=== PATIENT | female | born 1975 | race Caucasian/White ===

== ENCOUNTER → 2016-03-12 | Outpatient (REF) | payer MEDICARE, OTHER ==
[~2016-03-12] MED LIST: BACL10TA2 PO; GABA-279 PO; GABA300C3 PO; LEVOTAB10 PO; LISI-538 PO; META800T82 PO; OXYC5CAP28 PO; SIMV20TA2 PO; STOO100C PO; SYNT50TA PO; VITA-171 PO; YASM3TAB2 PO; [UNRECOGNIZED DRUG - CODE] PO
== END ==
LOC: M LAB REF 12:41
PROVIDERS: ATTEND Nurse Practitioner Women's Health
DX: Z12.4 Encounter for screening for malignant neoplasm of cervix (principal)

== ENCOUNTER → 2016-03-25 | Outpatient (CLI) | payer MEDICARE, OTHER ==
--- NOTE | 2016-03-27 00:11 | ECWPNPC ---
PATIENT NAME: ILAN PAGE : 1975 GENDER: FEMALE VISIT DATE: 03/25/2016 DISCHARGE DATE: 03/25/16 1635 VISIT LOCKED DATE TIME: PHYSICIAN: NATALIA AGGARWAL RESOURCE: NATALIA AGGARWAL REASON FOR APPOINTMENT 1. BACK PAIN HISTORY OF PRESENT ILLNESS HISTORY OF PRESENT ILLNESS: PAIN THE PATIENT DESCRIBES THE PAIN... 40 YEAR OLD FEMALE PATIENT WITH HISTORY OF CHRONIC BACK AND RIB PAIN. PATIENT DESCRIBES THE PAIN ACHING, BURNING, SHARP, STABBING, TENDER, THROBBING, SORE, SHOOTING AND HAVING IT ALL THE TIME WITH A PAIN SCORE OF 6/10. PATIENT IS CURRENTLY USING OXYCODONE TO AID IN PAIN RELIEF. PATIENT RECEIVED AN INJECTION A FEW MONTHS AGO AND STATES THAT SHE IS WILLING TO TRY THE INJECTION ANOTHER TIME. PATIENT STATES THAT ANY TYPE OF ACTIVITY INCREASES THE PAIN AND AT THIS TIME THE ONLY THING THAT HAS GIVEN HER PAIN RELIEF IN THE MEDICATION. PATIENT DENIES UNEXPLAINABLE WEIGHT LOSS, FEVER, CHILLS, NEW CHANGES ON HER URINARY OR BOWEL CONTROL. FALL RISK SCREENING: SCREENING :NO FALLS IN THE PAST YEAR CURRENT MEDICATIONS TAKING VITAMIN D 1000 UNIT TABLET 1 TABLET ORALLY ONCE A DAY TAKING ANUPAM 28 3-0.03 MG TABLET 1 TABLET ORALLY ONCE A DAY TAKING SYNTHROID 50 50MCG TABLET DIRECTED ORAL ONCE DAILY TAKING SIMVASTATIN 20 20MG TABLET 1 TABLET ORALLY ONCE A DAY TAKING LISINOPRIL 20 MG TABLET 1 TABLET ORALLY ONCE A DAY TAKING OXYCODONE HCL 7.5 MG TABLET ABUSE-DETERRENT 1 TABLET NEEDED ORALLY FOUR TIMES DAILY NEEDED TAKING OMEPRAZOLE 40 MG PACKET 1 CAP(S) ORALLY ONCE DAILY TAKING STOOL SOFTENER 100 MG CAPSULE 1 CAPSULE NEEDED ORALLY BID TAKING LEVOCETIRIZINE DIHYDROCHLORIDE 5 MG TABLET 1 TABLET IN THE EVENING ORALLY ONCE A DAY TAKING ATIVAN 2 MG TABLET 1 TABLET AT BEDTIME NEEDED ORALLY ONCE A DAY NOT-TAKING FLECTOR 1.3 % PATCH 1 PATCH TO SKIN TRANSDERMAL TWICE A DAY FOR PAIN NOT-TAKING ASTELIN 137 MCG/SPRAY SOLUTION 1 PUFF NASALLY NEEDED NOT-TAKING TESSALON PERLES 100 MG CAPSULE 1 CAPSULE NEEDED ORALLY THREE TIMES A DAY NOT-TAKING PENNSAID 1.5% 1.5% DROPS 40 AT RIGHT RIB AREA THREE TIMES DAILY NOT-TAKING GABAPENTIN 300 MG CAPSULE 1 CAPSULE ORALLY FOUR TIMES A DAY 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 FAMILY HISTORY NO FAMILY HISTORY DOCUMENTED. SOCIAL HISTORY GENERAL: TOBACCO USE ARE YOU A:NONSMOKER LEARNING BARRIERS / SPECIAL NEEDS ORIENTED TO PLAN OF CARE: PATIENT, PAIN MANAGEMENT PATIENT, ORIENTED TO PLAN OF CARE: PATIENT, PAIN MANAGEMENT PATIENT. NEW PATIENT PAIN DIARY TODAY'S VISITNOTES FROM 0-10, WHAT LEVEL IS YOUR PAIN TODAY?0 PAIN CLINIC PFS, CLERGY, PUBLIC HEALTH REFERRALS PFS REFERRAL NEEDED?NO CLERGY REFERRAL NEEDED?NO PUBLIC HEALTH REFERRAL NEEDED?NO WAS THE PROVIDER NOTIFIED OF ANY PERTINENT INFO?NO PFS REFERRAL NEEDED?NO CLERGY REFERRAL NEEDED?NO PUBLIC HEALTH REFERRAL NEEDED?NO WAS THE PROVIDER NOTIFIED OF ANY PERTINENT INFO?NO HOSPITALIZATION/MAJOR DIAGNOSTIC PROCEDURE NO HOSPITALIZATION HISTORY. REVIEW OF SYSTEMS CONSTITUTIONAL: ANY CHANGE IN YOUR MEDICAL CONDITION? NO . CHILLS NO . FEVER NO . INFECTION: DO YOU HAVE NEW INFECTIONS? NO . DO YOU HAVE HISTORY OF MRSA? NO . MUSCULOSKELETAL: ANY NEW PATTERNS OF PAIN OR NUMBNESS? NO . GASTROENTEROLOGY: ANY NEW CHANGE IN BOWEL CONTROL? NO . GENITOURINARY: ANY NEW CHANGE IN BLADDER CONTROL? NO . IS THERE A CHANCE YOU COULD BE ? NO . HEMATOLOGY/LYMPH: DO YOU TAKE ANY BLOOD THINNERS? (FOR EXAMPLE- COUMADIN, PLAVIX, AGGRENOX, PLATEL, PRADAXA, OR XARELTO) NO . WHEN WAS YOUR LAST DOSE? DATE: TIME: . NEUROLOGY: HAVE YOU FALLEN IN THE PAST 6 MONTHS? NO . ANY NEW EXTREMITY NUMBNESS OR WEAKNESS? NO . CARDIOLOGY: DO YOU HAVE A PACEMAKER OR DEFIBRILLATOR? NO . RESPIRATORY: HAVE YOU BEEN SICK IN THE PAST WEEK? NO . FEVER NO . FLU LIKE SYMPTOMS? NO . COUGH NO . INTEGUMENTARY: DO YOU HAVE ANY RASHES OR OPEN SORES? NO . ALLERGIC/IMMUNO: ARE YOU ALLERGIC TO SHELLFISH OR IV DYE? NO . ANY NEW ALLERGIES? NO . PSYCHIATRIC: DO YOU HAVE THOUGHTS OF HURTING YOURSELF OR SOMEONE ELSE? NO . ARE YOU ABUSED, NEGLECTED, OR IN AN UNSAFE ENVIRONMENT? NO . ENDOCRINOLOGY: ARE YOU DIABETIC? NO . OTHER: DO YOU NEED ANY PRESCRIPTIONS? NO . IF YES, PLEASE LIST: ____ . ANY NEW PROBLEMS WITH YOUR MEDICATIONS? NO . WHEN DID YOU LAST EAT? ____ . WHEN DID YOU LAST DRINK? ____ . WHAT DID YOU LAST DRINK? ____ . NAME OF PERSON DRIVING YOU HOME? ____ . DO YOU HAVE ANY OTHER QUESTIONS OR CONCERNS NO . REVIEWED BY: PROVIDER: NATALIA AGGARWAL MD . VITAL SIGNS WT 299 LBS, HT 67 IN, BMI 46.82 INDEX, BP 134/65 MM HG, HR 95 /MIN, RR 18 /MIN, TEMP 98.8 F, OXYGEN SAT % 90%, NA INITIALS SC 14:42, REVIEWED BY: AD. EXAMINATION : PATIENT IS ALERT ORIENTED 3 AND COOPERATIVE. THERE IS TENDERNESS AND PAIN OVER THE THORACIC AREA. CT OF THE LUMBAR SPINE DONE ON JUNE 2015 SHOWS BULGING DISC AT L4-L5 AND L5-S1 WITH SOME FACET ARTHROPATHY CHANGES CT OF THE THORACIC SPINE DONE ON JANUARY 2015 SHOWS FACET ARTHROPATHY CHANGES AT MULTIPLE LEVELS NARROWING OF THE SPINAL CANAL WITH BULGING DISC AT T12-L1. 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 PAGE'S PAIN MANAGEMENT CASE. AT THIS TIME THE PATIENT WILL CONTINUE WITH THE SAME MEDICATION REGIME BEFORE. PATIENT REPORTS HAVING PAIN IN THE RIGHT RIB AREA ALONG WITH THE BACK. I WOULD LIKE TO VIEW THE PATIENT UNDER X-RAY TO DETERMINE WHETHER A THORACIC OR LUMBAR FACET BLOCK WILL AID THE MOST IN PAIN RELIEF. WE DISCUSSED THE RISKS, BENEFITS, AND ALTERNATIVES OF THE INJECTION AND THE PATIENT WOULD LIKE TO PROCEED. FOR THE PATIENT'S RIB PAIN I BELIEVE SHE WILL BENEFIT FROM A INTERCOSTAL INJECTION, WE DISCUSSED THE RISKS, BENEFITS, AND ALTERNATIVES OF THE INJECTION AND THE PATIENT WOULD LIKE TO PROCEED WITH THIS WELL. AT THIS TIME THE PATIENT STILL DOES NOT WANT TO MOVE FORWARD WITH A DCS AT THIS TIME. INSTRUCTIONS WERE GIVEN, QUESTIONS WERE ANSWERED, PATIENT REPORTS UNDERSTANDING AND AGREES WITH THE PLAN. I, NOREEN BATRES, DOCUMENTED THE ABOVE INFORMATION ACTING A SCRIBE FOR DR. AGGARWAL. I HAVE REVIEWED THE ABOVE DOCUMENT, WRITTEN BY NOREEN ALARCON AND I VERIFY THAT IT IS ACCURATE. PROCEDURE CODES FA211 ESTABILISHED PATIENT [facility] FAC[facility] CHARGE G8427 DOC MEDS VERIFIED W/PT OR RE G6647 PAIN ASSESS POS TOOL F/U PLAN DOC FOLLOW UP INJECTIONS AFTER APPROVAL ELECTRONICALLY SIGNED BY NATALIA AGGARWAL MD ON 03/26/2016 AT 08:31 PM EST DISCLAIMER : THIS IS A VISIT SUMMARY EXTRACTED FROM THE REAL [employer] CHART. IT IS NOT A COPY OF THE REAL [employer] PROGRESS NOTE. HERSON
== END ==
LOC: M PAIN 14:20
PROVIDERS: ATTEND Anesthesiology
DX: M47.814 Spondylosis without myelopathy or radiculopathy, thoracic region (principal); M47.816 Spondylosis without myelopathy or radiculopathy, lumbar region; M47.817 Spondylosis without myelopathy or radiculopathy, lumbosacral region; M47.815 Spondylosis without myelopathy or radiculopathy, thoracolumbar region; G58.8 Other specified mononeuropathies; G89.29 Other chronic pain; M54.9 Dorsalgia, unspecified; R07.81 Pleurodynia; Z79.891 Long term (current) use of opiate analgesic; Z79.899 Other long term (current) drug therapy; Z88.8 Allergy status to other drugs, medicaments and biological substances

== ENCOUNTER 2016-03-29 13:23 | Emergency (ER) | payer MEDICARE, OTHER ==
--- NOTE | 2016-03-29 16:31 | EDDOCDS ---
Physician Documentation [facility] Name: Mery Cardoso Age: 40 yrs Sex: Female : 1975 Arrival Date: 03/29/2016 Time: 13:23 Bed PR Private MD: Sal Rodriguez A. Disposition: 03/29/16 16:25 Discharged to Home/Self Care. Impression: Contusion of left front wall of thorax. - Condition is Stable. - Discharge Instructions: Rib Contusion, Chest Contusion. - Medication Reconciliation, Local Pharmacy Hours form. - Follow up: Sal Rodriguez; When: Call to arrange an appointment; Reason: Recheck today's complaints, Continuance of care. - Problem is new. - Symptoms are unchanged. Historical: - Allergies: no known allergies; - Home Meds: 1. levocetirizine 5 mg oral tab 1 tab once daily 2. levothyroxine 50 mcg Oral tab 1 tab once daily 3. lisinopril 20 mg Oral tab 1 tab once daily 4. omeprazole 40 mg oral cpDR 5. Oxycodone HCl 7.5 mg Oral as needed 6. simvastatin 20 mg Oral tab 1 tab nightly 7. Vitamin D Oral 1000 unit nightly 8. Wanda (28) 3-0.03 mg Oral tab 1 tab nightly 9. Ativan 2 mg Oral tab 1 tab once daily 10. Colace 100 mg oral cap 2 times per day - PMHx: Hypercholesterolemia; Hypertension; - PSHx: Carpal Tunnel Repair- Right; Exploratory lap; Orthopedic Surgery; Endoscopy, Upper; - Social history: Smoking status: Patient states was never smoker of tobacco. No barriers to communication noted, The patient speaks fluent Thai. - Family history: Not pertinent. - : The pt / caregiver states he / she is not on anticoagulants. Home medication list is obtained from the patient. - Exposure Risk Screening:: None identified. 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 7 in. (170.18 cm) (R); Pain 10/10; 15:57 BP 129 / 79; Pulse 70; Resp 18; Temp 97.6(O); Pulse Ox 98% on R/A; Pain 10; ct3 13:24 Body Mass Index 46.83 (135.62 kg, 170.18 cm) elp MDM: 15:15 Rib Unilat W/PA Chest Only Ordered. EDMS 15:29 Financial registration complete. lg 15:48 [facility] Payment Agreement was scanned into [employer] and attached to record. lg Signatures: Dispatcher [employer] EDMS Raul Waldrop, RN RN dwGerardo Bucio, Reg Reg lg Patience Joaquin RN RN rs3 Pino Ward PA PA mo1 The chart was reviewed and I authenticate all verbal orders and agree with the evaluation and treatment provided.Attachments: 15:48 [facility] Payment Agreement lg MTDD
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
--- NOTE | 2016-03-31 17:31 | EDDOCDS ---
Physician Documentation [facility] Name: Mery Cardoso Age: 40 yrs Sex: Female : 1975 Arrival Date: 03/29/2016 Time: 13:23 Bed PR Private MD: Sal Rodriguez A. Disposition: 03/29/16 16:25 Discharged to Home/Self Care. Impression: Contusion of left front wall of thorax. - Condition is Stable. - Discharge Instructions: Rib Contusion, Chest Contusion. - Medication Reconciliation, Local Pharmacy Hours form. - Follow up: Sal Rodriguez; When: Call to arrange an appointment; Reason: Recheck today's complaints, Continuance of care. - Problem is new. - Symptoms are unchanged. Historical: - Allergies: no known allergies; - Home Meds: 1. levocetirizine 5 mg oral tab 1 tab once daily 2. levothyroxine 50 mcg Oral tab 1 tab once daily 3. lisinopril 20 mg Oral tab 1 tab once daily 4. omeprazole 40 mg oral cpDR 5. Oxycodone HCl 7.5 mg Oral as needed 6. simvastatin 20 mg Oral tab 1 tab nightly 7. Vitamin D Oral 1000 unit nightly 8. Wanda (28) 3-0.03 mg Oral tab 1 tab nightly 9. Ativan 2 mg Oral tab 1 tab once daily 10. Colace 100 mg oral cap 2 times per day - PMHx: Hypercholesterolemia; Hypertension; - PSHx: Carpal Tunnel Repair- Right; Exploratory lap; Orthopedic Surgery; Endoscopy, Upper; - Social history: Smoking status: Patient states was never smoker of tobacco. No barriers to communication noted, The patient speaks fluent Occitan. - Family history: Not pertinent. - : The pt / caregiver states he / she is not on anticoagulants. Home medication list is obtained from the patient. - Exposure Risk Screening:: None identified. 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 7 in. (170.18 cm) (R); Pain 10/10; 15:57 BP 129 / 79; Pulse 70; Resp 18; Temp 97.6(O); Pulse Ox 98% on R/A; Pain 10; ct3 13:24 Body Mass Index 46.83 (135.62 kg, 170.18 cm) elp MDM: 15:15 Rib Unilat W/PA Chest Only Ordered. EDMS 15:29 Financial registration complete. lg 15:48 [facility] Payment Agreement was scanned into [employer] and attached to record. lg 03/30 12:48 T-Sheet-- Draft Copy was scanned into [employer] and attached to record. gb Signatures: Dispatcher [employer] EDMS Raul Waldrop, RN RN dwg Maegan Hill, Reg Reg gb Gerardo Matias, Reg Reg lg Patience Joaquin,RN RN rs3 Pino Ward, PA PA mo1 The chart was reviewed and I authenticate all verbal orders and agree with the evaluation and treatment provided.Attachments: 03/29 15:48 [facility] Payment Agreement lg 03/30 12:48 T-Sheet-- Draft Copy gb Chart Complete MTDD
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
--- NOTE | 2016-03-31 17:31 | EDDOCDS ---
Physician Documentation [facility] Name: Mery Cardoso Age: 40 yrs Sex: Female : 1975 Arrival Date: 03/29/2016 Time: 13:23 Bed PR Private MD: Sal Rodriguez A. Disposition: 03/29/16 16:25 Discharged to Home/Self Care. Impression: Contusion of left front wall of thorax. - Condition is Stable. - Discharge Instructions: Rib Contusion, Chest Contusion. - Medication Reconciliation, Local Pharmacy Hours form. - Follow up: Sal Rodriguez; When: Call to arrange an appointment; Reason: Recheck today's complaints, Continuance of care. - Problem is new. - Symptoms are unchanged. Historical: - Allergies: no known allergies; - Home Meds: 1. levocetirizine 5 mg oral tab 1 tab once daily 2. levothyroxine 50 mcg Oral tab 1 tab once daily 3. lisinopril 20 mg Oral tab 1 tab once daily 4. omeprazole 40 mg oral cpDR 5. Oxycodone HCl 7.5 mg Oral as needed 6. simvastatin 20 mg Oral tab 1 tab nightly 7. Vitamin D Oral 1000 unit nightly 8. Wanda (28) 3-0.03 mg Oral tab 1 tab nightly 9. Ativan 2 mg Oral tab 1 tab once daily 10. Colace 100 mg oral cap 2 times per day - PMHx: Hypercholesterolemia; Hypertension; - PSHx: Carpal Tunnel Repair- Right; Exploratory lap; Orthopedic Surgery; Endoscopy, Upper; - Social history: Smoking status: Patient states was never smoker of tobacco. No barriers to communication noted, The patient speaks fluent Albanian. - Family history: Not pertinent. - : The pt / caregiver states he / she is not on anticoagulants. Home medication list is obtained from the patient. - Exposure Risk Screening:: None identified. 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 7 in. (170.18 cm) (R); Pain 10/10; 15:57 BP 129 / 79; Pulse 70; Resp 18; Temp 97.6(O); Pulse Ox 98% on R/A; Pain 10; ct3 13:24 Body Mass Index 46.83 (135.62 kg, 170.18 cm) elp MDM: 15:15 Rib Unilat W/PA Chest Only Ordered. EDMS 15:29 Financial registration complete. lg 15:48 [facility] Payment Agreement was scanned into [employer] and attached to record. lg 03/30 12:48 T-Sheet-- Draft Copy was scanned into [employer] and attached to record. gb Signatures: Dispatcher MedHost EDMS Raul Waldrop, RN RN dwg Maegan Hill, Reg Reg gb Gerardo Matias, Reg Reg lg Patience Joaquin,RN RN rs3 Pino Ward, PA PA mo1 The chart was reviewed and I authenticate all verbal orders and agree with the evaluation and treatment provided.Attachments: 03/29 15:48 [facility] Payment Agreement lg 03/30 12:48 T-Sheet-- Draft Copy gb Chart Complete MTDD
== END 2016-03-29 16:31 | disposition home or self-care (01) ==
LOC: M ED 13:23
DX: S20.212A Contusion of left front wall of thorax, initial encounter (principal); W51.XXXA Accidental striking against or bumped into by another person, initial encounter; Y92.89 Other specified places as the place of occurrence of the external cause; Y93.89 Activity, other specified; Y99.8 Other external cause status; I10 Essential (primary) hypertension; E78.00 Pure hypercholesterolemia, unspecified; Z79.899 Other long term (current) drug therapy; Z79.3 Long term (current) use of hormonal contraceptives

== ENCOUNTER 2016-04-01 14:29 | Emergency (ER) | payer MEDICARE, OTHER ==
[2016-04-01] MEDS ORDERED: KETOROLAC 30 MG/ML VIAL (J1885) As Ordered ONE (15:58)
--- NOTE | 2016-04-01 16:23 | REP ---
Chest two views HISTORY: Chest pain Comparison: 03/29/2016 Linear density is present in the left lower lobe consistent with atelectasis or scar. The right lung is clear. The heart is normal in size. The pulmonary vasculature is normal in appearance. The bony structure is intact. IMPRESSION: Left lower lobe atelectasis or scar. Signed by Harmeet De La Cruz MD 04/01/2016 04:14 P
--- NOTE | 2016-04-01 17:41 | EDDOCDS ---
Physician Documentation [facility] Name: Mery Cardoso Age: 40 yrs Sex: Female : 1975 Arrival Date: 04/01/2016 Time: 14:29 Bed PR Private MD: Sal Rodriguez Disposition: 04/01/16 17:24 Discharged to Home/Self Care. Impression: Chest pain on breathing. - Condition is Stable. - Discharge Instructions: Chest Wall Pain. - Prescriptions for lidocaine 3.75 % Topical cream - apply 1 application by TOPICAL route 2-3 times daily As needed apply to left chest area and cover; 30 gram. Cyclobenzaprine 10 mg Oral Tablet - take 1 tablet by ORAL route 3 times per day As needed; 15 tablet. - Medication Reconciliation, Local Pharmacy Hours form. - Follow up: Emergency Department; When: As needed. Follow up: Sal Rodriguez MD; When: 2 - 3 days; Reason: Wound/Symptom Recheck, Recheck today's complaints, Worsening of conditions, Continuance of care. - Problem is an ongoing problem. - Symptoms are unchanged. Historical: - Allergies: No known drug Allergies; - Home Meds: 1. Ativan 2 mg Oral cap 1 tab once daily (Last dose: 04/01/2016 01:30) 2. Colace 100 mg oral cap 2 times per day (Last dose: 04/01/2016 11:00) 3. levocetirizine 5 mg oral cap 1 tab once daily (Last dose: 04/01/2016 11:00) 4. levothyroxine 50 mcg Oral cap 1 tab once daily (Last dose: 04/01/2016 11:00) 5. lisinopril 20 mg Oral cap 1 tab once daily (Last dose: 04/01/2016 11:00) 6. omeprazole 40 mg Oral cpDR (Last dose: 04/01/2016 11:00) 7. Oxycodone HCl 7.5 mg Oral as needed three times a day (Last dose: 04/01/2016 11:00) 8. simvastatin 20 mg Oral cap 1 tab nightly (Last dose: 03/31/2016 23:00) 9. Vitamin D Oral 1000 unit nightly (Last dose: 03/31/2016 23:00) 10. Wanda (28) 3-0.03 mg Oral cap 1 tab nightly (Last dose: 03/31/2016 23:00) - PMHx: Hypercholesterolemia; Hypertension; Chronic Back pain; chronic rib pain; - PSHx: Carpal Tunnel Repair- Right; Exploratory lap; Orthopedic Surgery; Endoscopy, Upper; - Social history: Smoking status: Patient states was never smoker of tobacco. No barriers to communication noted, The patient speaks fluent Indian, Speaks appropriately for age. - Family history: Not pertinent. - : The pt / caregiver states he / she is not on anticoagulants. Home medication list is obtained from the patient. - Exposure Risk Screening:: None identified. 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 7 in. (170.18 cm) (R); Pain 10/10; 17:11 Pain 4/10; js13 17:15 BP 143 / 86 RA Sitting (auto/lg); Pulse 88; Resp 20; Temp 99.1(O); Pulse Ox 95% ; Pain ar3 10/10; 14:30 Body Mass Index 46.83 (135.62 kg, 170.18 cm) dd6 17:15 pt stated that the pain medicine did not work, P/S still 12/17, RN notified ar3 MDM: 15:57 ketorolac 60 mg IM once ordered. cc10 15:58 Chest, 2 View (pa\E\lat) Ordered. EDMS 16:10 Financial registration complete. gjb 16:27 [facility] Payment Agreement was scanned into Fetch MD and attached to record. gjb 17:09 Chest, 2 View (pa\E\lat) Reviewed. cc10 17:23 Call Respiratory ordered. cc10 17:23 -Incentive Spirometer ordered. cc10 17:32 Call Respiratory complete. ml6 Administered Medications: 16:00 Drug: ketorolac 60 mg [ketorolac 30 mg/mL (1 mL) injection solution (2 mL)] Route: IM; js13 Site: right deltoid; 17:11 Follow up: Pain 4/10 Adult js13 17:12 Follow up: Response: Pain is decreased js13 Signatures: Dispatcher MedHost Jass Villela, RN RN ml6 Elvi Smith RN RN hs1 Lily SosaRN RN js13 Riley Rutledge PA-C PAEssie sweet10 Cat Leung The chart was reviewed and I authenticate all verbal orders and agree with the evaluation and treatment provided.Attachments: 16:27 [facility] Payment Agreement salvador MTDD
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
--- NOTE | 2016-04-03 18:43 | EDDOCDS ---
Physician Documentation [facility] Name: Mery Cardoso Age: 40 yrs Sex: Female : 1975 Arrival Date: 04/01/2016 Time: 14:29 Bed PR Private MD: Sal Rodriguez Disposition: 04/01/16 17:24 Discharged to Home/Self Care. Impression: Chest pain on breathing. - Condition is Stable. - Discharge Instructions: Chest Wall Pain. - Prescriptions for lidocaine 3.75 % Topical cream - apply 1 application by TOPICAL route 2-3 times daily As needed apply to left chest area and cover; 30 gram. Cyclobenzaprine 10 mg Oral Tablet - take 1 tablet by ORAL route 3 times per day As needed; 15 tablet. - Medication Reconciliation, Local Pharmacy Hours form. - Follow up: Emergency Department; When: As needed. Follow up: Sal Rodriguez MD; When: 2 - 3 days; Reason: Wound/Symptom Recheck, Recheck today's complaints, Worsening of conditions, Continuance of care. - Problem is an ongoing problem. - Symptoms are unchanged. Historical: - Allergies: No known drug Allergies; - Home Meds: 1. Ativan 2 mg Oral cap 1 tab once daily (Last dose: 04/01/2016 01:30) 2. Colace 100 mg oral cap 2 times per day (Last dose: 04/01/2016 11:00) 3. levocetirizine 5 mg oral cap 1 tab once daily (Last dose: 04/01/2016 11:00) 4. levothyroxine 50 mcg Oral cap 1 tab once daily (Last dose: 04/01/2016 11:00) 5. lisinopril 20 mg Oral cap 1 tab once daily (Last dose: 04/01/2016 11:00) 6. omeprazole 40 mg Oral cpDR (Last dose: 04/01/2016 11:00) 7. Oxycodone HCl 7.5 mg Oral as needed three times a day (Last dose: 04/01/2016 11:00) 8. simvastatin 20 mg Oral cap 1 tab nightly (Last dose: 03/31/2016 23:00) 9. Vitamin D Oral 1000 unit nightly (Last dose: 03/31/2016 23:00) 10. Wanda (28) 3-0.03 mg Oral cap 1 tab nightly (Last dose: 03/31/2016 23:00) - PMHx: Hypercholesterolemia; Hypertension; Chronic Back pain; chronic rib pain; - PSHx: Carpal Tunnel Repair- Right; Exploratory lap; Orthopedic Surgery; Endoscopy, Upper; - Social history: Smoking status: Patient states was never smoker of tobacco. No barriers to communication noted, The patient speaks fluent Puerto Rican, Speaks appropriately for age. - Family history: Not pertinent. - : The pt / caregiver states he / she is not on anticoagulants. Home medication list is obtained from the patient. - Exposure Risk Screening:: None identified. DIRECTOR OF COUNSELING: 04/01 15:57 LMP 04/01/2016 js13 Vital Signs: 14:30 BP 136 / 90; Pulse 88; Resp 18 S; Temp 97.6(O); Pulse Ox 98% on R/A; Weight 135.62 kg / dd6 298.99 lbs (R); Height 5 ft. 7 in. (170.18 cm) (R); Pain 10/10; 17:11 Pain 4/10; js13 17:15 BP 143 / 86 RA Sitting (auto/lg); Pulse 88; Resp 20; Temp 99.1(O); Pulse Ox 95% ; Pain ar3 10/10; 14:30 Body Mass Index 46.83 (135.62 kg, 170.18 cm) dd6 17:15 pt stated that the pain medicine did not work, P/S still 12/17, RN notified ar3 MDM: 15:57 ketorolac 60 mg IM once ordered. cc10 15:58 Chest, 2 View (pa\E\lat) Ordered. EDMS 16:10 Financial registration complete. gjb 16:27 [facility] Payment Agreement was scanned into [email or web address] and attached to record. gjb 17:09 Chest, 2 View (pa\E\lat) Reviewed. cc10 17:23 Call Respiratory ordered. cc10 17:23 -Incentive Spirometer ordered. cc10 17:32 Call Respiratory complete. ml6 04/02 12:47 T-Sheet-- Draft Copy was scanned into [email or web address] and attached to record. gb Administered Medications: 04/01 16:00 Drug: ketorolac 60 mg [ketorolac 30 mg/mL (1 mL) injection solution (2 mL)] Route: IM; js13 Site: right deltoid; 17:11 Follow up: Pain 06/17 Adult js13 17:12 Follow up: Response: Pain is decreased js13 Signatures: Dispatcher [employer] EDMaegan Davis, Reg Reg gb Jass Pickering, RN RN ml6 Elvi Smith RN RN hs1 Lily Sosa RN RN js13 Riley Rutledge PA-C PAEssie cc10 Cat Leung The chart was reviewed and I authenticate all verbal orders and agree with the evaluation and treatment provided.Attachments: 16:27 [facility] Payment Agreement gjb 04/02 12:47 T-Sheet-- Draft Copy gb Chart Complete MTDD
--- NOTE | 2016-04-03 18:43 | EDDOCDS ---
Nurse's Notes [facility] Name: Mery Cardoso Age: 40 yrs Sex: Female : 1975 Arrival Date: 04/01/2016 Time: 14:29 Bed PR1 / Private MD: Sal Rodriguez Diagnosis: Chest pain on breathing Presentation: 04/01 14:37 Presenting complaint: Patient states: "I was in the other day with my rib. IM back for hs1 the same- it hurts and there is stuff in there and not it hurts all the way across and its getting worse instead of better, I cant hardly cough" Patient states the oxycodone is not helping. Adult Sepsis Screening: The patient does not have new or worsening altered mentation. Patient's respiratory rate is less than 22. Systolic blood pressure is greater than 100. Patient has a qSOFA score of 0- Negative Sepsis Screen. Suicide/Homicide risk assessment- the patient denies having any suicidal and/or homicidal ideations and does not present with any other emotional, behavioral or mental health complaints. Status: Patient is not a service correspondent or dependent. Transition of care: patient was not received from another setting of care. 14:37 Acuity: VIOLETTA Level 4 hs1 14:37 Method Of Arrival: Walkin/Carried/Asstd hs1 Triage Assessment: 14:42 General: Appears in no apparent distress, Behavior is appropriate for age, cooperative. hs1 Pain: Location: diaphragm Pain currently is 10 out of 10 on a pain scale. HIV screening NA for this visit Offered previously. Respiratory: Airway is patent Respiratory effort is even, unlabored, Respiratory pattern is regular, symmetrical. Derm: Skin is pink, warm & dry. normal. 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 Ativan 2 mg Oral cap 1 tab once daily (Last dose: 04/01/2016 01:30) 2. Colace 100 mg oral cap 2 times per day (Last dose: 04/01/2016 11:00) 3. levocetirizine 5 mg oral cap 1 tab once daily (Last dose: 04/01/2016 11:00) 4. levothyroxine 50 mcg Oral cap 1 tab once daily (Last dose: 04/01/2016 11:00) 5. lisinopril 20 mg Oral cap 1 tab once daily (Last dose: 04/01/2016 11:00) 6. omeprazole 40 mg Oral cpDR (Last dose: 04/01/2016 11:00) 7. Oxycodone HCl 7.5 mg Oral as needed three times a day (Last dose: 04/01/2016 11:00) 8. simvastatin 20 mg Oral cap 1 tab nightly (Last dose: 03/31/2016 23:00) 9. Vitamin D Oral 1000 unit nightly (Last dose: 03/31/2016 23:00) 10. Wanda (28) 3-0.03 mg Oral cap 1 tab nightly (Last dose: 03/31/2016 23:00) - PMHx: Hypercholesterolemia; Hypertension; Chronic Back pain; chronic rib pain; - PSHx: Carpal Tunnel Repair- Right; Exploratory lap; Orthopedic Surgery; Endoscopy, Upper; - Social history: Smoking status: Patient states was never smoker of tobacco. No barriers to communication noted, The patient speaks fluent Bahraini, Speaks appropriately for age. - Family history: Not pertinent. - : The pt / caregiver states he / she is not on anticoagulants. Home medication list is obtained from the patient. - Exposure Risk Screening:: None identified. Screenin:56 Screening information is obtained from the patient. Fall risk: No risks identified. js13 Assistance ADL's: requires no assistance with activities of daily living. Abuse/DV Screen: The patient / caregiver reports he/she is: not in a situation that causes fear, pain or injury. Nutritional screening: No deficits noted. Advance Directives: There is no active DNR order. home support is adequate. Assessment: 15:56 General: Appears in no apparent distress, Behavior is appropriate for age, cooperative. js13 Pain: Location: diaphragm Pain currently is 5 out of 10 on a pain scale. Neurological: Level of Consciousness is awake, alert. Cardiovascular: Chest pain is denied. Respiratory: Airway is patent Respiratory effort is even, unlabored, Respiratory pattern is regular, symmetrical. Derm: Skin is pink, warm & dry. normal. 17:10 General: Appears in no apparent distress, Behavior is appropriate for age, cooperative. js13 Pain: Location: diaphragm Pain currently is 4 out of 10 on a pain scale. Neurological: Level of Consciousness is awake, alert. Cardiovascular: Chest pain is denied. Respiratory: Airway is patent Respiratory effort is even, unlabored, Respiratory pattern is regular, symmetrical, Breath sounds with rhonchi. Derm: No deficits noted. Skin is pink, warm & dry. Vital Signs: 14:30 BP 136 / 90; Pulse 88; Resp 18 S; Temp 97.6(O); Pulse Ox 98% on R/A; Weight 135.62 kg dd6 (R); Height 5 ft. 7 in. (170.18 cm) (R); Pain 10/10; 17:11 Pain 4/10; js13 17:15 BP 143 / 86 RA Sitting (auto/lg); Pulse 88; Resp 20; Temp 99.1(O); Pulse Ox 95% ; Pain ar3 10/10; 14:30 Body Mass Index 46.83 (135.62 kg, 170.18 cm) dd6 17:15 pt stated that the pain medicine did not work, P/S still 12/17, RN notified ar3 Vitals: 14:30 Log In Time: April 01, 2016 at 14:28. dd6 ED Course: 14:30 Patient visited by Sukhdeep Maria PCA. dd6 14:30 Sal Rodriguez MD is Private Physician. dd6 14:30 Patient moved to Waiting dd6 14:31 Patient moved to Pre RCE dd6 14:39 Triage Initiated hs1 15:01 Patient moved to Triage 3 bnb 15:50 [facility]ledge [facility] cc10 15:50 Celeste Maldonado MD is Attending Physician. cc10 15:51 Patient visited by Riley Rutledge PA-C. cc10 15:51 Patient visited by Riley Rutledge PA-C. cc10 15:56 The patient / caregiver is instructed regarding the plan of care and ED course. js13 15:56 No IV's were initiated during this patient's visit. No procedures done that require [facility] assistance. 16:00 Patient moved to TR1 ar3 16:27 [facility] Payment Agreement was scanned into [employer] and attached to record. gjb 16:35 Chest, 2 View (pa\\E\\lat) Returned. EDMS 17:10 Patient moved to PR / js13 17:17 Patient visited by Hanh Gee PCA. ar3 17:24 Sal Rodriguez MD is Referral Physician. cc10 04/02 12:47 T-Sheet-- Draft Copy was scanned into [employer] and attached to record. gb Administered Medications: 04/01 16:00 Drug: ketorolac 60 mg [ketorolac 30 mg/mL (1 mL) injection solution (2 mL)] Route: IM; js13 Site: right deltoid; 17:11 Follow up: Pain 06/17 Adult js13 17:12 Follow up: Response: Pain is decreased js13 RT: 17:39 Incentive Spirometry performed: 1250 inspirations. Patient tolerated well Patient js11 Effort good. Order Results: Radiology Order: Chest, 2 View (pa\\E\\lat) Test: Chest, 2 View (pa\\E\\lat) REASON FOR EXAMINATION: Chest Pain; Chest two views; ; HISTORY: Chest pain; ; Comparison: 03/29/2016; ; Linear density is present in the left lower lobe consistent with atelectasis or; scar. The right lung is clear. The heart is normal in size. The pulmonary; vasculature is normal in appearance. The bony structure is intact.; ; IMPRESSION: Left lower lobe atelectasis or scar.; ; ; Signed by; Harmeet De La Cruz MD 04/01/2016 04:14 P; Outcome: 17:24 Discharge ordered by Provider. cc10 17:35 Discharge Assessment: patient administered narcotics - no. The following High Risk ml6 Discharge criteria are identified: None. Discharged to home ambulatory. Condition: stable. Discharge instructions given to patient, Instructed on discharge instructions, follow up and referral plans. medication usage, Demonstrated understanding of instructions, medications, Pt was receptive of discharge instructions/ teaching. Prescriptions given X 2. No special radiology studies were completed. Property :Personal belongings accompany Pt. 17:41 Patient left the ED. js13 Signatures: Dispatcher [employer] EDMS Maegan Hill, Reg Reg gb Sukhdeep Maria, INSIDE SALES LEAD INSIDE SALES LEAD dd6 Jass Pickering, RN RN ml6 Hanh Gee, INSIDE SALES LEAD INSIDE SALES LEAD ar3 Elvi Smith RN RN hs1 Robin Sosa js11 Lily Sosa RN RN js13 Riley Rutledge, PA-C PA-C cc10 Cat Leung gjb Silvia Michele, INSIDE SALES LEAD INSIDE SALES LEAD bnb Corrections: (The following items were deleted from the chart) 17:17 17:15 BP 143 / 86 Sitting Auto R Arm Large; Pulse 88bpm; Resp 20bpm; Pulse Ox 95%; Temp ar3 99.1F Oral; Pain 10/10; ar3 Chart Complete MTDD
--- NOTE | 2016-04-03 18:43 | EDDOCDS ---
Physician Documentation [facility] Name: Mery Cardoso Age: 40 yrs Sex: Female : 1975 Arrival Date: 04/01/2016 Time: 14:29 Bed PR Private MD: Sal Rodriguez Disposition: 04/01/16 17:24 Discharged to Home/Self Care. Impression: Chest pain on breathing. - Condition is Stable. - Discharge Instructions: Chest Wall Pain. - Prescriptions for lidocaine 3.75 % Topical cream - apply 1 application by TOPICAL route 2-3 times daily As needed apply to left chest area and cover; 30 gram. Cyclobenzaprine 10 mg Oral Tablet - take 1 tablet by ORAL route 3 times per day As needed; 15 tablet. - Medication Reconciliation, Local Pharmacy Hours form. - Follow up: Emergency Department; When: As needed. Follow up: Sal Rodriguez MD; When: 2 - 3 days; Reason: Wound/Symptom Recheck, Recheck today's complaints, Worsening of conditions, Continuance of care. - Problem is an ongoing problem. - Symptoms are unchanged. Historical: - Allergies: No known drug Allergies; - Home Meds: 1. Ativan 2 mg Oral cap 1 tab once daily (Last dose: 04/01/2016 01:30) 2. Colace 100 mg oral cap 2 times per day (Last dose: 04/01/2016 11:00) 3. levocetirizine 5 mg oral cap 1 tab once daily (Last dose: 04/01/2016 11:00) 4. levothyroxine 50 mcg Oral cap 1 tab once daily (Last dose: 04/01/2016 11:00) 5. lisinopril 20 mg Oral cap 1 tab once daily (Last dose: 04/01/2016 11:00) 6. omeprazole 40 mg Oral cpDR (Last dose: 04/01/2016 11:00) 7. Oxycodone HCl 7.5 mg Oral as needed three times a day (Last dose: 04/01/2016 11:00) 8. simvastatin 20 mg Oral cap 1 tab nightly (Last dose: 03/31/2016 23:00) 9. Vitamin D Oral 1000 unit nightly (Last dose: 03/31/2016 23:00) 10. Wanda (28) 3-0.03 mg Oral cap 1 tab nightly (Last dose: 03/31/2016 23:00) - PMHx: Hypercholesterolemia; Hypertension; Chronic Back pain; chronic rib pain; - PSHx: Carpal Tunnel Repair- Right; Exploratory lap; Orthopedic Surgery; Endoscopy, Upper; - Social history: Smoking status: Patient states was never smoker of tobacco. No barriers to communication noted, The patient speaks fluent Belgian, Speaks appropriately for age. - Family history: Not pertinent. - : The pt / caregiver states he / she is not on anticoagulants. Home medication list is obtained from the patient. - Exposure Risk Screening:: None identified. 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 7 in. (170.18 cm) (R); Pain 10/10; 17:11 Pain 4/10; js13 17:15 BP 143 / 86 RA Sitting (auto/lg); Pulse 88; Resp 20; Temp 99.1(O); Pulse Ox 95% ; Pain ar3 10/10; 14:30 Body Mass Index 46.83 (135.62 kg, 170.18 cm) dd6 17:15 pt stated that the pain medicine did not work, P/S still 12/17, RN notified ar3 MDM: 15:57 ketorolac 60 mg IM once ordered. cc10 15:58 Chest, 2 View (pa\E\lat) Ordered. EDMS 16:10 Financial registration complete. gjb 16:27 [facility] Payment Agreement was scanned into [employer] and attached to record. gjb 17:09 Chest, 2 View (pa\E\lat) Reviewed. cc10 17:23 Call Respiratory ordered. cc10 17:23 -Incentive Spirometer ordered. cc10 17:32 Call Respiratory complete. ml6 04/02 12:47 T-Sheet-- Draft Copy was scanned into [employer] and attached to record. gb Administered Medications: 04/01 16:00 Drug: ketorolac 60 mg [ketorolac 30 mg/mL (1 mL) injection solution (2 mL)] Route: IM; js13 Site: right deltoid; 17:11 Follow up: Pain 06/17 Adult js13 17:12 Follow up: Response: Pain is decreased js13 Signatures: Dispatcher [employer] EDMaegan Davis, Reg Reg gb Jass Pickering, RN RN ml6 Elvi Smith RN RN hs1 Lily Sosa RN RN js13 Riley Rutledge PA-C PAEssie cc10 Cat Leung The chart was reviewed and I authenticate all verbal orders and agree with the evaluation and treatment provided.Attachments: 16:27 [facility] Payment Agreement gjb 04/02 12:47 T-Sheet-- Draft Copy gb Chart Complete MTDD
== END 2016-04-01 17:41 | disposition home or self-care (01) ==
LOC: M ED 14:29
DX: R07.89 Other chest pain (principal); I10 Essential (primary) hypertension; G89.29 Other chronic pain; E78.00 Pure hypercholesterolemia, unspecified; Z79.3 Long term (current) use of hormonal contraceptives; Z79.891 Long term (current) use of opiate analgesic; Z79.899 Other long term (current) drug therapy
CPT/HCPCS: 71020; 96372; 99283; J1885

== ENCOUNTER 2016-04-03 12:06 | Emergency (ER) | payer MEDICARE ==
[2016-04-03] MEDS ORDERED: ACETAMINOPHEN 325 MG TAB As Ordered ONE (14:51)
[2016-04-03] MEDS ORDERED: METOCLOPRAMIDE 10 MG TAB As Ordered ONE (14:51)
[2016-04-03] MEDS ORDERED: AZITHROMYCIN 250 MG TAB As Ordered ONE (14:51)
[2016-04-03] MEDS ORDERED: ONDANSETRON 4 MG ORAL DISINTEGRATING TAB (S0181) As Ordered ONE (14:51)
--- NOTE | 2016-04-03 15:13 | EDDOCDS ---
Physician Documentation [facility] Name: Mery Cardoso Age: 40 yrs Sex: Female : 1975 Arrival Date: 04/03/2016 Time: 12:06 Bed TR8 Private MD: Sal Rodriguez A. Disposition: 04/03/16 14:45 Discharged to Home/Self Care. Impression: Acute sinusitis, Acute bronchitis, Headache - Acute, Nausea and vomiting. - Condition is Stable. - Discharge Instructions: Sinusitis, [id number], Acute Bronchitis, Fwil-od-Djew, Nausea and Vomiting, Fsuu-cs-Ccyi, General Headache Without Cause, Zyxg-pf-Khtf. - Prescriptions for Prednisone 20 mg Oral Tablet - take 3 tablet by ORAL route once daily for 5 days; 15 tablet. Reglan 10 mg Oral Tablet - take 1 tablet by ORAL route every 6 hours take 30 minutes before meals and at bedtime; 20 tablet. Claritin 10 mg Oral Tablet - take 1 tablet by ORAL route once daily As needed; 30 tablet. Mucinex 600 mg - take 1 tablet by ORAL route 2 times per day; 30 tablet. Ibuprofen 800 mg Oral Tablet - take 1 tablet by ORAL route every 8 hours As needed take with food; 30 tablet. Zithromax Z- Ford 250 mg Oral Tablet - take 1 tablet by ORAL route as directed for 5 days Day 1- take two tablets once. Day 2, 3, 4 , 5 take one tablet once daily.; 6 tablet. - Medication Reconciliation, Local Pharmacy Hours form. - Follow up: Sal Rodriguez; When: 1 - 2 days; Reason: Recheck today's complaints, Continuance of care. Follow up: Emergency Department; Reason: Worsening of conditions. - Problem is new. - Symptoms are unchanged. Historical: - Allergies: no known allergies; - Home Meds: 1. Ativan 2 mg Oral cap 1 tab once daily 2. Colace 100 mg oral cap 2 times per day 3. levocetirizine 5 mg oral cap 1 tab once daily 4. levothyroxine 50 mcg Oral cap 1 tab once daily 5. lisinopril 20 mg Oral cap 1 tab once daily 6. omeprazole 40 mg Oral cpDR 7. Oxycodone HCl 7.5 mg Oral as needed three times a day 8. simvastatin 20 mg Oral cap 1 tab nightly 9. Vitamin D Oral 1000 unit nightly 10. Wanda (28) 3-0.03 mg Oral cap 1 tab nightly - PMHx: Chronic Back pain; chronic rib pain; Hypercholesterolemia; Hypertension; - PSHx: Carpal Tunnel Repair- Right; Exploratory lap; Orthopedic Surgery; Endoscopy, Upper; - Social history: Smoking status: Patient states was never smoker of tobacco. No barriers to communication noted, The patient speaks fluent Albanian, Speaks appropriately for age. - Family history: Pertinent for influenza. - : The pt / caregiver states he / she is not on anticoagulants. Home medication list is obtained from the patient. - Exposure Risk Screening:: None identified. RN PRIOR AUTHORIZATION: 04/03 12:17 LMP 03/23/2016 mlb1 Vital Signs: 12:07 BP 165 / 97; Pulse 117; Resp 18; Temp 99.1(O); Pulse Ox 99% on R/A; Weight 135.62 kg / elp 298.99 lbs; Height 5 ft. 7 in. (170.18 cm); 14:51 BP 136 / 84; Pulse 110; Resp 20; Temp 98.9; Pulse Ox 98% ; Pain 10/10; cmb 12:07 Body Mass Index 46.83 (135.62 kg, 170.18 cm) elp MDM: 12:20 -Influenza A&B Rapid Antigen - Nose Ordered. EDMS 13:30 Strep Screen, Nursing ordered. ef1 13:58 -Influenza A&B Rapid Antigen - Nose Reviewed. ef1 14:07 GATS (NEGATIVE STREP SCREEN) Ordered. EDMS 14:21 Financial registration complete. mm15 14:21 [facility] Payment Agreement was scanned into [employer] and attached to record. mm15 14:45 Ondansetron ODT Oral Disintegrating Tablet 4 mg PO once ordered. ef1 14:45 Acetaminophen Tablet 975 mg PO once ordered. ef1 14:45 Metoclopramide 10 mg PO once ordered. ef1 14:45 azithromycin 500 mg PO once ordered. ef1 14:45 Recheck B/P ordered. ef1 Administered Medications: 15:10 Not Given (Patient Refused): Ondansetron ODT Oral Disintegrating Tablet 4 mg PO once mcp 15:10 Not Given (Patient Refused): Acetaminophen Tablet 975 mg PO once mcp 15:10 Not Given (Patient Refused): Metoclopramide 10 mg PO once mcp 15:10 Not Given (Patient Refused): azithromycin 500 mg PO once [facility] Signatures: Dispatcher [employer] Mady Arita RN RN Pino Sal RN RN mlb1 Kimberly Jon PA-C PAEssie ef1 Larissa Fraire mm15 The chart was reviewed and I authenticate all verbal orders and agree with the evaluation and treatment provided.Attachments: 14:21 [facility] Payment Agreement mm15 MTDD
--- NOTE | 2016-04-03 15:13 | EDDOCDS ---
Nurse's Notes [facility] Name: Mery Cardoso Age: 40 yrs Sex: Female : 1975 Arrival Date: 04/03/2016 Time: 12:06 Bed TR8 Private MD: Sal Rodriguez A. Diagnosis: Acute sinusitis;Acute bronchitis;Headache-Acute;Nausea and vomiting Presentation: 04/03 12:13 Presenting complaint: Patient states: "I'm sick, headache N/V and fever last night with mlb1 diarrhea" states son diagnosed with the flu at PCP. Adult Sepsis Screening: The patient does not have new or worsening altered mentation. Patient's respiratory rate is less than 22. Systolic blood pressure is greater than 100. Patient has a qSOFA score of 0- Negative Sepsis Screen. Suicide/Homicide risk assessment- the patient denies having any suicidal and/or homicidal ideations and does not present with any other emotional, behavioral or mental health complaints. Status: Patient is not a manager financial services or dependent. Transition of care: patient was not received from another setting of care. 12:13 Acuity: VIOLETTA Level 4 mlb1 12:13 Method Of Arrival: Walkin/Carried/Asstd mlb1 12:17 Presenting complaint:. mlb1 Triage Assessment: 12:16 General: Appears ill, Behavior is appropriate for age, cooperative. Pain: Location: mlb1 "all over" Pain currently is 8 out of 10 on a pain scale. HIV screening NA for this visit Offered previously. Respiratory: Reports cough that is. 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 Ativan 2 mg Oral cap 1 tab once daily 2. Colace 100 mg oral cap 2 times per day 3. levocetirizine 5 mg oral cap 1 tab once daily 4. levothyroxine 50 mcg Oral cap 1 tab once daily 5. lisinopril 20 mg Oral cap 1 tab once daily 6. omeprazole 40 mg Oral cpDR 7. Oxycodone HCl 7.5 mg Oral as needed three times a day 8. simvastatin 20 mg Oral cap 1 tab nightly 9. Vitamin D Oral 1000 unit nightly 10. Wanda (28) 3-0.03 mg Oral cap 1 tab nightly - PMHx: Chronic Back pain; chronic rib pain; Hypercholesterolemia; Hypertension; - PSHx: Carpal Tunnel Repair- Right; Exploratory lap; Orthopedic Surgery; Endoscopy, Upper; - Social history: Smoking status: Patient states was never smoker of tobacco. No barriers to communication noted, The patient speaks fluent Ivorian, Speaks appropriately for age. - Family history: Pertinent for influenza. - : The pt / caregiver states he / she is not on anticoagulants. Home medication list is obtained from the patient. - Exposure Risk Screening:: None identified. Screenin:11 Screening information is obtained from the parent. Fall risk: No risks identified. mcp Assistance ADL's: requires no assistance with activities of daily living. Abuse/DV Screen: The patient / caregiver reports he/she is: not in a situation that causes fear, pain or injury. Nutritional screening: No deficits noted. Advance Directives: There is no active DNR order. home support is adequate. Assessment: 15:10 General: Appears ill, Behavior is cooperative. Pain: Location: head Pain currently is 8 mcp out of 10 on a pain scale. Neurological: Level of Consciousness is awake, alert, Reports headache. Respiratory: Airway is patent Respiratory effort is even, unlabored. Derm: Skin is pink, warm & dry. Vital Signs: 12:07 BP 165 / 97; Pulse 117; Resp 18; Temp 99.1(O); Pulse Ox 99% on R/A; Weight 135.62 kg; elp Height 5 ft. 7 in. (170.18 cm); 14:51 BP 136 / 84; Pulse 110; Resp 20; Temp 98.9; Pulse Ox 98% ; Pain 10/10; cmb 12:07 Body Mass Index 46.83 (135.62 kg, 170.18 cm) el Vitals: 12:07 Log In Time: April 03, 2016 at 12:05. elp 14:06 Strep Screen is obtained and tested: Negative, a GATSNEG [facility] and sent. ED Course: 12:07 Patient visited by Sameera Grewal PCA. elp 12:07 Sal Rodriguez is Private Physician. elp 12:07 Patient moved to Waiting elp 12:09 Patient visited by Sameera Grewal PCA. elp 12:09 Patient moved to Pre RCE elp 12:13 Patient visited by Pino Valladares RN. mlb1 12:15 Triage Initiated mlb1 13:58 Kimberly Jon [facility]-C [facility]. ef1 13:58 Arti Herrera MD is Attending Physician. ef1 14:02 Patient moved to PR2 / cmb 14:05 Patient visited by Kimberly Jon PA-C. ef1 14:12 GATS (NEGATIVE STREP SCREEN) Sent. cmb 14:21 [facility] Payment Agreement was scanned into [employer] and attached to record. mm15 14:45 Sal Rodriguez is Referral Physician. ef1 14:51 Patient visited by Natasha Marquez. cmb 15:11 Patient moved to TR8 cmb 15:11 The patient / caregiver is instructed regarding the plan of care and ED course. Patient mcp has correct armband on for positive identification. Bed in low position. Call light in reach. 15:11 No IV's were initiated during this patient's visit. No procedures done that require mcp assistance. Administered Medications: 15:10 Not Given (Patient Refused): Ondansetron ODT Oral Disintegrating Tablet 4 mg PO once mcp 15:10 Not Given (Patient Refused): Acetaminophen Tablet 975 mg PO once mcp 15:10 Not Given (Patient Refused): Metoclopramide 10 mg PO once mcp 15:10 Not Given (Patient Refused): azithromycin 500 mg PO once mcp Order Results: Lab Order: -Influenza A&B Rapid Antigen - Nose; SPEC'M 04/03/16 12:23 Test: INFLUENZA A RAPID SCR by ICA; Value: INFLUENZA A RESULTS NEGATIVE; Status: F Test: INFLUENZA A RAPID SCR by ICA; Value: Comments:; Status: F Test: INFLUENZA B RAPID SCR by ICA; Value: INFLUENZA B RESULTS NEGATIVE; Status: F Test Note: ; The Influenza test is a direct rapid immunoassay for the qualitative detection of Influenza viral antigen. Cell culture (Viral Culture) testing should be considered to confirm NEGATIVE results and to assist in detecting other viruses that can provide similar clinical symptoms. Please contact the lab within 24 hours ([phone]) if confirmatory testing is desired. Outcome: 14:45 Discharge ordered by Provider. ef1 15:11 Discharge Assessment: patient administered narcotics - no. The following High Risk [facility] Discharge criteria are identified: None. Discharged to home ambulatory, with significant other. Condition: stable. Discharge instructions given to patient, Instructed on discharge instructions, follow up and referral plans. medication usage, Demonstrated understanding of instructions, medications, Pt was receptive of discharge instructions/ teaching. Prescriptions given X 6. No special radiology studies were completed. Property sent home with patient. 15:12 Patient left the ED. [facility] Signatures: Mady Jimenes RN RN Pino Sal RN RN mlb1 Kimberly Jon, TUCKER CEBALLOS ef1 Natasha Marquez Teresa, RN RN ttb McGrath, Marlynn mm15 Sameera Grewal PCA [employer] elp Corrections: (The following items were deleted from the chart) 12:18 12:13 Presenting complaint: Patient states: "I'm sick, headache N/V and fever last mlb1 night with diarrhea" mlb1 12:18 12:13 Adult Sepsis Screening: The patient does not have new or worsening altered mlb1 mentation. Patient's respiratory rate is less than 22. Systolic blood pressure is greater than 100. Patient has a qSOFA score of 0- Negative Sepsis Screen. mlb1 MTDD
--- NOTE | 2016-04-05 16:13 | EDDOCDS ---
Physician Documentation [facility] Name: Mery Cardoso Age: 40 yrs Sex: Female : 1975 Arrival Date: 04/03/2016 Time: 12:06 Bed TR8 Private MD: Sal Rodriguez A. Disposition: 04/03/16 14:45 Discharged to Home/Self Care. Impression: Acute sinusitis, Acute bronchitis, Headache - Acute, Nausea and vomiting. - Condition is Stable. - Discharge Instructions: Sinusitis, Eysv-fl-Vppj, Acute Bronchitis, Voic-cr-Rkro, Nausea and Vomiting, Gttw-sa-Vjdf, General Headache Without Cause, Vchm-gw-Vivi. - Prescriptions for Prednisone 20 mg Oral Tablet - take 3 tablet by ORAL route once daily for 5 days; 15 tablet. Reglan 10 mg Oral Tablet - take 1 tablet by ORAL route every 6 hours take 30 minutes before meals and at bedtime; 20 tablet. Claritin 10 mg Oral Tablet - take 1 tablet by ORAL route once daily As needed; 30 tablet. Mucinex 600 mg - take 1 tablet by ORAL route 2 times per day; 30 tablet. Ibuprofen 800 mg Oral Tablet - take 1 tablet by ORAL route every 8 hours As needed take with food; 30 tablet. Zithromax Z- Ford 250 mg Oral Tablet - take 1 tablet by ORAL route as directed for 5 days Day 1- take two tablets once. Day 2, 3, 4 , 5 take one tablet once daily.; 6 tablet. - Medication Reconciliation, Local Pharmacy Hours form. - Follow up: Sal Rodriguez; When: 1 - 2 days; Reason: Recheck today's complaints, Continuance of care. Follow up: Emergency Department; Reason: Worsening of conditions. - Problem is new. - Symptoms are unchanged. Historical: - Allergies: no known allergies; - Home Meds: 1. Ativan 2 mg Oral cap 1 tab once daily 2. Colace 100 mg oral cap 2 times per day 3. levocetirizine 5 mg oral cap 1 tab once daily 4. levothyroxine 50 mcg Oral cap 1 tab once daily 5. lisinopril 20 mg Oral cap 1 tab once daily 6. omeprazole 40 mg Oral cpDR 7. Oxycodone HCl 7.5 mg Oral as needed three times a day 8. simvastatin 20 mg Oral cap 1 tab nightly 9. Vitamin D Oral 1000 unit nightly 10. Wanda (28) 3-0.03 mg Oral cap 1 tab nightly - PMHx: Chronic Back pain; chronic rib pain; Hypercholesterolemia; Hypertension; - PSHx: Carpal Tunnel Repair- Right; Exploratory lap; Orthopedic Surgery; Endoscopy, Upper; - Social history: Smoking status: Patient states was never smoker of tobacco. No barriers to communication noted, The patient speaks fluent Turkmen, Speaks appropriately for age. - Family history: Pertinent for influenza. - : The pt / caregiver states he / she is not on anticoagulants. Home medication list is obtained from the patient. - Exposure Risk Screening:: None identified. 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 7 in. (170.18 cm); 14:51 BP 136 / 84; Pulse 110; Resp 20; Temp 98.9; Pulse Ox 98% ; Pain 10/10; cmb 12:07 Body Mass Index 46.83 (135.62 kg, 170.18 cm) elp MDM: 12:20 -Influenza A&B Rapid Antigen - Nose Ordered. EDMS 13:30 Strep Screen, Nursing ordered. ef1 13:58 -Influenza A&B Rapid Antigen - Nose Reviewed. ef1 14:07 GATS (NEGATIVE STREP SCREEN) Ordered. EDMS 14:21 Financial registration complete. mm15 14:21 [facility] Payment Agreement was scanned into [employer] and attached to record. mm15 14:45 Ondansetron ODT Oral Disintegrating Tablet 4 mg PO once ordered. ef1 14:45 Acetaminophen Tablet 975 mg PO once ordered. ef1 14:45 Metoclopramide 10 mg PO once ordered. ef1 14:45 azithromycin 500 mg PO once ordered. ef1 14:45 Recheck B/P ordered. ef1 04/04 12:37 T-Sheet-- Draft Copy was scanned into [employer] and attached to record. gb Administered Medications: 04/03 15:10 Not Given (Patient Refused): Ondansetron ODT Oral Disintegrating Tablet 4 mg PO once mcp 15:10 Not Given (Patient Refused): Acetaminophen Tablet 975 mg PO once [facility] 15:10 Not Given (Patient Refused): Metoclopramide 10 mg PO once [facility] 15:10 Not Given (Patient Refused): azithromycin 500 mg PO once [facility] Signatures: Dispatcher [employer]Host Mady Arita, RN RN Maegan Hardwick, Reg Reg gb Pino Valladares RN RN mlb1 Kimberly Jon PA-C PA-C ef1 Larissa Fraire mm15 The chart was reviewed and I authenticate all verbal orders and agree with the evaluation and treatment provided.Attachments: 14:21 [facility] Payment Agreement mm15 04/04 12:37 T-Sheet-- Draft Copy gb Chart Complete MTDD
--- NOTE | 2016-04-05 16:13 | EDDOCDS ---
Physician Documentation [facility] Name: Mery Cardoso Age: 40 yrs Sex: Female : 1975 Arrival Date: 04/03/2016 Time: 12:06 Bed TR8 Private MD: Sal Rodriguez A. Disposition: 04/03/16 14:45 Discharged to Home/Self Care. Impression: Acute sinusitis, Acute bronchitis, Headache - Acute, Nausea and vomiting. - Condition is Stable. - Discharge Instructions: Sinusitis, Xjbv-wp-Cbtx, Acute Bronchitis, Ocxz-fj-Lvsi, Nausea and Vomiting, Ksqg-ht-Ihhu, General Headache Without Cause, Bwba-ph-Vkeh. - Prescriptions for Prednisone 20 mg Oral Tablet - take 3 tablet by ORAL route once daily for 5 days; 15 tablet. Reglan 10 mg Oral Tablet - take 1 tablet by ORAL route every 6 hours take 30 minutes before meals and at bedtime; 20 tablet. Claritin 10 mg Oral Tablet - take 1 tablet by ORAL route once daily As needed; 30 tablet. Mucinex 600 mg - take 1 tablet by ORAL route 2 times per day; 30 tablet. Ibuprofen 800 mg Oral Tablet - take 1 tablet by ORAL route every 8 hours As needed take with food; 30 tablet. Zithromax Z- Ford 250 mg Oral Tablet - take 1 tablet by ORAL route as directed for 5 days Day 1- take two tablets once. Day 2, 3, 4 , 5 take one tablet once daily.; 6 tablet. - Medication Reconciliation, Local Pharmacy Hours form. - Follow up: Sal Rodriguez; When: 1 - 2 days; Reason: Recheck today's complaints, Continuance of care. Follow up: Emergency Department; Reason: Worsening of conditions. - Problem is new. - Symptoms are unchanged. Historical: - Allergies: no known allergies; - Home Meds: 1. Ativan 2 mg Oral cap 1 tab once daily 2. Colace 100 mg oral cap 2 times per day 3. levocetirizine 5 mg oral cap 1 tab once daily 4. levothyroxine 50 mcg Oral cap 1 tab once daily 5. lisinopril 20 mg Oral cap 1 tab once daily 6. omeprazole 40 mg Oral cpDR 7. Oxycodone HCl 7.5 mg Oral as needed three times a day 8. simvastatin 20 mg Oral cap 1 tab nightly 9. Vitamin D Oral 1000 unit nightly 10. Wanda (28) 3-0.03 mg Oral cap 1 tab nightly - PMHx: Chronic Back pain; chronic rib pain; Hypercholesterolemia; Hypertension; - PSHx: Carpal Tunnel Repair- Right; Exploratory lap; Orthopedic Surgery; Endoscopy, Upper; - Social history: Smoking status: Patient states was never smoker of tobacco. No barriers to communication noted, The patient speaks fluent Turkmen, Speaks appropriately for age. - Family history: Pertinent for influenza. - : The pt / caregiver states he / she is not on anticoagulants. Home medication list is obtained from the patient. - Exposure Risk Screening:: None identified. 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 7 in. (170.18 cm); 14:51 BP 136 / 84; Pulse 110; Resp 20; Temp 98.9; Pulse Ox 98% ; Pain 10/10; cmb 12:07 Body Mass Index 46.83 (135.62 kg, 170.18 cm) elp MDM: 12:20 -Influenza A&B Rapid Antigen - Nose Ordered. EDMS 13:30 Strep Screen, Nursing ordered. ef1 13:58 -Influenza A&B Rapid Antigen - Nose Reviewed. ef1 14:07 GATS (NEGATIVE STREP SCREEN) Ordered. EDMS 14:21 Financial registration complete. mm15 14:21 [facility] Payment Agreement was scanned into ensembli and attached to record. mm15 14:45 Ondansetron ODT Oral Disintegrating Tablet 4 mg PO once ordered. ef1 14:45 Acetaminophen Tablet 975 mg PO once ordered. ef1 14:45 Metoclopramide 10 mg PO once ordered. ef1 14:45 azithromycin 500 mg PO once ordered. ef1 14:45 Recheck B/P ordered. ef1 04/04 12:37 T-Sheet-- Draft Copy was scanned into ensembli and attached to record. gb Administered Medications: 04/03 15:10 Not Given (Patient Refused): Ondansetron ODT Oral Disintegrating Tablet 4 mg PO once mcp 15:10 Not Given (Patient Refused): Acetaminophen Tablet 975 mg PO once [facility] 15:10 Not Given (Patient Refused): Metoclopramide 10 mg PO once [facility] 15:10 Not Given (Patient Refused): azithromycin 500 mg PO once [facility] Signatures: Dispatcher [employer] Mady Arita, RN RN Maegan Hardwick, Reg Reg gb Pino Valladares RN RN mlb1 Kimberly Jon PA-C PA-C ef1 Larissa Fraire mm15 The chart was reviewed and I authenticate all verbal orders and agree with the evaluation and treatment provided.Attachments: 14:21 [facility] Payment Agreement mm15 04/04 12:37 T-Sheet-- Draft Copy gb Chart Complete MTDD
--- NOTE | 2016-04-05 16:13 | EDDOCDS ---
Nurse's Notes [facility] Name: Mery Cardoso Age: 40 yrs Sex: Female : 1975 Arrival Date: 04/03/2016 Time: 12:06 Bed TR8 Private MD: Sal Rodriguez A. Diagnosis: Acute sinusitis;Acute bronchitis;Headache-Acute;Nausea and vomiting Presentation: 04/03 12:13 Presenting complaint: Patient states: "I'm sick, headache N/V and fever last night with mlb1 diarrhea" states son diagnosed with the flu at PCP. Adult Sepsis Screening: The patient does not have new or worsening altered mentation. Patient's respiratory rate is less than 22. Systolic blood pressure is greater than 100. Patient has a qSOFA score of 0- Negative Sepsis Screen. Suicide/Homicide risk assessment- the patient denies having any suicidal and/or homicidal ideations and does not present with any other emotional, behavioral or mental health complaints. 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 Transition of care: patient was not received from another setting of care. 12:13 Acuity: VIOLETTA Level 4 mlb1 12:13 Method Of Arrival: Walkin/Carried/Asstd mlb1 12:17 Presenting complaint:. mlb1 Triage Assessment: 12:16 General: Appears ill, Behavior is appropriate for age, cooperative. Pain: Location: mlb1 "all over" Pain currently is 8 out of 10 on a pain scale. HIV screening NA for this visit Offered previously. Respiratory: Reports cough that is. 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 Ativan 2 mg Oral cap 1 tab once daily 2. Colace 100 mg oral cap 2 times per day 3. levocetirizine 5 mg oral cap 1 tab once daily 4. levothyroxine 50 mcg Oral cap 1 tab once daily 5. lisinopril 20 mg Oral cap 1 tab once daily 6. omeprazole 40 mg Oral cpDR 7. Oxycodone HCl 7.5 mg Oral as needed three times a day 8. simvastatin 20 mg Oral cap 1 tab nightly 9. Vitamin D Oral 1000 unit nightly 10. Wanda (28) 3-0.03 mg Oral cap 1 tab nightly - PMHx: Chronic Back pain; chronic rib pain; Hypercholesterolemia; Hypertension; - PSHx: Carpal Tunnel Repair- Right; Exploratory lap; Orthopedic Surgery; Endoscopy, Upper; - Social history: Smoking status: Patient states was never smoker of tobacco. No barriers to communication noted, The patient speaks fluent Andorran, Speaks appropriately for age. - Family history: Pertinent for influenza. - : The pt / caregiver states he / she is not on anticoagulants. Home medication list is obtained from the patient. - Exposure Risk Screening:: None identified. Screenin:11 Screening information is obtained from the parent. Fall risk: No risks identified. mcp Assistance ADL's: requires no assistance with activities of daily living. Abuse/DV Screen: The patient / caregiver reports he/she is: not in a situation that causes fear, pain or injury. Nutritional screening: No deficits noted. Advance Directives: There is no active DNR order. home support is adequate. Assessment: 15:10 General: Appears ill, Behavior is cooperative. Pain: Location: head Pain currently is 8 mcp out of 10 on a pain scale. Neurological: Level of Consciousness is awake, alert, Reports headache. Respiratory: Airway is patent Respiratory effort is even, unlabored. Derm: Skin is pink, warm & dry. Vital Signs: 12:07 BP 165 / 97; Pulse 117; Resp 18; Temp 99.1(O); Pulse Ox 99% on R/A; Weight 135.62 kg; elp Height 5 ft. 7 in. (170.18 cm); 14:51 BP 136 / 84; Pulse 110; Resp 20; Temp 98.9; Pulse Ox 98% ; Pain 10/10; cmb 12:07 Body Mass Index 46.83 (135.62 kg, 170.18 cm) el Vitals: 12:07 Log In Time: April 03, 2016 at 12:05. elp 14:06 Strep Screen is obtained and tested: Negative, a GATSNEG culture is ordered in [facility] tt and sent. ED Course: 12:07 Patient visited by Sameera Grewal PCA. elp 12:07 Sal Rodriguez is Private Physician. elp 12:07 Patient moved to Waiting elp 12:09 Patient visited by Sameera Grewal PCA. elp 12:09 Patient moved to Pre RCE elp 12:13 Patient visited by Pino Valladares RN. mlb1 12:15 Triage Initiated mlb1 13:58 [facility] ef1 13:58 Arti Herrera MD is Attending Physician. ef1 14:02 Patient moved to PR cmb 14:05 Patient visited by Kimberly Jon PA-C. ef1 14:12 GATS (NEGATIVE STREP SCREEN) Sent. cmb 14:21 [facility] Payment Agreement was scanned into Where[employer] and attached to record. mm15 14:45 Sal Rodriguez is Referral Physician. ef1 14:51 Patient visited by Natasha Marquez. cmb 15:11 Patient moved to TR8 cmb 15:11 The patient / caregiver is instructed regarding the plan of care and ED course. Patient mcp has correct armband on for positive identification. Bed in low position. Call light in reach. 15:11 No IV's were initiated during this patient's visit. No procedures done that require mcp assistance. 04/04 12:37 T-Sheet-- Draft Copy was scanned into Where[employer] and attached to record. gb Administered Medications: 04/03 15:10 Not Given (Patient Refused): Ondansetron ODT Oral Disintegrating Tablet 4 mg PO once mcp 15:10 Not Given (Patient Refused): Acetaminophen Tablet 975 mg PO once mcp 15:10 Not Given (Patient Refused): Metoclopramide 10 mg PO once mcp 15:10 Not Given (Patient Refused): azithromycin 500 mg PO once mcp Order Results: Lab Order: -Influenza A&B Rapid Antigen - Nose; SPEC'M 04/03/16 12:23 Test: INFLUENZA A RAPID SCR by ICA; Value: INFLUENZA A RESULTS NEGATIVE; Status: F Test: INFLUENZA A RAPID SCR by ICA; Value: Comments:; Status: F Test: INFLUENZA B RAPID SCR by ICA; Value: INFLUENZA B RESULTS NEGATIVE; Status: F Test Note: ; The Influenza test is a direct rapid immunoassay for the qualitative detection of Influenza viral antigen. Cell culture (Viral Culture) testing should be considered to confirm NEGATIVE results and to assist in detecting other viruses that can provide similar clinical symptoms. Please contact the lab within 24 hours ([phone]) if confirmatory testing is desired. Lab Order: GATS (NEGATIVE STREP SCREEN); SPEC'M 04/03/16 14:11 Test: GATS CULTURE (NEG STREP SCR); Value: GATS RESULT NEGATIVE FOR STREP PYOGENES (GROUP A); Status: F Test: GATS CULTURE (NEG STREP SCR); Value: <EXTERNAL COMMENT eCWMed> FULL REPORT IN LAB NOTES (eCW and Medent).; Status: F Outcome: 14:45 Discharge ordered by Provider. ef1 15:11 Discharge Assessment: patient administered narcotics - no. The following High Risk [facility] Discharge criteria are identified: None. Discharged to home ambulatory, with significant other. Condition: stable. Discharge instructions given to patient, Instructed on discharge instructions, follow up and referral plans. medication usage, Demonstrated understanding of instructions, medications, Pt was receptive of discharge instructions/ teaching. Prescriptions given X 6. No special radiology studies were completed. Property sent home with patient. 15:12 Patient left the ED. [facility] Signatures: Mady Jimenes RN RN [facility] Maegan Hill, Mendel Reg Pino Cazares RN RN mlb1 Kimberly Jon, PA-C PA-C ef1 Natasha Marquez Teresa, RN RN ttb Larissa Fraire mm15 Sameera Grewal, RN ENT RN ENT elp Corrections: (The following items were deleted from the chart) 12:18 12:13 Presenting complaint: Patient states: "I'm sick, headache N/V and fever last mlb1 night with diarrhea" mlb1 12:18 12:13 Adult Sepsis Screening: The patient does not have new or worsening altered mlb1 mentation. Patient's respiratory rate is less than 22. Systolic blood pressure is greater than 100. Patient has a qSOFA score of 0- Negative Sepsis Screen. mlb1 Chart Complete MTDD
== END 2016-04-03 15:12 | disposition home or self-care (01) ==
LOC: M ED 12:06
DX: R11.2 Nausea with vomiting, unspecified (principal); J01.90 Acute sinusitis, unspecified; J20.9 Acute bronchitis, unspecified; R51 Headache; M54.9 Dorsalgia, unspecified; E78.00 Pure hypercholesterolemia, unspecified; I10 Essential (primary) hypertension; Z79.899 Other long term (current) drug therapy; Z79.3 Long term (current) use of hormonal contraceptives

== ENCOUNTER → 2016-07-11 | Outpatient (CLI) | payer MEDICARE, OTHER ==
[~2016-07-11] MED LIST changes: +BUPIVACAINE HCL 0.25% 30 ML VIAL As Ordered ONE; +GABA-282 PO; -GABA300C3 PO; +ISOVUE-M 300 61% 15ML VIAL (Q9967) As Ordered ONE; +LIDOCAINE 1% SDV INJ 30 ML VIAL As Ordered ONE; +TRIAMCINOLONE ACETONIDE SUSP 40 MG/ML VIAL (J3301) As Ordered ONE
--- NOTE | 2016-07-13 09:18 | REP ---
FACET BLOCK: The images were reviewed with Dr. Johnson. The patient has a history of lumbar radiculopathy. The portable C-Arm was provided in the OR for Dr. Moore for fluoroscopic guidance. One intraoperative fluoroscopic spot film was obtained for needle placement verification for right lumbar facet injection. The films are on the PACs system and are available for review. 9 seconds of fluoroscopy time was utilized for this procedure. Reviewed by MARIANN Thompson 07/15/2016 07:11 PEdited and Signed by Raul Johnson MD 07/16/2016 03:57 P
--- NOTE | 2016-07-16 01:03 | ECWPNPC ---
PATIENT NAME: ILAN PAGE : 1975 GENDER: FEMALE VISIT DATE: 07/11/2016 DISCHARGE DATE: 07/11/16 1230 VISIT LOCKED DATE TIME: PHYSICIAN: NATALIA AGGARWAL RESOURCE: NATALIA AGGARWAL REASON FOR APPOINTMENT 1. INTERCOSTAL HISTORY OF PRESENT ILLNESS HISTORY OF PRESENT ILLNESS: PAIN THE PATIENT DESCRIBES THE PAIN... FALL RISK SCREENING: SCREENING :NO FALLS IN THE PAST YEAR CURRENT MEDICATIONS TAKING VITAMIN D 1000 UNIT TABLET 1 TABLET ORALLY ONCE A DAY, NOTES: 07-10-162299 TAKING ANUPAM 28 3-0.03 MG TABLET 1 TABLET ORALLY ONCE A DAY, NOTES: 07-10-162299 TAKING SYNTHROID 50 50MCG TABLET DIRECTED ORAL ONCE DAILY, NOTES: 07-10-161129 TAKING SIMVASTATIN 20 20MG TABLET 1 TABLET ORALLY ONCE A DAY, NOTES: 07-10-162299 TAKING LISINOPRIL 20 MG TABLET 1 TABLET ORALLY ONCE A DAY, NOTES: 07-10-161129 TAKING OXYCODONE HCL 7.5 MG TABLET ABUSE-DETERRENT 1 TABLET NEEDED ORALLY FOUR TIMES DAILY NEEDED, NOTES: 07-10-162029 TAKING OMEPRAZOLE 40 MG PACKET 1 CAP(S) ORALLY ONCE DAILY, NOTES: 07-10-161129 TAKING STOOL SOFTENER 100 MG CAPSULE 1 CAPSULE NEEDED ORALLY BID, NOTES: 07-10-162299 TAKING LEVOCETIRIZINE DIHYDROCHLORIDE 5 MG TABLET 1 TABLET IN THE EVENING ORALLY ONCE A DAY, NOTES: 07-10-161129 TAKING ATIVAN 2 MG TABLET 1 TABLET AT BEDTIME NEEDED ORALLY ONCE A DAY, NOTES: 07-11-16129 TAKING ASPIRIN ADULT LOW STRENGTH 81 MG TABLET DELAYED RELEASE 1 TABLET ORALLY ONCE A DAY, NOTES: 07-10-161129 DISCONTINUED FLECTOR 1.3 % PATCH 1 PATCH TO SKIN TRANSDERMAL TWICE A DAY FOR PAIN, NOTES: NONE DISCONTINUED ASTELIN 137 MCG/SPRAY SOLUTION 1 PUFF NASALLY NEEDED DISCONTINUED TESSALON PERLES 100 MG CAPSULE 1 CAPSULE NEEDED ORALLY THREE TIMES A DAY DISCONTINUED PENNSAID 1.5% 1.5% DROPS 40 AT RIGHT RIB AREA THREE TIMES DAILY DISCONTINUED GABAPENTIN 300 MG CAPSULE 1 CAPSULE ORALLY FOUR TIMES A DAY 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 NO . CHILLS NO . FEVER NO . INFECTION: DO YOU HAVE NEW INFECTIONS? NO . DO YOU HAVE HISTORY OF MRSA? NO . MUSCULOSKELETAL: ANY NEW PATTERNS OF PAIN OR NUMBNESS? NO . GASTROENTEROLOGY: ANY NEW CHANGE IN BOWEL CONTROL? NO . GENITOURINARY: ANY NEW CHANGE IN BLADDER CONTROL? NO . IS THERE A CHANCE YOU COULD BE ? NO . HEMATOLOGY/LYMPH: DO YOU TAKE ANY BLOOD THINNERS? (FOR EXAMPLE- COUMADIN, PLAVIX, AGGRENOX, PLATEL, PRADAXA, OR XARELTO) NO . WHEN WAS YOUR LAST DOSE? DATE: TIME: . NEUROLOGY: HAVE YOU FALLEN IN THE PAST 6 MONTHS? NO . ANY NEW EXTREMITY NUMBNESS OR WEAKNESS? NO . CARDIOLOGY: DO YOU HAVE A PACEMAKER OR DEFIBRILLATOR? NO . RESPIRATORY: HAVE YOU BEEN SICK IN THE PAST WEEK? NO . FEVER NO . FLU LIKE SYMPTOMS? NO . COUGH NO . INTEGUMENTARY: DO YOU HAVE ANY RASHES OR OPEN SORES? NO . ALLERGIC/IMMUNO: ARE YOU ALLERGIC TO SHELLFISH OR IV DYE? NO . ANY NEW ALLERGIES? NO . PSYCHIATRIC: DO YOU HAVE THOUGHTS OF HURTING YOURSELF OR SOMEONE ELSE? NO . ARE YOU ABUSED, NEGLECTED, OR IN AN UNSAFE ENVIRONMENT? NO . ENDOCRINOLOGY: ARE YOU DIABETIC? NO . OTHER: DO YOU NEED ANY PRESCRIPTIONS? NO . IF YES, PLEASE LIST: ____ . ANY NEW PROBLEMS WITH YOUR MEDICATIONS? NO . WHEN DID YOU LAST EAT? 07-11-16 0130 . WHEN DID YOU LAST DRINK? 07-11-16 0700 . WHAT DID YOU LAST DRINK? ORANGE SODA . NAME OF PERSON DRIVING YOU HOME? ABNER PAGE . DO YOU HAVE ANY OTHER QUESTIONS OR CONCERNS NO . REVIEWED BY: PROVIDER: . VITAL SIGNS WT 295.6 LBS, HT 67 IN, BMI 46.29 INDEX, BP 128/84 MM HG, HR 82 /MIN, RR 18 /MIN, TEMP 98.6 F, OXYGEN SAT % 96%, NA INITIALS TL 1032, REVIEWED BY: CM. 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 NATALIA AGGARWAL ACOUSTICAL LOGGING ENGINEER NONE ANESTHESIA LOCAL PRE PROCEDURE NOTE THE PATIENT WITH HISTORY OF CHRONIC THORACIC PAIN. I EVALUATED THE PATIENT AND REVIEWED THE CHART. I WENT OVER THE RISKS, ALTERNATIVES, AND BENEFITS ASSOCIATED WITH THIS PROCEDURE. THE PATIENT WOULD LIKE TO PROCEED AND GAVE CONSENT TO PERFORM THE PROCEDURE. THE PATIENT DENIES UNEXPLAINABLE WEIGHT LOSS, FEVER, CHILLS, OR NEW CHANGES IN URINARY OR BOWEL CONTROL. DESCRIPTION OF PROCEDURE THE PATIENT WAS BROUGHT TO THE PROCEDURE ROOM AND PLACED IN THE PRONE POSITION. THE THORACIC AREA WAS CLEANED WITH CHLORAPREP SOLUTION AND DRAPED ASEPTICALLY. THE PROCEDURE WAS DONE UNDER STERILE CONDITIONS. I CHECKED LATERALITY AND THE LEVEL WHERE THE PROCEDURE WAS GOING TO BE PERFORMED WITH THE PATIENT AND THE SUPPORTING STAFF AT THE MOMENT OF THE TIME OUT IN THE PROCEDURE ROOM. UNDER FLUOROSCOPIC GUIDANCE, THE TARGET POINT WAS SELECTED AT THE RIGHT T11-T12 THORACIC FACET. TARGET POINT WAS SELECTED AFTER LATERAL ROTATION AND TILT OF THE MAGNIFIER OF THE C-ARM. LIDOCAINE 0.5% WAS USED TO NUMB THE SKIN AND THE SUBCUTANEOUS TISSUE BELOW IT. SPINAL NEEDLES, 22-GAUGE, WERE ADVANCED UNDER FLUOROSCOPIC GUIDANCE AND FOLLOWING PATIENT FEEDBACK UNTIL THE TARGETS WERE TOUCHED. THE POSITION OF THE NEEDLES WAS VERIFIED WITH MULTIPLE X-RAY VIEWS. AFTER PROPER POSITION OF THE NEEDLES WAS ACHIEVED, ISOVUE-M DYE 30% 0.1 ML WAS INJECTED SHOWING ADEQUATE SPREAD OF THE DYE. THEN A SOLUTION OF 0.9 ML OF BUPIVACAINE 0.125% OF KENALOG 10 MG WAS INJECTED AT EACH SITE. THERE WAS NO EVIDENCE OF BLOOD, PARESTHESIA OR CEREBROSPINAL FLUID DURING THE PROCEDURE. THE PATIENT WAS SENT TO THE RECOVERY ROOM. THE PATIENT WAS MOVING THE EXTREMITIES AND DOING WELL. THERE WAS NO COMPLICATION DURING THE PROCEDURE. FLUOROSCOPY TIME WAS 11 SECONDS POST PROCEDURE NOTE THE PATIENT WILL BE SEEN IN A FOLLOW UP IN THE NEXT FEW WEEKS. INSTRUCTIONS WERE GIVEN, QUESTIONS WERE ANSWERED, AND THE PATIENT EXPRESSED UNDERSTANDING AND AGREED WITH THE PLAN. I, MIKAELA DELEON, DOCUMENTED THE ABOVE INFORMATION ACTING A SCRIBE FOR DR. AGGARWAL. I HAVE REVIEWED THE ABOVE DOCUMENT, WRITTEN BY MIKAELA JAYIBCinthia AND I VERIFY THAT IT IS ACCURATE DIAGNOSTIC IMAGING [facility] FACET BLOCK (PAIN)[id number] PROCEDURE CODES 34657 INJ PARAVERT F JNT C/T 1 LEV 6045F RADXPS IN END [id number] PXD DISPOSITION & COMMUNICATION FOLLOW UP 3 WEEKS ELECTRONICALLY SIGNED BY NATALIA AGGARWAL MD ON 07/15/2016 AT 08:38 PM EDT DISCLAIMER : THIS IS A VISIT SUMMARY EXTRACTED FROM THE [employer] CHART. IT IS NOT A COPY OF THE [employer] PROGRESS NOTE. MTDD
== END ==
LOC: M PAIN 10:20
PROVIDERS: ATTEND Anesthesiology
DX: G89.29 Other chronic pain (principal); M12.88 Other specific arthropathies, not elsewhere classified, other specified site; M51.14 Intervertebral disc disorders with radiculopathy, thoracic region; I10 Essential (primary) hypertension; K21.9 Gastro-esophageal reflux disease without esophagitis; E66.9 Obesity, unspecified; Z68.42 Body mass index [BMI] 45.0-49.9, adult; E78.5 Hyperlipidemia, unspecified; E03.9 Hypothyroidism, unspecified; K76.0 Fatty (change of) liver, not elsewhere classified; Z88.8 Allergy status to other drugs, medicaments and biological substances; Z79.82 Long term (current) use of aspirin; Z79.899 Other long term (current) drug therapy
CPT/HCPCS: 64490; J3301; Q9967

== ENCOUNTER → 2016-08-08 | Outpatient (REF) | payer MEDICARE, OTHER ==
[~2016-08-08] MED LIST changes: -BUPIVACAINE HCL 0.25% 30 ML VIAL As Ordered ONE; -ISOVUE-M 300 61% 15ML VIAL (Q9967) As Ordered ONE; -LIDOCAINE 1% SDV INJ 30 ML VIAL As Ordered ONE; -TRIAMCINOLONE ACETONIDE SUSP 40 MG/ML VIAL (J3301) As Ordered ONE
== END ==
LOC: M LAB REF 16:27
PROVIDERS: ATTEND Nurse Practitioner Women's Health
DX: N39.0 Urinary tract infection, site not specified (principal)

== ENCOUNTER → 2016-08-12 | Outpatient (CLI) | payer MEDICARE, OTHER ==
--- NOTE | 2016-08-28 01:50 | ECWPNPC ---
PATIENT NAME: ILAN PAGE : 1975 GENDER: FEMALE VISIT DATE: 08/12/2016 DISCHARGE DATE: 08/12/16 1554 VISIT LOCKED DATE TIME: PHYSICIAN: NATALIA AGGARWAL RESOURCE: NATALIA AGGARWAL REASON FOR APPOINTMENT 1. BACK PAIN HISTORY OF PRESENT ILLNESS HISTORY OF PRESENT ILLNESS: PAIN THE PATIENT DESCRIBES THE PAIN... 40 YEAR OLD WITH CHRONIC THORACIC BACK AND RIB PAIN. PATIENT DESCRIBES THE PAIN ACHING, BURNING, SHARP, STABBING, TENDER, THROBBING, SORE, SHOOTING, AND HAVING IT ALL THE TIME WITH A PAIN SCORE OF 9/10. PATIENT RECEIVED A THORACIC FACET BLOCK ON 07/11/16 AND REPORTS HAVING INCREASED PAIN AND STATES HER PAIN IS WORSE THEN BEFORE THE INJECTION. CURRENTLY THE PATIENT IS NOT USING ANYTHING FOR PAIN MANAGEMENT. PATIENT DENIES UNEXPLAINABLE WEIGHT LOSS, FEVER, CHILLS, NEW CHANGES ON HER URINARY OR BOWEL CONTROL. FALL RISK SCREENING: SCREENING :NO FALLS IN THE PAST YEAR CURRENT MEDICATIONS TAKING VITAMIN D 1000 UNIT TABLET 1 TABLET ORALLY ONCE A DAY TAKING ANUPAM 28 3-0.03 MG TABLET 1 TABLET ORALLY ONCE A DAY TAKING SYNTHROID 50 50MCG TABLET DIRECTED ORAL ONCE DAILY TAKING SIMVASTATIN 20 20MG TABLET 1 TABLET ORALLY ONCE A DAY TAKING LISINOPRIL 20 MG TABLET 1 TABLET ORALLY ONCE A DAY TAKING OXYCODONE HCL 7.5 MG TABLET ABUSE-DETERRENT 1 TABLET NEEDED ORALLY FOUR TIMES DAILY NEEDED TAKING OMEPRAZOLE 40 MG PACKET 1 CAP(S) ORALLY ONCE DAILY TAKING STOOL SOFTENER 100 MG CAPSULE 1 CAPSULE NEEDED ORALLY BID TAKING LEVOCETIRIZINE DIHYDROCHLORIDE 5 MG TABLET 1 TABLET IN THE EVENING ORALLY ONCE A DAY TAKING ATIVAN 2 MG TABLET 1 TABLET AT BEDTIME NEEDED ORALLY ONCE A DAY TAKING ASPIRIN ADULT LOW STRENGTH 81 MG TABLET DELAYED RELEASE 1 TABLET ORALLY ONCE A DAY 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 FAMILY HISTORY NO FAMILY HISTORY DOCUMENTED. SOCIAL HISTORY GENERAL: TOBACCO USE ARE YOU A:NONSMOKER LEARNING BARRIERS / SPECIAL NEEDS ORIENTED TO PLAN OF CARE: PATIENT, PAIN MANAGEMENT PATIENT, ORIENTED TO PLAN OF CARE: PATIENT, PAIN MANAGEMENT PATIENT. NEW PATIENT PAIN DIARY TODAY'S VISITNOTES FROM 0-10, WHAT LEVEL IS YOUR PAIN TODAY?0 PAIN CLINIC PFS, CLERGY, PUBLIC HEALTH REFERRALS PFS REFERRAL NEEDED?NO CLERGY REFERRAL NEEDED?NO PUBLIC HEALTH REFERRAL NEEDED?NO WAS THE PROVIDER NOTIFIED OF ANY PERTINENT INFO?NO PFS REFERRAL NEEDED?NO CLERGY REFERRAL NEEDED?NO PUBLIC HEALTH REFERRAL NEEDED?NO WAS THE PROVIDER NOTIFIED OF ANY PERTINENT INFO?NO HOSPITALIZATION/MAJOR DIAGNOSTIC PROCEDURE NO HOSPITALIZATION HISTORY. REVIEW OF SYSTEMS CONSTITUTIONAL: ANY CHANGE IN YOUR MEDICAL CONDITION? NO . CHILLS NO . FEVER NO . INFECTION: DO YOU HAVE NEW INFECTIONS? NO . DO YOU HAVE HISTORY OF MRSA? NO . MUSCULOSKELETAL: ANY NEW PATTERNS OF PAIN OR NUMBNESS? NO . GASTROENTEROLOGY: ANY NEW CHANGE IN BOWEL CONTROL? NO . GENITOURINARY: ANY NEW CHANGE IN BLADDER CONTROL? NO . IS THERE A CHANCE YOU COULD BE ? NO . HEMATOLOGY/LYMPH: DO YOU TAKE ANY BLOOD THINNERS? (FOR EXAMPLE- COUMADIN, PLAVIX, AGGRENOX, PLATEL, PRADAXA, OR XARELTO) NO . WHEN WAS YOUR LAST DOSE? DATE: TIME: . NEUROLOGY: HAVE YOU FALLEN IN THE PAST 6 MONTHS? NO . ANY NEW EXTREMITY NUMBNESS OR WEAKNESS? NO . CARDIOLOGY: DO YOU HAVE A PACEMAKER OR DEFIBRILLATOR? NO . RESPIRATORY: HAVE YOU BEEN SICK IN THE PAST WEEK? NO . FEVER NO . FLU LIKE SYMPTOMS? NO . COUGH NO . INTEGUMENTARY: DO YOU HAVE ANY RASHES OR OPEN SORES? NO . ALLERGIC/IMMUNO: ARE YOU ALLERGIC TO SHELLFISH OR IV DYE? NO . ANY NEW ALLERGIES? NO . PSYCHIATRIC: DO YOU HAVE THOUGHTS OF HURTING YOURSELF OR SOMEONE ELSE? NO . ARE YOU ABUSED, NEGLECTED, OR IN AN UNSAFE ENVIRONMENT? NO . ENDOCRINOLOGY: ARE YOU DIABETIC? NO . OTHER: DO YOU NEED ANY PRESCRIPTIONS? NO . IF YES, PLEASE LIST: ____ . ANY NEW PROBLEMS WITH YOUR MEDICATIONS? NO . WHEN DID YOU LAST EAT? ____ . WHEN DID YOU LAST DRINK? ____ . WHAT DID YOU LAST DRINK? ____ . NAME OF PERSON DRIVING YOU HOME? ____ . DO YOU HAVE ANY OTHER QUESTIONS OR CONCERNS NO . REVIEWED BY: PROVIDER: NATALIA AGGARWAL MD . VITAL SIGNS WT 300.0 LBS, HT 67 IN, BMI 46.98 INDEX, BP 139/88 MM HG, HR 93 /MIN, RR 18 /MIN, TEMP 98.3 F, OXYGEN SAT % 96%, NA INITIALS SC 14:24, REVIEWED BY: PAMELLA. EXAMINATION : PATIENT IS ALERT ORIENTED 3 AND COOPERATIVE. THERE IS TENDERNESS AND PAIN OVER THE THORACIC AREA. CT OF THE LUMBAR SPINE DONE ON JUNE 2015 SHOWS BULGING DISC AT L4-L5 AND L5-S1 WITH SOME FACET ARTHROPATHY CHANGES CT OF THE THORACIC SPINE DONE ON JANUARY 2015 SHOWS FACET ARTHROPATHY CHANGES AT MULTIPLE LEVELS NARROWING OF THE SPINAL CANAL WITH BULGING DISC AT T12-L1. 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 PAGE'S PAIN MANAGEMENT CASE. AT THIS TIME THE PATIENT WILL CONTINUE WITH THE SAME MEDICATION REGIME BUT I WOULD LIKE TO BEGIN TO USE SKELAXIN FOR THE MUSCLE SPASMS. PATIENT STATES THAT THE THORACIC FACET BLOCK INCREASED HER PAIN AND DID NOT AID IN MOBILITY AND FUNCTIONALITY AT ALL. AT THIS TIME WE WILL HOLD ON THE INTERCOSTAL INJECTION TO LET THE PATIENT'S PAIN RETURN TO NORMAL. PATIENT AGREES WITH PLAN AND REPORTS SHE WILL MOVE FORWARD WITH THE INJECTION AFTER SEPTEMBER. WE DISCUSSED THE RISKS, BENEFITS, AND ALTERNATIVES OF THE INJECTION AND THE PATIENT WOULD LIKE TO PROCEED. INSTRUCTIONS WERE GIVEN, QUESTIONS WERE ANSWERED, PATIENT REPORTS UNDERSTANDING AND AGREES WITH THE PLAN. I, NOREEN BATRES, DOCUMENTED THE ABOVE INFORMATION ACTING A SCRIBE FOR DR. AGGARWAL. I HAVE REVIEWED THE ABOVE DOCUMENT, WRITTEN BY NOREEN ALARCON AND I VERIFY THAT IT IS ACCURATE. OTHERS START SKELAXIN TABLET, 800 MG, 1 TABLET, ORALLY, THREE TIMES A DAY NEEDED FOR SPASMS AND PAIN, 30 DAY(S), 50, REFILLS 1 PROCEDURE CODES FA211 ESTABILISHED PATIENT [facility] CHARGE DISPOSITION & COMMUNICATION FOLLOW UP 4 WEEKS ELECTRONICALLY SIGNED BY NATALIA AGGARWAL MD ON 08/26/2016 AT 03:01 PM EDT DISCLAIMER : THIS IS A VISIT SUMMARY EXTRACTED FROM THE [email or web address] CHART. IT IS NOT A COPY OF THE [email or web address] PROGRESS NOTE. HERSON
== END ==
LOC: M PAIN 14:20
PROVIDERS: ATTEND Anesthesiology
DX: G89.29 Other chronic pain (principal); M47.815 Spondylosis without myelopathy or radiculopathy, thoracolumbar region; M47.814 Spondylosis without myelopathy or radiculopathy, thoracic region; M79.1 Myalgia; G58.8 Other specified mononeuropathies; I10 Essential (primary) hypertension; M51.9 Unspecified thoracic, thoracolumbar and lumbosacral intervertebral disc disorder; K21.9 Gastro-esophageal reflux disease without esophagitis; E66.9 Obesity, unspecified; Z68.42 Body mass index [BMI] 45.0-49.9, adult; E78.5 Hyperlipidemia, unspecified; E03.9 Hypothyroidism, unspecified; K76.0 Fatty (change of) liver, not elsewhere classified; Z88.8 Allergy status to other drugs, medicaments and biological substances; Z79.82 Long term (current) use of aspirin; Z79.899 Other long term (current) drug therapy
CPT/HCPCS: 76830; 76856; G0463

== ENCOUNTER → 2016-08-12 | Outpatient (CLI) | payer MEDICARE, OTHER ==
--- NOTE | 2016-08-12 12:44 | REP ---
Pelvic ultrasound with transabdominal and endovaginal ultrasound assessment: Comparison is 2013. The bladder is nondistended significantly decreasing sensitivity of transabdominal exam. The uterus is anteverted and normal size 7.5 a 3.1 x 2.8 cm. The examination is technically difficult because of patient body habitus. The myometrium has a diffusely heterogeneous appearance. The endometrium is not thickened measuring up to 2.8 mm in diameter. The right ovary is normal size measuring 2.2 x 1.4 x 1.5 cm. There is no dominant right ovarian mass or cyst. The left ovary could not be visualized. Impression: Heterogeneous myometrium. The endometrium is not thickened. The right ovary is unremarkable. The left ovary could not be visualized. Signed by Raul Piper MD 08/12/2016 12:36 P
== END ==
LOC: M RAD 11:58
PROVIDERS: ATTEND Nurse Practitioner Women's Health
DX: R10.32 Left lower quadrant pain (principal)

== ENCOUNTER → 2016-08-26 | Outpatient (CLI) | payer MEDICARE, OTHER ==
--- NOTE | 2016-08-26 17:50 | REP ---
ABDOMINAL ULTRASOUND: REASON: A cyst versus solid lesion. Patient complains of multiple palpable subcutaneous areas over the abdomen. Limited imaging of the subcutanea and deep subcutanea of the abdomen was obtained showing no cystic or solid masses. Complete abdominal ultrasonography was also obtained. Multiple ultrasonographic images of the liver show increased echoes throughout the hepatic parenchyma essentially unchanged from 09/06/2014, right upper quadrant exam. There is no intrahepatic or extrahepatic ductal dilatation. The common bile measures 5 mm. Multiple ultrasonographic images of the gallbladder show no abnormalities. Multiple sonographic images of the pancreas show no abnormalities. Multiple sonographic images of the spleen show a splenic volumetric index of 700 which is slightly above normal which is 480, consistent with mild splenomegaly. Multiple sonographic images of the right kidney show right kidney measuring 11.3 x 5.4 x 5.5 cm without an abnormality. Multiple sonographic images of the left kidney show the left kidney to measure 12 x 5 x 5.7 cm. The left kidney is unremarkable. There is no free fluid in the abdomen. The imaged portion of the abdominal aorta shows no abnormality. IMPRESSION: 1. Splenomegaly uncertain etiology, correlated clinically. 2. No evidence of a mass as described above. Signed by Patrick Kam DO 08/27/2016 10:07 A
== END ==
LOC: M RAD 13:05
PROVIDERS: ATTEND Family Medicine
DX: R10.84 Generalized abdominal pain (principal)

== ENCOUNTER → 2016-09-26 | Outpatient (CLI) | payer MEDICARE, OTHER ==
[~2016-09-26] MED LIST changes: +ASPI81TA85 PO; +ATIV2TAB PO; +META1TAB19 PO; +META1TAB22 PO; -META800T82 PO; +MYRB50TA PO; +OXYC1SOL3 PO
[2016-09-26 15:15] LABS: BASO % 0.5 % (0.0-1.0); EOS # 0.1 K/mm3 (0.0-0.50); EOS % 1.2 % (0.0-3.0); LARGE UNSTAINED CELL # 0.2 K/mm3 (0.0-0.4); LARGE UNSTAINED CELL % 2.1 % (0.0-4.0); LYMPH # 1.9 K/mm3 (1.5-4.5); LYMPH % 27.4 % (24.0-44.0); MEAN CORPUSCULAR HEMOGLOBIN 30.1 pg (27.0-33.0); MEAN CORPUSCULAR HGB CONC 33.7 g/dl (32.0-36.5); MEAN CORPUSCULAR VOLUME 89.2 fl (80.0-96.0); MONO # 0.3 K/mm3 (0.0-0.8); NEUTROPHILS # 4.6 K/mm3 (1.8-7.7); NEUTROPHILS % 64.9 % (36.0-66.0); PLATELET COUNT, AUTOMATED 226 k/mm3 (150-450); RED CELL DISTRIBUTION WIDTH 13.4 % (11.5-14.5); WHITE BLOOD COUNT 7.1 K/mm3 (4.0-10.0)
[2016-09-26 16:23] LABS: ALBUMIN 3.1 GM/DL (3.2-5.2); ALBUMIN/GLOBULIN RATIO 0.79 (1.00-1.93); ALKALINE PHOSPHATASE 80 U/L (45-117); ALT/SGPT 17 U/L (12-78); ANION GAP 7 MEQ/L (8-16); AST/SGOT 13 U/L (15-37); BILIRUBIN,TOTAL 0.3 MG/DL (0.2-1.0); BLOOD UREA NITROGEN 14 MG/DL (7-18); CALCIUM LEVEL 8.9 MG/DL (8.5-10.1); CARBON DIOXIDE LEVEL 27 MEQ/L (21-32); CHLORIDE LEVEL 105 MEQ/L (98-107); CHOLESTEROL LEVEL 141 MG/DL (<200); CREATININE FOR GFR 0.76 MG/DL (0.55-1.02); FREE T4 1.19 NG/DL (0.76-1.46); GLOMERULAR FILTRATION RATE > 60.0 (>58); GLUCOSE, FASTING 92 MG/DL (70-105); POTASSIUM SERUM 4.1 MEQ/L (3.5-5.1); SODIUM LEVEL 139 MEQ/L (136-145); TRIGLYCERIDES LEVEL 116 MG/DL (<150)
== END ==
LOC: M LAB 14:18
PROVIDERS: ATTEND Family Medicine
DX: E03.9 Hypothyroidism, unspecified (principal); I10 Essential (primary) hypertension

== ENCOUNTER 2016-11-19 12:05 | Outpatient (CLI) | payer MEDICARE, OTHER ==
[~2016-11-19] VITALS: Ht 170.2 cm; Wt 129.3 kg
[2016-11-19] MEDS ORDERED: NS 1,000 ML IV ONE (12:15)
[2016-11-19] MEDS ORDERED: LIDOCAINE 2% INJ 100 MG/5 ML SDV (FOR ANES.) As Ordered ONE (13:34)
[2016-11-19] MEDS ORDERED: PROPOFOL 500 MG/50 ML VIAL As Ordered ONE (13:34)
--- NOTE | 2016-11-19 13:40 | ROOR ---
Patient Name: Mery Cardoso Procedure Date: 11/19/2016 1:22 PM Date of : 1975 Age: 41 Room: [facility] Gender: Female Note Status: Finalized Procedure: Colonoscopy Indications: Abdominal pain, Change in bowel habits, Constipation Providers: Turner ANDERSON MD Referring MD: Sal Rodriguez MD Requesting Provider: Medicines: Monitored Anesthesia Care Complications: No immediate complications. Procedure: Pre-Anesthesia Assessment: - The heart rate, respiratory rate, oxygen saturations, blood pressure, adequacy of pulmonary ventilation, and response to care were monitored throughout the procedure. The Colonoscope was introduced through the anus and advanced to 10 cm into the ileum. The colonoscopy was performed without difficulty. The patient tolerated the procedure well. The quality of the bowel preparation was good. Findings: The perianal and digital rectal examinations were normal. A 4 mm polyp was found in the sigmoid colon. The polyp was sessile. The polyp was removed with a cold snare. Resection and retrieval were complete. Small Internal Hemorrhoids. The exam was otherwise without abnormality on direct and retroflexion views. The terminal ileum appeared normal. Impression: - One 4 mm polyp in the sigmoid colon, removed with a cold snare. Resected and retrieved. - Small Internal Hemorrhoids. - The examination of the colon and terminal ileum was otherwise normal on direct and retroflexion views. Recommendation: - Telephone endoscopist for pathology results in 2 weeks. - If the pathology report reveals adenomatous tissue, then repeat the colonoscopy for surveillance in 5 years. - Miralax 1 capful (17 grams) in 8 ounces of water PO daily. - (you may increase miralax to twice a day if necessary. For miralax to be effective, it has to be taken routinely, every day.) Turner Anderson MD Turner ANDERSON MD 11/19/2016 1:39:33 PM This report has been signed electronically. Number of Addenda: 0 Note Initiated On: 11/19/2016 1:22 PM Estimated Blood Loss: Estimated blood loss: none.
[2016-11-19 13:55] VITALS: BP 146/95
== END 2016-11-19 14:07 | disposition home or self-care (01) ==
LOC: M OPP 12:05
PROVIDERS: ATTEND Internal Medicine Gastroenterology
DX: K62.5 Hemorrhage of anus and rectum (principal); R19.4 Change in bowel habit; R10.9 Unspecified abdominal pain; D12.5 Benign neoplasm of sigmoid colon; K64.8 Other hemorrhoids; I10 Essential (primary) hypertension; E78.5 Hyperlipidemia, unspecified; E03.9 Hypothyroidism, unspecified; Z86.19 Personal history of other infectious and parasitic diseases; R12 Heartburn; M19.90 Unspecified osteoarthritis, unspecified site; M54.9 Dorsalgia, unspecified; M25.60 Stiffness of unspecified joint, not elsewhere classified; F41.9 Anxiety disorder, unspecified; Z88.8 Allergy status to other drugs, medicaments and biological substances; Z79.82 Long term (current) use of aspirin; Z79.899 Other long term (current) drug therapy; Z79.891 Long term (current) use of opiate analgesic

== ENCOUNTER → 2016-12-23 | Outpatient (CLI) | payer MEDICARE, OTHER ==
--- NOTE | 2016-12-23 16:58 | REPMRS ---
Patient History The patient states she had a clinical breast exam in 04/2016. Family history of unknown cancer in maternal grandmother at age 70. Taking hormonal contraceptives for 10 years. Digital Woman Screen Mammo: December 23, 2016 - Exam #: [id number] Bilateral CC and MLO view(s) were taken. Technologist: Ana Maria Sainz, Technologist Prior study comparison: November 20, 2015, bilateral digital mammo screening bilat, performed at [facility]. July 25, 2014, digital mammo diagnostic bilateral, performed at [facility]. FINDINGS: There are scattered fibroglandular densities. There has been no change in the appearance of the mammogram from the prior studies. There is a mild amount of residual fibroglandular tissue which is fairly symmetric. There is no interval development of dominant mass, architectural distortion, or clustered microcalcification suggestive of malignancy. ASSESSMENT: BI-RADS/ACR category 1 mammogram. Negative. Recommendation Routine screening mammogram in 1 year (for women over age 40). This mammogram was interpreted with the aid of an FDA-approved computer-aided dectection system. Electronically Signed By: Raul Johnson MD 12/23/16 [id number]
== END ==
LOC: M WHC 15:41
PROVIDERS: ATTEND Nurse Practitioner Family
DX: Z12.31 Encounter for screening mammogram for malignant neoplasm of breast (principal)

== ENCOUNTER → 2017-02-21 | Outpatient (REF) | payer MEDICARE, OTHER | LOC: M SFHCWAGY 15:41 | PROVIDERS: ATTEND Nurse Practitioner Family | DX: R30.0 Dysuria (principal) ==

== ENCOUNTER → 2017-05-05 | Outpatient (CLI) | payer MEDICARE, OTHER | LOC: M PAIN 14:00 | DX: M47.816 Spondylosis without myelopathy or radiculopathy, lumbar region (principal); M54.17 Radiculopathy, lumbosacral region; E03.9 Hypothyroidism, unspecified; E78.5 Hyperlipidemia, unspecified; E55.9 Vitamin D deficiency, unspecified; K21.9 Gastro-esophageal reflux disease without esophagitis; Z79.891 Long term (current) use of opiate analgesic; Z79.899 Other long term (current) drug therapy; Z88.8 Allergy status to other drugs, medicaments and biological substances | CPT/HCPCS: G0463 ==

== ENCOUNTER → 2017-05-19 | Outpatient (CLI) | payer MEDICARE, OTHER ==
[~2017-05-19] MED LIST changes: -ASPI81TA85 PO; -ATIV2TAB PO; -BACL10TA2 PO; -GABA-279 PO; -GABA-282 PO; +ISOVUE-M 300 61% 15ML VIAL (Q9967) As Ordered; -LEVOTAB10 PO; +LIDOCAINE 1% SDV INJ 30 ML VIAL As Ordered; -LISI-538 PO; -META1TAB19 PO; -META1TAB22 PO; -MYRB50TA PO; -OXYC1SOL3 PO; -OXYC5CAP28 PO; -SIMV20TA2 PO; -STOO100C PO; -SYNT50TA PO; -VITA-171 PO; -YASM3TAB2 PO; -[UNRECOGNIZED DRUG - CODE] PO; +methylPREDNISolone SUSP 40 MG/ML (DEPO-medrol) VIAL (J1030) As Ordered
== END ==
LOC: M PAIN 11:00
DX: G89.29 Other chronic pain (principal); M51.16 Intervertebral disc disorders with radiculopathy, lumbar region; I10 Essential (primary) hypertension; K21.9 Gastro-esophageal reflux disease without esophagitis; E78.5 Hyperlipidemia, unspecified; E03.9 Hypothyroidism, unspecified; E55.9 Vitamin D deficiency, unspecified; Z79.82 Long term (current) use of aspirin; Z79.891 Long term (current) use of opiate analgesic; Z79.899 Other long term (current) drug therapy; Z88.8 Allergy status to other drugs, medicaments and biological substances
CPT/HCPCS: J1030

== ENCOUNTER → 2017-05-20 | Outpatient (REF) | payer MEDICARE, OTHER | LOC: M SFHCWAGY 15:23 | DX: R30.0 Dysuria (principal) | CPT/HCPCS: 87088; 87186 ==

== ENCOUNTER → 2017-05-26 | Outpatient (CLI) | payer MEDICARE, OTHER ==
[2017-05-26 13:54] LABS: BASO # 0.1 10^3/uL (0.0-0.2); BASO % 0.5 % (0.0-1.0); EOS # 0.1 10^3/uL (0.0-0.50); EOS % 1.3 % (0.0-3.0); HEMATOCRIT 41.2 % (36.0-47.0); IMMATURE GRANULOCYTE % 0.5 % (0-3.0); LYMPH # 3.3 10^3/uL (1.5-4.5); LYMPH % 32.4 % (24.0-44.0); MEAN CORPUSCULAR HEMOGLOBIN 29.8 pg (27.0-33.0); MEAN CORPUSCULAR VOLUME 87.7 fl (80.0-96.0); MONO # 0.6 10^3/uL (0.0-0.8); MONO % 5.7 % (0.0-5.0); NEUTROPHILS # 6.1 10^3/uL (1.8-7.7); NEUTROPHILS % 59.6 % (36.0-66.0); PLATELET COUNT, AUTOMATED 299 10^3/uL (150-450); RED CELL DISTRIBUTION WIDTH 13.2 % (11.5-14.5); WHITE BLOOD COUNT 10.2 10^3/uL (4.0-10.0)
[2017-05-26 14:20] LABS: ALBUMIN 3.2 GM/DL (3.2-5.2); ALBUMIN/GLOBULIN RATIO 0.71 (1.00-1.93); ALKALINE PHOSPHATASE 79 U/L (45-117); ALT/SGPT 16 U/L (12-78); ANION GAP 10 MEQ/L (8-16); AST/SGOT 23 U/L (7-37); BILIRUBIN,TOTAL 0.3 MG/DL (0.2-1.0); BLOOD UREA NITROGEN 15 MG/DL (7-18); CALCIUM LEVEL 8.9 MG/DL (8.5-10.1); CARBON DIOXIDE LEVEL 26 MEQ/L (21-32); CHLORIDE LEVEL 103 MEQ/L (98-107); CHOLESTEROL LEVEL 179 MG/DL (<200); CHOLESTEROL RISK RATIO 3.509 (<5); CREATININE FOR GFR 0.78 MG/DL (0.55-1.30); FREE T4 1.28 NG/DL (0.76-1.46); GLOMERULAR FILTRATION RATE > 60.0 (>58); GLUCOSE, FASTING 81 MG/DL (70-100); HDL CHOLESTEROL 51 MG/DL (>40); LDL CHOLESTEROL 106.4 MG/DL (<100); NON-HDL-C 128 MG/DL; SODIUM LEVEL 139 MEQ/L (136-145); TOTAL 25(OH) VITAMIN D 44.6 NG/ML (30.0-100.0); TOTAL PROTEIN 7.7 GM/DL (6.4-8.2); TRIGLYCERIDES LEVEL 108 MG/DL (<150)
== END ==
LOC: M LAB 13:19
DX: K21.9 Gastro-esophageal reflux disease without esophagitis (principal); E55.9 Vitamin D deficiency, unspecified; E78.5 Hyperlipidemia, unspecified; E03.9 Hypothyroidism, unspecified; Z00.00 Encounter for general adult medical examination without abnormal findings
CPT/HCPCS: 84443

== ENCOUNTER → 2017-05-30 | Outpatient (REF) | payer MEDICARE, OTHER ==
[2017-06-02 14:26] LABS: ALBUMIN 3.83 GM/DL (3.29-5.55); ALBUMIN % 47.9 % (55.8-66.1); ALPHA-1-GLOBULIN % 6.1 % (2.9-4.9); ALPHA-1-GLOBULINS 0.49 GM/DL (0.17-0.41); ALPHA-2-GLOBULINS 1.21 GM/DL (0.42-0.99); ALPHA-2-GLOBULINS % 15.1 % (7.1-11.8); BETA-1-GLOBULINS 0.54 GM/DL (0.28-0.60); BETA-1-GLOBULINS % 6.8 % (4.7-7.2); BETA-2-GLOBULINS 0.46 GM/DL (0.19-0.55); BETA-2-GLOBULINS % 5.7 % (3.2-6.5); GAMMA GLOBULIN % 18.4 % (11.1-18.8); GAMMA GLOBULINS 1.47 GM/DL (0.65-1.58)
[2017-06-04 00:07] LABS: FREE KAPPA LIGHT CHAINS SERUM 18.7 mg/L (3.3-19.4); FREE LAMBDA LIGHT CHAINS SERUM 14.1 mg/L (5.7-26.3); KAPPA/LAMBDA RATIO SERUM 1.33 (0.26-1.65)
== END ==
LOC: M SFHCPLAZ 14:46
DX: G89.29 Other chronic pain (principal); M54.5 Low back pain; R30.0 Dysuria
CPT/HCPCS: 84165

== ENCOUNTER → 2017-05-30 | Outpatient (REF) | payer MEDICARE, OTHER ==
[2017-05-30 14:31] LABS: CREATININE, URINE 60.9 MG/DL; MALB URINE SIEMENS < 5.0 MG/L; MAU/CREAT RATIO 8.2 MCG/MG (0.0-30.0)
== END ==
LOC: M SFHCPLAZ 13:17
DX: Z00.00 Encounter for general adult medical examination without abnormal findings (principal); E55.9 Vitamin D deficiency, unspecified; E78.5 Hyperlipidemia, unspecified; E03.9 Hypothyroidism, unspecified; I10 Essential (primary) hypertension; K21.9 Gastro-esophageal reflux disease without esophagitis; R30.0 Dysuria
CPT/HCPCS: 82043

== ENCOUNTER → 2017-06-06 | Outpatient (CLI) | payer MEDICARE, OTHER | LOC: M PAIN 15:00 | DX: M47.816 Spondylosis without myelopathy or radiculopathy, lumbar region (principal); M12.9 Arthropathy, unspecified; I10 Essential (primary) hypertension; K21.9 Gastro-esophageal reflux disease without esophagitis; E78.5 Hyperlipidemia, unspecified; E03.9 Hypothyroidism, unspecified; E55.9 Vitamin D deficiency, unspecified; E66.01 Morbid (severe) obesity due to excess calories; Z68.41 Body mass index [BMI] 40.0-44.9, adult; Z79.82 Long term (current) use of aspirin; Z79.899 Other long term (current) drug therapy; Z88.0 Allergy status to penicillin; Z88.1 Allergy status to other antibiotic agents | CPT/HCPCS: G0463 ==

== ENCOUNTER 2017-06-16 15:39 | Outpatient (RCR) | payer MEDICARE, OTHER | END 2017-07-07 | LOC: M PT 15:39 | DX: Z51.89 Encounter for other specified aftercare (principal); M47.816 Spondylosis without myelopathy or radiculopathy, lumbar region | CPT/HCPCS: 97110 ==

== ENCOUNTER → 2017-07-09 | Outpatient (CLI) | payer MEDICARE, OTHER | LOC: M PAIN 13:30 | DX: M54.6 Pain in thoracic spine (principal); M47.816 Spondylosis without myelopathy or radiculopathy, lumbar region; M79.1 Myalgia; M47.812 Spondylosis without myelopathy or radiculopathy, cervical region; G89.29 Other chronic pain; I10 Essential (primary) hypertension; K21.9 Gastro-esophageal reflux disease without esophagitis; E78.5 Hyperlipidemia, unspecified; E03.9 Hypothyroidism, unspecified; K76.0 Fatty (change of) liver, not elsewhere classified; E55.9 Vitamin D deficiency, unspecified; E66.01 Morbid (severe) obesity due to excess calories; Z68.41 Body mass index [BMI] 40.0-44.9, adult; Z79.82 Long term (current) use of aspirin; Z79.891 Long term (current) use of opiate analgesic; Z79.899 Other long term (current) drug therapy; Z88.0 Allergy status to penicillin; Z88.1 Allergy status to other antibiotic agents; Z88.8 Allergy status to other drugs, medicaments and biological substances | CPT/HCPCS: G0463 ==

== ENCOUNTER → 2017-07-14 | Outpatient (REF) | payer MEDICARE, OTHER ==
[2017-07-14 16:40] LABS: FOLLICLE STIMULATING HORMONE 14.1 mIU/mL
[2017-07-14 16:40] LABS: ESTRADIOL < 19.0 PG/ML
== END ==
LOC: M SFHCWAGY 15:57
DX: R61 Generalized hyperhidrosis (principal)
CPT/HCPCS: 83001

== ENCOUNTER → 2017-07-21 | Outpatient (CLI) | payer MEDICARE, OTHER ==
[~2017-07-21] MED LIST changes: +BUPIVACAINE HCL 0.25% 10 ML VIAL As Ordered; +BUPIVACAINE HCL 0.25% 30 ML VIAL As Ordered; -ISOVUE-M 300 61% 15ML VIAL (Q9967) As Ordered; -LIDOCAINE 1% SDV INJ 30 ML VIAL As Ordered; +TRIAMCINOLONE ACETONIDE SUSP 40 MG/ML VIAL (J3301) As Ordered; -methylPREDNISolone SUSP 40 MG/ML (DEPO-medrol) VIAL (J1030) As Ordered
== END ==
LOC: M PAIN 11:30
DX: G89.29 Other chronic pain (principal); R07.89 Other chest pain; M79.1 Myalgia; I10 Essential (primary) hypertension; K21.9 Gastro-esophageal reflux disease without esophagitis; E78.5 Hyperlipidemia, unspecified; E03.9 Hypothyroidism, unspecified; E55.9 Vitamin D deficiency, unspecified; E66.01 Morbid (severe) obesity due to excess calories; Z68.41 Body mass index [BMI] 40.0-44.9, adult; Z79.82 Long term (current) use of aspirin; Z79.891 Long term (current) use of opiate analgesic; Z79.899 Other long term (current) drug therapy; Z88.0 Allergy status to penicillin; Z88.1 Allergy status to other antibiotic agents; Z88.8 Allergy status to other drugs, medicaments and biological substances
CPT/HCPCS: J3301

== ENCOUNTER → 2017-08-07 | Outpatient (CLI) | payer MEDICARE, OTHER | LOC: M PAIN 13:45 | DX: M54.6 Pain in thoracic spine (principal); M47.816 Spondylosis without myelopathy or radiculopathy, lumbar region; I10 Essential (primary) hypertension; K21.9 Gastro-esophageal reflux disease without esophagitis; E78.5 Hyperlipidemia, unspecified; E03.9 Hypothyroidism, unspecified; K76.0 Fatty (change of) liver, not elsewhere classified; E66.01 Morbid (severe) obesity due to excess calories; Z68.42 Body mass index [BMI] 45.0-49.9, adult; Z79.82 Long term (current) use of aspirin; Z79.891 Long term (current) use of opiate analgesic; Z79.899 Other long term (current) drug therapy | CPT/HCPCS: G0463 ==

== ENCOUNTER → 2017-08-20 | Outpatient (CLI) | payer MEDICARE, OTHER | LOC: M RAD 14:39 | DX: M16.12 Unilateral primary osteoarthritis, left hip (principal) | CPT/HCPCS: 73502 ==

== ENCOUNTER → 2017-10-06 | Outpatient (CLI) | payer MEDICARE, OTHER ==
[~2017-10-06] MED LIST changes: -BUPIVACAINE HCL 0.25% 10 ML VIAL As Ordered; +ISOVUE-M 300 61% 15ML VIAL (Q9967) As Ordered; +LIDOCAINE 1% SDV INJ 30 ML VIAL As Ordered; -TRIAMCINOLONE ACETONIDE SUSP 40 MG/ML VIAL (J3301) As Ordered
== END ==
LOC: M PAIN 10:15
DX: G89.29 Other chronic pain (principal); M47.814 Spondylosis without myelopathy or radiculopathy, thoracic region; I10 Essential (primary) hypertension; K21.9 Gastro-esophageal reflux disease without esophagitis; E78.5 Hyperlipidemia, unspecified; E03.9 Hypothyroidism, unspecified; K76.0 Fatty (change of) liver, not elsewhere classified; E66.01 Morbid (severe) obesity due to excess calories; Z68.42 Body mass index [BMI] 45.0-49.9, adult; Z79.82 Long term (current) use of aspirin; Z79.891 Long term (current) use of opiate analgesic; Z79.899 Other long term (current) drug therapy; Z88.1 Allergy status to other antibiotic agents; Z88.8 Allergy status to other drugs, medicaments and biological substances
CPT/HCPCS: Q9967

== ENCOUNTER 2017-11-24 16:00 | Emergency (ER) | payer MEDICARE, OTHER ==
[2017-11-24 17:44] LABS: CONTROL LINE UCG INT CTR LINE PRESENT; URINE PREG TEST NEGATIVE (NEGATIVE)
[2017-11-24 17:48] LABS: KETONE, URINE AUTO RFX NEGATIVE (NEGATIVE); MUCUS, URINE RFX SMALL (NEGATIVE); NITRITE, URINE AUTO RFX NEGATIVE (NEGATIVE); RBC, URINE AUTO RFX 4 /HPF (0-3); SPECIFIC GRAVITY UR AUTO RFX 1.014 (1.002-1.035); SQUAM EPITHELIAL CELL UR AURFX 2 /HPF (0-6); WBC, URINE AUTO RFX 8 /HPF (0-3)
[2017-11-24 18:15] LABS: LEUKOCYTE ESTERASE UR AUTO RFX TRACE (NEGATIVE)
[2017-11-24] MEDS: NITROFURANTOIN (MACROBID) 100 MG CAP PO (20:52)
[2017-11-24] MEDS: PHENAZOPYRIDINE 100 MG TAB PO (20:52)
== END 2017-11-24 20:59 | disposition home or self-care (01) ==
LOC: M ED 16:00
DX: N30.90 Cystitis, unspecified without hematuria (principal); I10 Essential (primary) hypertension; E78.5 Hyperlipidemia, unspecified; K21.9 Gastro-esophageal reflux disease without esophagitis; E03.9 Hypothyroidism, unspecified
CPT/HCPCS: 84703

== ENCOUNTER → 2017-12-24 | Outpatient (CLI) | payer MEDICARE ==
[~2017-12-24] MED LIST changes: +TRIAMCINOLONE ACETONIDE SUSP 40 MG/ML VIAL (J3301) As Ordered
== END ==
LOC: M PAIN 11:00
DX: G89.29 Other chronic pain (principal); M70.62 Trochanteric bursitis, left hip; M25.552 Pain in left hip; I10 Essential (primary) hypertension; E03.9 Hypothyroidism, unspecified; K21.9 Gastro-esophageal reflux disease without esophagitis; E78.5 Hyperlipidemia, unspecified; E66.01 Morbid (severe) obesity due to excess calories; Z68.42 Body mass index [BMI] 45.0-49.9, adult; Z79.82 Long term (current) use of aspirin; Z79.891 Long term (current) use of opiate analgesic; Z79.899 Other long term (current) drug therapy; Z88.1 Allergy status to other antibiotic agents; Z88.8 Allergy status to other drugs, medicaments and biological substances
CPT/HCPCS: J3301

== ENCOUNTER → 2018-01-01 | Outpatient (REF) | payer MEDICARE, OTHER ==
[2018-01-02 13:58] LABS: APPEARANCE, URINE CLEAR (CLEAR); BACTERIA, URINE AUTO NEGATIVE (NEGATIVE); BILIRUBIN, URINE AUTO NEGATIVE (NEGATIVE); BLOOD, URINE BLOOD NEGATIVE (NEGATIVE); COLOR, URINE YELLOW (YELLOW); GLUCOSE, URINE (UA) AUTO NEGATIVE (NEGATIVE); KETONE, URINE AUTO NEGATIVE (NEGATIVE); LEUKOCYTE ESTERASE, URINE AUTO TRACE (NEGATIVE); MUCUS, URINE SMALL (NEGATIVE); NITRITE, URINE AUTO NEGATIVE (NEGATIVE); PROTEIN, URINE AUTO NEGATIVE (NEGATIVE); RBC, URINE AUTO 0 /HPF (0-3); SQUAMOUS EPITHELIAL CELL UR AU 2 /HPF (0-6); UROBILINOGEN, URINE AUTO 0.2 mg/dL (0.0-2.0); WBC, URINE AUTO 1 /HPF (0-3)
== END ==
LOC: M SFHCPLAZ 01-02 13:20
DX: R10.2 Pelvic and perineal pain (principal)
CPT/HCPCS: 81001

== ENCOUNTER → 2018-01-09 | Outpatient (CLI) | payer MEDICARE, OTHER | LOC: M PAIN 14:15 | DX: M47.814 Spondylosis without myelopathy or radiculopathy, thoracic region (principal); I10 Essential (primary) hypertension; K21.9 Gastro-esophageal reflux disease without esophagitis; E78.5 Hyperlipidemia, unspecified; E03.9 Hypothyroidism, unspecified; E66.01 Morbid (severe) obesity due to excess calories; Z68.42 Body mass index [BMI] 45.0-49.9, adult; Z79.82 Long term (current) use of aspirin; Z79.891 Long term (current) use of opiate analgesic; Z79.899 Other long term (current) drug therapy; Z88.1 Allergy status to other antibiotic agents; Z88.8 Allergy status to other drugs, medicaments and biological substances | CPT/HCPCS: G0463 ==

== ENCOUNTER → 2018-03-16 | Outpatient (CLI) | payer MEDICARE, OTHER ==
[~2018-03-16] MED LIST changes: +ASPI81TA85 PO; +ATIV2TAB PO; +BACL10TA2 PO; +BENA25CA4 PO; -BUPIVACAINE HCL 0.25% 30 ML VIAL As Ordered; +BUPIVACAINE HCL 0.25% 30 ML VIAL As Ordered ONE; +GABA-1171 PO; +GABA-843 PO; -ISOVUE-M 300 61% 15ML VIAL (Q9967) As Ordered; +ISOVUE-M 300 61% 15ML VIAL (Q9967) As Ordered ONE; +LEVOTAB10 PO; -LIDOCAINE 1% SDV INJ 30 ML VIAL As Ordered; +LIDOCAINE 1% SDV INJ 30 ML VIAL As Ordered ONE; +LISI-538 PO; +MACR100C43 PO; +META1TAB19 PO; +META1TAB22 PO; +MIRT15TA3 PO; +MYRB50TA PO; +OXYB5TAB10 PO; +OXYC1SOL3 PO; +OXYC5CAP28 PO; +PYRI1TAB5 PO; +SIMV20TA2 PO; +STOO100C PO; +SYNT50TA PO; -TRIAMCINOLONE ACETONIDE SUSP 40 MG/ML VIAL (J3301) As Ordered; +VITA-171 PO; +YASM3TAB2 PO; +[UNRECOGNIZED DRUG - CODE] PO
--- NOTE | 2018-03-16 12:28 | REP ---
Partial lumbar spine series: Two views . History: Injection procedure for pain. 23 seconds of fluoroscopy time is reported. Findings: A sequence of two fluoroscopically obtained last image hold procedural spot radiographs of the lumbar spine document needle position and contrast injection associated with injection procedure. Electronically Signed by Gene Cortes MD 03/16/2018 12:20 P
--- NOTE | 2018-04-01 01:28 | ECWPNPC ---
PATIENT NAME: ILAN PAGE : 1975 GENDER: FEMALE VISIT DATE: 03/16/2018 DISCHARGE DATE: 03/16/18 1248 VISIT LOCKED DATE TIME: PHYSICIAN: NATALIA AGGARWAL MD RESOURCE: NATALIA AGGARWAL MD REASON FOR APPOINTMENT 1. RIGHT DIAGNOSTIC #2 THORACIC T11-12 HISTORY OF PRESENT ILLNESS HISTORY OF PRESENT ILLNESS: PAIN THE PATIENT DESCRIBES THE PAIN... FALL RISK SCREENING: SCREENING :NO FALLS IN THE PAST YEAR CURRENT MEDICATIONS TAKING STOOL SOFTENER 100 MG CAPSULE 1 CAP ORALLY DAILY, NOTES: 03/15/18 2330 TAKING NYSTATIN [id number] UNIT/GM CREAM 1 APPLICATION TO AFFECTED AREA EXTERNALLY ABDOMEN DAILY, NOTES: MONTHS AGO TAKING OXYBUTYNIN CHLORIDE ER 10 MG TABLET EXTENDED RELEASE 24 HOUR 1 TABLET ORALLY ONCE A DAY, NOTES: 03/15/18 1100 TAKING BENADRYL ALLERGY 25 MG TABLET 2 TABLETS BEFORE BED ORALLY ONCE DAILY, NOTES: 03/16/18 0330 TAKING ZESTORETIC 20-25 MG TABLET 1 TABLET ORALLY ONCE A DAY, NOTES: 03/15/18 1100 TAKING OMEPRAZOLE 40 MG CAPSULE DELAYED RELEASE 1 CAP(S) ORALLY ONCE DAILY, NOTES: 03/15/18 1100 TAKING SIMVASTATIN 20 20MG TABLET 1 TABLET ORALLY ONCE A DAY, NOTES: 03/15/18 233 TAKING SYNTHROID 50 50MCG TABLET DIRECTED ORAL ONCE DAILY, NOTES: 03/15/18 1100 TAKING MIRTAZAPINE 15 MG TABLET 1 TABLET AT BEDTIME ORALLY ONCE A DAY, NOTES: 03/16/18 0230 TAKING LEVOCETIRIZINE DIHYDROCHLORIDE 5 MG TABLET 1 TABLET IN THE EVENING ORALLY ONCE A DAY, NOTES: 03/15/18 1100 TAKING ASPIRIN ADULT LOW STRENGTH 81 MG TABLET DELAYED RELEASE 1 TABLET ORALLY ONCE A DAY, NOTES: 03/15/18 2330 TAKING OXYCODONE HCL 5 MG TABLET 1.5 TAB ORALLY EVERY 6 HRS PRN MDD6, NOTES: 03/15/18 1115 NOT-TAKING BACID - CAPSULE 1 CAP ORALLY DAILY NOT-TAKING CARAFATE 1 GM TABLET 1 TABLET ON AN EMPTY STOMACH ORALLY TWICE A DAY NOT-TAKING ANUPAM 28 3-0.03 MG TABLET 1 TABLET ORALLY ONCE A DAY, NOTES: 12/23/17 2300 NOT-TAKING VITAMIN D 1000 UNIT TABLET 1 TABLET ORALLY ONCE A DAY, NOTES: NONE LATELY 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 2017 EGD W/ REINDEL NL 2013 FAMILY HISTORY FATHER: UNKNOWN, PT HAS NO CONTACT WITH HER FATHER. MOTHER: ALIVE, DM2, HYPERLIPIDEMIA, HTN, MORBID OBESITY, CHRONIC LOW BACK PAIN, DEPRESSION. SIBLINGS: UNKNOWN, INCARCERATED FOR MURDER SON(S): ALLERGIES, ASTHMA DENIES FH OF BREAST, OVARIAN, OR COLORECTAL CANCER. SOCIAL HISTORY GENERAL: TOBACCO USE ARE YOU A:NONSMOKER NEVER SMOKER BMI CARE GOAL FOLLOW-UP ABOVE NORMAL BMI FOLLOW-UPGIVING ENCOURAGEMENT TO EXERCISE ALCOHOL SCREENING DID YOU HAVE A DRINK CONTAINING ALCOHOL IN THE PAST YEAR?NO POINTS0 INTERPRETATIONNEGATIVE RECREATIONAL DRUG USE DRUG USE?NO CAFFEINE CAFFEINE USE?NO SEXUAL HX HAD SEX IN THE LAST 12 MONTHS (VAGINAL, ORAL, OR ANAL)?YES WITHMEN ONLY USE PROTECTION?NO LMP:04/25/17 HAVE YOU EVER HAD AN STD?NO HIV / HEP-C SCREENING HIV TEST OFFERED TO PATIENT:YES DATE OFFERED:05/01/2017 TEST ACCEPTED:NO HEP-C TEST OFFERED TO PATIENT:YES DATE OFFERED:05/01/2017 REASON:PATIENT DECLINED TEST ACCEPTED:NO REASON:PATIENT DECLINED HINDUISM [id number] RASTAFARIAN LANGUAGE LANGUAGES SPOKEN:[place] EDUCATION LEVEL OF EDUCATION:HIGH SCHOOL ONLY COMPLETED 8TH GRADE LEARNING BARRIERS / SPECIAL NEEDS CHANGE FROM LAST VISIT?NO BARRIERS TO LEARNING?NO HEARING IMPAIRED?NO VISION IMPAIRED?NO COGNITIVELY IMPAIRED?NO READINESS TO LEARN?YES LEARNING PREFERENCES?NO LEARNING CAPABILITIES PRESENT?YES EMOTIONAL BARRIERS?NO SPECIAL DEVICES?NO TUBE LANCER NEEDED?NO MARITAL STATUS: . OTHERS AT HOME: SPOUSE, CHILD. NEW PATIENT PAIN DIARY TODAY'S VISITNOTES FROM 0-10, WHAT LEVEL IS YOUR PAIN TODAY?4 PAIN CLINIC PFS, CLERGY, PUBLIC HEALTH REFERRALS PFS REFERRAL NEEDED?NO CLERGY REFERRAL NEEDED?NO PUBLIC HEALTH REFERRAL NEEDED?NO WAS THE PROVIDER NOTIFIED OF ANY PERTINENT INFO?NO HAS THE PATIENT BEEN EDUCATED REGARDING HIS/HER PLAN OF CARE?YES HAS THE PATIENT BEEN EDUCATED REGARDING PAIN, THE RISK FOR PAIN, THE IMPORTANCE OF EFFECTIVE PAIN MANAGEMENT, AND THE PAIN ASSESSMENT PROCESS?YES ADVANCE DIRECTIVE ADVANCE DIRECTIVE DISCUSSED WITH PATIENT:YES PT STATES SHE DOES NOT HAVE A HCP AND DECLINES INFO AT THIS TIME 01/09/18 BV REVIEWED WITH PT 10/06/17 LASREVIEWED WITH PT 12/24/17 1135 LASREVIEWED WITH PT 01/09/18 1504 BVREVIEWED WITH PATIENT 03/16/18 1132 JS. HOSPITALIZATION/MAJOR DIAGNOSTIC PROCEDURE W/ CHILDBIRTH REVIEW OF SYSTEMS REVIEWED BY: PROVIDER: . CONSTITUTIONAL: ANY CHANGE IN YOUR MEDICAL CONDITION? NO . CHILLS NO . FEVER NO . INFECTION: DO YOU HAVE NEW INFECTIONS? NO . DO YOU HAVE HISTORY OF MRSA? NO . MUSCULOSKELETAL: ANY NEW PATTERNS OF PAIN OR NUMBNESS? NO . GASTROENTEROLOGY: ANY NEW CHANGE IN BOWEL CONTROL? NO . GENITOURINARY: ANY NEW CHANGE IN BLADDER CONTROL? NO . IS THERE A CHANCE YOU COULD BE ? NO . HEMATOLOGY/LYMPH: DO YOU TAKE ANY BLOOD THINNERS? (FOR EXAMPLE- COUMADIN, PLAVIX, AGGRENOX, PLATEL, PRADAXA, OR XARELTO) NO . WHEN WAS YOUR LAST DOSE? DATE: TIME: . NEUROLOGY: HAVE YOU FALLEN IN THE PAST 6 MONTHS? NO . ANY NEW EXTREMITY NUMBNESS OR WEAKNESS? NO . CARDIOLOGY: DO YOU HAVE A PACEMAKER OR DEFIBRILLATOR? NO . RESPIRATORY: HAVE YOU BEEN SICK IN THE PAST WEEK? NO . FEVER NO . FLU LIKE SYMPTOMS? NO . COUGH NO . INTEGUMENTARY: DO YOU HAVE ANY RASHES OR OPEN SORES? NO . ALLERGIC/IMMUNO: ARE YOU ALLERGIC TO SHELLFISH OR IV DYE? NO . ANY NEW ALLERGIES? NO . PSYCHIATRIC: DO YOU HAVE THOUGHTS OF HURTING YOURSELF OR SOMEONE ELSE? NO . ARE YOU ABUSED, NEGLECTED, OR IN AN UNSAFE ENVIRONMENT? NO . ENDOCRINOLOGY: ARE YOU DIABETIC? NO . OTHER: DO YOU NEED ANY PRESCRIPTIONS? NO . IF YES, PLEASE LIST: ____ . ANY NEW PROBLEMS WITH YOUR MEDICATIONS? NO . WHEN DID YOU LAST EAT? ____03/16/18 0230 . WHEN DID YOU LAST DRINK? ____03/16/18 0330 . WHAT DID YOU LAST DRINK? ____PEPSI . NAME OF PERSON DRIVING YOU HOME? ____BILL () . DO YOU HAVE ANY OTHER QUESTIONS OR CONCERNS NO . VITAL SIGNS WT 296.0 LBS, HT 67 IN, BMI 46.36 INDEX, BP 131/65 MM HG, HR 77 /MIN, RR 18 /MIN, TEMP 97.9 F, OXYGEN SAT % 97%, SAFE IN ENV? (Y/N) YES, NA INITIALS AW 1115, REVIEWED BY: JS. 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 NATALIA AGGARWAL [employer] NONE ANESTHESIA LOCAL PRE PROCEDURE NOTE THE PATIENT WITH HISTORY OF CHRONIC LOW BACK PAIN. I EVALUATED THE PATIENT AND REVIEWED THE CHART. I WENT OVER THE RISKS, ALTERNATIVES, AND BENEFITS ASSOCIATED WITH THIS PROCEDURE. THE PATIENT WOULD LIKE TO PROCEED AND GAVE CONSENT TO PERFORM THE PROCEDURE. AGREED WITH THE PATIENT WE ARE DOING THIS PROCEDURE TO DETERMINE IF THE PATIENT IS A CANDIDATE FOR A RADIOFREQUENCY ABLATION OF THE FACETS JOINTS. THE PATIENT DENIES UNEXPLAINABLE WEIGHT LOSS, FEVER, CHILLS, OR NEW CHANGES IN URINARY OR BOWEL CONTROL DESCRIPTION OF PROCEDURE THE PATIENT WAS BROUGHT TO THE PROCEDURE ROOM AND PLACED IN THE PRONE POSITION. THE LUMBOSACRAL AREA WAS CLEANED WITH CHLORAPREP SOLUTION AND DRAPED ASEPTICALLY. THE PROCEDURE WAS DONE UNDER STERILE CONDITIONS. I CHECKED LATERALITY AND THE LEVEL WHERE THE PROCEDURE WAS GOING TO BE PERFORMED WITH THE PATIENT AND THE SUPPORTING STAFF AT THE MOMENT OF THE TIME OUT IN THE PROCEDURE ROOM. UNDER FLUOROSCOPIC GUIDANCE, TARGETS WERE SELECTED AT THE INTERSECTION OF THE RIGHT TRANSVERSE PROCESS OF T11 AND T12 WITH ITS RESPECTIVE SUPERIOR ARTICULAR PROCESS. LIDOCAINE WAS USED TO NUMB THE SKIN AND THE SUBCUTANEOUS TISSUE BELOW IT. SPINAL NEEDLE, 22-GAUGE WAS ADVANCED UNDER FLUOROSCOPIC GUIDANCE AND FOLLOWING PATIENT FEEDBACK UNTIL THE TARGETS WERE REACHED. POSITION OF THE NEEDLES WAS VERIFIED WITH AP AND LATERAL VIEWS. AFTER PROPER POSITION OF THE NEEDLES WAS ACHIEVED, ISOVUE-M DYE 30% 0.1 ML WAS INJECTED AT EACH SITE SHOWING ADEQUATE SPREAD OF THE DYE. THEN A SOLUTION OF 0.4 ML OF BUPIVACAINE 0.25% WAS INJECTED AT EACH SITE. THERE WAS NO EVIDENCE OF BLOOD, PARESTHESIA OR CEREBROSPINAL FLUID DURING THE PROCEDURE. THE PATIENT WAS SENT TO THE RECOVERY ROOM. THE PATIENT WAS MOVING THE EXTREMITIES AND DOING WELL. THERE WAS NO COMPLICATION DURING THE PROCEDURE. FLUOROSCOPY TIME WAS 23 SECONDS POST PROCEDURE NOTE THE PATIENT WILL DOCUMENT HIS PAIN LEVEL AND RESPONSE TO THIS PROCEDURE EVERY 30 MINUTES. THE PATIENT WILL BE SEEN IN A FOLLOW UP IN THE NEXT FEW WEEKS. FURTHER DETERMINATION FOR HIS CASE WILL BE DONE AT THE NEXT VISIT. INSTRUCTIONS WERE GIVEN, QUESTIONS WERE ANSWERED, AND THE PATIENT EXPRESSED UNDERSTANDING AND AGREED WITH THE PLAN. I, ILAN BOYER, DOCUMENTED THE ABOVE INFORMATION ACTING A SCRIBE FOR DR. AGGARWAL. I HAVE REVIEWED THE ABOVE DOCUMENT, WRITTEN BY ILAN JAYIBCinthia AND I VERIFY THAT IT IS ACCURATE. DIAGNOSTIC IMAGING [facility] FACET BLOCK (PAIN)[id number] PROCEDURE CODES 6045F RADXPS IN END [id number] PXD [id number] INJ PARAVERT F JNT C/T 1 LEV, MODIFIERS: RT DISPOSITION & COMMUNICATION FOLLOW UP 3 WEEKS ELECTRONICALLY SIGNED BY NATALIA AGGARWAL MD, MD ON 03/31/2018 AT 01:03 PM EST DISCLAIMER : THIS IS A VISIT SUMMARY EXTRACTED FROM THE [employer] CHART. IT IS NOT A COPY OF THE [employer] PROGRESS NOTE. MTDD
== END ==
LOC: M PAIN 11:00
PROVIDERS: ATTEND Anesthesiology
DX: G89.29 Other chronic pain (principal); M47.814 Spondylosis without myelopathy or radiculopathy, thoracic region; I10 Essential (primary) hypertension; K21.9 Gastro-esophageal reflux disease without esophagitis; E78.5 Hyperlipidemia, unspecified; E03.9 Hypothyroidism, unspecified; E55.9 Vitamin D deficiency, unspecified; E66.01 Morbid (severe) obesity due to excess calories; Z68.42 Body mass index [BMI] 45.0-49.9, adult; Z98.2 Presence of cerebrospinal fluid drainage device; Z79.891 Long term (current) use of opiate analgesic; Z79.899 Other long term (current) drug therapy; Z88.1 Allergy status to other antibiotic agents; Z88.8 Allergy status to other drugs, medicaments and biological substances
CPT/HCPCS: 64490; Q9967

== ENCOUNTER → 2018-04-21 | Outpatient (CLI) | payer MEDICARE, OTHER ==
[~2018-04-21] MED LIST changes: -BUPIVACAINE HCL 0.25% 30 ML VIAL As Ordered ONE; -ISOVUE-M 300 61% 15ML VIAL (Q9967) As Ordered ONE; -LIDOCAINE 1% SDV INJ 30 ML VIAL As Ordered ONE
--- NOTE | 2018-05-09 00:41 | ECWPNPC ---
PATIENT NAME: ILAN PAGE : 1975 GENDER: FEMALE VISIT DATE: 04/21/2018 DISCHARGE DATE: 04/21/18 1449 VISIT LOCKED DATE TIME: PHYSICIAN: SOURAV HEBERT RESOURCE: SOURAV HEBERT REASON FOR APPOINTMENT 1. POST PROC HISTORY OF PRESENT ILLNESS HISTORY OF PRESENT ILLNESS: HERE FOR POST PROCEDURE F/U.HAD T11/12 DIAGNOSTIC BLOCK #2 ON 03-16-18.REPORTING 12HRS OF >50% IMPROVEMENTCOMPLAINING OF LEFT HIP PAIN.REQUESTING TROCHANTERIC BURSAL INJECTION THAT WAS HELPFUL IN PAST.RATING PAIN VAS 7/10.DESCRIBES RIGHT THORACIC BURNING PAIN. PAIN THE PATIENT DESCRIBES THE PAIN... THE PATIENT DESCRIBES THE PAIN... FALL RISK SCREENING: SCREENING : NO FALLS IN THE PAST YEAR. CURRENT MEDICATIONS TAKING STOOL SOFTENER 100 MG CAPSULE 1 CAP ORALLY DAILY TAKING NYSTATIN [id number] UNIT/GM CREAM 1 APPLICATION TO AFFECTED AREA EXTERNALLY ABDOMEN DAILY TAKING BENADRYL ALLERGY 25 MG TABLET 2 TABLETS BEFORE BED ORALLY ONCE DAILY TAKING ZESTORETIC 20-25 MG TABLET 1 TABLET ORALLY ONCE A DAY TAKING OMEPRAZOLE 40 MG CAPSULE DELAYED RELEASE 1 CAP(S) ORALLY ONCE DAILY TAKING SIMVASTATIN 20 20MG TABLET 1 TABLET ORALLY ONCE A DAY TAKING SYNTHROID 50 50MCG TABLET DIRECTED ORAL ONCE DAILY TAKING MIRTAZAPINE 15 MG TABLET 1 TABLET AT BEDTIME ORALLY ONCE A DAY TAKING LEVOCETIRIZINE DIHYDROCHLORIDE 5 MG TABLET 1 TABLET IN THE EVENING ORALLY ONCE A DAY TAKING ASPIRIN ADULT LOW STRENGTH 81 MG TABLET DELAYED RELEASE 1 TABLET ORALLY ONCE A DAY TAKING OXYBUTYNIN CHLORIDE ER 10 MG TABLET EXTENDED RELEASE 24 HOUR 1 TABLET ORALLY ONCE A DAY TAKING OXYCODONE HCL 5 MG TABLET 1.5 TAB ORALLY EVERY 6 HRS PRN MDD6 TAKING ANUPAM 28 3-0.03 MG TABLET 1 TABLET ORALLY ONCE A DAY NOT-TAKING BACID - CAPSULE 1 CAP ORALLY DAILY NOT-TAKING CARAFATE 1 GM TABLET 1 TABLET ON AN EMPTY STOMACH ORALLY TWICE A DAY NOT-TAKING VITAMIN D 1000 UNIT TABLET 1 TABLET ORALLY ONCE A DAY, NOTES: NONE LATELY 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 2016 EGD W/ REINDEL NL 2013 FAMILY HISTORY FATHER: UNKNOWN, PT HAS NO CONTACT WITH HER FATHER. MOTHER: ALIVE, DM2, HYPERLIPIDEMIA, HTN, MORBID OBESITY, CHRONIC LOW BACK PAIN, DEPRESSION. SIBLINGS: UNKNOWN, INCARCERATED FOR MURDER SON(S): ALLERGIES, ASTHMA DENIES FH OF BREAST, OVARIAN, OR COLORECTAL CANCER. SOCIAL HISTORY GENERAL: TOBACCO USE ARE YOU A:NONSMOKER NEVER SMOKER BMI CARE GOAL FOLLOW-UP ABOVE NORMAL BMI FOLLOW-UPGIVING ENCOURAGEMENT TO EXERCISE ALCOHOL SCREENING DID YOU HAVE A DRINK CONTAINING ALCOHOL IN THE PAST YEAR?NO POINTS0 INTERPRETATIONNEGATIVE RECREATIONAL DRUG USE DRUG USE?NO CAFFEINE CAFFEINE USE?NO SEXUAL HX HAD SEX IN THE LAST 12 MONTHS (VAGINAL, ORAL, OR ANAL)?YES WITHMEN ONLY USE PROTECTION?NO LMP:04/25/17 HAVE YOU EVER HAD AN STD?NO HIV / HEP-C SCREENING HIV TEST OFFERED TO PATIENT:YES DATE OFFERED:05/01/2017 TEST ACCEPTED:NO HEP-C TEST OFFERED TO PATIENT:YES DATE OFFERED:05/01/2017 REASON:PATIENT DECLINED TEST ACCEPTED:NO REASON:PATIENT DECLINED JEW [id number] EVANGEL[employer]ANG[employer]AGE LANGUAGES SPOKEN:TURKMEN EDUCATION LEVEL OF EDUCATION:HIGH SCHOOL ONLY COMPLETED 8TH GRADE LEARNING BARRIERS / SPECIAL NEEDS CHANGE FROM LAST VISIT?NO BARRIERS TO LEARNING?NO HEARING IMPAIRED?NO VISION IMPAIRED?NO COGNITIVELY IMPAIRED?NO READINESS TO LEARN?YES LEARNING PREFERENCES?NO LEARNING CAPABILITIES PRESENT?YES EMOTIONAL BARRIERS?NO SPECIAL DEVICES?NO CELLOPHANE TESTER NEEDED?NO MARITAL STATUS: . OTHERS AT HOME: SPOUSE, CHILD. NEW PATIENT PAIN DIARY TODAY'S VISITNOTES FROM 0-10, WHAT LEVEL IS YOUR PAIN TODAY?4 PAIN CLINIC PFS, CLERGY, PUBLIC HEALTH REFERRALS PFS REFERRAL NEEDED?NO CLERGY REFERRAL NEEDED?NO PUBLIC HEALTH REFERRAL NEEDED?NO WAS THE PROVIDER NOTIFIED OF ANY PERTINENT INFO?NO HAS THE PATIENT BEEN EDUCATED REGARDING HIS/HER PLAN OF CARE?YES HAS THE PATIENT BEEN EDUCATED REGARDING PAIN, THE RISK FOR PAIN, THE IMPORTANCE OF EFFECTIVE PAIN MANAGEMENT, AND THE PAIN ASSESSMENT PROCESS?YES ADVANCE DIRECTIVE ADVANCE DIRECTIVE DISCUSSED WITH PATIENT:YES PT STATES SHE DOES NOT HAVE A HCP AND DECLINES INFO AT THIS TIME REVIEWED WITH PT 10/06/17 LASREVIEWED WITH PT 12/24/17 1135 LASREVIEWED WITH PT 01/09/18 1504 BVREVIEWED WITH PATIENT 03/16/18 1132 JS. HOSPITALIZATION/MAJOR DIAGNOSTIC PROCEDURE W/ CHILDBIRTH REVIEW OF SYSTEMS REVIEWED BY: PROVIDER: SOURAV MCMAHON . CONSTITUTIONAL: ANY CHANGE IN YOUR MEDICAL CONDITION? NO . CHILLS NO . FEVER NO . INFECTION: DO YOU HAVE NEW INFECTIONS? NO . DO YOU HAVE HISTORY OF MRSA? NO . MUSCULOSKELETAL: ANY NEW PATTERNS OF PAIN OR NUMBNESS? YES, RIGHT ELBOW PAIN, GOING TO SEE PCP TOMORROW FOR THIS . GASTROENTEROLOGY: ANY NEW CHANGE IN BOWEL CONTROL? NO . GENITOURINARY: ANY NEW CHANGE IN BLADDER CONTROL? NO . IS THERE A CHANCE YOU COULD BE ? NO . HEMATOLOGY/LYMPH: DO YOU TAKE ANY BLOOD THINNERS? (FOR EXAMPLE- COUMADIN, PLAVIX, AGGRENOX, PLATEL, PRADAXA, OR XARELTO) NO . WHEN WAS YOUR LAST DOSE? DATE: TIME: . NEUROLOGY: HAVE YOU FALLEN IN THE PAST 12 MONTHS? NO . ANY NEW EXTREMITY NUMBNESS OR WEAKNESS? NO . CARDIOLOGY: DO YOU HAVE A PACEMAKER OR DEFIBRILLATOR? NO . RESPIRATORY: HAVE YOU BEEN SICK IN THE PAST WEEK? NO . FEVER NO . FLU LIKE SYMPTOMS? NO . COUGH NO . INTEGUMENTARY: DO YOU HAVE ANY RASHES OR OPEN SORES? NO . ALLERGIC/IMMUNO: ARE YOU ALLERGIC TO IV DYE? NO . ANY NEW ALLERGIES? NO . PSYCHIATRIC: DO YOU HAVE THOUGHTS OF HURTING YOURSELF OR SOMEONE ELSE? NO . ARE YOU ABUSED, NEGLECTED, OR IN AN UNSAFE ENVIRONMENT? NO . ENDOCRINOLOGY: ARE YOU DIABETIC? NO . OTHER: DO YOU NEED ANY PRESCRIPTIONS? NO . IF YES, PLEASE LIST: ____ . ANY NEW PROBLEMS WITH YOUR MEDICATIONS? NO . WHEN DID YOU LAST EAT? ____ . WHEN DID YOU LAST DRINK? ____ . WHAT DID YOU LAST DRINK? ____ . NAME OF PERSON DRIVING YOU HOME? ____ . DO YOU HAVE ANY OTHER QUESTIONS OR CONCERNS YES, RIGHT ELBOW PAIN, RIGHT NECK AND SHOULDER PAIN SINCE LAST INJECTION . VITAL SIGNS WT 297.2 LBS, HT 67 IN, BMI 46.54 INDEX, BP 146/73 MM HG, HR 85 /MIN, RR 18 /MIN, TEMP 95.7 F, OXYGEN SAT % 95%, NA INITIALS AW 1343, REVIEWED BY: EM. EXAMINATION GENERAL EXAMINATION: GENERAL APPEARANCE:AWAKE,ALERT ,PLEAASANT . PSYCHAFFECT NORMAL . LUNGS:LUNG [place] ARE CLEAR TO AUSCULTATION BILATERALLY. GOOD MOVEMENT OF AIR . HEART:S1, S2 IN A REGULAR RATE AND RHYTHM. NO SIGNIFICANT MURMURS, RUBS OR GALLOPS NOTED . EXTREMITIES:TENDERNESS OVER LEFT HIP W PALPATION. ASSESSMENTS TROCHANTERIC BURSITIS OF LEFT HIP - M70.62 (PRIMARY) TREATMENT TROCHANTERIC BURSITIS OF LEFT HIP REFILL OXYCODONE HCL TABLET, 5 MG, 1.5 TAB, ORALLY, EVERY 6 HRS PRN MDD6, 30 DAY(S), 180, REFILLS 0 NOTES: ISTOP REGISTRY REVIEWED AND DEMONSTRATES COMPLLIANCE. (REF # [id number] ) BRINGS IN MEDICATIONS WHICH IS APPROPRIATE FOR WHAT WAS DISPENSED. RECENT URINE TOXICOLOGY REVIEWED. NO UNAUTHORIZED MEDICATIONS. NO ILLICIT SUBSTANCES AND PRESCRIBED MEDICATIONS WERE PRESENT. URINE TOX TODAY, [facility] NARCOTIC AGREEMENT UPDATE WAS REVIEWED AND SIGNED TODAY BY THE PATIENT. SEE ATTACHED DOCUMENT FOR FULL DETAILS; SPECIFIC ISSUES WERE REVIEWED: 1) KEEP PAIN MEDS IN THEIR ORIGINAL BOTTLES AND ANY WEEKLY PLANNERS ARE TO BE BROUGHT TO THE PAIN CENTER AT EVERY VISIT. 2) THE PATIENT IS NOT TO INCREASE DOSING OR TIMING OF THEIR PAIN MEDICATION WITHOUT SPECIFIC DIRECTION OF THEIR PAIN CENTERPROVIDER (NOT ER OR OTHER PROVIDERS). 3) ALL PAIN MEDS ARE TO BE KEPT SECURED, IN A LOCKED BOX. 4) NO PAIN MEDS ARE TO BE SHARED WITH ANY OTHER PERSON FOR ANY REASON. 5) NO PAIN MEDS MAY BE TAKEN FROM ANY FRIENDS OR RELATIVES FOR ANY REASON 6) NO MEDS OR SUBSTANCES WHICH ARE NOT LEGAL ARE TO BE USED- NO MARIJUANA, NO COCAINE, AMPHETAMINES, HEROIN, OR OTHERS ARE EVER TO BE USED. 7)URINE TESTING IS DONE TO ACCOUNT FOR MEDS AND SUBSTANCES BEING TAKEN AND WILL BE DONE RANDOMLY., RISKS AND BENEFITS OF NARCOTIC/OPIOD MEDICATIONS WERE REVIEWED WITH PATIENT - THIS INCLUDES BUT IS NOT LIMITED TO RISK OF DEPENDANCE/DEVELOPMENT OF ADDICTION, MOOD DISTURBANCE AND DEPRESSION, OSTEOPOROSIS, HORMONAL AND LABIDAL CHANGES, RESPIRATORY DEPRESSION AND . PATIENT IS ADVISED NOT TO DRIVE OR DRINK ALCOHOL WHILE ON THESE MEDICATIONS. OTHERS NOTES: LEFT HIP BURSAL INJECTION. PROCEDURE CODES FA211 ESTABILISHED PATIENT [facility] CHARGE DISPOSITION & COMMUNICATION FOLLOW UP POST (REASON: LEFT HIP BURSAL INJECTION) ELECTRONICALLY SIGNED BY SALOME HOUGH ON 05/08/2018 AT 01:14 PM EST DISCLAIMER : THIS IS A VISIT SUMMARY EXTRACTED FROM THE [employer] CHART. IT IS NOT A COPY OF THE [employer] PROGRESS NOTE. HERSON
== END ==
LOC: M PAIN 13:30
PROVIDERS: ATTEND Nurse Practitioner Family
DX: M70.62 Trochanteric bursitis, left hip (principal); I10 Essential (primary) hypertension; K21.9 Gastro-esophageal reflux disease without esophagitis; E78.5 Hyperlipidemia, unspecified; E03.9 Hypothyroidism, unspecified; E66.01 Morbid (severe) obesity due to excess calories; Z68.42 Body mass index [BMI] 45.0-49.9, adult; Z79.82 Long term (current) use of aspirin; Z79.891 Long term (current) use of opiate analgesic; Z79.899 Other long term (current) drug therapy; Z88.1 Allergy status to other antibiotic agents; Z88.8 Allergy status to other drugs, medicaments and biological substances

== ENCOUNTER → 2018-04-24 | Outpatient (CLI) | payer MEDICARE, OTHER ==
--- NOTE | 2018-04-24 15:57 | REP ---
Right elbow for views: There are no comparisons. There is a curvilinear calcification at the lateral femoral epicondyle. This is nonspecific and could be degenerative or could represent chronic lateral epicondylitis. There is a similar curvilinear calcification adjacent to the medial epicondyle that could also be degenerative or represent medial epicondylitis. There is no fracture or dislocation. Mineralization joint spaces are normal. There is no effusion. Impression: There are curvilinear calcifications adjacent to the medial epicondyle and lateral epicondyle, nonspecific as discussed above. Electronically Signed by Raul Piper MD 04/24/2018 03:49 P
== END ==
LOC: M RAD 14:34
PROVIDERS: ATTEND Physician Assistant
DX: R93.6 Abnormal findings on diagnostic imaging of limbs (principal); M25.521 Pain in right elbow
CPT/HCPCS: 73080; G0463

== ENCOUNTER → 2018-05-12 | Outpatient (CLI) | payer MEDICARE, OTHER ==
[~2018-05-12] MED LIST changes: +BUPIVACAINE HCL 0.25% 30 ML VIAL As Ordered ONE; +ISOVUE-M 300 61% 15ML VIAL (Q9967) As Ordered ONE; +LIDOCAINE 1% SDV INJ 30 ML VIAL As Ordered ONE; +TRIAMCINOLONE ACETONIDE SUSP 40 MG/ML VIAL (J3301) As Ordered ONE
--- NOTE | 2018-05-12 17:16 | REP ---
Left hip: Two views. History: Left greater trochanteric injection for pain. 31 seconds of fluoroscopy time is reported. Findings: A sequence of two last image hold fluoroscopically obtained spot radiographs document needle position for injection procedure. Electronically Signed by Gene Cortes MD 05/12/2018 05:08 P
--- NOTE | 2018-05-24 00:40 | ECWPNPC ---
PATIENT NAME: ILAN PAGE : 1975 GENDER: FEMALE VISIT DATE: 05/12/2018 DISCHARGE DATE: 05/12/18 1606 VISIT LOCKED DATE TIME: PHYSICIAN: NATALIA AGGARWAL MD RESOURCE: NATALAI AGGARWAL MD REASON FOR APPOINTMENT 1. LEFT HIP BURSAL INJECTION HISTORY OF PRESENT ILLNESS HISTORY OF PRESENT ILLNESS: PAIN THE PATIENT DESCRIBES THE PAIN... FALL RISK SCREENING: SCREENING : NO FALLS IN THE PAST YEAR. CURRENT MEDICATIONS TAKING STOOL SOFTENER 100 MG CAPSULE 1 CAP ORALLY DAILY, NOTES: 05/11/18 TAKING NYSTATIN 810915 UNIT/GM CREAM 1 APPLICATION TO AFFECTED AREA EXTERNALLY ABDOMEN DAILY, NOTES: NONE LATELY TAKING BENADRYL ALLERGY 25 MG TABLET 2 TABLETS BEFORE BED ORALLY ONCE DAILY, NOTES: 05/12/18 0200 TAKING ZESTORETIC 20-25 MG TABLET 1 TABLET ORALLY ONCE A DAY, NOTES: 05/11/18 TAKING OMEPRAZOLE 40 MG CAPSULE DELAYED RELEASE 1 CAP(S) ORALLY ONCE DAILY, NOTES: 05/11/18 TAKING SIMVASTATIN 20 20MG TABLET 1 TABLET ORALLY ONCE A DAY, NOTES: 05/11/18 TAKING SYNTHROID 50 50MCG TABLET DIRECTED ORAL ONCE DAILY, NOTES: 05/11/18 TAKING MIRTAZAPINE 15 MG TABLET 1 TABLET AT BEDTIME ORALLY ONCE A DAY, NOTES: 05/11/18 TAKING LEVOCETIRIZINE DIHYDROCHLORIDE 5 MG TABLET 1 TABLET IN THE EVENING ORALLY ONCE A DAY, NOTES: 05/11/18 TAKING ASPIRIN ADULT LOW STRENGTH 81 MG TABLET DELAYED RELEASE 1 TABLET ORALLY ONCE A DAY, NOTES: 05/11/18 TAKING OXYBUTYNIN CHLORIDE ER 10 MG TABLET EXTENDED RELEASE 24 HOUR 1 TABLET ORALLY ONCE A DAY, NOTES: 05/11/18 TAKING ANUPMA 28 3-0.03 MG TABLET 1 TABLET ORALLY ONCE A DAY, NOTES: 05/11/18 TAKING OXYCODONE HCL 5 MG TABLET 1.5 TAB ORALLY EVERY 6 HRS PRN MDD6, NOTES: 05/12/18 1100 TAKING CLOTRIMAZOLE-BETAMETHASONE 1-0.05 % CREAM 1 APPLICATION TO AFFECTED AREA EXTERNALLY TWICE A DAY X 2 WKS, THEN QDAY X 2WEEKS, AND THEN PRN TOPICAL., NOTES: 05/11/18 TAKING NORMAN TENNIS ELBOW STRAP - MISCELLANEOUS DIRECTED _ DAILY (M77.11), NOTES: NOT YET NOT-TAKING BACID - CAPSULE 1 CAP ORALLY DAILY NOT-TAKING CARAFATE 1 GM TABLET 1 TABLET ON AN EMPTY STOMACH ORALLY TWICE A DAY NOT-TAKING VITAMIN D 1000 UNIT TABLET 1 TABLET ORALLY ONCE A DAY, NOTES: NONE LATELY 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 2016 EGD W/ REINDL NL 2013 FAMILY HISTORY FATHER: UNKNOWN, PT HAS NO CONTACT WITH HER FATHER. MOTHER: ALIVE, DM2, HYPERLIPIDEMIA, HTN, MORBID OBESITY, CHRONIC LOW BACK PAIN, DEPRESSION. SIBLINGS: UNKNOWN, INCARCERATED FOR MURDER SON(S): ALLERGIES, ASTHMA DENIES FH OF BREAST, OVARIAN, OR COLORECTAL CANCER. SOCIAL HISTORY GENERAL: TOBACCO USE ARE YOU A:NONSMOKER NEVER SMOKER BMI CARE GOAL FOLLOW-UP ABOVE NORMAL BMI FOLLOW-UPGIVING ENCOURAGEMENT TO EXERCISE ALCOHOL SCREENING DID YOU HAVE A DRINK CONTAINING ALCOHOL IN THE PAST YEAR?NO POINTS0 INTERPRETATIONNEGATIVE RECREATIONAL DRUG USE DRUG USE?NO CAFFEINE CAFFEINE USE?NO SEXUAL HX HAD SEX IN THE LAST 12 MONTHS (VAGINAL, ORAL, OR ANAL)?YES WITHMEN ONLY USE PROTECTION?NO HAVE YOU EVER HAD AN STD?NO LMP:04/25/17 HIV / HEP-C SCREENING HIV TEST OFFERED TO PATIENT:YES DATE OFFERED:05/01/2017 TEST ACCEPTED:NO REASON:PATIENT DECLINED HEP-C TEST OFFERED TO PATIENT:YES DATE OFFERED:05/01/2017 TEST ACCEPTED:NO REASON:PATIENT DECLINED M[employer]MON [id number] L[employer]UAGES SPOKEN:CZECH EDUCATION LEVEL OF EDUCATION:HIGH SCHOOL ONLY COMPLETED 8TH GRADE LEARNING BARRIERS / SPECIAL NEEDS CHANGE FROM LAST VISIT?NO BARRIERS TO LEARNING?NO HEARING IMPAIRED?NO VISION IMPAIRED?NO COGNITIVELY IMPAIRED?NO READINESS TO LEARN?YES LEARNING PREFERENCES?NO LEARNING CAPABILITIES PRESENT?YES EMOTIONAL BARRIERS?NO SPECIAL DEVICES?NO MONTESSORI PRESCHOOL TEACHER NEEDED?NO MARITAL STATUS: . OTHERS AT HOME: SPOUSE, CHILD. NEW PATIENT PAIN DIARY TODAY'S VISITNOTES FROM 0-10, WHAT LEVEL IS YOUR PAIN TODAY?4 PAIN CLINIC PFS, CLERGY, PUBLIC HEALTH REFERRALS PFS REFERRAL NEEDED?NO CLERGY REFERRAL NEEDED?NO PUBLIC HEALTH REFERRAL NEEDED?NO WAS THE PROVIDER NOTIFIED OF ANY PERTINENT INFO?NO HAS THE PATIENT BEEN EDUCATED REGARDING HIS/HER PLAN OF CARE?YES HAS THE PATIENT BEEN EDUCATED REGARDING PAIN, THE RISK FOR PAIN, THE IMPORTANCE OF EFFECTIVE PAIN MANAGEMENT, AND THE PAIN ASSESSMENT PROCESS?YES ADVANCE DIRECTIVE ADVANCE DIRECTIVE DISCUSSED WITH PATIENT:YES PT STATES SHE DOES NOT HAVE A HCP AND DECLINES INFO AT THIS TIME REVIEWED WITH PT 10/06/17 LASREVIEWED WITH PT 12/24/17 1135 LASREVIEWED WITH PT 01/09/18 1504 BVREVIEWED WITH PATIENT 03/16/18 1132 JS. HOSPITALIZATION/MAJOR DIAGNOSTIC PROCEDURE W/ CHILDBIRTH REVIEW OF SYSTEMS REVIEWED BY: PROVIDER: . CONSTITUTIONAL: ANY CHANGE IN YOUR MEDICAL CONDITION? NO . CHILLS NO . FEVER NO . INFECTION: DO YOU HAVE NEW INFECTIONS? NO . DO YOU HAVE HISTORY OF MRSA? NO . MUSCULOSKELETAL: ANY NEW PATTERNS OF PAIN OR NUMBNESS? NO . GASTROENTEROLOGY: ANY NEW CHANGE IN BOWEL CONTROL? NO . GENITOURINARY: ANY NEW CHANGE IN BLADDER CONTROL? NO . IS THERE A CHANCE YOU COULD BE ? NO . HEMATOLOGY/LYMPH: DO YOU TAKE ANY BLOOD THINNERS? (FOR EXAMPLE- COUMADIN, PLAVIX, AGGRENOX, PLATEL, PRADAXA, OR XARELTO) NO . WHEN WAS YOUR LAST DOSE? DATE: TIME: . NEUROLOGY: HAVE YOU FALLEN IN THE PAST 12 MONTHS? NO . ANY NEW EXTREMITY NUMBNESS OR WEAKNESS? NO . CARDIOLOGY: DO YOU HAVE A PACEMAKER OR DEFIBRILLATOR? NO . RESPIRATORY: HAVE YOU BEEN SICK IN THE PAST WEEK? NO . FEVER NO . FLU LIKE SYMPTOMS? NO . COUGH NO . INTEGUMENTARY: DO YOU HAVE ANY RASHES OR OPEN SORES? NO . ALLERGIC/IMMUNO: ARE YOU ALLERGIC TO IV DYE? NO . ANY NEW ALLERGIES? NO . PSYCHIATRIC: DO YOU HAVE THOUGHTS OF HURTING YOURSELF OR SOMEONE ELSE? NO . ARE YOU ABUSED, NEGLECTED, OR IN AN UNSAFE ENVIRONMENT? NO . ENDOCRINOLOGY: ARE YOU DIABETIC? NO . OTHER: DO YOU NEED ANY PRESCRIPTIONS? NO . IF YES, PLEASE LIST: ____ . ANY NEW PROBLEMS WITH YOUR MEDICATIONS? NO . WHEN DID YOU LAST EAT? 05/12/18 0100 . WHEN DID YOU LAST DRINK? 05/12/18 1100 . WHAT DID YOU LAST DRINK? PEPSI . NAME OF PERSON DRIVING YOU HOME? BILL . DO YOU HAVE ANY OTHER QUESTIONS OR CONCERNS NO . VITAL SIGNS WT 293.8 LBS, HT 67 IN, BMI 46.01 INDEX, BP 128/79 MM HG, HR 74 /MIN, RR 18 /MIN, TEMP 97.5 F, OXYGEN SAT % 94%, NA INITIALS AW 1340, REVIEWED BY: EM. ASSESSMENTS TROCHANTERIC BURSITIS OF LEFT HIP - M70.62 (PRIMARY) TREATMENT TROCHANTERIC BURSITIS OF LEFT HIP [facility] FLUORO GUIDANCE (PAIN)[id number] PROCEDURES PREPROCEDURE DIAGNOSIS: BURSITIS AT THE LEFT GREATER TROCHANTER OF THE FEMUR. POSTPROCEDURE DIAGNOSIS: BURSITIS AT THE LEFT GREATER TROCHANTER OF THE FEMUR. PROCEDURE: INJECTION AT THE BURSA OF THE OF THE LEFT GREATER TROCHANTER OF THE FEMUR UNDER FLUOROSCOPIC GUIDANCE. SURGEON: DR. NATALIA AGGARWAL GUITAR REPAIRER: NONEANESTHESIA: LOCAL. PREOPERATIVE NOTE: THE PATIENT HAS A HISTORY OF LEFT HIP PAIN. I EVALUATED THE PATIENT AND REVIEWED THE CHART. WE BOTH AGREE ON INJECTING OVER THE BURSA OF THE LEFT GREATER TROCHANTER OF THE FEMUR. I WENT THROUGH THE RISKS, ALTERNATIVES, AND BENEFITS ASSOCIATED WITH THIS PROCEDURE. THE PATIENT WOULD LIKE TO PROCEED AND GIVE CONSENT TO PERFORMED THE PROCEDURE. THE PATIENT DENIES UNEXPLAINABLE WEIGHT LOSS, FEVERS, CHILLS, OR CHANGES IN HIS URINARY OR BOWEL CONTROL. DESCRIPTION OF PROCEDURE: AFTER CONSENT WAS TAKEN, THE PATIENT WAS BROUGHT TO THE PROCEDURE ROOM AND PLACED IN THE RIGHT LATERAL DECUBITUS POSITION. THE LEFT HIP AREA WAS CLEANED WITH CHLORAPREP SOLUTION AND DRAPED ASEPTICALLY. THE PROCEDURE WAS DONE UNDER STERILE CONDITIONS. I CHECKED LATERALITY WITH THE PATIENT AND THE STAFF IN THE PROCEDURE ROOM AT THE MOMENT OF THE TIME OUT. UNDER FLUOROSCOPIC GUIDANCE, TARGET WAS SELECTED AT THE LEFT GREATER TROCHANTER OF THE FEMUR. LIDOCAINE WAS USED TO NUMB THE SKIN AND THE SUBCUTANEOUS TISSUE BELOW IT. SPINAL NEEDLE, 22-GAUGE WAS ADVANCED UNDER FLUOROSCOPIC GUIDANCE AND FOLLOWING PATIENT FEEDBACK UNTIL THE TARGET WAS TOUCHED. POSITION OF THE NEEDLE WAS VERIFIED WITH AP AND LATERAL VIEWS. AFTER PROPER POSITION OF THE NEEDLE WAS ACHIEVED, ISOVUE M DYE, 30%, 0.25 ML WAS INJECTED SHOWING ADEQUATE SPREAD OF THE DYE. THEN A SOLUTION OF 20 ML OF BUPIVACAINE 0.25% AND KENALOG 40 MG WAS INJECTED. THERE WAS NO EVIDENCE OF BLOOD, PARESTHESIA, OR CEREBROSPINAL FLUID. THE PATIENT WAS SENT TO THE RECOVERY ROOM. THE PATIENT WAS MOVING THE EXTREMITIES AND DOING WELL. THERE WERE NO COMPLICATIONS DURING THE PROCEDURE. POSTOPERATIVE NOTE: I DISCUSSED ALTERNATIVES WITH THE PATIENT. WE WILL SEE THE PATIENT BACK IN SEVERAL WEEKS FOR REEVALUATION OF THE CASE. I AM LOOKING FOR LONG-LASTING PAIN RELIEF WITH THIS INTERVENTION. FLUOROSCOPIC TIME WAS 31 SECONDS. FURTHER RECOMMENDATIONS WILL BE DONE DEPENDING ON HOW THE PATIENT DOES. THERE WERE NO COMPLICATIONS. I, ILAN BOYER, DOCUMENTED THE ABOVE INFORMATION ACTING A SCRIBE FOR DR. AGGARWAL. I HAVE REVIEWED THE ABOVE DOCUMENT, WRITTEN BY ILAN JAYIBCinthia AND I VERIFY THAT IT IS ACCURATE. PROCEDURE CODES 6045F RADXPS IN END [id number] PXD [id number] NEEDLE LOCALIZATION BY XRAY, MODIFIERS: [id number] DRAIN/INJ JOINT/BURSA W/O US, MODIFIERS: LT DISPOSITION & COMMUNICATION FOLLOW UP 3 WEEKS ELECTRONICALLY SIGNED BY NATALIA AGGARWAL MD, MD ON 05/23/2018 AT 07:44 PM EDT DISCLAIMER : THIS IS A VISIT SUMMARY EXTRACTED FROM THE [employer] CHART. IT IS NOT A COPY OF THE [employer] PROGRESS NOTE. MTDD
== END ==
LOC: M PAIN 13:30
PROVIDERS: ATTEND Anesthesiology
DX: M70.62 Trochanteric bursitis, left hip (principal); I10 Essential (primary) hypertension; K21.9 Gastro-esophageal reflux disease without esophagitis; E78.5 Hyperlipidemia, unspecified; E03.9 Hypothyroidism, unspecified; E66.01 Morbid (severe) obesity due to excess calories; Z68.42 Body mass index [BMI] 45.0-49.9, adult; Z79.82 Long term (current) use of aspirin; Z79.891 Long term (current) use of opiate analgesic; Z79.899 Other long term (current) drug therapy; Z88.1 Allergy status to other antibiotic agents; Z88.8 Allergy status to other drugs, medicaments and biological substances
CPT/HCPCS: 20610; 77002; J3301; Q9967

== ENCOUNTER → 2018-06-22 | Outpatient (CLI) | payer MEDICARE, OTHER ==
[~2018-06-22] MED LIST changes: -BUPIVACAINE HCL 0.25% 30 ML VIAL As Ordered ONE; -ISOVUE-M 300 61% 15ML VIAL (Q9967) As Ordered ONE; -LIDOCAINE 1% SDV INJ 30 ML VIAL As Ordered ONE; -META1TAB19 PO; +META400T PO; +OMEP20TA17 PO; -TRIAMCINOLONE ACETONIDE SUSP 40 MG/ML VIAL (J3301) As Ordered ONE; -[UNRECOGNIZED DRUG - CODE] PO
--- NOTE | 2018-07-06 00:08 | ECWPNPC ---
PATIENT NAME: ILAN PAGE : 1975 GENDER: FEMALE VISIT DATE: 06/22/2018 DISCHARGE DATE: 06/22/18 1256 VISIT LOCKED DATE TIME: PHYSICIAN: SOURAV HEBERT RESOURCE: SOURAV HEBERT REASON FOR APPOINTMENT 1. POST PROC HISTORY OF PRESENT ILLNESS HISTORY OF PRESENT ILLNESS: HERE FOR POST PROCEDURE F/U.HAD LEFT GREATER TROCHANTERIC BURSAL INJECTION ON 05-12-18.REPORTING >50% IMPROVEMENT IN PAIN AND NUMBNESS IN RIGHT THIGH THAT CONTINUES TODAY.COMPLAINING OF LBP WITH RADIATION INTO HIPS.RATING PAIN VAS 6/10. PAIN THE PATIENT DESCRIBES THE PAIN... THE PATIENT DESCRIBES THE PAIN... THE PATIENT DESCRIBES THE PAIN... FALL RISK SCREENING: SCREENING :NO FALLS REPORTED IN THE LAST YEAR CURRENT MEDICATIONS TAKING STOOL SOFTENER 100 MG CAPSULE 1 CAP ORALLY DAILY TAKING NYSTATIN [id number] UNIT/GM CREAM 1 APPLICATION TO AFFECTED AREA EXTERNALLY ABDOMEN DAILY TAKING BENADRYL ALLERGY 25 MG TABLET 2 TABLETS BEFORE BED ORALLY ONCE DAILY TAKING SIMVASTATIN 20 20MG TABLET 1 TABLET ORALLY ONCE A DAY TAKING ASPIRIN ADULT LOW STRENGTH 81 MG TABLET DELAYED RELEASE 1 TABLET ORALLY ONCE A DAY TAKING CLOTRIMAZOLE-BETAMETHASONE 1-0.05 % CREAM 1 APPLICATION TO AFFECTED AREA EXTERNALLY TWICE A DAY X 2 WKS, THEN QDAY X 2WEEKS, AND THEN PRN TOPICAL. TAKING NORMAN TENNIS ELBOW STRAP - MISCELLANEOUS DIRECTED _ DAILY (M77.11) TAKING ANUPAM 28 3-0.03 MG TABLET 1 TABLET ORALLY ONCE A DAY TAKING OXYBUTYNIN CHLORIDE ER 10 MG TABLET EXTENDED RELEASE 24 HOUR 1 TABLET ORALLY ONCE A DAY TAKING LEVOCETIRIZINE DIHYDROCHLORIDE 5 MG TABLET 1 TABLET IN THE EVENING ORALLY ONCE A DAY TAKING MIRTAZAPINE 15 MG TABLET 1 TABLET AT BEDTIME ORALLY ONCE A DAY TAKING SYNTHROID 50 50MCG TABLET DIRECTED ORAL ONCE DAILY TAKING OMEPRAZOLE 40 MG CAPSULE DELAYED RELEASE 1 CAP(S) ORALLY ONCE DAILY TAKING ZESTORETIC 20-25 MG TABLET 1 TABLET ORALLY ONCE A DAY TAKING OXYCODONE HCL 5 MG TABLET 1.5 TAB ORALLY EVERY 6 HRS PRN MDD6 NOT-TAKING BACID - CAPSULE 1 CAP ORALLY DAILY NOT-TAKING CARAFATE 1 GM TABLET 1 TABLET ON AN EMPTY STOMACH ORALLY TWICE A DAY NOT-TAKING VITAMIN D 1000 UNIT TABLET 1 TABLET ORALLY ONCE A DAY, NOTES: NONE LATELY 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 2017 EGD W/ REINDL NL 2013 FAMILY HISTORY FATHER: UNKNOWN, PT HAS NO CONTACT WITH HER FATHER. MOTHER: ALIVE, DM2, HYPERLIPIDEMIA, HTN, MORBID OBESITY, CHRONIC LOW BACK PAIN, DEPRESSION. SIBLINGS: UNKNOWN, INCARCERATED FOR MURDER SON(S): ALLERGIES, ASTHMA DENIES FH OF BREAST, OVARIAN, OR COLORECTAL CANCER. SOCIAL HISTORY GENERAL: TOBACCO USE ARE YOU A:NONSMOKER NEVER SMOKER LATEX QUESTIONNAIRE LATEX ALLERGY : HAVE YOU EVER DEVELOPED ANY TYPE OF REACTION AFTER HANDLING LATEX PRODUCTS SUCH RUBBER GLOVES, CONDOMS, DIAPHRAGMS, BALLOONS, SOCKS, OR UNDERWEAR?NO LATEX ALLERGY : HAVE YOU EVER DEVELOPED ANY TYPE OF REACTION DURING OR AFTER DENTAL APPOINTMENT, VAGINAL/RECTAL EXAMINATION, SURGICAL PROCEDURE, OR ANY OTHER EXPOSURE?NO LATEX RISK : HAVE YOU EVER HAD ANY DIFFICULTY BREATHING OR HIVES AFTER EATING OR HANDLING ANY FRUITS, OR VEGETABLES; SUCH KIWI, BANANAS, STONE FRUITS, OR CHESTNUTSNO LATEX RISK : DO YOU HAVE A PREVIOUS PERSONAL HISTORY OF MORE THAN NINE SURGERIES, SPINA BIFIDA, OR REPEATED CATHERTIZATIONS? NO LATEX RISK : ARE YOU FREQUENTLY EXPOSED TO LATEX PRODUCTS IN YOUR OCCUPATION?NO DATE ASKED : 06/22/2018 BMI CARE GOAL FOLLOW-UP ABOVE NORMAL BMI FOLLOW-UPGIVING ENCOURAGEMENT TO EXERCISE ALCOHOL SCREENING DID YOU HAVE A DRINK CONTAINING ALCOHOL IN THE PAST YEAR?NO POINTS0 INTERPRETATIONNEGATIVE RECREATIONAL DRUG USE DRUG USE?NO CAFFEINE CAFFEINE USE?NO SEXUAL HX HAD SEX IN THE LAST 12 MONTHS (VAGINAL, ORAL, OR ANAL)?YES WITHMEN ONLY USE PROTECTION?NO HAVE YOU EVER HAD AN STD?NO LMP:04/25/17 HIV / HEP-C SCREENING HIV TEST OFFERED TO PATIENT:YES DATE OFFERED:05/01/2017 TEST ACCEPTED:NO REASON:PATIENT DECLINED HEP-C TEST OFFERED TO PATIENT:YES DATE OFFERED:05/01/2017 TEST ACCEPTED:NO REASON:PATIENT DECLINED TEM[id number] LANGUAGES SPOKEN:PORTUGUESE EDUCATION LEVEL OF EDUCATION:HIGH SCHOOL ONLY COMPLETED 8TH GRADE LEARNING BARRIERS / SPECIAL NEEDS CHANGE FROM LAST VISIT?NO BARRIERS TO LEARNING?NO HEARING IMPAIRED?NO VISION IMPAIRED?NO COGNITIVELY IMPAIRED?NO READINESS TO LEARN?YES LEARNING PREFERENCES?NO LEARNING CAPABILITIES PRESENT?YES EMOTIONAL BARRIERS?NO SPECIAL DEVICES?NO COPY MANAGER NEEDED?NO MARITAL STATUS: . OTHERS AT HOME: SPOUSE, CHILD. NEW PATIENT PAIN DIARY TODAY'S VISITNOTES FROM 0-10, WHAT LEVEL IS YOUR PAIN TODAY?4 PAIN CLINIC PFS, CLERGY, PUBLIC HEALTH REFERRALS PFS REFERRAL NEEDED?NO CLERGY REFERRAL NEEDED?NO PUBLIC HEALTH REFERRAL NEEDED?NO WAS THE PROVIDER NOTIFIED OF ANY PERTINENT INFO?YES HAS THE PATIENT BEEN EDUCATED REGARDING HIS/HER PLAN OF CARE?YES HAS THE PATIENT BEEN EDUCATED REGARDING PAIN, THE RISK FOR PAIN, THE IMPORTANCE OF EFFECTIVE PAIN MANAGEMENT, AND THE PAIN ASSESSMENT PROCESS?YES ADVANCE DIRECTIVE ADVANCE DIRECTIVE DISCUSSED WITH PATIENT:YES PT STATES SHE DOES NOT HAVE A HCP AND DECLINES INFO AT THIS TIME REVIEWED WITH PT 10/06/17 LASREVIEWED WITH PT 12/24/17 1135 LASREVIEWED WITH PT 01/09/18 1504 BVREVIEWED WITH PATIENT 03/16/18 1132 JS. HOSPITALIZATION/MAJOR DIAGNOSTIC PROCEDURE W/ CHILDBIRTH REVIEW OF SYSTEMS REVIEWED BY: PROVIDER: SOURAV MCMAHON . CONSTITUTIONAL: ANY CHANGE IN YOUR MEDICAL CONDITION? NO . CHILLS NO . FEVER NO . INFECTION: DO YOU HAVE NEW INFECTIONS? NO . DO YOU HAVE HISTORY OF MRSA? NO . MUSCULOSKELETAL: ANY NEW PATTERNS OF PAIN OR NUMBNESS? NO . GASTROENTEROLOGY: ANY NEW CHANGE IN BOWEL CONTROL? NO . GENITOURINARY: ANY NEW CHANGE IN BLADDER CONTROL? NO . IS THERE A CHANCE YOU COULD BE ? NO . HEMATOLOGY/LYMPH: DO YOU TAKE ANY BLOOD THINNERS? (FOR EXAMPLE- COUMADIN, PLAVIX, AGGRENOX, PLATEL, PRADAXA, OR XARELTO) NO . WHEN WAS YOUR LAST DOSE? DATE: TIME: . NEUROLOGY: HAVE YOU FALLEN IN THE PAST 12 MONTHS? NO . ANY NEW EXTREMITY NUMBNESS OR WEAKNESS? NO . CARDIOLOGY: DO YOU HAVE A PACEMAKER OR DEFIBRILLATOR? NO . RESPIRATORY: HAVE YOU BEEN SICK IN THE PAST WEEK? NO . FEVER NO . FLU LIKE SYMPTOMS? NO . COUGH NO . INTEGUMENTARY: DO YOU HAVE ANY RASHES OR OPEN SORES? NO . ALLERGIC/IMMUNO: ARE YOU ALLERGIC TO IV DYE? NO . ANY NEW ALLERGIES? NO . PSYCHIATRIC: DO YOU HAVE THOUGHTS OF HURTING YOURSELF OR SOMEONE ELSE? NO . ARE YOU ABUSED, NEGLECTED, OR IN AN UNSAFE ENVIRONMENT? NO . ENDOCRINOLOGY: ARE YOU DIABETIC? NO . OTHER: DO YOU NEED ANY PRESCRIPTIONS? NO . IF YES, PLEASE LIST: ____ . ANY NEW PROBLEMS WITH YOUR MEDICATIONS? NO . WHEN DID YOU LAST EAT? ____ . WHEN DID YOU LAST DRINK? ____ . WHAT DID YOU LAST DRINK? ____ . NAME OF PERSON DRIVING YOU HOME? ____ . DO YOU HAVE ANY OTHER QUESTIONS OR CONCERNS PT STATES THAT PAIN IS DECREASED IN INJECTION AREA, PT STATES THAT LEFT HIP CONTINUES TO FEEL SORE AND BRUISED FROM INJECTION. PT STATES THAT PAIN IS INCREASED IN LOW BACK 10/17 . VITAL SIGNS WT 303.4 LBS, HT 67 IN, BMI 47.51 INDEX, BP 135/76 MM HG, HR 81 /MIN, RR 18 /MIN, TEMP 97.4 F, OXYGEN SAT % 94%, SAFE IN ENV? (Y/N) Y, NA INITIALS SD 12:20, REVIEWED BY: SCOOTER. EXAMINATION GENERAL EXAMINATION: GENERAL APPEARANCE: AWAKE,ALERT ,PLEAASANT . PSYCH AFFECT NORMAL . LUNGS: LUNG [place] ARE CLEAR TO AUSCULTATION BILATERALLY. GOOD MOVEMENT OF AIR . HEART: S1, S2 IN A REGULAR RATE AND RHYTHM. NO SIGNIFICANT MURMURS, RUBS OR GALLOPS NOTED . LUMBAR SACRAL SPINEPALPATION:TENDER OVER BILAT. L2/3-L3/4 LUMBAR FACETS WITH FACET LOADING.. ASSESSMENTS SPONDYLOSIS WITHOUT MYELOPATHY OR RADICULOPATHY, LUMBAR REGION - M47.816 (PRIMARY) TREATMENT SPONDYLOSIS WITHOUT MYELOPATHY OR RADICULOPATHY, LUMBAR REGION CONTINUE OXYCODONE HCL TABLET, 5 MG, 1.5 TAB, ORALLY, EVERY 6 HRS PRN MDD6 NOTES: ISTOP REGISTRY REVIEWED AND DEMONSTRATES COMPLLIANCE. (REF # ) BRINGS IN MEDICATIONS WHICH IS APPROPRIATE FOR WHAT WAS DISPENSED. RECENT URINE TOXICOLOGY REVIEWED. NO UNAUTHORIZED MEDICATIONS. NO ILLICIT SUBSTANCES AND PRESCRIBED MEDICATIONS WERE PRESENT. , RISKS AND BENEFITS OF NARCOTIC/OPIOD MEDICATIONS WERE REVIEWED WITH PATIENT - THIS INCLUDES BUT IS NOT LIMITED TO RISK OF DEPENDANCE/DEVELOPMENT OF ADDICTION, MOOD DISTURBANCE AND DEPRESSION, OSTEOPOROSIS, HORMONAL AND LABIDAL CHANGES, RESPIRATORY DEPRESSION AND . PATIENT IS ADVISED NOT TO DRIVE OR DRINK ALCOHOL WHILE ON THESE MEDICATIONSBILAT. L3/4-L4/5 THERAPEUTIC BLOCK. PREVENTIVE MEDICINE PAIN CLINIC TEACHING: PROCEDURE TEACHING PT GIVEN WRITTEN AND VERBAL PRE-PROCEDURE INSTRUCTIONS. PT VERBALIZES UNDERSTANDING OF ALL INSTRUCTIONS. SUBHASH MACHUCA 06/22/2018 12:55:12 PM > . PROCEDURE CODES FA211 ESTABILISHED PATIENT [facility] CHARGE DISPOSITION & COMMUNICATION FOLLOW UP POST (REASON: L2/3-L3/4 THERAPEUTIC FACET BLOCK) ELECTRONICALLY SIGNED BY SALOME HOUGH ON 07/05/2018 AT 07:41 PM EDT DISCLAIMER : THIS IS A VISIT SUMMARY EXTRACTED FROM THE [employer] CHART. IT IS NOT A COPY OF THE [employer] PROGRESS NOTE. HERSON
== END ==
LOC: M PAIN 11:15
PROVIDERS: ATTEND Nurse Practitioner Family
DX: M47.816 Spondylosis without myelopathy or radiculopathy, lumbar region (principal); I10 Essential (primary) hypertension; K21.9 Gastro-esophageal reflux disease without esophagitis; E78.5 Hyperlipidemia, unspecified; E03.9 Hypothyroidism, unspecified; Z88.1 Allergy status to other antibiotic agents; Z88.6 Allergy status to analgesic agent; E66.01 Morbid (severe) obesity due to excess calories; Z68.42 Body mass index [BMI] 45.0-49.9, adult; Z79.82 Long term (current) use of aspirin; Z79.891 Long term (current) use of opiate analgesic; Z79.899 Other long term (current) drug therapy

== ENCOUNTER → 2018-07-14 | Outpatient (CLI) | payer MEDICARE, OTHER ==
[~2018-07-14] MED LIST changes: +BUPIVACAINE HCL 0.25% 30 ML VIAL As Ordered ONE; +ISOVUE-M 300 61% 15ML VIAL (Q9967) As Ordered ONE; +LIDOCAINE 1% SDV INJ 30 ML VIAL As Ordered ONE; +TRIAMCINOLONE ACETONIDE SUSP 40 MG/ML VIAL (J3301) As Ordered ONE
--- NOTE | 2018-07-14 15:37 | REP ---
Partial lumbar spine series: Four views. . History: Injection procedure for pain. 52 seconds of fluoroscopy time is reported. Findings: A sequence of four fluoroscopically obtained last image hold procedural spot radiographs of the lumbar spine document needle position and contrast injection associated with injection procedure. Electronically Signed by Gene Cortes MD 07/14/2018 03:29 P
--- NOTE | 2018-07-27 00:03 | ECWPNPC ---
PATIENT NAME: ILAN PAGE : 1975 GENDER: FEMALE VISIT DATE: 07/14/2018 DISCHARGE DATE: 07/14/18 1438 VISIT LOCKED DATE TIME: PHYSICIAN: NATALIA AGGARWAL MD RESOURCE: NATALIA AGGARWAL MD REASON FOR APPOINTMENT 1. LUMBAR THERAPEUTIC FACET BLOCK HISTORY OF PRESENT ILLNESS HISTORY OF PRESENT ILLNESS: PAIN THE PATIENT DESCRIBES THE PAIN... FALL RISK SCREENING: SCREENING :NO FALLS REPORTED IN THE LAST YEAR CURRENT MEDICATIONS TAKING STOOL SOFTENER 100 MG CAPSULE 1 CAP ORALLY DAILY, NOTES: 07/13/18 1000 TAKING NYSTATIN [id number] UNIT/GM CREAM 1 APPLICATION TO AFFECTED AREA EXTERNALLY ABDOMEN DAILY, NOTES: 3 DAYS AGO TAKING BENADRYL ALLERGY 25 MG TABLET 2 TABLETS BEFORE BED ORALLY ONCE DAILY, NOTES: 07/14/18 0200 TAKING SIMVASTATIN 20 20MG TABLET 1 TABLET ORALLY ONCE A DAY, NOTES: 07/13/18 230 TAKING ASPIRIN ADULT LOW STRENGTH 81 MG TABLET DELAYED RELEASE 1 TABLET ORALLY ONCE A DAY, NOTES: 07/13/18 230 TAKING NORMAN TENNIS ELBOW STRAP - MISCELLANEOUS DIRECTED _ DAILY (M77.11) TAKING LEVOCETIRIZINE DIHYDROCHLORIDE 5 MG TABLET 1 TABLET IN THE EVENING ORALLY ONCE A DAY, NOTES: 07/13/18 1000 TAKING MIRTAZAPINE 15 MG TABLET 1 TABLET AT BEDTIME ORALLY ONCE A DAY, NOTES: 07/14/18 0100 TAKING SYNTHROID 50 50MCG TABLET DIRECTED ORAL ONCE DAILY, NOTES: 07/13/18 1000 TAKING OMEPRAZOLE 40 MG CAPSULE DELAYED RELEASE 1 CAP(S) ORALLY ONCE DAILY, NOTES: 07/13/18 1000 TAKING ZESTORETIC 20-25 MG TABLET 1 TABLET ORALLY ONCE A DAY, NOTES: 07/13/18 1000 TAKING OXYCODONE HCL 5 MG TABLET 1.5 TAB ORALLY EVERY 6 HRS PRN MDD6, NOTES: 07/13/18 0900 TAKING OXYBUTYNIN CHLORIDE ER 10 MG TABLET EXTENDED RELEASE 24 HOUR 1 TABLET ORALLY ONCE A DAY, NOTES: 07/13/18 1000 TAKING NYSTATIN [id number] UNIT/GM POWDER 1 APPLICATION TO AFFECTED AREA EXTERNALLY TWICE A DAY, NOTES: 07/12/18 TAKING CLOTRIMAZOLE-BETAMETHASONE 1-0.05 % CREAM 1 APPLICATION TO AFFECTED AREA EXTERNALLY TWICE A DAY X 2 WKS, THEN QDAY X 2WEEKS, AND THEN PRN TOPICAL., NOTES: 07/13/18 1000 NOT-TAKING ANUPAM 28 3-0.03 MG TABLET 1 TABLET ORALLY ONCE A DAY NOT-TAKING BACID - CAPSULE 1 CAP ORALLY DAILY NOT-TAKING CARAFATE 1 GM TABLET 1 TABLET ON AN EMPTY STOMACH ORALLY TWICE A DAY NOT-TAKING VITAMIN D 1000 UNIT TABLET 1 TABLET ORALLY ONCE A DAY, NOTES: NONE LATELY 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 2017 EGD W/ REINDL NL 2013 FAMILY HISTORY FATHER: UNKNOWN, PT HAS NO CONTACT WITH HER FATHER. MOTHER: ALIVE, DM2, HYPERLIPIDEMIA, HTN, MORBID OBESITY, CHRONIC LOW BACK PAIN, DEPRESSION. SIBLINGS: UNKNOWN, INCARCERATED FOR MURDER SON(S): ALLERGIES, ASTHMA DENIES FH OF BREAST, OVARIAN, OR COLORECTAL CANCER. SOCIAL HISTORY GENERAL: TOBACCO USE ARE YOU A:NONSMOKER NEVER SMOKER HIV / HEP-C SCREENING HIV TEST OFFERED TO PATIENT:YES DATE OFFERED:05/01/2017 TEST ACCEPTED:NO REASON:PATIENT DECLINED HEP-C TEST OFFERED TO PATIENT:YES DATE OFFERED:05/01/2017 TEST ACCEPTED:NO REASON:PATIENT DECLINED OTHERS AT HOME: SPOUSE, CHILD. EDUCATION LEVEL OF EDUCATION:HIGH SCHOOL ONLY COMPLETED 8TH GRADE LANGUAGE LANGUAGES SPOKEN:BELGIAN NEW PATIENT PAIN DIARY TODAY'S VISITNOTES FROM 0-10, WHAT LEVEL IS YOUR PAIN TODAY?4 BMI CARE GOAL FOLLOW-UP ABOVE NORMAL BMI FOLLOW-UPGIVING ENCOURAGEMENT TO EXERCISE RECREATIONAL DRUG USE DRUG USE?NO LEARNING BARRIERS / SPECIAL NEEDS CHANGE FROM LAST VISIT?NO BARRIERS TO LEARNING?NO HEARING IMPAIRED?NO VISION IMPAIRED?NO COGNITIVELY IMPAIRED?NO READINESS TO LEARN?YES LEARNING PREFERENCES?NO LEARNING CAPABILITIES PRESENT?YES EMOTIONAL BARRIERS?NO SPECIAL DEVICES?NO CERTIFIED REGISTERED LOCKSMITH NEEDED?NO PAIN CLINIC PFS, CLERGY, PUBLIC HEALTH REFERRALS PFS REFERRAL NEEDED?NO CLERGY REFERRAL NEEDED?NO PUBLIC HEALTH REFERRAL NEEDED?NO WAS THE PROVIDER NOTIFIED OF ANY PERTINENT INFO?YES HAS THE PATIENT BEEN EDUCATED REGARDING HIS/HER PLAN OF CARE?YES HAS THE PATIENT BEEN EDUCATED REGARDING PAIN, THE RISK FOR PAIN, THE IMPORTANCE OF EFFECTIVE PAIN MANAGEMENT, AND THE PAIN ASSESSMENT PROCESS?YES LATEX QUESTIONNAIRE LATEX ALLERGY : HAVE YOU EVER DEVELOPED ANY TYPE OF REACTION AFTER HANDLING LATEX PRODUCTS SUCH RUBBER GLOVES, CONDOMS, DIAPHRAGMS, BALLOONS, SOCKS, OR UNDERWEAR?NO LATEX ALLERGY : HAVE YOU EVER DEVELOPED ANY TYPE OF REACTION DURING OR AFTER DENTAL APPOINTMENT, VAGINAL/RECTAL EXAMINATION, SURGICAL PROCEDURE, OR ANY OTHER EXPOSURE?NO LATEX RISK : HAVE YOU EVER HAD ANY DIFFICULTY BREATHING OR HIVES AFTER EATING OR HANDLING ANY FRUITS, OR VEGETABLES; SUCH KIWI, BANANAS, STONE FRUITS, OR CHESTNUTSNO LATEX RISK : DO YOU HAVE A PREVIOUS PERSONAL HISTORY OF MORE THAN NINE SURGERIES, SPINA BIFIDA, OR REPEATED CATHERTIZATIONS? NO LATEX RISK : ARE YOU FREQUENTLY EXPOSED TO LATEX PRODUCTS IN YOUR OCCUPATION?NO DATE ASKED : 06/22/2018 CAFFEINE CAFFEINE USE?NO ADVANCE DIRECTIVE ADVANCE DIRECTIVE DISCUSSED WITH PATIENT:YES PT STATES SHE DOES NOT HAVE A HCP AND DECLINES INFO AT THIS TIME. JAINISM [id number] LUTHERAN MARITAL STATUS: . ALCOHOL SCREENING DID YOU HAVE A DRINK CONTAINING ALCOHOL IN THE PAST YEAR?NO POINTS0 INTERPRETATIONNEGATIVE SEXUAL HX HAD SEX IN THE LAST 12 MONTHS (VAGINAL, ORAL, OR ANAL)?YES WITHMEN ONLY USE PROTECTION?NO HAVE YOU EVER HAD AN STD?NO LMP:04/25/17 REVIEWED WITH PT 10/06/17 LASREVIEWED WITH PT 12/24/17 1135 LASREVIEWED WITH PT 01/09/18 1504 BVREVIEWED WITH PATIENT 03/16/18 1132 JSREVIEWED WITH PATIENT 07/14/18 1254 JS. HOSPITALIZATION/MAJOR DIAGNOSTIC PROCEDURE W/ CHILDBIRTH REVIEW OF SYSTEMS REVIEWED BY: PROVIDER: . CONSTITUTIONAL: ANY CHANGE IN YOUR MEDICAL CONDITION? NO . CHILLS NO . FEVER NO . INFECTION: DO YOU HAVE NEW INFECTIONS? NO . DO YOU HAVE HISTORY OF MRSA? NO . MUSCULOSKELETAL: ANY NEW PATTERNS OF PAIN OR NUMBNESS? NO . GASTROENTEROLOGY: ANY NEW CHANGE IN BOWEL CONTROL? NO . GENITOURINARY: ANY NEW CHANGE IN BLADDER CONTROL? NO . IS THERE A CHANCE YOU COULD BE ? NO . HEMATOLOGY/LYMPH: DO YOU TAKE ANY BLOOD THINNERS? (FOR EXAMPLE- COUMADIN, PLAVIX, AGGRENOX, PLATEL, PRADAXA, OR XARELTO) NO . WHEN WAS YOUR LAST DOSE? DATE: TIME: . NEUROLOGY: HAVE YOU FALLEN IN THE PAST 12 MONTHS? NO . ANY NEW EXTREMITY NUMBNESS OR WEAKNESS? NO . CARDIOLOGY: DO YOU HAVE A PACEMAKER OR DEFIBRILLATOR? NO . RESPIRATORY: HAVE YOU BEEN SICK IN THE PAST WEEK? NO . FEVER NO . FLU LIKE SYMPTOMS? NO . COUGH NO . INTEGUMENTARY: DO YOU HAVE ANY RASHES OR OPEN SORES? NO . ALLERGIC/IMMUNO: ARE YOU ALLERGIC TO IV DYE? NO . ANY NEW ALLERGIES? NO . PSYCHIATRIC: DO YOU HAVE THOUGHTS OF HURTING YOURSELF OR SOMEONE ELSE? NO . ARE YOU ABUSED, NEGLECTED, OR IN AN UNSAFE ENVIRONMENT? NO . ENDOCRINOLOGY: ARE YOU DIABETIC? NO . OTHER: DO YOU NEED ANY PRESCRIPTIONS? NO . IF YES, PLEASE LIST: ____ . ANY NEW PROBLEMS WITH YOUR MEDICATIONS? NO . WHEN DID YOU LAST EAT? ____07/14/18 0100 . WHEN DID YOU LAST DRINK? ____07/14/18 0900 . WHAT DID YOU LAST DRINK? ____WATER . NAME OF PERSON DRIVING YOU HOME? ____WILLIAM SERBACK . DO YOU HAVE ANY OTHER QUESTIONS OR CONCERNS NO . VITAL SIGNS WT 304 LBS, HT 67 IN, BMI 47.61 INDEX, BP 137/81 MM HG, HR 65 /MIN, RR 18 /MIN, TEMP 98.1 F, OXYGEN SAT % 95%, SAFE IN ENV? (Y/N) YES, REVIEWED BY: JS. ASSESSMENTS SPONDYLOSIS OF LUMBAR REGION WITHOUT MYELOPATHY OR RADICULOPATHY - M47.816 (PRIMARY) SPONDYLOSIS OF LUMBOSACRAL REGION WITHOUT MYELOPATHY OR RADICULOPATHY - M47.817 PROCEDURES PN LUMBAR FACET BLOCK THERAPEUTIC PRE PROCEDURE DIAGNOSIS LUMBAR SPONDYLOSIS, LUMBOSACRAL SPONDYLOSIS POST PROCEDURE DIAGNOSIS LUMBAR SPONDYLOSIS, LUMBOSACRAL SPONDYLOSIS PROCEDURE BILATERAL L3-L4, BILATERAL L4-L5, AND BILATERAL L5-S1 LUMBAR FACET THERAPEUTIC BLOCK SURGEON DR. NATALIA AGGARWAL PST SUPERVISOR NONE ANESTHESIA LOCAL PRE PROCEDURE NOTE THE PATIENT HAS A HISTORY OF CHRONIC LOW BACK PAIN. I EVALUATE THE PATIENT AND REVIEWED THE CHART. I WENT OVER THE RISKS, ALTERNATIVES, AND BENEFITS ASSOCIATED WITH THIS PROCEDURE. THE PATIENT WOULD LIKE TO PROCEED AND GIVE CONSENT TO PERFORMED THE PROCEDURE. THE PATIENT DENIES UNEXPLAINABLE WEIGHT LOSS, FEVER, CHILLS, OR NEW CHANGES IN URINARY OR BOWEL CONTROL DESCRIPTION OF PROCEDURE THE PATIENT WAS BROUGHT TO THE PROCEDURE ROOM AND PLACED IN THE PRONE POSITION. THE LUMBOSACRAL AREA WAS CLEANED WITH CHLORAPREP SOLUTION AND DRAPED ASEPTICALLY. THE PROCEDURE WAS DONE UNDER STERILE CONDITIONS. I CHECKED LATERALITY AND THE LEVEL WHERE THE PROCEDURE WAS GOING TO BE PERFORMED WITH THE PATIENT AND THE SUPPORTING STAFF AT THE MOMENT OF THE TIME OUT IN THE PROCEDURE ROOM. UNDER FLUOROSCOPIC GUIDANCE, THE TARGET POINT WAS SELECTED AT THE RIGHT AND LEFT L3-L4, RIGHT AND LEFT L4-L5, AND RIGHT AND LEFT L5-S1 FACET JOINT. TARGET POINT WAS SELECTED AFTER LATERAL ROTATION AND TILT OF THE MAGNIFIER OF THE C-ARM. LIDOCAINE 0.5% WAS USED TO NUMB THE SKIN AND THE SUBCUTANEOUS TISSUE BELOW IT. SPINAL NEEDLES, 22-GAUGE, WERE ADVANCED UNDER FLUOROSCOPIC GUIDANCE AND FOLLOWING PATIENT FEEDBACK UNTIL THE TARGETS WERE TOUCHED. THE POSITION OF THE NEEDLES WAS VERIFIED WITH AP AND LATERAL VIEWS. AFTER PROPER POSITION OF THE NEEDLES WAS ACHIEVED, ISOVUE-M DYE 30% 0.1 ML WAS INJECTED SHOWING ADEQUATE SPREAD OF THE DYE. THEN A SOLUTION OF 1.9 ML OF BUPIVACAINE 0.125% OF KENALOG 10 MG WAS INJECTED AT EACH SITE. THERE WAS NO EVIDENCE OF BLOOD, PARESTHESIA OR CEREBROSPINAL FLUID DURING THE PROCEDURE. THE PATIENT WAS SENT TO THE RECOVERY ROOM. THE PATIENT WAS MOVING THE EXTREMITIES AND DOING WELL. THERE WAS NO COMPLICATION DURING THE PROCEDURE. FLUOROSCOPY TIME WAS 52 SECONDS POST PROCEDURE NOTE THE PATIENT WILL BE SEEN IN A FOLLOW UP IN THE NEXT FEW WEEKS. INSTRUCTIONS WERE GIVEN, QUESTIONS WERE ANSWERED, AND THE PATIENT EXPRESSED UNDERSTANDING AND AGREES WITH THE PLAN. I, ILAN BOYER, DOCUMENTED THE ABOVE INFORMATION ACTING A SCRIBE FOR DR. AGGARWAL. I HAVE REVIEWED THE ABOVE DOCUMENT, WRITTEN BY ILAN JAYIBCinthia AND I VERIFY THAT IT IS ACCURATE. DIAGNOSTIC IMAGING [facility] FACET BLOCK (PAIN)[id number] PROCEDURE CODES 6045F RADXPS IN END [id number] PXD 42466 INJ PARAVERT F JNT L/S 1 LEV, MODIFIERS: 50 [id number] INJ PARAVERT F JNT L/S 2 LEV, MODIFIERS: 50 [id number] INJ PARAVERT F JNT L/S 3 LEV, MODIFIERS: 50 DISPOSITION & COMMUNICATION FOLLOW UP 3 WEEKS ELECTRONICALLY SIGNED BY NATALIA AGGARWAL MD, MD ON 07/26/2018 AT 07:36 PM EDT DISCLAIMER : THIS IS A VISIT SUMMARY EXTRACTED FROM THE [employer] CHART. IT IS NOT A COPY OF THE [employer] PROGRESS NOTE. MTDD
== END ==
LOC: M PAIN 12:00
PROVIDERS: ATTEND Anesthesiology
DX: G89.29 Other chronic pain (principal); M47.816 Spondylosis without myelopathy or radiculopathy, lumbar region; M47.817 Spondylosis without myelopathy or radiculopathy, lumbosacral region; I10 Essential (primary) hypertension; K21.9 Gastro-esophageal reflux disease without esophagitis; E78.5 Hyperlipidemia, unspecified; E03.9 Hypothyroidism, unspecified; E66.01 Morbid (severe) obesity due to excess calories; Z68.42 Body mass index [BMI] 45.0-49.9, adult; Z79.82 Long term (current) use of aspirin; Z79.891 Long term (current) use of opiate analgesic; Z79.899 Other long term (current) drug therapy; Z88.1 Allergy status to other antibiotic agents; Z88.8 Allergy status to other drugs, medicaments and biological substances
CPT/HCPCS: 64493; 64494; 64495; G0463; J3301; Q9967

== ENCOUNTER → 2018-07-29 | Outpatient (CLI) | payer MEDICARE, OTHER ==
[~2018-07-29] MED LIST changes: -BUPIVACAINE HCL 0.25% 30 ML VIAL As Ordered ONE; -ISOVUE-M 300 61% 15ML VIAL (Q9967) As Ordered ONE; -LIDOCAINE 1% SDV INJ 30 ML VIAL As Ordered ONE; -TRIAMCINOLONE ACETONIDE SUSP 40 MG/ML VIAL (J3301) As Ordered ONE
--- NOTE | 2018-07-29 15:23 | REPMRS ---
Patient History The patient states she had a clinical breast exam in 07/2018. No known family history of cancer. Taking hormonal contraceptives for 11 years 7 months. 3D TOMOSYNTHESIS WAS PERFORMED. Digital Woman Screen Mammo: July 29, 2018 - Exam #: [id number] Bilateral CC and MLO view(s) were taken. Technologist: Ada Calderón Technologist Prior study comparison: December 23, 2016, digital woman screen mammo performed at [facility]. November 20, 2015, bilateral digital mammo screening bilat, performed at [facility]. FINDINGS: There are scattered fibroglandular densities. There has been no change in the appearance of the mammogram from the prior studies. There is a mild amount of residual fibroglandular tissue which is fairly symmetric. There is no interval development of dominant mass, architectural distortion, or clustered microcalcification suggestive of malignancy. Assessment: BI-RADS/ACR category 1 mammogram. Negative Mammogram. Recommendation Routine screening mammogram in 1 year (for women over age 40). This mammogram was interpreted with the aid of an FDA-approved computer-aided dectection system. Electronically Signed By: Raul Johnson MD 07/29/18 5626
== END ==
LOC: M WHC 13:44
PROVIDERS: ATTEND Nurse Practitioner Family
DX: Z01.419 Encounter for gynecological examination (general) (routine) without abnormal findings (principal); Z12.31 Encounter for screening mammogram for malignant neoplasm of breast; Z92.0 Personal history of contraception
CPT/HCPCS: 77063; 77067; 81002; G0101

== ENCOUNTER → 2018-07-29 | Outpatient (REF) | payer MEDICARE, OTHER | LOC: M SFHCWAGY 14:16 | PROVIDERS: ATTEND Nurse Practitioner Family | DX: Z12.4 Encounter for screening for malignant neoplasm of cervix (principal) ==

== ENCOUNTER → 2018-08-11 | Outpatient (CLI) | payer MEDICARE, OTHER | LOC: M PAIN 13:00 | PROVIDERS: ATTEND Nurse Practitioner Family | DX: M51.14 Intervertebral disc disorders with radiculopathy, thoracic region (principal); G89.29 Other chronic pain; I10 Essential (primary) hypertension; E03.9 Hypothyroidism, unspecified; Z79.82 Long term (current) use of aspirin; Z79.891 Long term (current) use of opiate analgesic; Z79.899 Other long term (current) drug therapy ==

== ENCOUNTER → 2018-09-24 | Outpatient (CLI) | payer MEDICARE, OTHER ==
[~2018-09-24] MED LIST changes: +BUPIVACAINE HCL 0.25% 30 ML VIAL As Ordered ONE; +ISOVUE-M 200 41% 20ML VIAL (Q9966) As Ordered ONE; +LIDOCAINE 1% SDV INJ 30 ML VIAL As Ordered ONE; +MM S100C PO; -STOO100C PO; +TRIAMCINOLONE ACETONIDE SUSP 40 MG/ML VIAL (J3301) As Ordered ONE
--- NOTE | 2018-09-24 17:07 | REP ---
Chest x-ray: Three views. History: Rule out pneumothorax. Inspiration and expiration views. Comparison study: April 01, 2016. Findings: The lungs are well inflated and free of infiltrate. Pleural angles are sharp. Heart is not enlarged. There are degenerative changes in the thoracic spine. Inspiration and expiration views show no evidence of pneumothorax or hydrothorax. Impression: No active disease. No evidence of pneumothorax. Electronically Signed by Gene Cortes MD 09/24/2018 04:59 P
--- NOTE | 2018-09-24 18:24 | REP ---
Partial lumbar spine series: Two views . History: Injection procedure for pain. 34 seconds of fluoroscopy time is reported. Findings: A sequence of two fluoroscopically obtained last image hold procedural spot radiographs of the lumbar spine document needle position and contrast injection associated with injection procedure. Electronically Signed by Gene Cortes MD 09/24/2018 06:16 P
--- NOTE | 2018-10-04 23:34 | ECWPNPC ---
PATIENT NAME: ILAN PAGE : 1975 GENDER: FEMALE VISIT DATE: 09/24/2018 DISCHARGE DATE: 09/24/181717 VISIT LOCKED DATE TIME: PHYSICIAN: NATALIA AGGARWAL MD RESOURCE: NATALIA AGGARAWL MD REASON FOR APPOINTMENT 1. BILAT T12-L1, L1-L2 THERAPEUTIC BLOCK HISTORY OF PRESENT ILLNESS HISTORY OF PRESENT ILLNESS: PAIN THE PATIENT DESCRIBES THE PAIN... FALL RISK SCREENING: SCREENING :NO FALLS REPORTED IN THE LAST YEAR CURRENT MEDICATIONS TAKING ZESTORETIC 20-25 MG TABLET 1 TABLET ORALLY ONCE A DAY, NOTES: 09/23/18 1100 TAKING SIMVASTATIN 20 20MG TABLET 1 TABLET ORALLY ONCE A DAY, NOTES: 09/23/18 2330 TAKING SYNTHROID 50 50MCG TABLET DIRECTED ORAL ONCE DAILY, NOTES: 09/23/18 1100 TAKING MIRTAZAPINE 15 MG TABLET 1 TABLET AT BEDTIME ORALLY ONCE A DAY, NOTES: 09/23/18 0100 TAKING LEVOCETIRIZINE DIHYDROCHLORIDE 5 MG TABLET 1 TABLET IN THE EVENING ORALLY ONCE A DAY, NOTES: 09/23/18 1100 TAKING ASPIRIN ADULT LOW STRENGTH 81 MG TABLET DELAYED RELEASE 1 TABLET ORALLY ONCE A DAY, NOTES: 09/23/18 1100 TAKING OMEPRAZOLE 40 MG CAPSULE DELAYED RELEASE 1 CAP(S) ORALLY ONCE DAILY, NOTES: 09/23/18 1100 TAKING STOOL SOFTENER 100 MG CAPSULE 1 CAP ORALLY DAILY, NOTES: 09/23/18 1100 TAKING NYSTATIN [id number] UNIT/GM CREAM 1 APPLICATION TO AFFECTED AREA EXTERNALLY ABDOMEN DAILY, NOTES: 09/24/18 1100 TAKING NYSTATIN [id number] UNIT/GM POWDER 1 APPLICATION TO AFFECTED AREA EXTERNALLY TWICE A DAY TAKING BENADRYL ALLERGY 25 MG TABLET 2 TABLETS ORALLY BEFORE BEDTIME NEEDED, NOTES: 09/24/18 0200 TAKING NORMAN TENNIS ELBOW STRAP - MISCELLANEOUS DIRECTED _ DAILY (M77.11) TAKING CLOTRIMAZOLE-BETAMETHASONE 1-0.05 % CREAM 1 APPLICATION TO BOTH LEGS EXTERNALLY TWICE A DAY X 2 WKS, THEN QDAY X 2WEEKS, AND THEN PRN TOPICAL., NOTES: > 1 WEEK TAKING TIZANIDINE HCL 2 MG TABLET 1 TABLET NEEDED ORALLY Q8H PRN, NOTES: HAS NOT TAKEN TAKING OXYBUTYNIN CHLORIDE ER 10 MG TABLET EXTENDED RELEASE 24 HOUR 1 TABLET ORALLY ONCE A DAY, NOTES: 09/23/18 1100 TAKING ANUPAM 28 3-0.03 MG TABLET 1 TABLET ORALLY ONCE A DAY, NOTES: 09/23/18 2300 TAKING OXYCODONE HCL 5 MG TABLET 1.5 TAB ORALLY EVERY 6 HRS PRN MDD6, NOTES: 09/24/18 1100 TAKING LEVOTHYROXINE SODIUM 50 MCG TABLET 1 TABLET ON AN EMPTY STOMACH IN THE MORNING ORALLY ONCE A DAY, NOTES: 09/23/18 1100 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 GERD PCOS MORBID OBESITY R CARPEL TUNNEL HYPERLIPIDEMIA HYPOTHYROIDISM 10/19 02/13 CT ABD - DIFFUSE FATTY INFILTRATION OF LIVER, CT 2011, NL LIVER, CT 2014 FATTY LIVER MIXED INCONTINENCE HAD URODYNAMIC WITH DR PALOMINO DONE 2014 ,CANDIDATE FOR OA BLADDER MEDICATION VITAMIN D DEFICENCY MEHDI HULL SCORE 12.78% ALLERGIES VOLTAREN: ITCHING - ALLERGY AMPICILLIN: HIVES - ALLERGY SURGICAL HISTORY R ANKLE SURGERY S/P INJURY DR SHARMA IN HER TEENS CTR R WRIST - DR Kristine DUNCAN 2006 EXCISION OF RIGHT CERVICAL LYMPH NODE AT [facility] 08/2011 LAPAROSCOPY EGD W/ REINDL NL 2013 COLONOSCOPY W/ REINDL - REPEAT 5 YRS. DUE 2021 2016 FAMILY HISTORY FATHER: UNKNOWN, PT HAS NO CONTACT WITH HER FATHER. MOTHER: ALIVE, DM2, HYPERLIPIDEMIA, HTN, MORBID OBESITY, CHRONIC LOW BACK PAIN, DEPRESSION. SIBLINGS: UNKNOWN, INCARCERATED FOR MURDER SON(S): ALLERGIES, ASTHMA DENIES FH OF BREAST, OVARIAN, OR COLORECTAL CANCER. SOCIAL HISTORY GENERAL: TOBACCO USE ARE YOU A:NONSMOKER NEVER SMOKER HIV / HEP-C SCREENING HIV TEST OFFERED TO PATIENT:YES DATE OFFERED:05/01/2017 TEST ACCEPTED:NO REASON:PATIENT DECLINED HEP-C TEST OFFERED TO PATIENT:YES DATE OFFERED:05/01/2017 TEST ACCEPTED:NO REASON:PATIENT DECLINED OTHERS AT HOME: SPOUSE, CHILD- 15 GETTING READY TO JOIN THE AIR FORCE. HOUSING: RENTS APARTMENT. EDUCATION LEVEL OF EDUCATION:HIGH SCHOOL ONLY COMPLETED 8TH GRADE DIET: REGULAR. LANGUAGE LANGUAGES SPOKEN:CHADIAN NEW PATIENT PAIN DIARY TODAY'S VISITNOTES FROM 0-10, WHAT LEVEL IS YOUR PAIN TODAY?4 BMI CARE GOAL FOLLOW-UP ABOVE NORMAL BMI FOLLOW-UPGIVING ENCOURAGEMENT TO EXERCISE RECREATIONAL DRUG USE DRUG USE?NO EXERCISE: NO REGULAR EXERCISE. LEARNING BARRIERS / SPECIAL NEEDS CHANGE FROM LAST VISIT?NO BARRIERS TO LEARNING?NO HEARING IMPAIRED?NO VISION IMPAIRED?NO COGNITIVELY IMPAIRED?NO READINESS TO LEARN?YES LEARNING PREFERENCES?NO LEARNING CAPABILITIES PRESENT?YES EMOTIONAL BARRIERS?NO SPECIAL DEVICES?NO PLUG AND MOLD FINISHER NEEDED?NO PAIN CLINIC PFS, CLERGY, PUBLIC HEALTH REFERRALS PFS REFERRAL NEEDED?NO CLERGY REFERRAL NEEDED?NO PUBLIC HEALTH REFERRAL NEEDED?NO WAS THE PROVIDER NOTIFIED OF ANY PERTINENT INFO?YES HAS THE PATIENT BEEN EDUCATED REGARDING HIS/HER PLAN OF CARE?YES HAS THE PATIENT BEEN EDUCATED REGARDING PAIN, THE RISK FOR PAIN, THE IMPORTANCE OF EFFECTIVE PAIN MANAGEMENT, AND THE PAIN ASSESSMENT PROCESS?YES LATEX QUESTIONNAIRE LATEX ALLERGY : HAVE YOU EVER DEVELOPED ANY TYPE OF REACTION AFTER HANDLING LATEX PRODUCTS SUCH RUBBER GLOVES, CONDOMS, DIAPHRAGMS, BALLOONS, SOCKS, OR UNDERWEAR?NO LATEX ALLERGY : HAVE YOU EVER DEVELOPED ANY TYPE OF REACTION DURING OR AFTER DENTAL APPOINTMENT, VAGINAL/RECTAL EXAMINATION, SURGICAL PROCEDURE, OR ANY OTHER EXPOSURE?NO LATEX RISK : HAVE YOU EVER HAD ANY DIFFICULTY BREATHING OR HIVES AFTER EATING OR HANDLING ANY FRUITS, OR VEGETABLES; SUCH KIWI, BANANAS, STONE FRUITS, OR CHESTNUTSNO LATEX RISK : DO YOU HAVE A PREVIOUS PERSONAL HISTORY OF MORE THAN NINE SURGERIES, SPINA BIFIDA, OR REPEATED CATHERIZATIONS? NO LATEX RISK : ARE YOU FREQUENTLY EXPOSED TO LATEX PRODUCTS IN YOUR OCCUPATION?NO DATE ASKED : 06/22/2018 CAFFEINE CAFFEINE USE?YES 3 PEPSI DAILY ADVANCE DIRECTIVE ADVANCE DIRECTIVE DISCUSSED WITH PATIENT:YES PT STATES SHE DOES NOT HAVE A HCP AND DECLINES INFO AT THIS TIME. EPISCOPALIAN [id number] RASTAFARIAN MARITAL STATUS: . ALCOHOL SCREENING DID YOU HAVE A DRINK CONTAINING ALCOHOL IN THE PAST YEAR?NO POINTS0 INTERPRETATIONNEGATIVE OCCUPATION: DISABLED. SEXUAL HX HAD SEX IN THE LAST 12 MONTHS (VAGINAL, ORAL, OR ANAL)?YES WITHMEN ONLY USE PROTECTION?NO HAVE YOU EVER HAD AN STD?NO LMP:07/17/2018 REVIEWED WITH PT 10/06/17 LASREVIEWED WITH PT 12/24/17 1135 LASREVIEWED WITH PT 01/09/18 1504 BVREVIEWED WITH PATIENT 03/16/18 1132 JSREVIEWED WITH PATIENT 07/14/18 1254 JSREVIEWED WITH PATIENT 09/24/18 1425 LAS. HOSPITALIZATION/MAJOR DIAGNOSTIC PROCEDURE W/ CHILDBIRTH REVIEW OF SYSTEMS REVIEWED BY: PROVIDER: . CONSTITUTIONAL: ANY CHANGE IN YOUR MEDICAL CONDITION? NO . CHILLS NO . FEVER NO . INFECTION: DO YOU HAVE NEW INFECTIONS? NO . DO YOU HAVE HISTORY OF MRSA? NO . MUSCULOSKELETAL: ANY NEW PATTERNS OF PAIN OR NUMBNESS? NO . GASTROENTEROLOGY: ANY NEW CHANGE IN BOWEL CONTROL? NO . GENITOURINARY: ANY NEW CHANGE IN BLADDER CONTROL? NO . IS THERE A CHANCE YOU COULD BE ? NO . HEMATOLOGY/LYMPH: DO YOU TAKE ANY BLOOD THINNERS? (FOR EXAMPLE- COUMADIN, PLAVIX, AGGRENOX, PLATEL, PRADAXA, OR XARELTO) NO . WHEN WAS YOUR LAST DOSE? DATE: TIME: . NEUROLOGY: HAVE YOU FALLEN IN THE PAST 12 MONTHS? NO . ANY NEW EXTREMITY NUMBNESS OR WEAKNESS? NO . CARDIOLOGY: DO YOU HAVE A PACEMAKER OR DEFIBRILLATOR? NO . RESPIRATORY: HAVE YOU BEEN SICK IN THE PAST WEEK? NO . FEVER NO . FLU LIKE SYMPTOMS? NO . COUGH NO . INTEGUMENTARY: DO YOU HAVE ANY RASHES OR OPEN SORES? NO . ALLERGIC/IMMUNO: ARE YOU ALLERGIC TO IV DYE? NO . ANY NEW ALLERGIES? NO . PSYCHIATRIC: DO YOU HAVE THOUGHTS OF HURTING YOURSELF OR SOMEONE ELSE? NO . ARE YOU ABUSED, NEGLECTED, OR IN AN UNSAFE ENVIRONMENT? NO . ENDOCRINOLOGY: ARE YOU DIABETIC? NO . OTHER: DO YOU NEED ANY PRESCRIPTIONS? NO . IF YES, PLEASE LIST: ____ . ANY NEW PROBLEMS WITH YOUR MEDICATIONS? NO . WHEN DID YOU LAST EAT? ____09/23/18 2330 . WHEN DID YOU LAST DRINK? ____09/24/18 1100 . WHAT DID YOU LAST DRINK? ____SODA . NAME OF PERSON DRIVING YOU HOME? __HUSBAND BILL__ . DO YOU HAVE ANY OTHER QUESTIONS OR CONCERNS NO . VITAL SIGNS WT 310.6 LBS, HT 67 IN, BMI 48.64 INDEX, BP 138/71 MM HG, HR 78 /MIN, RR 18 /MIN, TEMP 97.3 F, OXYGEN SAT % 96%, SAFE IN ENV? (Y/N) YES, NA INITIALS OK 13:55, REVIEWED BY: RAINE. 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 NATALIA AGGARWAL HAND FUR CLEANER NONE ANESTHESIA LOCAL PRE PROCEDURE NOTE THE PATIENT WITH HISTORY OF CHRONIC THORACIC PAIN. I EVALUATED THE PATIENT AND REVIEWED THE CHART. I WENT OVER THE RISKS, ALTERNATIVES, AND BENEFITS ASSOCIATED WITH THIS PROCEDURE. THE PATIENT WOULD LIKE TO PROCEED AND GAVE CONSENT TO PERFORM THE PROCEDURE. THE PATIENT DENIES UNEXPLAINABLE WEIGHT LOSS, FEVER, CHILLS, OR NEW CHANGES IN URINARY OR BOWEL CONTROL. DESCRIPTION OF PROCEDURE THE PATIENT WAS BROUGHT TO THE PROCEDURE ROOM AND PLACED IN THE PRONE POSITION. THE THORACIC AREA WAS CLEANED WITH CHLORAPREP SOLUTION AND DRAPED ASEPTICALLY. THE PROCEDURE WAS DONE UNDER STERILE CONDITIONS. I CHECKED LATERALITY AND THE LEVEL WHERE THE PROCEDURE WAS GOING TO BE PERFORMED WITH THE PATIENT AND THE SUPPORTING STAFF AT THE MOMENT OF THE TIME OUT IN THE PROCEDURE ROOM. UNDER FLUOROSCOPIC GUIDANCE, THE TARGET POINT WAS SELECTED AT THE RIGHT AND LEFT T12-L1 AND RIGHT AND LEFT L1-L2 THORACIC AND LUMBAR FACET. TARGET POINT WAS SELECTED AFTER LATERAL ROTATION AND TILT OF THE MAGNIFIER OF THE C-ARM. LIDOCAINE 0.5% WAS USED TO NUMB THE SKIN AND THE SUBCUTANEOUS TISSUE BELOW IT. SPINAL NEEDLES, 22-GAUGE, WERE ADVANCED UNDER FLUOROSCOPIC GUIDANCE AND FOLLOWING PATIENT FEEDBACK UNTIL THE TARGETS WERE TOUCHED. THE POSITION OF THE NEEDLES WAS VERIFIED WITH MULTIPLE X-RAY VIEWS. AFTER PROPER POSITION OF THE NEEDLES WAS ACHIEVED, ISOVUE M-200 DYE WAS INJECTED SHOWING ADEQUATE SPREAD OF THE DYE. THEN A SOLUTION OF 0.9 ML OF BUPIVACAINE 0.125% OF KENALOG 10 MG WAS INJECTED AT EACH SITE. THERE WAS NO EVIDENCE OF BLOOD, PARESTHESIA OR CEREBROSPINAL FLUID DURING THE PROCEDURE. THE PATIENT WAS SENT TO THE RECOVERY ROOM. THE PATIENT WAS MOVING THE EXTREMITIES AND DOING WELL. THERE WAS NO COMPLICATION DURING THE PROCEDURE. FLUOROSCOPY TIME WAS 34 SECONDS POST PROCEDURE NOTE THE PATIENT WILL BE SEEN IN A FOLLOW UP IN THE NEXT FEW WEEKS. INSTRUCTIONS WERE GIVEN, QUESTIONS WERE ANSWERED, AND THE PATIENT EXPRESSED UNDERSTANDING AND AGREED WITH THE PLAN. I, ILAN BOYER, DOCUMENTED THE ABOVE INFORMATION ACTING A SCRIBE FOR DR. AGGARWAL. I HAVE REVIEWED THE ABOVE DOCUMENT, WRITTEN BY ILAN BOYER SCRIBE AND I VERIFY THAT IT IS ACCURATE. DIAGNOSTIC IMAGING [facility] FACET BLOCK (PAIN)[id number] PROCEDURE CODES 6045F RADXPS IN END [id number] PXD [id number] INJ PARAVERT F JNT C/T 1 LEV, MODIFIERS: 50 [id number] INJ PARAVERT F JNT L/S 1 LEV, MODIFIERS: 50 DISPOSITION & COMMUNICATION FOLLOW UP 3 WEEKS ELECTRONICALLY SIGNED BY NATALIA AGGARWAL MD, ON 10/04/2018 AT 01:27 PM EDT DISCLAIMER : THIS IS A VISIT SUMMARY EXTRACTED FROM THE [employer] CHART. IT IS NOT A COPY OF THE [employer] PROGRESS NOTE. MTDD
== END ==
LOC: M PAIN 13:45
PROVIDERS: ATTEND Anesthesiology
DX: M47.815 Spondylosis without myelopathy or radiculopathy, thoracolumbar region (principal); M47.816 Spondylosis without myelopathy or radiculopathy, lumbar region; I10 Essential (primary) hypertension; M51.34 Other intervertebral disc degeneration, thoracic region; M50.20 Other cervical disc displacement, unspecified cervical region; M51.36 Other intervertebral disc degeneration, lumbar region; K21.9 Gastro-esophageal reflux disease without esophagitis; E66.01 Morbid (severe) obesity due to excess calories; Z68.42 Body mass index [BMI] 45.0-49.9, adult; E78.5 Hyperlipidemia, unspecified; G56.01 Carpal tunnel syndrome, right upper limb; E03.9 Hypothyroidism, unspecified; K76.0 Fatty (change of) liver, not elsewhere classified; E55.9 Vitamin D deficiency, unspecified; Z79.891 Long term (current) use of opiate analgesic; Z79.82 Long term (current) use of aspirin; Z79.899 Other long term (current) drug therapy; Z88.1 Allergy status to other antibiotic agents; Z88.8 Allergy status to other drugs, medicaments and biological substances
CPT/HCPCS: 64490; 64493; 71046; J3301; Q9966

== ENCOUNTER → 2018-10-16 | Outpatient (REF) | payer MEDICARE, OTHER ==
[~2018-10-16] MED LIST changes: -BUPIVACAINE HCL 0.25% 30 ML VIAL As Ordered ONE; -ISOVUE-M 200 41% 20ML VIAL (Q9966) As Ordered ONE; -LIDOCAINE 1% SDV INJ 30 ML VIAL As Ordered ONE; -TRIAMCINOLONE ACETONIDE SUSP 40 MG/ML VIAL (J3301) As Ordered ONE
[2018-10-16 17:50] LABS: APPEARANCE, URINE CLEAR (CLEAR); BACTERIA, URINE AUTO NEGATIVE (NEGATIVE); BILIRUBIN, URINE AUTO NEGATIVE (NEGATIVE); BLOOD, URINE BLOOD NEGATIVE (NEGATIVE); COLOR, URINE YELLOW (YELLOW); GLUCOSE, URINE (UA) AUTO NEGATIVE (NEGATIVE); KETONE, URINE AUTO NEGATIVE (NEGATIVE); LEUKOCYTE ESTERASE, URINE AUTO NEGATIVE (NEGATIVE); MUCUS, URINE SMALL (NEGATIVE); NITRITE, URINE AUTO NEGATIVE (NEGATIVE); PROTEIN, URINE AUTO NEGATIVE (NEGATIVE); RBC, URINE AUTO 1 /HPF (0-3); SPECIFIC GRAVITY URINE AUTO 1.024 (1.002-1.035); SQUAMOUS EPITHELIAL CELL UR AU 2 /HPF (0-6); UROBILINOGEN, URINE AUTO 0.2 mg/dL (0.0-2.0); WBC, URINE AUTO 1 /HPF (0-3)
== END ==
LOC: M SMT 16:55
PROVIDERS: ATTEND Nurse Practitioner Family
DX: N39.3 Stress incontinence (female) (male) (principal)
CPT/HCPCS: 51798; 81001; 87086; G0463

== ENCOUNTER → 2018-11-20 | Outpatient (CLI) | payer MEDICARE, OTHER ==
--- NOTE | 2018-12-05 02:15 | ECWPNPC ---
PATIENT NAME: ILAN PAGE : 1975 GENDER: FEMALE VISIT DATE: 11/20/2018 DISCHARGE DATE: 11/20/18 1514 VISIT LOCKED DATE TIME: PHYSICIAN: SOURAV HEBERT RESOURCE: SOURAV HEBERT REASON FOR APPOINTMENT 1. POST PROC HISTORY OF PRESENT ILLNESS HISTORY OF PRESENT ILLNESS: HERE FOR F/U OF CHRONIC LBP AND HIP PAIN.HAS NOT BEEN RESPONDING WELL TO INJECTION THERAPY.RATING PAIN VAS 7/10.DISCUSSED ALTERNATIVES TO PAIN MEDICATIONS TO INCLUDE MASSAGE AND CBD PRODUCTS.HAS TRIALED MULTIPLE MEDICATIONS OVER THE YEARS.STATES ONLY MEDICATION THAT IS HELPFUL IS OXYCODONE 5MG 6 TAB DAILY. PAIN THE PATIENT DESCRIBES THE PAIN... FALL RISK SCREENING: SCREENING :NO FALLS REPORTED IN THE LAST YEAR CURRENT MEDICATIONS TAKING ZESTORETIC 20-25 MG TABLET 1 TABLET ORALLY ONCE A DAY, NOTES: 09/23/18 1100 TAKING SIMVASTATIN 20 20MG TABLET 1 TABLET ORALLY ONCE A DAY, NOTES: 09/23/18 2330 TAKING SYNTHROID 50 50MCG TABLET DIRECTED ORAL ONCE DAILY, NOTES: 09/23/18 1100 TAKING MIRTAZAPINE 15 MG TABLET 1 TABLET AT BEDTIME ORALLY ONCE A DAY, NOTES: 09/23/18 0100 TAKING LEVOCETIRIZINE DIHYDROCHLORIDE 5 MG TABLET 1 TABLET IN THE EVENING ORALLY ONCE A DAY, NOTES: 09/23/18 1100 TAKING ASPIRIN ADULT LOW STRENGTH 81 MG TABLET DELAYED RELEASE 1 TABLET ORALLY ONCE A DAY, NOTES: 09/23/18 1100 TAKING OMEPRAZOLE 40 MG CAPSULE DELAYED RELEASE 1 CAP(S) ORALLY ONCE DAILY, NOTES: 09/23/18 1100 TAKING STOOL SOFTENER 100 MG CAPSULE 1 CAP ORALLY DAILY, NOTES: 09/23/18 1100 TAKING NYSTATIN [id number] UNIT/GM CREAM 1 APPLICATION TO AFFECTED AREA EXTERNALLY ABDOMEN DAILY TAKING NYSTATIN [id number] UNIT/GM POWDER 1 APPLICATION TO AFFECTED AREA EXTERNALLY TWICE A DAY TAKING BENADRYL ALLERGY 25 MG TABLET 2 TABLETS ORALLY BEFORE BEDTIME NEEDED TAKING NORMAN TENNIS ELBOW STRAP - MISCELLANEOUS DIRECTED _ DAILY (M77.11) TAKING CLOTRIMAZOLE-BETAMETHASONE 1-0.05 % CREAM 1 APPLICATION TO BOTH LEGS EXTERNALLY TWICE A DAY X 2 WKS, THEN QDAY X 2WEEKS, AND THEN PRN TOPICAL., NOTES: > 1 WEEK TAKING OXYBUTYNIN CHLORIDE ER 10 MG TABLET EXTENDED RELEASE 24 HOUR 1 TABLET ORALLY ONCE A DAY TAKING ANUPAM 28 3-0.03 MG TABLET 1 TABLET ORALLY ONCE A DAY, NOTES: 09/23/18 2300 TAKING LEVOTHYROXINE SODIUM 50 MCG TABLET 1 TABLET ON AN EMPTY STOMACH IN THE MORNING ORALLY ONCE A DAY, NOTES: 09/23/18 1100 TAKING OXYCODONE HCL 5 MG TABLET 1.5 TAB ORALLY EVERY 6 HRS PRN MDD6, NOTES: 09/24/18 1100 NOT-TAKING TOLTERODINE TARTRATE ER 4 MG CAPSULE EXTENDED RELEASE 24 HOUR 1 CAPSULE ORALLY ONCE A DAY, NOTES: NOT TAKING GOT SICK UNKNOWN TIZANIDINE HCL 2 MG TABLET 1 TABLET NEEDED ORALLY Q8H PRN, NOTES: HAS NOT TAKEN PAST MEDICAL HISTORY HYPERTENSION BACK PAIN/RIB PAIN 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 GERD PCOS MORBID OBESITY R CARPEL TUNNEL HYPERLIPIDEMIA HYPOTHYROIDISM 10/19 02/13 CT ABD - DIFFUSE FATTY INFILTRATION OF LIVER, CT 2011, NL LIVER, CT 2014 FATTY LIVER MIXED INCONTINENCE HAD URODYNAMIC WITH DR PALOMINO DONE 2014 ,CANDIDATE FOR OA BLADDER MEDICATION VITAMIN D DEFICENCY CHRISTINAER LENNOXCK SCORE 12.78% ALLERGIES VOLTAREN: ITCHING - ALLERGY AMPICILLIN: HIVES - ALLERGY SURGICAL HISTORY R ANKLE SURGERY S/P INJURY DR SHARMA IN HER TEENS CTR R WRIST - DR Kristine DUNCAN 2006 EXCISION [facility]2011 LAPAROSCOPY EGD W/ REINDL NL 2013 COLONOSCOPY W/ REINDL - REPEAT 5 YRS. DUE 2021 2016 FAMILY HISTORY FATHER: UNKNOWN, PT HAS NO CONTACT WITH HER FATHER. MOTHER: ALIVE, DM2, HYPERLIPIDEMIA, HTN, MORBID OBESITY, CHRONIC LOW BACK PAIN, DEPRESSION. SIBLINGS: UNKNOWN, INCARCERATED FOR MURDER SON(S): ALLERGIES, ASTHMA DENIES FH OF BREAST, OVARIAN, OR COLORECTAL CANCER. NO KNOWN UROLOGICAL HX IN FAMILY. SOCIAL HISTORY GENERAL: TOBACCO USE ARE YOU A:NONSMOKER NEVER SMOKER HIV / HEP-C SCREENING HIV TEST OFFERED TO PATIENT:YES DATE OFFERED:05/01/2017 TEST ACCEPTED:NO HEP-C TEST OFFERED TO PATIENT:YES DATE OFFERED:05/01/2017 REASON:PATIENT DECLINED TEST ACCEPTED:NO REASON:PATIENT DECLINED OTHERS AT HOME: SPOUSE, CHILD- 15 GETTING READY TO JOIN THE AIR FORCE. HOUSING: RENTS APARTMENT. EDUCATION LEVEL OF EDUCATION:HIGH SCHOOL ONLY COMPLETED 8TH GRADE DIET: REGULAR. LANGUAGE LANGUAGES SPOKEN:BENGALI NEW PATIENT PAIN DIARY TODAY'S VISITNOTES FROM 0-10, WHAT LEVEL IS YOUR PAIN TODAY?4 BMI CARE GOAL FOLLOW-UP ABOVE NORMAL BMI FOLLOW-UPGIVING ENCOURAGEMENT TO EXERCISE RECREATIONAL DRUG USE DRUG USE?NO EXERCISE: NO REGULAR EXERCISE. LEARNING BARRIERS / SPECIAL NEEDS CHANGE FROM LAST VISIT?NO BARRIERS TO LEARNING?NO HEARING IMPAIRED?NO VISION IMPAIRED?NO COGNITIVELY IMPAIRED?NO READINESS TO LEARN?YES LEARNING PREFERENCES?NO LEARNING CAPABILITIES PRESENT?YES EMOTIONAL BARRIERS?NO SPECIAL DEVICES?NO DIRECTOR OF COMMUNITY LIFE NEEDED?NO PAIN CLINIC PFS, CLERGY, PUBLIC HEALTH REFERRALS PFS REFERRAL NEEDED?NO CLERGY REFERRAL NEEDED?NO PUBLIC HEALTH REFERRAL NEEDED?NO WAS THE PROVIDER NOTIFIED OF ANY PERTINENT INFO?YES HAS THE PATIENT BEEN EDUCATED REGARDING HIS/HER PLAN OF CARE?YES HAS THE PATIENT BEEN EDUCATED REGARDING PAIN, THE RISK FOR PAIN, THE IMPORTANCE OF EFFECTIVE PAIN MANAGEMENT, AND THE PAIN ASSESSMENT PROCESS?YES LATEX QUESTIONNAIRE LATEX ALLERGY : HAVE YOU EVER DEVELOPED ANY TYPE OF REACTION AFTER HANDLING LATEX PRODUCTS SUCH RUBBER GLOVES, CONDOMS, DIAPHRAGMS, BALLOONS, SOCKS, OR UNDERWEAR?NO LATEX ALLERGY : HAVE YOU EVER DEVELOPED ANY TYPE OF REACTION DURING OR AFTER DENTAL APPOINTMENT, VAGINAL/RECTAL EXAMINATION, SURGICAL PROCEDURE, OR ANY OTHER EXPOSURE?NO DATE ASKED : 06/22/2018 LATEX RISK : HAVE YOU EVER HAD ANY DIFFICULTY BREATHING OR HIVES AFTER EATING OR HANDLING ANY FRUITS, OR VEGETABLES; SUCH KIWI, BANANAS, STONE FRUITS, OR CHESTNUTSNO LATEX RISK : DO YOU HAVE A PREVIOUS PERSONAL HISTORY OF MORE THAN NINE SURGERIES, SPINA BIFIDA, OR REPEATED CATHERIZATIONS? NO LATEX RISK : ARE YOU FREQUENTLY EXPOSED TO LATEX PRODUCTS IN YOUR OCCUPATION?NO CAFFEINE CAFFEINE USE?YES 3 PEPSI DAILY ADVANCE DIRECTIVE ADVANCE DIRECTIVE DISCUSSED WITH PATIENT:YES PT STATES SHE DOES NOT HAVE A HCP AND DECLINES INFO AT THIS TIME. PENTECOSTAL [id number] TAOIST MARITAL STATUS: . ALCOHOL SCREENING DID YOU HAVE A DRINK CONTAINING ALCOHOL IN THE PAST YEAR?NO POINTS0 INTERPRETATIONNEGATIVE OCCUPATION: DISABLED. SEXUAL HX HAD SEX IN THE LAST 12 MONTHS (VAGINAL, ORAL, OR ANAL)?YES WITHMEN ONLY USE PROTECTION?NO LMP:07/17/2018 HAVE YOU EVER HAD AN STD?NO REVIEWED WITH PT 10/06/17 LASREVIEWED WITH PT 12/24/17 1135 LASREVIEWED WITH PT 01/09/18 1504 BVREVIEWED WITH PATIENT 03/16/18 1132 JSREVIEWED WITH PATIENT 07/14/18 1254 JSREVIEWED WITH PATIENT 09/24/18 1425 LAS. HOSPITALIZATION/MAJOR DIAGNOSTIC PROCEDURE W/ CHILDBIRTH REVIEW OF SYSTEMS REVIEWED BY: PROVIDER: SOURAV MCMAHON . CONSTITUTIONAL: ANY CHANGE IN YOUR MEDICAL CONDITION? NO . CHILLS NO . FEVER NO . INFECTION: DO YOU HAVE NEW INFECTIONS? NO . DO YOU HAVE HISTORY OF MRSA? NO . MUSCULOSKELETAL: ANY NEW PATTERNS OF PAIN OR NUMBNESS? NO . GASTROENTEROLOGY: ANY NEW CHANGE IN BOWEL CONTROL? NO . GENITOURINARY: ANY NEW CHANGE IN BLADDER CONTROL? NO . IS THERE A CHANCE YOU COULD BE ? NO . HEMATOLOGY/LYMPH: DO YOU TAKE ANY BLOOD THINNERS? (FOR EXAMPLE- COUMADIN, PLAVIX, AGGRENOX, PLATEL, PRADAXA, OR XARELTO) NO . WHEN WAS YOUR LAST DOSE? DATE: TIME: . NEUROLOGY: HAVE YOU FALLEN IN THE PAST 12 MONTHS? NO . ANY NEW EXTREMITY NUMBNESS OR WEAKNESS? NO . CARDIOLOGY: DO YOU HAVE A PACEMAKER OR DEFIBRILLATOR? NO . RESPIRATORY: HAVE YOU BEEN SICK IN THE PAST WEEK? NO . FEVER NO . FLU LIKE SYMPTOMS? NO . COUGH NO . INTEGUMENTARY: DO YOU HAVE ANY RASHES OR OPEN SORES? NO . ALLERGIC/IMMUNO: ARE YOU ALLERGIC TO IV DYE? NO . ANY NEW ALLERGIES? NO . PSYCHIATRIC: DO YOU HAVE THOUGHTS OF HURTING YOURSELF OR SOMEONE ELSE? NO . ARE YOU ABUSED, NEGLECTED, OR IN AN UNSAFE ENVIRONMENT? NO . ENDOCRINOLOGY: ARE YOU DIABETIC? NO . OTHER: DO YOU NEED ANY PRESCRIPTIONS? NO . IF YES, PLEASE LIST: ____ . ANY NEW PROBLEMS WITH YOUR MEDICATIONS? NO . WHEN DID YOU LAST EAT? ____ . WHEN DID YOU LAST DRINK? ____ . WHAT DID YOU LAST DRINK? ____ . NAME OF PERSON DRIVING YOU HOME? ____ . DO YOU HAVE ANY OTHER QUESTIONS OR CONCERNS NO . VITAL SIGNS WT 316.4 LBS, HT 67 IN, BMI 49.55 INDEX, BP 153/74 MM HG, HR 108 /MIN, RR 18 /MIN, TEMP 97.6 F, OXYGEN SAT % 97%, NA INITIALS AW 1356, REVIEWED BY: KG. EXAMINATION GENERAL EXAMINATION: GENERALAWAKE,ALERT ,PLEAASANT . PSYCHAFFECT NORMAL . LUNGS:LUNG [place] ARE CLEAR TO AUSCULTATION BILATERALLY. GOOD MOVEMENT OF AIR . HEART:S1, S2 IN A REGULAR RATE AND RHYTHM. NO SIGNIFICANT MURMURS, RUBS OR GALLOPS NOTED . 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 (REF # ) BRINGS IN MEDICATIONS WHICH IS APPROPRIATE FOR WHAT WAS DISPENSED. RECENT URINE TOXICOLOGY REVIEWED. NO UNAUTHORIZED MEDICATIONS. NO ILLICIT SUBSTANCES AND PRESCRIBED MEDICATIONS WERE PRESENT. URINE TOX TODAY, RISKS AND BENEFITS OF NARCOTIC/OPIOD MEDICATIONS WERE REVIEWED WITH PATIENT - THIS INCLUDES BUT IS NOT LIMITED TO RISK OF DEPENDANCE/DEVELOPMENT OF ADDICTION, MOOD DISTURBANCE AND DEPRESSION, OSTEOPOROSIS, HORMONAL AND LABIDAL CHANGES, RESPIRATORY DEPRESSION AND . PATIENT IS ADVISED NOT TO DRIVE OR DRINK ALCOHOL WHILE ON THESE MEDICATIONS. PROCEDURE CODES FA211 ESTABILISHED PATIENT [facility] CHARGE DISPOSITION & COMMUNICATION FOLLOW UP 2 MONTHS ELECTRONICALLY SIGNED BY SAOLME HOUGH ON 12/04/2018 AT 03:49 PM EDT DISCLAIMER : THIS IS A VISIT SUMMARY EXTRACTED FROM THE [employer] CHART. IT IS NOT A COPY OF THE [employer] PROGRESS NOTE. HERSON
== END ==
LOC: M PAIN 13:45
PROVIDERS: ATTEND Nurse Practitioner Family
DX: M51.14 Intervertebral disc disorders with radiculopathy, thoracic region (principal); G89.29 Other chronic pain; I10 Essential (primary) hypertension; K21.9 Gastro-esophageal reflux disease without esophagitis; E78.5 Hyperlipidemia, unspecified; E03.9 Hypothyroidism, unspecified; Z88.1 Allergy status to other antibiotic agents; Z88.6 Allergy status to analgesic agent; E66.01 Morbid (severe) obesity due to excess calories; Z68.42 Body mass index [BMI] 45.0-49.9, adult; Z79.82 Long term (current) use of aspirin; Z79.891 Long term (current) use of opiate analgesic; Z79.899 Other long term (current) drug therapy

== ENCOUNTER 2019-02-02 21:07 | Emergency (ER) | payer MEDICARE, OTHER ==
[~2019-02-02] VITALS: Ht 170.2 cm; Wt 144.6 kg
[~2019-02-02 21:07] MED LIST changes: -TESS100C PO
--- NOTE | 2019-02-02 23:44 | REPVR ---
PROCEDURE INFORMATION: Exam: XR Chest, 2 Views Exam date and time: 02/02/2019 9:36 PM Age: 43 years old Clinical history: Other: Rib pain TECHNIQUE: Imaging protocol: XR of the chest Views: 2 views. COMPARISON: CR Chest, 2 view PA, Lat 09/24/2018 4:37 PM FINDINGS: Lungs: Unremarkable. No consolidation. Pleural space: Unremarkable. No pleural effusion. No pneumothorax. Heart/Mediastinum: Unremarkable. No cardiomegaly. Bones/joints: Unremarkable. IMPRESSION: No acute findings. Electronically signed by: Rip Guan On 02/02/2019 23:43:53 PM
--- NOTE | 2019-02-02 23:45 | REPVR ---
PROCEDURE INFORMATION: Exam: XR Right Ribs Exam date and time: 02/02/2019 11:15 PM Age: 43 years old Clinical history: Other: Rib pain; Additional info: R rib pain TECHNIQUE: Imaging protocol: XR Right ribs. Views: 2 views. COMPARISON: CR Ribs uni W-PA CHEST ONLY 03/29/2016 3:39 PM FINDINGS: Bones/joints: Normal. Soft tissues: Normal. IMPRESSION: No acute findings. Electronically signed by: Rip Guan On 02/02/2019 23:45:02 PM
[2019-02-03] MEDS ORDERED: TESS100C PO (00:24)
[2019-02-03 00:32] VITALS: BP 128/78
== END 2019-02-03 00:33 | disposition home or self-care (01) ==
LOC: M ED 21:07
DX: J06.9 Acute upper respiratory infection, unspecified (principal); B34.9 Viral infection, unspecified; M94.0 Chondrocostal junction syndrome [Tietze]; S29.011A Strain of muscle and tendon of front wall of thorax, initial encounter; X58.XXXA Exposure to other specified factors, initial encounter; I10 Essential (primary) hypertension; E78.5 Hyperlipidemia, unspecified; K21.9 Gastro-esophageal reflux disease without esophagitis; F41.9 Anxiety disorder, unspecified; E03.9 Hypothyroidism, unspecified; Z88.0 Allergy status to penicillin; Z88.6 Allergy status to analgesic agent; Z79.891 Long term (current) use of opiate analgesic; Z79.82 Long term (current) use of aspirin; Z79.84 Long term (current) use of oral hypoglycemic drugs; Z79.899 Other long term (current) drug therapy

== ENCOUNTER → 2019-02-02 | Outpatient (CLI) | payer MEDICARE, OTHER ==
[~2019-02-02] MED LIST changes: -SIMV20TA2 PO; +SIMV20TA22 PO; +TESS100C PO
--- NOTE | 2019-02-18 02:03 | ECWPNPC ---
PATIENT NAME: ILAN PAGE : 1975 GENDER: FEMALE VISIT DATE: 02/02/2019 DISCHARGE DATE: 02/02/19 1339 VISIT LOCKED DATE TIME: PHYSICIAN: SOURAV HEBERT RESOURCE: SOURAV HEBERT REASON FOR APPOINTMENT 1. BACK HISTORY OF PRESENT ILLNESS HISTORY OF PRESENT ILLNESS: HERE FOR F/U OF CHRONIC LBP AND HIP PAIN.HAS NOT BEEN RESPONDING WELL TO INJECTION THERAPY.RATING PAIN VAS 7/10.DISCUSSED ALTERNATIVES TO PAIN MEDICATIONS TO INCLUDE MASSAGE AND CBD PRODUCTS.HAS TRIALED MULTIPLE MEDICATIONS OVER THE YEARS.STATES ONLY MEDICATION THAT IS HELPFUL IS OXYCODONE 5MG 6 TAB DAILY.HAS BEEN COUGHING OVER THE PAST MONTH AND BEING TREATED FOR BRONCHITIS.COUGHING HAS AGGREVATED HER CHRONIC RIGHT RIB PAIN.RATING RIB PAIN 9/10 VAS.CONTINUES WITH AXIAL LBP AT 7/10VAS. PAIN THE PATIENT DESCRIBES THE PAIN... FALL RISK SCREENING: SCREENING :NO FALLS REPORTED IN THE LAST YEAR CURRENT MEDICATIONS TAKING ZESTORETIC 20-25 MG TABLET 1 TABLET ORALLY ONCE A DAY TAKING SIMVASTATIN 20 20MG TABLET 1 TABLET ORALLY ONCE A DAY TAKING SYNTHROID 50 50MCG TABLET DIRECTED ORAL ONCE DAILY TAKING MIRTAZAPINE 15 MG TABLET 1 TABLET AT BEDTIME ORALLY ONCE A DAY TAKING LEVOCETIRIZINE DIHYDROCHLORIDE 5 MG TABLET 1 TABLET IN THE EVENING ORALLY ONCE A DAY TAKING ASPIRIN ADULT LOW STRENGTH 81 MG TABLET DELAYED RELEASE 1 TABLET ORALLY ONCE A DAY TAKING OMEPRAZOLE 40 MG CAPSULE DELAYED RELEASE 1 CAP(S) ORALLY ONCE DAILY TAKING STOOL SOFTENER 100 MG CAPSULE 1 CAP ORALLY DAILY TAKING BENADRYL ALLERGY 25 MG TABLET 2 TABLETS ORALLY BEFORE BEDTIME TAKING NORMAN TENNIS ELBOW STRAP - MISCELLANEOUS DIRECTED _ DAILY (M77.11) TAKING CLOTRIMAZOLE-BETAMETHASONE 1-0.05 % CREAM 1 APPLICATION TO BOTH LEGS EXTERNALLY TWICE A DAY X 2 WKS, THEN QDAY X 2WEEKS, AND THEN PRN TOPICAL. TAKING ANUPAM 28 3-0.03 MG TABLET 1 TABLET ORALLY ONCE A DAY TAKING OXYCODONE HCL 5 MG TABLET 1 TO2 TAB ORALLY Q8H PRN MDD6 TAKING MYRBETRIQ 50 MG TABLET 1 TABLET ORALLY ONCE A DAY NOT-TAKING NYSTATIN 335111 UNIT/GM CREAM 1 APPLICATION TO AFFECTED AREA EXTERNALLY ABDOMEN DAILY NOT-TAKING NYSTATIN [id number] UNIT/GM POWDER 1 APPLICATION TO AFFECTED AREA EXTERNALLY TWICE A DAY NOT-TAKING LEVOTHYROXINE SODIUM 50 MCG TABLET 1 TABLET ON AN EMPTY STOMACH IN THE MORNING ORALLY ONCE A DAY, NOTES: DUPLICATE NOT-TAKING TOLTERODINE TARTRATE ER 4 MG CAPSULE EXTENDED RELEASE 24 HOUR 1 CAPSULE ORALLY ONCE A DAY, NOTES: NOT TAKING GOT SICK NOT-TAKING TIZANIDINE HCL 2 MG TABLET 1 TABLET NEEDED ORALLY Q8H PRN, NOTES: HAS NOT TAKEN 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 GERD PCOS MORBID OBESITY R CARPEL TUNNEL HYPERLIPIDEMIA HYPOTHYROIDISM 10/19 02/13 CT ABD - DIFFUSE FATTY INFILTRATION OF LIVER, CT 2011, NL LIVER, CT 2014 FATTY LIVER MIXED INCONTINENCE HAD URODYNAMIC WITH DR PALOMINO DONE 2014 ,CANDIDATE FOR OA BLADDER MEDICATION VITAMIN D DEFICENCY MEHDI HULL SCORE 12.78% ALLERGIES VOLTAREN: ITCHING - ALLERGY AMPICILLIN: HIVES - ALLERGY SURGICAL HISTORY R ANKLE SURGERY S/P INJURY DR SHARMA IN HER TEENS CTR R WRIST - DR Kristine DUNCAN 2006 EXCISION OF RIGHT CERVICAL LYMPH NODE AT [facility] 08/2011 LAPAROSCOPY EGD W/ REINDL NL 2013 COLONOSCOPY W/ REINDL - REPEAT 5 YRS. DUE 2021 2016 FAMILY HISTORY FATHER: UNKNOWN, PT HAS NO CONTACT WITH HER FATHER. MOTHER: ALIVE, DM2, HYPERLIPIDEMIA, HTN, MORBID OBESITY, CHRONIC LOW BACK PAIN, DEPRESSION. SIBLINGS: UNKNOWN, INCARCERATED FOR MURDER SON(S): ALLERGIES, ASTHMA DENIES FH OF BREAST, OVARIAN, OR COLORECTAL CANCER. NO KNOWN UROLOGICAL HX IN FAMILY. SOCIAL HISTORY GENERAL: TOBACCO USE ARE YOU A:NONSMOKER NEVER SMOKER HIV / HEP-C SCREENING HIV TEST OFFERED TO PATIENT:YES DATE OFFERED:05/01/2017 TEST ACCEPTED:NO HEP-C TEST OFFERED TO PATIENT:YES DATE OFFERED:05/01/2017 REASON:PATIENT DECLINED TEST ACCEPTED:NO REASON:PATIENT DECLINED OTHERS AT HOME: SPOUSE, CHILD- 15 GETTING READY TO JOIN THE [employer]. HOUSING: RENTS APARTMENT. EDUCATION LEVEL OF EDUCATION:HIGH SCHOOL ONLY COMPLETED 8TH GRADE DIET: REGULAR. LANGUAGE LANGUAGES SPOKEN:KAZAKH NEW PATIENT PAIN DIARY TODAY'S VISITNOTES FROM 0-10, WHAT LEVEL IS YOUR PAIN TODAY?4 BMI CARE GOAL FOLLOW-UP ABOVE NORMAL BMI FOLLOW-UPGIVING ENCOURAGEMENT TO EXERCISE RECREATIONAL DRUG USE DRUG USE?NO EXERCISE: NO REGULAR EXERCISE. LEARNING BARRIERS / SPECIAL NEEDS CHANGE FROM LAST VISIT?NO BARRIERS TO LEARNING?NO HEARING IMPAIRED?NO VISION IMPAIRED?NO COGNITIVELY IMPAIRED?NO READINESS TO LEARN?YES LEARNING PREFERENCES?NO LEARNING CAPABILITIES PRESENT?YES EMOTIONAL BARRIERS?NO SPECIAL DEVICES?NO DENTAL PROFESSIONAL NEEDED?NO PAIN CLINIC PFS, CLERGY, PUBLIC HEALTH REFERRALS PFS REFERRAL NEEDED?NO CLERGY REFERRAL NEEDED?NO PUBLIC HEALTH REFERRAL NEEDED?NO WAS THE PROVIDER NOTIFIED OF ANY PERTINENT INFO?YES HAS THE PATIENT BEEN EDUCATED REGARDING HIS/HER PLAN OF CARE?YES HAS THE PATIENT BEEN EDUCATED REGARDING PAIN, THE RISK FOR PAIN, THE IMPORTANCE OF EFFECTIVE PAIN MANAGEMENT, AND THE PAIN ASSESSMENT PROCESS?YES LATEX QUESTIONNAIRE LATEX ALLERGY : HAVE YOU EVER DEVELOPED ANY TYPE OF REACTION AFTER HANDLING LATEX PRODUCTS SUCH RUBBER GLOVES, CONDOMS, DIAPHRAGMS, BALLOONS, SOCKS, OR UNDERWEAR?NO LATEX ALLERGY : HAVE YOU EVER DEVELOPED ANY TYPE OF REACTION DURING OR AFTER DENTAL APPOINTMENT, VAGINAL/RECTAL EXAMINATION, SURGICAL PROCEDURE, OR ANY OTHER EXPOSURE?NO DATE ASKED : 02/01/2019 LATEX RISK : HAVE YOU EVER HAD ANY DIFFICULTY BREATHING OR HIVES AFTER EATING OR HANDLING ANY FRUITS, OR VEGETABLES; SUCH KIWI, BANANAS, STONE FRUITS, OR CHESTNUTSNO LATEX RISK : DO YOU HAVE A PREVIOUS PERSONAL HISTORY OF MORE THAN NINE SURGERIES, SPINA BIFIDA, OR REPEATED CATHERIZATIONS? NO LATEX RISK : ARE YOU FREQUENTLY EXPOSED TO LATEX PRODUCTS IN YOUR OCCUPATION?NO CAFFEINE CAFFEINE USE?YES 3 PEPSI DAILY ADVANCE DIRECTIVE ADVANCE DIRECTIVE DISCUSSED WITH PATIENT:YES PT STATES SHE DOES NOT HAVE A HCP AND DECLINES INFO AT THIS TIME. DRUZE [id number] JAIN MARITAL STATUS: . ALCOHOL SCREENING DID YOU HAVE A DRINK CONTAINING ALCOHOL IN THE PAST YEAR?NO POINTS0 INTERPRETATIONNEGATIVE OCCUPATION: DISABLED. SEXUAL HX HAD SEX IN THE LAST 12 MONTHS (VAGINAL, ORAL, OR ANAL)?YES WITHMEN ONLY USE PROTECTION?NO LMP:07/17/2018 HAVE YOU EVER HAD AN STD?NO REVIEWED WITH PT 10/06/17 LASREVIEWED WITH PT 12/24/17 1135 LASREVIEWED WITH PT 01/09/18 1504 BVREVIEWED WITH PATIENT 03/16/18 1132 JSREVIEWED WITH PATIENT 07/14/18 1254 JSREVIEWED WITH PATIENT 09/24/18 1425 LAS. HOSPITALIZATION/MAJOR DIAGNOSTIC PROCEDURE W/ CHILDBIRTH REVIEW OF SYSTEMS REVIEWED BY: PROVIDER: SOURAV MCMAHON . CONSTITUTIONAL: ANY CHANGE IN YOUR MEDICAL CONDITION? NO . CHILLS NO . FEVER NO . INFECTION: DO YOU HAVE NEW INFECTIONS? NO . DO YOU HAVE HISTORY OF MRSA? NO . MUSCULOSKELETAL: ANY NEW PATTERNS OF PAIN OR NUMBNESS? YES, RIGHT RIB PAIN S/P TUSSIVE . GASTROENTEROLOGY: ANY NEW CHANGE IN BOWEL CONTROL? NO . GENITOURINARY: ANY NEW CHANGE IN BLADDER CONTROL? NO . IS THERE A CHANCE YOU COULD BE ? NO . HEMATOLOGY/LYMPH: DO YOU TAKE ANY BLOOD THINNERS? (FOR EXAMPLE- COUMADIN, PLAVIX, AGGRENOX, PLATEL, PRADAXA, OR XARELTO) NO . WHEN WAS YOUR LAST DOSE? DATE: TIME: . NEUROLOGY: HAVE YOU FALLEN IN THE PAST 12 MONTHS? NO . ANY NEW EXTREMITY NUMBNESS OR WEAKNESS? NO . CARDIOLOGY: DO YOU HAVE A PACEMAKER OR DEFIBRILLATOR? NO . RESPIRATORY: HAVE YOU BEEN SICK IN THE PAST WEEK? YES, URI WITH LOTS OF COUGHING PRODUCTIVE WITH GREEN MUCOUS THEN BECAME NON-PRODUCTIVE . FEVER NO . FLU LIKE SYMPTOMS? NO . COUGH NO . INTEGUMENTARY: DO YOU HAVE ANY RASHES OR OPEN SORES? NO . ALLERGIC/IMMUNO: ARE YOU ALLERGIC TO IV DYE? NO . ANY NEW ALLERGIES? NO . PSYCHIATRIC: DO YOU HAVE THOUGHTS OF HURTING YOURSELF OR SOMEONE ELSE? NO . ARE YOU ABUSED, NEGLECTED, OR IN AN UNSAFE ENVIRONMENT? NO . ENDOCRINOLOGY: ARE YOU DIABETIC? NO . OTHER: DO YOU NEED ANY PRESCRIPTIONS? NO . IF YES, PLEASE LIST: ____ . ANY NEW PROBLEMS WITH YOUR MEDICATIONS? NO . WHEN DID YOU LAST EAT? ____ . WHEN DID YOU LAST DRINK? ____ . WHAT DID YOU LAST DRINK? ____ . NAME OF PERSON DRIVING YOU HOME? ____ . DO YOU HAVE ANY OTHER QUESTIONS OR CONCERNS NO . VITAL SIGNS WT 317.2 LBS, HT 67 IN, BMI 49.68 INDEX, BP 136/81 MM HG, HR 107 /MIN, RR 18 /MIN, TEMP 97.5 F, OXYGEN SAT % 98%, NA INITIALS AW 1316, REVIEWED BY: EM. EXAMINATION GENERAL EXAMINATION: GENERALAWAKE,ALERT ,PLEAASANT . PSYCHAFFECT NORMAL . LUNGS:LUNG [place] ARE CLEAR TO AUSCULTATION BILATERALLY. GOOD MOVEMENT OF AIR . HEART:S1, S2 IN A REGULAR RATE AND RHYTHM. NO SIGNIFICANT MURMURS, RUBS OR GALLOPS NOTED . ASSESSMENTS INTERVERTEBRAL DISC DISORDERS WITH RADICULOPATHY, THORACIC REGION - M51.14 (PRIMARY) TREATMENT INTERVERTEBRAL DISC DISORDERS WITH RADICULOPATHY, THORACIC REGION CONTINUE OXYCODONE HCL TABLET, 5 MG, 1 TO2 TAB, ORALLY, Q8H PRN MDD6, 30 DAYS, 180, REFILLS 0 NOTES: ISTOP REGISTRY REVIEWED AND DEMONSTRATES COMPLLIANCE. BRINGS IN MEDICATIONS WHICH IS APPROPRIATE FOR WHAT WAS DISPENSED. RECENT URINE TOXICOLOGY REVIEWED. NO UNAUTHORIZED MEDICATIONS. NO ILLICIT SUBSTANCES AND PRESCRIBED MEDICATIONS WERE PRESENT. , RISKS OF NARCOTIC/OPIOD MEDICATIONS INCLUDES BUT IS NOT LIMITED TO RISK OF DEPENDANCE/DEVELOPMENT OF ADDICTION, MOOD DISTURBANCE AND DEPRESSION, OSTEOPOROSIS, HORMONAL AND LABIDAL CHANGES, RESPIRATORY DEPRESSION AND . PATIENT IS ADVISED NOT TO DRIVE OR DRINK ALCOHOL WHILE ON THESE MEDICATIONS. PROCEDURE CODES FA211 ESTABILISHED PATIENT [facility] CHARGE DISPOSITION & COMMUNICATION FOLLOW UP 2 MONTHS (REASON: MED MGMNT) ELECTRONICALLY SIGNED BY SALOME HOUGH ON 02/17/2019 AT 09:20 AM EST DISCLAIMER : THIS IS A VISIT SUMMARY EXTRACTED FROM THE [employer] CHART. IT IS NOT A COPY OF THE [employer] PROGRESS NOTE. HERSON
== END ==
LOC: M PAIN 13:00
PROVIDERS: ATTEND Nurse Practitioner Family
DX: M51.14 Intervertebral disc disorders with radiculopathy, thoracic region (principal); G89.29 Other chronic pain; I10 Essential (primary) hypertension; K21.9 Gastro-esophageal reflux disease without esophagitis; E78.5 Hyperlipidemia, unspecified; E03.9 Hypothyroidism, unspecified; Z88.1 Allergy status to other antibiotic agents; Z88.6 Allergy status to analgesic agent; E66.01 Morbid (severe) obesity due to excess calories; Z68.42 Body mass index [BMI] 45.0-49.9, adult; Z79.82 Long term (current) use of aspirin; Z79.891 Long term (current) use of opiate analgesic; Z79.899 Other long term (current) drug therapy

== ENCOUNTER → 2019-02-25 | Outpatient (CLI) | payer MEDICARE, OTHER ==
[~2019-02-25] MED LIST changes: +TESS100C PO
[2019-02-25 12:50] LABS: HEMATOCRIT 41.4 % (36.0-47.0); HEMOGLOBIN 13.3 g/dl (12.0-15.5); MEAN CORPUSCULAR HEMOGLOBIN 29.5 pg (27.0-33.0); MEAN CORPUSCULAR HGB CONC 32.1 g/dl (32.0-36.5); MEAN CORPUSCULAR VOLUME 91.8 fl (80.0-96.0); PLATELET COUNT, AUTOMATED 242 10^3/uL (150-450); RED BLOOD COUNT 4.51 10^6/uL (4.00-5.40); WHITE BLOOD COUNT 6.4 10^3/uL (4.0-10.0)
[2019-02-25 13:21] LABS: ALT/SGPT 17 U/L (12-78); BILIRUBIN,TOTAL 0.3 MG/DL (0.2-1.0); BLOOD UREA NITROGEN 10 MG/DL (7-18); CALCIUM LEVEL 8.7 MG/DL (8.5-10.1); CARBON DIOXIDE LEVEL 28 MEQ/L (21-32); CHLORIDE LEVEL 107 MEQ/L (98-107); CHOLESTEROL LEVEL 147 MG/DL (<200); CREATININE FOR GFR 0.84 MG/DL (0.55-1.30); GLOMERULAR FILTRATION RATE > 60.0 (>58); GLUCOSE, FASTING 98 MG/DL (70-100); HDL CHOLESTEROL 49 MG/DL (>40); LDL CHOLESTEROL 78 MG/DL (<100); NON-HDL-C 98 MG/DL; POTASSIUM SERUM 4.2 MEQ/L (3.5-5.1); SODIUM LEVEL 141 MEQ/L (136-145); TOTAL PROTEIN 7.1 GM/DL (6.4-8.2); TRIGLYCERIDES LEVEL 99 MG/DL (<150)
[2019-02-25 13:22] LABS: TOTAL 25(OH) VITAMIN D 16.7 NG/ML (30.0-100.0)
[2019-02-25 13:52] LABS: HEMOGLOBIN A1c 5.6 %
[2019-02-25 17:33] LABS: MALB URINE SIEMENS 12.3 MG/L; MAU/CREAT RATIO 4.9 MCG/MG (0.0-30.0)
== END ==
LOC: M LAB 12:06
PROVIDERS: ATTEND Nurse Practitioner Adult Health
DX: E03.9 Hypothyroidism, unspecified (principal); I10 Essential (primary) hypertension; E55.9 Vitamin D deficiency, unspecified; E78.5 Hyperlipidemia, unspecified; Z83.3 Family history of diabetes mellitus; Z79.899 Other long term (current) drug therapy

== ENCOUNTER → 2019-04-05 | Outpatient (CLI) | payer MEDICARE, OTHER ==
--- NOTE | 2019-04-22 03:09 | ECWPNPC ---
PATIENT NAME: ILAN PAGE : 1975 GENDER: FEMALE VISIT DATE: 04/05/2019 DISCHARGE DATE: 04/05/19 1535 VISIT LOCKED DATE TIME: PHYSICIAN: SOURAV HEBERT RESOURCE: SOURAV HEBERT REASON FOR APPOINTMENT 1. 2 MONTHS HISTORY OF PRESENT ILLNESS HISTORY OF PRESENT ILLNESS: HERE FOR FOLLOW-UP OF CHRONIC LOW BACK PAIN. REPORTING INCREASE IN LOW BACK PAIN AND THORACIC BACK PAIN OVER THE PAST FEW MONTHS. STATES THAT SHE IS HAVING INTERMITTENT PAIN IN HER LEGS AND FEET THAT IS SO SEVERE THAT SHE CAN BARELY WALK AT TIMES. MID BACK BRA LINE AREA HURTS THE MOST. RATING PAIN LEVEL IN 8-15/10 VAS. PAIN THE PATIENT DESCRIBES THE PAIN... FALL RISK SCREENING: SCREENING :NO FALLS REPORTED IN THE LAST YEAR CURRENT MEDICATIONS TAKING STOOL SOFTENER 100 MG CAPSULE 1 CAP ORALLY DAILY TAKING BENADRYL ALLERGY 25 MG TABLET 2 TABLETS ORALLY BEFORE BEDTIME TAKING NORMAN TENNIS ELBOW STRAP - MISCELLANEOUS DIRECTED _ DAILY (M77.11) TAKING CLOTRIMAZOLE-BETAMETHASONE 1-0.05 % CREAM 1 APPLICATION TO BOTH LEGS EXTERNALLY TWICE A DAY X 2 WKS, THEN QDAY X 2WEEKS, AND THEN PRN TOPICAL. TAKING ANUPAM 28 3-0.03 MG TABLET 1 TABLET ORALLY ONCE A DAY TAKING MYRBETRIQ 50 MG TABLET 1 TABLET ORALLY ONCE A DAY TAKING SIMVASTATIN 20 20MG TABLET 1 TABLET ORALLY ONCE A DAY TAKING SYNTHROID 50 50MCG TABLET DIRECTED ORAL ONCE DAILY TAKING MIRTAZAPINE 15 MG TABLET 1 TABLET AT BEDTIME ORALLY ONCE A DAY TAKING ASPIRIN ADULT LOW STRENGTH 81 MG TABLET DELAYED RELEASE 1 TABLET ORALLY ONCE A DAY TAKING OMEPRAZOLE 40 MG CAPSULE DELAYED RELEASE 1 CAP(S) ORALLY ONCE DAILY TAKING ZESTORETIC 20-25 MG TABLET 1 TABLET ORALLY ONCE A DAY TAKING LEVOCETIRIZINE DIHYDROCHLORIDE 5 MG TABLET 1 TABLET IN THE EVENING ORALLY ONCE A DAY TAKING ERGOCALCIFEROL 52724 IU TABLET DIRECTED ORALLY WEEKLY TAKING OXYCODONE HCL 5 MG TABLET 1 TO2 TAB ORALLY Q8H PRN MDD6 TAKING FISH OIL 1000 MG CAPSULE 2 CAPSULE ORALLY ONCE A DAY TAKING VITAMIN B12 500 MCG TABLET 1 TABLET ORALLY ONCE A DAY, NOTES: UNSURE OF STRENGTH TAKING TIZANIDINE HCL 2 MG TABLET 1 TABLET NEEDED ORALLY THREE TIMES A DAY NOT-TAKING DOXYCYCLINE MONOHYDRATE 100 MG TABLET 1 TABLET ORALLY BID NOT-TAKING FLUCONAZOLE 150 MG TABLET 1 TABLET ORALLY DIRECTED 1 TODAY THEN 1 IN 10 DAYS 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 GERD PCOS MORBID OBESITY R CARPEL TUNNEL HYPERLIPIDEMIA HYPOTHYROIDISM 10/19 02/13 CT ABD - DIFFUSE FATTY INFILTRATION OF LIVER, CT 2011, NL LIVER, CT 2014 FATTY LIVER MIXED INCONTINENCE HAD URODYNAMIC WITH DR PALOMINO DONE 2014 ,CANDIDATE FOR OA BLADDER MEDICATION VITAMIN D DEFICENCY TYRER LENNOXCK SCORE 12.78% ALLERGIES VOLTAREN: ITCHING - ALLERGY AMPICILLIN: HIVES - ALLERGY SURGICAL HISTORY R ANKLE SURGERY S/P INJURY DR SHARMA IN HER TEENS CTR R WRIST - DR Kristine DUNCAN 2006 EXCISION OF RIGHT CERVICAL LYMPH NODE AT [facility] 08/2011 LAPAROSCOPY EGD W/ REINDL NL 2013 COLONOSCOPY W/ REINDL - REPEAT 5 YRS. DUE 2021 2016 FAMILY HISTORY FATHER: UNKNOWN, PT HAS NO CONTACT WITH HER FATHER. MOTHER: ALIVE, DM2, HYPERLIPIDEMIA, HTN, MORBID OBESITY, CHRONIC LOW BACK PAIN, DEPRESSION. SIBLINGS: UNKNOWN, INCARCERATED FOR MURDER SON(S): ALLERGIES, ASTHMA DENIES FH OF BREAST, OVARIAN, OR COLORECTAL CANCER. NO KNOWN UROLOGICAL HX IN FAMILY. SOCIAL HISTORY GENERAL: TOBACCO USE ARE YOU A:NONSMOKER NEVER SMOKER HIV / HEP-C SCREENING HIV TEST OFFERED TO PATIENT:YES DATE OFFERED:05/01/2017 TEST ACCEPTED:NO HEP-C TEST OFFERED TO PATIENT:YES DATE OFFERED:05/01/2017 REASON:PATIENT DECLINED TEST ACCEPTED:NO REASON:PATIENT DECLINED OTHERS AT HOME: SPOUSE, CHILD- 15 GETTING READY TO JOIN THE [employer]. HOUSING: RENTS APARTMENT. EDUCATION LEVEL OF EDUCATION:HIGH SCHOOL ONLY COMPLETED 8TH GRADE DIET: REGULAR. LANGUAGE LANGUAGES SPOKEN:ESTONIAN NEW PATIENT PAIN DIARY TODAY'S VISITNOTES FROM 0-10, WHAT LEVEL IS YOUR PAIN TODAY?4 BMI CARE GOAL FOLLOW-UP ABOVE NORMAL BMI FOLLOW-UPGIVING ENCOURAGEMENT TO EXERCISE RECREATIONAL DRUG USE DRUG USE?NO EXERCISE: NO REGULAR EXERCISE. LEARNING BARRIERS / SPECIAL NEEDS CHANGE FROM LAST VISIT?NO BARRIERS TO LEARNING?NO HEARING IMPAIRED?NO VISION IMPAIRED?NO COGNITIVELY IMPAIRED?NO READINESS TO LEARN?YES LEARNING PREFERENCES?NO LEARNING CAPABILITIES PRESENT?YES EMOTIONAL BARRIERS?NO SPECIAL DEVICES?NO MANAGER BRIDGE NEEDED?NO LUNG CANCER SCREENING SMOKING STATUS:NON SMOKER PAIN CLINIC PFS, CLERGY, PUBLIC HEALTH REFERRALS PFS REFERRAL NEEDED?NO CLERGY REFERRAL NEEDED?NO PUBLIC HEALTH REFERRAL NEEDED?NO WAS THE PROVIDER NOTIFIED OF ANY PERTINENT INFO?YES HAS THE PATIENT BEEN EDUCATED REGARDING HIS/HER PLAN OF CARE?YES HAS THE PATIENT BEEN EDUCATED REGARDING PAIN, THE RISK FOR PAIN, THE IMPORTANCE OF EFFECTIVE PAIN MANAGEMENT, AND THE PAIN ASSESSMENT PROCESS?YES LATEX QUESTIONNAIRE LATEX ALLERGY : HAVE YOU EVER DEVELOPED ANY TYPE OF REACTION AFTER HANDLING LATEX PRODUCTS SUCH RUBBER GLOVES, CONDOMS, DIAPHRAGMS, BALLOONS, SOCKS, OR UNDERWEAR?NO LATEX ALLERGY : HAVE YOU EVER DEVELOPED ANY TYPE OF REACTION DURING OR AFTER DENTAL APPOINTMENT, VAGINAL/RECTAL EXAMINATION, SURGICAL PROCEDURE, OR ANY OTHER EXPOSURE?NO LATEX RISK : HAVE YOU EVER HAD ANY DIFFICULTY BREATHING OR HIVES AFTER EATING OR HANDLING ANY FRUITS, OR VEGETABLES; SUCH KIWI, BANANAS, STONE FRUITS, OR CHESTNUTSNO LATEX RISK : DO YOU HAVE A PREVIOUS PERSONAL HISTORY OF MORE THAN NINE SURGERIES, SPINA BIFIDA, OR REPEATED CATHERIZATIONS? NO LATEX RISK : ARE YOU FREQUENTLY EXPOSED TO LATEX PRODUCTS IN YOUR OCCUPATION?NO DATE ASKED : 02/01/2019 CAFFEINE CAFFEINE USE?YES 3 PEPSI DAILY ADVANCE DIRECTIVE ADVANCE DIRECTIVE DISCUSSED WITH PATIENT:YES 04/05/2019 PT STATES SHE DOES NOT HAVE A HCP AND DECLINES INFO AT THIS TIME. JS ADVENT [id number] UATSDIN MARITAL STATUS: . ALCOHOL SCREENING DID YOU HAVE A DRINK CONTAINING ALCOHOL IN THE PAST YEAR?NO POINTS0 INTERPRETATIONNEGATIVE OCCUPATION: DISABLED. SEXUAL HX HAD SEX IN THE LAST 12 MONTHS (VAGINAL, ORAL, OR ANAL)?YES WITHMEN ONLY USE PROTECTION?NO LMP:07/17/2018 HAVE YOU EVER HAD AN STD?NO REVIEWED WITH PT 10/06/17 LASREVIEWED WITH PT 12/24/17 1135 LASREVIEWED WITH PT 01/09/18 1504 BVREVIEWED WITH PATIENT 03/16/18 1132 JSREVIEWED WITH PATIENT 07/14/18 1254 JSREVIEWED WITH PATIENT 09/24/18 1425 LASREVIEWED WITH PATIENT 04/05/2019 1445 JS. HOSPITALIZATION/MAJOR DIAGNOSTIC PROCEDURE W/ CHILDBIRTH REVIEW OF SYSTEMS REVIEWED BY: PROVIDER: SOURAV MCMAHON . CONSTITUTIONAL: ANY CHANGE IN YOUR MEDICAL CONDITION? NO . CHILLS NO . FEVER NO . INFECTION: DO YOU HAVE NEW INFECTIONS? NO . DO YOU HAVE HISTORY OF MRSA? NO . MUSCULOSKELETAL: ANY NEW PATTERNS OF PAIN OR NUMBNESS? YES, STATES OCCASSIONAL PAIN THAT IS SHOOTING FROM HER BACK INTO HER LEGS AND FEET. ALSO STATES RIGHT RIB PAIN IS BACK . GASTROENTEROLOGY: ANY NEW CHANGE IN BOWEL CONTROL? NO . GENITOURINARY: ANY NEW CHANGE IN BLADDER CONTROL? NO . IS THERE A CHANCE YOU COULD BE ? NO . HEMATOLOGY/LYMPH: DO YOU TAKE ANY BLOOD THINNERS? (FOR EXAMPLE- COUMADIN, PLAVIX, AGGRENOX, PLATEL, PRADAXA, OR XARELTO) NO . WHEN WAS YOUR LAST DOSE? DATE: TIME: . NEUROLOGY: HAVE YOU FALLEN IN THE PAST 12 MONTHS? NO . ANY NEW EXTREMITY NUMBNESS OR WEAKNESS? YES, STATES WEAKNESS TO BILATERAL LEGS OFTEN DUE TO PAIN . CARDIOLOGY: DO YOU HAVE A PACEMAKER OR DEFIBRILLATOR? NO . RESPIRATORY: HAVE YOU BEEN SICK IN THE PAST WEEK? NO . FEVER NO . FLU LIKE SYMPTOMS? NO . COUGH NO . INTEGUMENTARY: DO YOU HAVE ANY RASHES OR OPEN SORES? NO . ALLERGIC/IMMUNO: ARE YOU ALLERGIC TO IV DYE? NO . ANY NEW ALLERGIES? NO . PSYCHIATRIC: DO YOU HAVE THOUGHTS OF HURTING YOURSELF OR SOMEONE ELSE? NO . ARE YOU ABUSED, NEGLECTED, OR IN AN UNSAFE ENVIRONMENT? NO . ENDOCRINOLOGY: ARE YOU DIABETIC? NO . OTHER: DO YOU NEED ANY PRESCRIPTIONS? NO . IF YES, PLEASE LIST: ____ . ANY NEW PROBLEMS WITH YOUR MEDICATIONS? NO . WHEN DID YOU LAST EAT? ____ . WHEN DID YOU LAST DRINK? ____ . WHAT DID YOU LAST DRINK? ____ . NAME OF PERSON DRIVING YOU HOME? ____ . DO YOU HAVE ANY OTHER QUESTIONS OR CONCERNS YES, STATES PAIN IS STARTING TO GO TO OTHER PARTS OF HER BODY - LEGS, FEET . VITAL SIGNS WT 317.8 LBS, HT 67 IN, BMI 49.77 INDEX, BP 130/86 MM HG, HR 109 /MIN, RR 18 /MIN, TEMP 96.0 F, OXYGEN SAT % 97%, SAFE IN ENV? (Y/N) YES, NA INITIALS AW 1448, REVIEWED BY: QEUTA. EXAMINATION GENERAL EXAMINATION: GENERAL AWAKE,ALERT ,PLEAASANT . PSYCH AFFECT NORMAL . LUNGS: LUNG [place] ARE CLEAR TO AUSCULTATION BILATERALLY. GOOD MOVEMENT OF AIR . HEART: S1, S2 IN A REGULAR RATE AND RHYTHM. NO SIGNIFICANT MURMURS, RUBS OR GALLOPS NOTED . THORACIC SPINE: TENDER OVER BILAT THORACIC T6-T10 R>L FACETS. DIAGNOSTIC TESTS REVIEWED CT THORACIC-01/31/16. ASSESSMENTS LOWER THORACIC BACK PAIN - M54.6 (PRIMARY) TREATMENT LOWER THORACIC BACK PAIN START CYMBALTA CAPSULE DELAYED RELEASE PARTICLES, 30 MG, 1 CAPSULE, ORALLY, ONCE A DAY, 30 DAY(S), 30, REFILLS 2 CONTINUE TIZANIDINE HCL TABLET, 2 MG, 1 TABLET NEEDED, ORALLY, THREE TIMES A DAY REFILL OXYCODONE HCL TABLET, 5 MG, 1 TO2 TAB, ORALLY, Q8H PRN MDD6, 30 DAYS, 180, REFILLS 0 CT THORACIC [id number] NOTES: . DUE TO PATIENT'S COMPLAINTS OF INCREASE IN HER THORACIC BACK PAIN ALONG THE BRA LINE, RIGHT GREATER THAN LEFT. WE DISCUSSED RESTARTING PROCEDURES. WE WILL NEED A NEW THORACIC CT. ADVISED HER TO CONTINUE USING TIZANIDINE TWICE A DAY NEEDED FOR INCREASED PAIN. DUE TO INCREASED PAIN IN HER LEGS AND SYMPTOMS OF NEUROPATHY, I'M ADVISING HER TO START CYMBALTA 30 MG DAILY. FOLLOW-UP POST-IMAGING TO EVALUATE FOR TREATMENT OPTIONS. PREVENTIVE MEDICINE PAIN CLINIC TEACHING: MEDICATIONS PRINTED AND REVIEWED INFORMATION ON NEW MEDICATION, CYMBALTA, WITH PATIENT. PATIENT VERBALIZED AN UNDERSTANDING. NIR ORANTES 04/05/2019 3:41:16 PM > . PROCEDURE CODES FA211 ESTABILISHED PATIENT [facility] CHARGE DISPOSITION & COMMUNICATION FOLLOW UP 4 WEEKS (REASON: CT REVIEW) ELECTRONICALLY SIGNED BY SALOME HOUGH ON 04/21/2019 AT 04:23 PM EST DISCLAIMER : THIS IS A VISIT SUMMARY EXTRACTED FROM THE [employer] CHART. IT IS NOT A COPY OF THE [employer] PROGRESS NOTE. ORACIOD
== END ==
LOC: M PAIN 14:30
PROVIDERS: ATTEND Nurse Practitioner Family
DX: M54.6 Pain in thoracic spine (principal); G89.29 Other chronic pain; I10 Essential (primary) hypertension; K21.9 Gastro-esophageal reflux disease without esophagitis; E78.5 Hyperlipidemia, unspecified; E03.9 Hypothyroidism, unspecified; Z88.1 Allergy status to other antibiotic agents; Z88.6 Allergy status to analgesic agent; E66.01 Morbid (severe) obesity due to excess calories; Z68.42 Body mass index [BMI] 45.0-49.9, adult; Z79.82 Long term (current) use of aspirin; Z79.891 Long term (current) use of opiate analgesic; Z79.899 Other long term (current) drug therapy

== ENCOUNTER → 2019-04-08 | Outpatient (CLI) | payer MEDICARE, OTHER ==
--- NOTE | 2019-04-08 17:55 | REPVR ---
PROCEDURE INFORMATION: Exam: CT Thoracic Spine Without Contrast Exam date and time: 04/08/2019 5:18 PM Age: 43 years old Clinical indication: Pain in thoracic spine; Additional info: Lower thoracic back pain TECHNIQUE: Imaging protocol: Computed tomography images of the thoracic spine without contrast. Radiation optimization: All CT scans at this facility use at least one of these dose optimization techniques: automated exposure control; mA and/or kV adjustment per patient size (includes targeted exams where dose is matched to clinical indication); or iterative reconstruction. COMPARISON: CT Spine,thoracic w/o contrast 01/30/2015 3:20 PM FINDINGS: Vertebrae: Moderate lower cervical degenerative disc disease is incidentally visualized. There is mild exaggeration of the thoracic kyphosis. No acute fracture seen. Discs/Spinal canal/Neural foramina: The thoracic spine demonstrates diffuse idiopathic skeletal hyperostosis. No high-grade disc height loss. No bony or overt soft tissue impingement upon the central spinal canal. Small calcified right paracentral disc protrusion is again demonstrated at T12-L1, this does not contribute to significant central spinal canal stenosis. Soft tissues: Unremarkable. IMPRESSION: No significant interval change. No acute fracture seen. Electronically signed by: Ana Maria Hensley On 04/08/2019 17:55:34 PM
== END ==
LOC: M RAD 17:04
PROVIDERS: ATTEND Nurse Practitioner Family
DX: M54.6 Pain in thoracic spine (principal)

== ENCOUNTER → 2019-05-13 | Outpatient (REF) | payer MEDICARE, OTHER ==
[2019-05-13 17:45] LABS: APPEARANCE, URINE CLEAR (CLEAR); BACTERIA, URINE AUTO 3+ (NEGATIVE); BILIRUBIN, URINE AUTO NEGATIVE (NEGATIVE); BLOOD, URINE BLOOD NEGATIVE (NEGATIVE); COLOR, URINE AMBER (YELLOW); GLUCOSE, URINE (UA) AUTO NEGATIVE (NEGATIVE); KETONE, URINE AUTO NEGATIVE (NEGATIVE); LEUKOCYTE ESTERASE, URINE AUTO NEGATIVE (NEGATIVE); MUCUS, URINE LARGE (NEGATIVE); NITRITE, URINE AUTO POSITIVE (NEGATIVE); PROTEIN, URINE AUTO NEGATIVE (NEGATIVE); RBC, URINE AUTO 3 /HPF (0-3); SPECIFIC GRAVITY URINE AUTO 1.021 (1.002-1.035); SQUAMOUS EPITHELIAL CELL UR AU 2 /HPF (0-6); WBC, URINE AUTO 8 /HPF (0-3)
== END ==
LOC: M SMT 16:58
PROVIDERS: ATTEND Nurse Practitioner Family
DX: R30.0 Dysuria (principal)

== ENCOUNTER → 2019-05-21 | Outpatient (CLI) | payer MEDICARE, OTHER ==
--- NOTE | 2019-06-08 03:01 | ECWPNPC ---
PATIENT NAME: ILAN PAGE : 1975 GENDER: FEMALE VISIT DATE: 05/21/2019 DISCHARGE DATE: 05/21/19 1523 VISIT LOCKED DATE TIME: PHYSICIAN: SOURAV HEBERT RESOURCE: SOURAV HEBERT REASON FOR APPOINTMENT 1. 4 WEEKS HISTORY OF PRESENT ILLNESS HISTORY OF PRESENT ILLNESS: HERE FOR FOLLOW-UP OF PERSISTENT RIGHT THORACIC PAIN. CT OF THE THORACIC SPINE DONE LAST MONTH IS REVIEWED. THIS IS STABLE COMPARED TO PREVIOUS READING. CONTINUES WITH RIGHT LOWER THORACIC PAIN. THIS HAS BEEN A CHRONIC ISSUE SINCE HAVING A COUGHING FIT SEVERAL YEARS AGO. CURRENTLY GETTING OVER A URINARY TRACT INFECTION AND BRONCHITIS. HAS YET TO START CYMBALTA PRESCRIBED AT LAST VISIT. SHE WILL GET STARTED ON THIS WHEN SHE IS FEELING BETTER. DISCUSSED TREATMENT OPTIONS. PAIN THE PATIENT DESCRIBES THE PAINDURING THE LAST MONTH SEVERITY - PAIN SCORE OF7/10 LOCATIONSMID BACK, LOWER BACK QUALITYACHING , BURNING, SHARP, STABBING, TENDER, SORE, SHOOTING DURATIONCONTINUOUS FALL RISK SCREENING: SCREENING :NO FALLS REPORTED IN THE LAST YEAR CURRENT MEDICATIONS TAKING STOOL SOFTENER 100 MG CAPSULE 1 CAP ORALLY DAILY TAKING BENADRYL ALLERGY 25 MG TABLET 2 TABLETS ORALLY BEFORE BEDTIME TAKING NORMAN TENNIS ELBOW STRAP - MISCELLANEOUS DIRECTED _ DAILY (M77.11) TAKING CLOTRIMAZOLE-BETAMETHASONE 1-0.05 % CREAM 1 APPLICATION TO BOTH LEGS EXTERNALLY TWICE A DAY X 2 WKS, THEN QDAY X 2WEEKS, AND THEN PRN TOPICAL. TAKING ANUPAM 28 3-0.03 MG TABLET 1 TABLET ORALLY ONCE A DAY TAKING MYRBETRIQ 50 MG TABLET 1 TABLET ORALLY ONCE A DAY TAKING SIMVASTATIN 20 20MG TABLET 1 TABLET ORALLY ONCE A DAY TAKING SYNTHROID 50 50MCG TABLET DIRECTED ORAL ONCE DAILY TAKING MIRTAZAPINE 15 MG TABLET 1 TABLET AT BEDTIME ORALLY ONCE A DAY TAKING ASPIRIN ADULT LOW STRENGTH 81 MG TABLET DELAYED RELEASE 1 TABLET ORALLY ONCE A DAY TAKING OMEPRAZOLE 40 MG CAPSULE DELAYED RELEASE 1 CAP(S) ORALLY ONCE DAILY TAKING ZESTORETIC 20-25 MG TABLET 1 TABLET ORALLY ONCE A DAY TAKING LEVOCETIRIZINE DIHYDROCHLORIDE 5 MG TABLET 1 TABLET IN THE EVENING ORALLY ONCE A DAY TAKING ERGOCALCIFEROL 37738 IU TABLET DIRECTED ORALLY WEEKLY TAKING FISH OIL 1000 MG CAPSULE 2 CAPSULE ORALLY ONCE A DAY TAKING VITAMIN B12 500 MCG TABLET 1 TABLET ORALLY ONCE A DAY, NOTES: UNSURE OF STRENGTH TAKING TIZANIDINE HCL 2 MG TABLET 1 TABLET NEEDED ORALLY THREE TIMES A DAY TAKING CYMBALTA 30 MG CAPSULE DELAYED RELEASE PARTICLES 1 CAPSULE ORALLY ONCE A DAY TAKING OXYCODONE HCL 5 MG TABLET 1 TO2 TAB ORALLY Q8H PRN MDD6 TAKING CIPROFLOXACIN HCL 500 MG TABLET 1 TABLET ORALLY EVERY 12 HRS NOT-TAKING PYRIDIUM 200 MG TABLET 1 TABLET AFTER MEALS ORALLY THREE TIMES A DAY NOT-TAKING MACROBID 100 MG CAPSULE 1 CAP ORALLY BID NOT-TAKING BACTRIM DS 800-160 MG TABLET 1 TABLET ORALLY TWICE A DAY, NOTES: ALLERGY( HIVES) NOT-TAKING DOXYCYCLINE MONOHYDRATE 100 MG TABLET 1 TABLET ORALLY BID NOT-TAKING FLUCONAZOLE 150 MG TABLET 1 TABLET ORALLY DIRECTED 1 TODAY THEN 1 IN 10 DAYS 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 GERD PCOS MORBID OBESITY R CARPEL TUNNEL HYPERLIPIDEMIA HYPOTHYROIDISM 10/19 02/13 CT ABD - DIFFUSE FATTY INFILTRATION OF LIVER, CT 2011, NL LIVER, CT 2014 FATTY LIVER MIXED INCONTINENCE HAD URODYNAMIC WITH DR PALOMINO DONE 2014 ,CANDIDATE FOR OA BLADDER MEDICATION VITAMIN D DEFICENCY TYRER LENNOXCK SCORE 12.78% ALLERGIES VOLTAREN: ITCHING - ALLERGY AMPICILLIN: HIVES - ALLERGY BACTRIM: HIVES - ALLERGY SURGICAL HISTORY R ANKLE SURGERY S/P INJURY DR SHARMA IN HER TEENS CTR R WRIST - DR Kristine DUNCAN 2006 EXCISION OF RIGHT CERVICAL LYMPH NODE AT [facility] 08/2011 LAPAROSCOPY EGD W/ REINDL NL 2013 COLONOSCOPY W/ REINDL - REPEAT 5 YRS. DUE 2021 2016 FAMILY HISTORY FATHER: UNKNOWN, PT HAS NO CONTACT WITH HER FATHER. MOTHER: ALIVE, DM2, HYPERLIPIDEMIA, HTN, MORBID OBESITY, CHRONIC LOW BACK PAIN, DEPRESSION. SIBLINGS: UNKNOWN, INCARCERATED FOR MURDER SON(S): ALLERGIES, ASTHMA DENIES FH OF BREAST, OVARIAN, OR COLORECTAL CANCER. NO KNOWN UROLOGICAL HX IN FAMILY. SOCIAL HISTORY GENERAL: TOBACCO USE ARE YOU A:NONSMOKER NEVER SMOKER HIV / HEP-C SCREENING HIV TEST OFFERED TO PATIENT:YES DATE OFFERED:05/01/2017 TEST ACCEPTED:NO HEP-C TEST OFFERED TO PATIENT:YES DATE OFFERED:05/01/2017 REASON:PATIENT DECLINED TEST ACCEPTED:NO REASON:PATIENT DECLINED OTHERS AT HOME: SPOUSE, CHILD- 15 GETTING READY TO JOIN THE [employer]. HOUSING: RENTS APARTMENT. EDUCATION LEVEL OF EDUCATION:HIGH SCHOOL ONLY COMPLETED 8TH GRADE DIET: REGULAR. LANGUAGE LANGUAGES SPOKEN:PANAMANIAN NEW PATIENT PAIN DIARY TODAY'S VISITNOTES FROM 0-10, WHAT LEVEL IS YOUR PAIN TODAY?4 BMI CARE GOAL FOLLOW-UP ABOVE NORMAL BMI FOLLOW-UPGIVING ENCOURAGEMENT TO EXERCISE RECREATIONAL DRUG USE DRUG USE?NO EXERCISE: NO REGULAR EXERCISE. LEARNING BARRIERS / SPECIAL NEEDS CHANGE FROM LAST VISIT?NO BARRIERS TO LEARNING?NO HEARING IMPAIRED?NO VISION IMPAIRED?NO COGNITIVELY IMPAIRED?NO READINESS TO LEARN?YES LEARNING PREFERENCES?NO LEARNING CAPABILITIES PRESENT?YES EMOTIONAL BARRIERS?NO SPECIAL DEVICES?NO TAR BOILER NEEDED?NO LUNG CANCER SCREENING SMOKING STATUS:NON SMOKER PAIN CLINIC PFS, CLERGY, PUBLIC HEALTH REFERRALS PFS REFERRAL NEEDED?NO CLERGY REFERRAL NEEDED?NO PUBLIC HEALTH REFERRAL NEEDED?NO WAS THE PROVIDER NOTIFIED OF ANY PERTINENT INFO?YES HAS THE PATIENT BEEN EDUCATED REGARDING HIS/HER PLAN OF CARE?YES HAS THE PATIENT BEEN EDUCATED REGARDING PAIN, THE RISK FOR PAIN, THE IMPORTANCE OF EFFECTIVE PAIN MANAGEMENT, AND THE PAIN ASSESSMENT PROCESS?YES LATEX QUESTIONNAIRE LATEX ALLERGY : HAVE YOU EVER DEVELOPED ANY TYPE OF REACTION AFTER HANDLING LATEX PRODUCTS SUCH RUBBER GLOVES, CONDOMS, DIAPHRAGMS, BALLOONS, SOCKS, OR UNDERWEAR?NO LATEX ALLERGY : HAVE YOU EVER DEVELOPED ANY TYPE OF REACTION DURING OR AFTER DENTAL APPOINTMENT, VAGINAL/RECTAL EXAMINATION, SURGICAL PROCEDURE, OR ANY OTHER EXPOSURE?NO DATE ASKED : 02/01/2019 LATEX RISK : HAVE YOU EVER HAD ANY DIFFICULTY BREATHING OR HIVES AFTER EATING OR HANDLING ANY FRUITS, OR VEGETABLES; SUCH KIWI, BANANAS, STONE FRUITS, OR CHESTNUTSNO LATEX RISK : DO YOU HAVE A PREVIOUS PERSONAL HISTORY OF MORE THAN NINE SURGERIES, SPINA BIFIDA, OR REPEATED CATHERIZATIONS? NO LATEX RISK : ARE YOU FREQUENTLY EXPOSED TO LATEX PRODUCTS IN YOUR OCCUPATION?NO CAFFEINE CAFFEINE USE?YES 3 PEPSI DAILY ADVANCE DIRECTIVE ADVANCE DIRECTIVE DISCUSSED WITH PATIENT:YES 04/05/2019 PT STATES SHE DOES NOT HAVE A HCP AND DECLINES INFO AT THIS TIME. JS ANGLICAN [id number] BAPTIST MARITAL STATUS: . ALCOHOL SCREENING DID YOU HAVE A DRINK CONTAINING ALCOHOL IN THE PAST YEAR?NO POINTS0 INTERPRETATIONNEGATIVE OCCUPATION: DISABLED. SEXUAL HX HAD SEX IN THE LAST 12 MONTHS (VAGINAL, ORAL, OR ANAL)?YES WITHMEN ONLY USE PROTECTION?NO LMP:07/17/2018 HAVE YOU EVER HAD AN STD?NO HOSPITALIZATION/MAJOR DIAGNOSTIC PROCEDURE W/ CHILDBIRTH REVIEW OF SYSTEMS REVIEWED BY: PROVIDER: SOURAV MCMAHON . CONSTITUTIONAL: ANY CHANGE IN YOUR MEDICAL CONDITION? NO . CHILLS NO . FEVER NO . INFECTION: DO YOU HAVE NEW INFECTIONS? NO . DO YOU HAVE HISTORY OF MRSA? NO . MUSCULOSKELETAL: ANY NEW PATTERNS OF PAIN OR NUMBNESS? NO . GASTROENTEROLOGY: ANY NEW CHANGE IN BOWEL CONTROL? NO . GENITOURINARY: ANY NEW CHANGE IN BLADDER CONTROL? NO . IS THERE A CHANCE YOU COULD BE ? NO . HEMATOLOGY/LYMPH: DO YOU TAKE ANY BLOOD THINNERS? (FOR EXAMPLE- COUMADIN, PLAVIX, AGGRENOX, PLATEL, PRADAXA, OR XARELTO) NO . WHEN WAS YOUR LAST DOSE? DATE: TIME: . NEUROLOGY: HAVE YOU FALLEN IN THE PAST 12 MONTHS? NO . ANY NEW EXTREMITY NUMBNESS OR WEAKNESS? NO . CARDIOLOGY: DO YOU HAVE A PACEMAKER OR DEFIBRILLATOR? NO . RESPIRATORY: HAVE YOU BEEN SICK IN THE PAST WEEK? YES, COUGH, POST NASAL DRIP ,HEADACHE . FEVER NO . FLU LIKE SYMPTOMS? NO . COUGH YES,DRY COUGH FOR THE PAST WEEKS, NON-PRODUCTIVE . INTEGUMENTARY: DO YOU HAVE ANY RASHES OR OPEN SORES? NO . ALLERGIC/IMMUNO: ARE YOU ALLERGIC TO IV DYE? NO . ANY NEW ALLERGIES? NO . PSYCHIATRIC: DO YOU HAVE THOUGHTS OF HURTING YOURSELF OR SOMEONE ELSE? NO . ARE YOU ABUSED, NEGLECTED, OR IN AN UNSAFE ENVIRONMENT? NO . ENDOCRINOLOGY: ARE YOU DIABETIC? NO . OTHER: DO YOU NEED ANY PRESCRIPTIONS? YES, REFILL ON OXYCODONE . IF YES, PLEASE LIST: ____ . ANY NEW PROBLEMS WITH YOUR MEDICATIONS? NO . WHEN DID YOU LAST EAT? ____ . WHEN DID YOU LAST DRINK? ____ . WHAT DID YOU LAST DRINK? ____ . NAME OF PERSON DRIVING YOU HOME? ____ . DO YOU HAVE ANY OTHER QUESTIONS OR CONCERNS NO . VITAL SIGNS WT 316.2 LBS, HT 67 IN, BMI 49.52 INDEX, BP 144/67 MM HG, HR 96 /MIN, RR 18 /MIN, TEMP 98.2 F, OXYGEN SAT % 94%, SAFE IN ENV? (Y/N) YES, NA INITIALS AW 1433, REVIEWED BY: DARIEN VALERIO LPN. EXAMINATION GENERAL EXAMINATION: GENERALNO ACUTE DISTRESS, WELL NOURISHED AND HYDRATED. PSYCHAPPROPRIATE MOOD AND AFFECT . LUNGS:CLEAR TO AUSCULTATION BILATERALLY, NO WHEEZES, RHONCHI, RALES. HEART:NO MURMURS, REGULAR RATE AND RHYTHM. THORACIC SPINE: TRIGGER POINTS:, ELICITED WITH PALPATION OVER MID THORACIC R>L MUSCLES WITH RESTRICITON OF RESPIRATORY EXCURCIOM NOTED.. DIAGNOSTIC TESTS REVIEWED CT THORACIC 04/08/2019. ASSESSMENTS LOWER THORACIC BACK PAIN - M54.6 TREATMENT LOWER THORACIC BACK PAIN CONTINUE TIZANIDINE HCL TABLET, 2 MG, 1 TABLET NEEDED, ORALLY, THREE TIMES A DAY CONTINUE CYMBALTA CAPSULE DELAYED RELEASE PARTICLES, 30 MG, 1 CAPSULE, ORALLY, ONCE A DAY REFILL OXYCODONE HCL TABLET, 5 MG, 1 TO2 TAB, ORALLY, Q8H PRN MDD6, 30 DAYS, 180, REFILLS 0 NOTES: ISTOP REGISTRY REVIEWED AND DEMONSTRATES COMPLLIANCE. BRINGS IN MEDICATIONS WHICH IS APPROPRIATE FOR WHAT WAS DISPENSED. RECENT URINE TOXICOLOGY REVIEWED. NO UNAUTHORIZED MEDICATIONS. NO ILLICIT SUBSTANCES AND PRESCRIBED MEDICATIONS WERE PRESENT. , RISKS OF NARCOTIC/OPIOD MEDICATIONS INCLUDES BUT IS NOT LIMITED TO RISK OF DEPENDANCE/DEVELOPMENT OF ADDICTION, MOOD DISTURBANCE AND DEPRESSION, OSTEOPOROSIS, HORMONAL AND LABIDAL CHANGES, RESPIRATORY DEPRESSION AND . PATIENT IS ADVISED NOT TO DRIVE OR DRINK ALCOHOL WHILE ON THESE MEDICATIONS. OTHERS NOTES: TPI RIGHT THORACIC. DISPOSITION & COMMUNICATION FOLLOW UP POST (REASON: TPI RIGHT THORACIC) ELECTRONICALLY SIGNED BY SALOME HOUGH ON 06/07/2019 AT 02:25 PM EDT DISCLAIMER : THIS IS A VISIT SUMMARY EXTRACTED FROM THE [facility] CHART. IT IS NOT A COPY OF THE [facility] PROGRESS NOTE. MTDD
== END ==
LOC: M PAIN 14:15
PROVIDERS: ATTEND Nurse Practitioner Family
DX: M54.6 Pain in thoracic spine (principal); I10 Essential (primary) hypertension; E03.9 Hypothyroidism, unspecified; E78.5 Hyperlipidemia, unspecified; E55.9 Vitamin D deficiency, unspecified; Z79.82 Long term (current) use of aspirin; Z79.891 Long term (current) use of opiate analgesic; Z79.899 Other long term (current) drug therapy; Z88.1 Allergy status to other antibiotic agents; Z88.8 Allergy status to other drugs, medicaments and biological substances

== ENCOUNTER → 2019-08-04 | Outpatient (CLI) | payer MEDICARE, OTHER ==
--- NOTE | 2019-08-04 14:46 | REPMRS ---
Patient History The patient states she had a clinical breast exam in July 2019.No known family history of cancer. Taking hormonal contraceptives for 11 years 7 months. Digital Woman Screen Mammo: August 04, 2019 - Exam #: [id number] Bilateral CC and MLO view(s) were taken. Technologist: Lily Romano, Technologist Prior study comparison: July 29, 2018, bilateral digital woman screen mammo performed at [facility]. December 23, 2016, digital woman screen mammo performed at [facility]. November 20, 2015, bilateral digital mammo screening bilat, performed at [facility]. FINDINGS: The breast tissue is almost entirely fat. The Volpara volumetric breast density category is: A. There has been no change in the appearance of the mammogram from the prior studies. There is no interval development of dominant mass, architectural distortion, or grouped microcalcification typical of malignancy. 3-D tomosynthesis shows no additional findings. Assessment: BI-RADS/ACR category 1 mammogram. Negative Mammogram. Recommendation Routine screening mammogram of both breasts in 1 year (for women over age 40). This patient's Lifetime Breast Cancer RIsk is estimated at 10.5 %. This mammogram was interpreted with the aid of an FDA-approved computer-aided dectection system. Electronically Signed By: Oswaldo Cortes MD 08/04/19 [id number]
== END ==
LOC: M WHC 13:27
PROVIDERS: ATTEND Nurse Practitioner Women's Health
DX: Z01.419 Encounter for gynecological examination (general) (routine) without abnormal findings (principal); Z12.31 Encounter for screening mammogram for malignant neoplasm of breast; Z92.0 Personal history of contraception
CPT/HCPCS: 51798; 77063; 77067; G0101; G0463

== ENCOUNTER → 2019-08-10 | Outpatient (CLI) | payer MEDICARE, OTHER ==
--- NOTE | 2019-08-10 17:53 | REP ---
DEEP VENOUS ULTRASONOGRAPHY LEFT THIGH, RULE OUT DVT: REASON FOR EXAM: Pain and swelling. There are no priors for comparison. TECHNIQUE: Multiple ultrasonographic images of the deep venous structures of the left thigh were obtained from the common femoral vein to the popliteal vein along with Doppler interrogation and color flow Doppler images. FINDINGS: There is no abnormal echogenic material seen within any of the visualized deep venous structures that would suggest acute thrombosis. Coaptation is unremarkable throughout. Doppler interrogation shows an expected response to respiratory variability and augmentation. The color flow images show what appears to be a normal vascular pattern throughout. IMPRESSION: There is no ultrasonographic evidence of deep venous thrombosis involving any of the visualized deep venous structures of the left thigh, as described above. Ultrasonography cannot be used accurately or reproducibly to assess for calf DVTs. If a calf DVT is of clinical concern, then magnetic resonance venography is indicated. In addition, ultrasonography is not utilized for superficial thrombophlebitis. That is a clinical diagnosis.
== END ==
LOC: M WHC 15:16
PROVIDERS: ATTEND Physician Assistant Medical
DX: I80.02 Phlebitis and thrombophlebitis of superficial vessels of left lower extremity (principal)
CPT/HCPCS: 93971; G0463

== ENCOUNTER → 2019-08-20 | Outpatient (CLI) | payer MEDICARE, OTHER | LOC: M LABSMTC 12:17 | PROVIDERS: ATTEND Anesthesiology | DX: Z11.59 Encounter for screening for other viral diseases (principal); Z03.818 Encounter for observation for suspected exposure to other biological agents ruled out | CPT/HCPCS: C9803; U0003 ==

== ENCOUNTER → 2019-08-23 | Outpatient (CLI) | payer MEDICARE, OTHER ==
[~2019-08-23] MED LIST changes: +BUPIVACAINE HCL 0.25% 10ML VIAL As Ordered ONE; +BUPIVACAINE HCL 0.25% 30ML VIAL As Ordered ONE; +TRIAMCINOLONE ACETONIDE SUSP 40 MG/ML VIAL (J3301) As Ordered ONE
--- NOTE | 2019-08-25 04:36 | ECWPNPC ---
PATIENT NAME: ILAN PAGE : 1975 GENDER: FEMALE VISIT DATE: 08/23/2019 DISCHARGE DATE: 08/23/19 1311 VISIT LOCKED DATE TIME: PHYSICIAN: NATALIA AGGARWAL MD RESOURCE: NATALIA AGGARWAL MD REASON FOR APPOINTMENT 1. KEYSHAWN THORACIC AND KEYSHAWN LOWER BACK HISTORY OF PRESENT ILLNESS GENERAL: 43-YEAR-OLD FEMALE PATIENT WITH A HISTORY OF CHRONIC THORACIC AND LOW BACK PAIN. THE PATIENT HAS RESTRICTION OVER THE AREA. THE PATIENT HAS HAD TRIGGER POINT INJECTIONS IN THE PAST THAT HAVE HELPED. PATIENT DENIES UNEXPLAINABLE WEIGHT LOSS, FEVER, CHILLS, NEW CHANGES ON HER URINARY OR BOWEL CONTROL. FALL RISK SCREENING: SCREENING :NO FALLS REPORTED IN THE LAST YEAR PAIN SCREENING: PATIENT HAS A COMPLAINT OF ACUTE OR CHRONIC PAIN :YES LOCATION OF PAIN:UPPER BACK INTENSITY OF PAIN (SCALE OF 1 TO 10):10 WHAT DOES YOUR PAIN FEEL LIKE:ACHING, BURNING, CONTINOUS, SHARP, STABBING, TENDER, THROBBING, SORE, SHOOTING DURATION:CONTINOUS, CONSTANT PAIN IS INCREASED BY:ACTIVITIES PAIN IS DECREASED BY:USE OF PAIN MEDICATIONS NURSING NOTE: -. PAIN CENTER INTAKE QUESTIONS: DO YOU HAVE A HISTORY OF MRSA? :NO DO YOU TAKE A BLOOD THINNERS? :NO DO YOU HAVE ANY BLEEDING DISORDERS? :NO ANY NEW NUMBNESS OR WEAKNESS IN YOUR LEGS OR ARMS? :NO ANY PACEMAKER,DEFIBRILLATOR, OR DORSAL COLUMN STIMULATOR? :NO DO YOU HAVE ANY RASHES OR OPEN SORES? :NO ARE YOU ALLERGIC TO IV DYE? :NO ARE YOU DIABETIC? :NO ANY NEW PROBLEMS WITH YOUR MEDICATIONS? :NO HAVE YOU RECEIVED A VACCINE IN THE PAST 30 DAYS? :NO DO YOU PLAN TO RECEIVE A VACCINE IN THE NEXT 21 DAYS? :NO DO YOU TAKE ANY IMMUNOSUPPRESSIVE MEDICATIONS? :NO ANY HISTORY OF SEIZURES? :NO ANY HISTORY OF CARDIAC ISSUES OR EVENTS? :NO DO YOU HAVE SLEEP APNEA? : NO. ANY RECENT HEAD INJURY? :NO DO YOU HAVE ANY NEW INFECTIONS? :NO IS THERE A CHANCE YOU COULD BE ? :NO ARE YOU BREAST FEEDING? :NO WHEN DID YOU LAST EAT? : -08/22 0100 WHEN DID YOU LAST DRINK? : -08/22 09 WHAT DID YOU LAST DRINK? : -ORANGE CRUSH DR. AGGARWAL NOTIFIED, IN TO SPEAK WITH PT, OK TO PROCEED. LAS NAME OF PERSON DRIVING YOU HOME? : - - BILL DO YOU HAVE ANY OTHER QUESTIONS OR CONCERNS? : - CURRENT MEDICATIONS TAKING STOOL SOFTENER 100 MG CAPSULE 1 CAP ORALLY DAILY, NOTES: 08/21 2329 TAKING BENADRYL ALLERGY 25 MG TABLET 2 TABLETS ORALLY BEFORE BEDTIME, NOTES: 08/22 229 TAKING CLOTRIMAZOLE-BETAMETHASONE 1-0.05 % CREAM 1 APPLICATION TO BOTH LEGS EXTERNALLY TWICE A DAY X 2 WKS, THEN QDAY X 2WEEKS, AND THEN PRN TOPICAL., NOTES: > 1 MONTH TAKING SYNTHROID 50 50MCG TABLET DIRECTED ORAL ONCE DAILY, NOTES: 08/21 1029 TAKING MIRTAZAPINE 15 MG TABLET 1 TABLET AT BEDTIME ORALLY ONCE A DAY, NOTES: 08/22 129 TAKING ASPIRIN ADULT LOW STRENGTH 81 MG TABLET DELAYED RELEASE 1 TABLET ORALLY ONCE A DAY, NOTES: 08/21 2329 TAKING OMEPRAZOLE 40 MG CAPSULE DELAYED RELEASE 1 CAP(S) ORALLY ONCE DAILY, NOTES: 08/21 1029 TAKING ZESTORETIC 20-25 MG TABLET 1 TABLET ORALLY ONCE A DAY, NOTES: 08/21 1029 TAKING LEVOCETIRIZINE DIHYDROCHLORIDE 5 MG TABLET 1 TABLET IN THE EVENING ORALLY ONCE A DAY, NOTES: 08/21 1029 TAKING FISH OIL 1000 MG CAPSULE 2 CAPSULE ORALLY ONCE A DAY, NOTES: 08/21 1029 TAKING VITAMIN B12 500 MCG TABLET 1 TABLET ORALLY ONCE A DAY, NOTES: 08/21 1029 TAKING TIZANIDINE HCL 2 MG TABLET 1 TABLET NEEDED ORALLY THREE TIMES A DAY, NOTES: 08/21 1929 TAKING CYMBALTA 30 MG CAPSULE DELAYED RELEASE PARTICLES 1 CAPSULE ORALLY ONCE A DAY, NOTES: HAS NOT STARTED YET TAKING ERGOCALCIFEROL 53913 IU TABLET 1 TABLET ORALLY WEEKLY, NOTES: 08/16 TAKING OXYCODONE HCL 5 MG TABLET 1 TO2 TAB ORALLY Q8H PRN MDD6, NOTES: 08/22 899 TAKING MYRBETRIQ 50 MG TABLET 1 TABLET ORALLY ONCE A DAY, NOTES: 08/21 1029 TAKING ANUPAM 28 3-0.03 MG TABLET 1 TABLET ORALLY ONCE A DAY, NOTES: 08/21 2329 TAKING SIMVASTATIN 20 20MG TABLET 1 TABLET ORALLY ONCE A DAY, NOTES: 08/21 2329 NOT-TAKING GNP IBUPROFEN 200 MG TABLET 1 TABLET WITH FOOD OR MILK NEEDED ORALLY THREE TIMES A DAY 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 GERD PCOS MORBID OBESITY R CARPEL TUNNEL HYPERLIPIDEMIA HYPOTHYROIDISM 10/19 02/13 CT ABD - DIFFUSE FATTY INFILTRATION OF LIVER, CT 2011, NL LIVER, CT 2014 FATTY LIVER MIXED INCONTINENCE HAD URODYNAMIC WITH DR PALOMINO DONE 2014 ,CANDIDATE FOR OA BLADDER MEDICATION VITAMIN D DEFICENCY MEHDI HULL SCORE 12.78% ALLERGIES VOLTAREN: ITCHING - ALLERGY AMPICILLIN: HIVES - ALLERGY BACTRIM: HIVES - ALLERGY SURGICAL HISTORY R ANKLE SURGERY S/P INJURY DR SHARMA IN HER TEENS CTR R WRIST - DR Kristine DUNCAN 2006 EXCISION OF RIGHT CERVICAL LYMPH NODE AT [facility] 08/2011 LAPAROSCOPY EGD W/ REINDL NL 2013 COLONOSCOPY W/ REINDL - REPEAT 5 YRS. DUE 2021 2016 TOOTH EXTRACTION FAMILY HISTORY FATHER: UNKNOWN, PT HAS NO CONTACT WITH HER FATHER. MOTHER: ALIVE, DM2, HYPERLIPIDEMIA, HTN, MORBID OBESITY, CHRONIC LOW BACK PAIN, DEPRESSION. SIBLINGS: UNKNOWN, INCARCERATED FOR MURDER SON(S): ALLERGIES, ASTHMA DENIES FH OF BREAST, OVARIAN, OR COLORECTAL CANCER. NO KNOWN UROLOGICAL HX IN FAMILY. SOCIAL HISTORY GENERAL: TOBACCO USE ARE YOU A:NONSMOKER NEVER SMOKER LATEX QUESTIONNAIRE LATEX ALLERGY : HAVE YOU EVER DEVELOPED ANY TYPE OF REACTION AFTER HANDLING LATEX PRODUCTS SUCH RUBBER GLOVES, CONDOMS, DIAPHRAGMS, BALLOONS, SOCKS, OR UNDERWEAR?NO LATEX ALLERGY : HAVE YOU EVER DEVELOPED ANY TYPE OF REACTION DURING OR AFTER DENTAL APPOINTMENT, VAGINAL/RECTAL EXAMINATION, SURGICAL PROCEDURE, OR ANY OTHER EXPOSURE?NO LATEX RISK : HAVE YOU EVER HAD ANY DIFFICULTY BREATHING OR HIVES AFTER EATING OR HANDLING ANY FRUITS, OR VEGETABLES; SUCH KIWI, BANANAS, STONE FRUITS, OR CHESTNUTSNO LATEX RISK : DO YOU HAVE A PREVIOUS PERSONAL HISTORY OF MORE THAN NINE SURGERIES, SPINA BIFIDA, OR REPEATED CATHERIZATIONS? NO LATEX RISK : ARE YOU FREQUENTLY EXPOSED TO LATEX PRODUCTS IN YOUR OCCUPATION?NO DATE ASKED : 08/20/2019 LUNG CANCER SCREENING SMOKING STATUS:NON SMOKER BMI CARE GOAL FOLLOW-UP ABOVE NORMAL BMI FOLLOW-UPGIVING ENCOURAGEMENT TO EXERCISE ALCOHOL SCREENING DID YOU HAVE A DRINK CONTAINING ALCOHOL IN THE PAST YEAR?NO POINTS0 INTERPRETATIONNEGATIVE RECREATIONAL DRUG USE DRUG USE?NO CAFFEINE CAFFEINE USE?YES 3 PEPSI DAILY SEXUAL HX HAD SEX IN THE LAST 12 MONTHS (VAGINAL, ORAL, OR ANAL)?YES WITHMEN ONLY USE PROTECTION?NO LMP:07/17/2018 HAVE YOU EVER HAD AN STD?NO HIV / HEP-C SCREENING HIV TEST OFFERED TO PATIENT:YES DATE OFFERED:05/01/2017 TEST ACCEPTED:NO HEP-C TEST OFFERED TO PATIENT:YES DATE OFFERED:05/01/2017 REASON:PATIENT DECLINED TEST ACCEPTED:NO REASON:PATIENT DECLINED [employer]IST [id number] [employer] LANGUAGE LANGUAGES SPOKEN:PAKISTANI EDUCATION LEVEL OF EDUCATION:HIGH SCHOOL ONLY COMPLETED 8TH GRADE LEARNING BARRIERS / SPECIAL NEEDS CHANGE FROM LAST VISIT?NO BARRIERS TO LEARNING?NO HEARING IMPAIRED?NO VISION IMPAIRED?NO COGNITIVELY IMPAIRED?NO READINESS TO LEARN?YES LEARNING PREFERENCES?NO LEARNING CAPABILITIES PRESENT?YES EMOTIONAL BARRIERS?NO SPECIAL DEVICES?NO DEBURRING TECHNICIAN NEEDED?NO DOMESTIC VIOLENCE DO YOU FEEL SAFE IN YOUR ENVIRONMENT?YES OCCUPATION: DISABLED. DIET: REGULAR. EXERCISE: NO REGULAR EXERCISE. MARITAL STATUS: . OTHERS AT HOME: SPOUSE. PAIN CLINIC PFS, CLERGY, PUBLIC HEALTH REFERRALS PFS REFERRAL NEEDED?NO CLERGY REFERRAL NEEDED?NO PUBLIC HEALTH REFERRAL NEEDED?NO WAS THE PROVIDER NOTIFIED OF ANY PERTINENT INFO?YES HAS THE PATIENT BEEN EDUCATED REGARDING HIS/HER PLAN OF CARE?YES HAS THE PATIENT BEEN EDUCATED REGARDING PAIN, THE RISK FOR PAIN, THE IMPORTANCE OF EFFECTIVE PAIN MANAGEMENT, AND THE PAIN ASSESSMENT PROCESS?YES HOUSING: RENTS APARTMENT. ADVANCE DIRECTIVE ADVANCE DIRECTIVE DISCUSSED WITH PATIENT:YES PT STATES SHE DOES NOT HAVE A HCP AND DECLINES INFO AT THIS TIME. HOSPITALIZATION/MAJOR DIAGNOSTIC PROCEDURE W/ CHILDBIRTH VITAL SIGNS WT 325.2 LBS, HT 67 IN, BMI 50.93 INDEX, BP 129/82 MM HG, HR 89 /MIN, RR 20 /MIN, TEMP 98.4 F, OXYGEN SAT % 97%, NA INITIALS SC 11:53. EXAMINATION GENERAL EXAMINATION: THE PATIENT IS ALERT, ORIENTED TIMES THREE AND COOPERATIVE. HEART SHOWS REGULAR RHYTHM, NO MURMURS AND NO GALLOPS. LUNGS ARE CLEAR TO AUSCULTATION. THERE ARE PRESENCE OF TRIGGER POINTS IN THE BILATERAL THORACIC AND BILATERAL LOWER BACK WITH RESTRICTION OF MOVEMENT PRESENT IN THE BANDS OF TISSUE. ASSESSMENTS MYALGIA, OTHER SITE - M79.18 (PRIMARY) TREATMENT MYALGIA, OTHER SITE CLINICAL NOTES: WE DISCUSSED SEVERAL ALTERNATIVES WITH MS. PAGE REGARDING HER TREATMENT OPTIONS AND CARE. WE HAVE AGREED TO DO TRIGGER POINT INJECTIONS OVER THE BILATERAL THORACIC AREA AND BILATERAL LOWER BACK AREA. THE PATIENT UNDERSTANDS AND AGREES WITH THE PLAN. PROCEDURES PAIN NURSING RECORD PRE-PROCEDURE IV SITE N/A, PRE-PROCEDURE ORAL MEDICATIONS LUNGS CLEAR BILATERALLY, HEART SOUNDS REGULAR PROCEDURE PHYSICIAN IN ROOM 1242, START 1249, FINISH 1251, PHYSICIAN OUT OF ROOM 1253, STEROID KENALOG, O2 RA, ECG N/A, PATIENT SHIELDED NO, SAFETY STRAP NO, PREP ALCOHOL, IV INFUSED N/A, DRESSING TEGADERM LOC: 1. ALERT, ORIENTED RESP: 1. REGULAR, NO DYSPNEA COLOR: 1. PINK SKIN: 1. WARM, DRY POSITION: 4. OTHER SITTING VITALS: YASMEEN STERLING 08/23/2019 1:01:32 PM > 139/95 89-18 96% DISCHARGE: POST PAIN 0, DRESSING SITE DRY AND INTACT, IV N/A, GAIT STEADY, TEACHING COMPLETED, PATIENT ACKNOWLEDGES UNDERSTANDING YES, PATIENT DISCHARGED AT 1310 PN TRIGGER POINT INJECTION WITH STEROIDS PRE PROCEDURE DIAGNOSIS 1. MYALGIA 2. PAIN AT BILATERAL THORACIC AREA AND BILATERAL LOWER BACK AREA POST PROCEDURE DIAGNOSIS 1. MYALGIA 2. PAIN AT BILATERAL THORACIC AREA AND BILATERAL LOWER BACK AREA PROCEDURE TRIGGER POINT INJECTION AT BILATERAL THORACIC AREA AND BILATERAL LOWER BACK AREA SURGEON DR. NATALIA AGGARWAL FAMILY LAW SPECIALIST NONE ANESTHESIA LOCAL PRE PROCEDURE NOTE THE PATIENT HAS A HISTORY OF CHRONIC PAIN AT THE RIGHT AND LEFT THORACIC AREA AND RIGHT AND LEFT LOWER BACK AREA. I EVALUATED THE PATIENT AND REVIEWED THE CHART. THERE IS EVIDENCE OF BANDS OF TISSUE WITH RESTRICTION OF MOVEMENT AND PRESENCE OF TRIGGER POINT AT THE RIGHT AND LEFT THORACIC AREA AND RIGHT AND LEFT LOWER BACK AREA. I WENT OVER THE RISKS, ALTERNATIVES, AND BENEFITS ASSOCIATED WITH THIS PROCEDURE. I DISCUSSED THAT THE USE OF STEROIDS MAY CONTRIBUTE TO IMMUNOSUPPRESSION OF THE PATIENT'S BODY AGAINST INFECTIONS SUCH COVID-19. THE PATIENT IS AWARE OF THE POTENTIAL COMPLICATIONS ASSOCIATED WITH THIS VIRUS, INCLUDING, BUT NOT LIMITED TO, . I DISCUSSED THE USE OF DEXAMETHASONE INSTEAD OF KENALOG; HOWEVER, THE PATIENT WOULD LIKE TO MOVE FORWARD WITH KENALOG. THE PATIENT WOULD LIKE TO PROCEED AND GIVE CONSENT TO PERFORMED THE PROCEDURE. THE PATIENT DENIES UNEXPLAINABLE WEIGHT LOSS, FEVER, CHILLS, OR NEW CHANGES IN URINARY OR BOWEL CONTROL. THE PATIENT IS COVID-19 NEGATIVE DESCRIPTION OF PROCEDURE THE PATIENT WAS BROUGHT TO THE PROCEDURE ROOM AND PLACED IN THE SITTING POSITION. THE AREA WAS CLEANED WITH ALCOHOL. THE PROCEDURE WAS DONE USING ASEPTIC STERILE TECHNIQUE. I CHECKED LATERALITY AND THE LEVEL WHERE THE PROCEDURE WAS GOING TO BE PERFORMED WITH THE PATIENT AND THE SUPPORTING STAFF AT THE MOMENT OF THE TIME OUT IN THE PROCEDURE ROOM. USING A 25-GAUGE NEEDLE, TRIGGER POINTS WERE INJECTED AT THE RIGHT AND LEFT THORACIC AREA AND RIGHT AND LEFT LOWER BACK AREA WITH A TOTAL OF 40 ML OF BUPIVACAINE 0.25% AND KENALOG 40 MG. THERE WAS NO EVIDENCE OF BLOOD, PARESTHESIA OR CEREBROSPINAL FLUID DURING THE PROCEDURE. THE PATIENT WAS SENT TO THE RECOVERY ROOM. THE PATIENT WAS MOVING THE EXTREMITIES AND DOING WELL. THERE WAS NO COMPLICATION DURING THE PROCEDURE. EBL LESS THAN 5 ML POST PROCEDURE NOTE THE PROCEDURE DONE WAS DISCUSSED WITH THE PATIENT. THE PATIENT WILL BE SEEN IN A FOLLOW UP IN THE NEXT FEW WEEKS. I AM LOOKING FOR LONG LASTING PAIN RELIEF FOR THE PATIENT WITH THIS INTERVENTION. INSTRUCTIONS WERE GIVEN, QUESTIONS WERE ANSWERED, AND THE PATIENT EXPRESSED UNDERSTANDING AND AGREES WITH THE PLAN. THE PATIENT IS AWARE TO STAY HOME FOR THE NEXT WEEK, IF POSSIBLE, DUE TO COVID-19. I, ROSALINE MADISON, DOCUMENTED THE ABOVE INFORMATION ACTING A SCRIBE FOR DR. AGGARWAL. I HAVE REVIEWED THE ABOVE DOCUMENT, WRITTEN BY ROSALINE MADISON, EXPENDITURE REQUISITION CLERK, AND I VERIFY THAT IT IS ACCURATE PROCEDURE CODES 96938 INJECT TRIGGER POINTS 3/> DISPOSITION & COMMUNICATION FOLLOW UP F/UP WITH MATCHER OFFBEARER (REASON: POST TPI KEYSHAWN THORACIC AND KEYSHAWN LOW BACK) ELECTRONICALLY SIGNED BY NATALIA AGGARWAL MD, MD ON 08/24/2019 AT 01:01 PM EDT DISCLAIMER : THIS IS A VISIT SUMMARY EXTRACTED FROM THE [employer] CHART. IT IS NOT A COPY OF THE [facility] PROGRESS NOTE. HERSON
== END ==
LOC: M PAIN 11:30
PROVIDERS: ATTEND Anesthesiology
DX: M79.18 Myalgia, other site (principal)
CPT/HCPCS: 20553; J3301

== ENCOUNTER → 2019-09-03 | Outpatient (CLI) | payer MEDICARE, OTHER ==
[~2019-09-03] MED LIST changes: -ASPI81TA85 PO; +ASPI81TA86 PO; +B-122500 PO; -BUPIVACAINE HCL 0.25% 10ML VIAL As Ordered ONE; -BUPIVACAINE HCL 0.25% 30ML VIAL As Ordered ONE; +CLIN150C15 PO; +FISH1000 PO; +GABA-282 PO; -GABA-843 PO; -LISI-538 PO; +LISI20TA33 PO; +LISI20TA35 PO; +MYRB25TA PO; +OXYC-517 PO; +PRED20TA PO; +SUCR1TA PO; -TRIAMCINOLONE ACETONIDE SUSP 40 MG/ML VIAL (J3301) As Ordered ONE; +VITA50005 PO
--- NOTE | 2019-09-03 17:37 | REPPI ---
TWO-VIEW CHEST: REASON: Chest pain. COMPARISON: 02/02/2019 FINDINGS: The superior mediastinal structures are midline. The cardiac silhouette is unremarkable in size, shape, and position. The diaphragmatic surfaces of the lungs are regular, and the costophrenic angles are clear. The pulmonary astudillo are clear. The imaged osseous structures are intact. IMPRESSION: There is no acute cardiopulmonary disease. No change from the prior exam. Electronically Signed by Patrick Kam DO 09/13/2019 07:43 A
== END ==
LOC: M PLAIMG 13:54
PROVIDERS: ATTEND Nurse Practitioner Adult Health
DX: R07.9 Chest pain, unspecified (principal)

== ENCOUNTER → 2019-09-08 | Outpatient (CLI) | payer MEDICARE, OTHER ==
[~2019-09-08] MED LIST changes: +ASPI81TA85 PO; -ASPI81TA86 PO; -B-122500 PO; -CLIN150C15 PO; -FISH1000 PO; -GABA-282 PO; +GABA-843 PO; +LISI-538 PO; -LISI20TA33 PO; -LISI20TA35 PO; -MYRB25TA PO; -OXYC-517 PO; -PRED20TA PO; -SUCR1TA PO; -VITA50005 PO
--- NOTE | 2019-09-21 03:12 | ECWPNPC ---
PATIENT NAME: ILAN PAGE : 1975 GENDER: FEMALE VISIT DATE: 09/08/2019 DISCHARGE DATE: 09/08/19 1542 VISIT LOCKED DATE TIME: PHYSICIAN: SOURAV HEBERT RESOURCE: SOURAV HEBERT REASON FOR APPOINTMENT 1. POST TPI KEYSHAWN THORACIC AND KEYSHAWN LOW BACK HISTORY OF PRESENT ILLNESS GENERAL: HERE FOR POST PROCEDURE FOLLOW-UP. HAD TRIGGER POINT INJECTIONS, BILATERAL THORACIC AND BILATERAL LUMBAR ON 08/23/2019. REPORTING 50% IMPROVEMENT IN PAIN FOR APPROXIMATELY 10 DAYS POST PROCEDURE. PAIN HAS RETURNED TO BASELINE. COMPLAINING OF LOWER THORACIC PAIN. THIS IS THE WORST AREA PAIN. PATIENT HURTS ALL OVER. HAS NOT STARTED CYMBALTA SHE WAS LEERY ABOUT TAKING AN ANTIDEPRESSANT. WE WERE DISCUSSING TODAY TO USE FOR CYMBALTA IN PAIN MANAGEMENT. STATES SHE'S GOING TO START TAKING THIS. REVIEWED MRI OF THE THORACIC SPINE AND DISCUSSED TREATMENT PLAN. -. FALL RISK SCREENING: SCREENING :NO FALLS REPORTED IN THE LAST YEAR PAIN SCREENING: PATIENT HAS A COMPLAINT OF ACUTE OR CHRONIC PAIN :YES LOCATION OF PAIN: MID BACK LOWER BACK INTENSITY OF PAIN (SCALE OF 1 TO 10):7 WHAT DOES YOUR PAIN FEEL LIKE:ACHING, BURNING, SHARP, STABBING, THROBBING, SHOOTING DURATION:CONTINOUS PAIN IS INCREASED BY: BENDING PAIN IS DECREASED BY:USE OF PAIN MEDICATIONS SOAK IN TUB NURSING NOTE: -. PAIN CENTER INTAKE QUESTIONS: DO YOU HAVE A HISTORY OF MRSA? :NO DO YOU TAKE A BLOOD THINNERS? :NO DO YOU HAVE ANY BLEEDING DISORDERS? :NO ANY NEW NUMBNESS OR WEAKNESS IN YOUR LEGS OR ARMS? :NO ANY PACEMAKER,DEFIBRILLATOR, OR DORSAL COLUMN STIMULATOR? :NO DO YOU HAVE ANY RASHES OR OPEN SORES? :NO ARE YOU ALLERGIC TO IV DYE? :NO ARE YOU DIABETIC? :NO ANY NEW PROBLEMS WITH YOUR MEDICATIONS? :NO HAVE YOU RECEIVED A VACCINE IN THE PAST 30 DAYS? :NO DO YOU PLAN TO RECEIVE A VACCINE IN THE NEXT 21 DAYS? :NO DO YOU NEED ANY PRESCRIPTION? :NO DO YOU TAKE ANY IMMUNOSUPPRESSIVE MEDICATIONS? :NO IS THERE A CHANCE YOU COULD BE ? :NO ARE YOU BREAST FEEDING? :NO CURRENT MEDICATIONS TAKING STOOL SOFTENER 100 MG CAPSULE 1 CAP ORALLY DAILY TAKING BENADRYL ALLERGY 25 MG TABLET 2 TABLETS ORALLY BEFORE BEDTIME TAKING CLOTRIMAZOLE-BETAMETHASONE 1-0.05 % CREAM 1 APPLICATION TO BOTH LEGS EXTERNALLY TWICE A DAY X 2 WKS, THEN QDAY X 2WEEKS, AND THEN PRN TOPICAL. TAKING FISH OIL 1000 MG CAPSULE 2 CAPSULE ORALLY ONCE A DAY TAKING VITAMIN B12 500 MCG TABLET 1 TABLET ORALLY ONCE A DAY TAKING CYMBALTA 30 MG CAPSULE DELAYED RELEASE PARTICLES 1 CAPSULE ORALLY ONCE A DAY, NOTES: HAS NOT STARTED YET TAKING MYRBETRIQ 50 MG TABLET 1 TABLET ORALLY ONCE A DAY TAKING ANUPAM 28 3-0.03 MG TABLET 1 TABLET ORALLY ONCE A DAY TAKING OXYCODONE HCL 5 MG TABLET 1 TO2 TAB ORALLY Q8H PRN MDD6 TAKING TIZANIDINE HCL 2 MG TABLET 1 TABLET NEEDED ORALLY THREE TIMES A DAY TAKING SYNTHROID 50 50MCG TABLET DIRECTED ORAL ONCE DAILY TAKING MIRTAZAPINE 15 MG TABLET 1 TABLET AT BEDTIME ORALLY ONCE A DAY TAKING OMEPRAZOLE 40 MG CAPSULE DELAYED RELEASE 1 CAP(S) ORALLY ONCE DAILY TAKING LEVOCETIRIZINE DIHYDROCHLORIDE 5 MG TABLET 1 TABLET IN THE EVENING ORALLY ONCE A DAY TAKING SIMVASTATIN 20 20MG TABLET 1 TABLET ORALLY ONCE A DAY TAKING ASPIRIN ADULT LOW STRENGTH 81 MG TABLET DELAYED RELEASE 1 TABLET ORALLY ONCE A DAY TAKING ERGOCALCIFEROL 94312 IU TABLET DIRECTED ORALLY WEEKLY TAKING ZESTORETIC 20-25 MG TABLET 1 TABLET ORALLY ONCE A DAY NOT-TAKING GNP IBUPROFEN 200 MG TABLET 1 TABLET WITH FOOD OR MILK NEEDED ORALLY THREE TIMES A DAY 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 GERD PCOS MORBID OBESITY R CARPEL TUNNEL HYPERLIPIDEMIA HYPOTHYROIDISM 10/19 02/13 CT ABD - DIFFUSE FATTY INFILTRATION OF LIVER, CT 2011, NL LIVER, CT 2014 FATTY LIVER MIXED INCONTINENCE HAD URODYNAMIC WITH DR PALOMINO DONE 2014 ,CANDIDATE FOR OA BLADDER MEDICATION VITAMIN D DEFICENCY CHRISTINAER LENNOXCK SCORE 12.78% ALLERGIES VOLTAREN: ITCHING - ALLERGY AMPICILLIN: HIVES - ALLERGY BACTRIM: HIVES - ALLERGY SURGICAL HISTORY R ANKLE SURGERY S/P INJURY DR SHARMA IN HER TEENS CTR R WRIST - DR Kristine DUNCAN 2006 EXCISION OF RIGHT CERVICAL LYMPH NODE AT [facility] 08/2011 LAPAROSCOPY EGD W/ REINDL NL 2013 COLONOSCOPY W/ REINDL - REPEAT 5 YRS. DUE 2021 2016 TOOTH EXTRACTION FAMILY HISTORY FATHER: UNKNOWN, PT HAS NO CONTACT WITH HER FATHER. MOTHER: ALIVE, DM2, HYPERLIPIDEMIA, HTN, MORBID OBESITY, CHRONIC LOW BACK PAIN, DEPRESSION. SIBLINGS: UNKNOWN, INCARCERATED FOR MURDER SON(S): ALLERGIES, ASTHMA DENIES FH OF BREAST, OVARIAN, OR COLORECTAL CANCER. NO KNOWN UROLOGICAL HX IN FAMILY. SOCIAL HISTORY GENERAL: TOBACCO USE ARE YOU A:NONSMOKER NEVER SMOKER LATEX QUESTIONNAIRE LATEX ALLERGY : HAVE YOU EVER DEVELOPED ANY TYPE OF REACTION AFTER HANDLING LATEX PRODUCTS SUCH RUBBER GLOVES, CONDOMS, DIAPHRAGMS, BALLOONS, SOCKS, OR UNDERWEAR?NO LATEX ALLERGY : HAVE YOU EVER DEVELOPED ANY TYPE OF REACTION DURING OR AFTER DENTAL APPOINTMENT, VAGINAL/RECTAL EXAMINATION, SURGICAL PROCEDURE, OR ANY OTHER EXPOSURE?NO LATEX RISK : HAVE YOU EVER HAD ANY DIFFICULTY BREATHING OR HIVES AFTER EATING OR HANDLING ANY FRUITS, OR VEGETABLES; SUCH KIWI, BANANAS, STONE FRUITS, OR CHESTNUTSNO LATEX RISK : DO YOU HAVE A PREVIOUS PERSONAL HISTORY OF MORE THAN NINE SURGERIES, SPINA BIFIDA, OR REPEATED CATHERIZATIONS? NO LATEX RISK : ARE YOU FREQUENTLY EXPOSED TO LATEX PRODUCTS IN YOUR OCCUPATION?NO DATE ASKED : 09/08/2019 LUNG CANCER SCREENING SMOKING STATUS:NON SMOKER BMI CARE GOAL FOLLOW-UP ABOVE NORMAL BMI FOLLOW-UPGIVING ENCOURAGEMENT TO EXERCISE ALCOHOL SCREENING DID YOU HAVE A DRINK CONTAINING ALCOHOL IN THE PAST YEAR?NO POINTS0 INTERPRETATIONNEGATIVE RECREATIONAL DRUG USE DRUG USE?NO CAFFEINE CAFFEINE USE?YES 3 PEPSI DAILY SEXUAL HX HAD SEX IN THE LAST 12 MONTHS (VAGINAL, ORAL, OR ANAL)?YES WITHMEN ONLY USE PROTECTION?NO LMP:07/17/2018 HAVE YOU EVER HAD AN STD?NO HIV / HEP-C SCREENING HIV TEST OFFERED TO PATIENT:YES DATE OFFERED:05/01/2017 TEST ACCEPTED:NO HEP-C TEST OFFERED TO PATIENT:YES DATE OFFERED:05/01/2017 REASON:PATIENT DECLINED TEST ACCEPTED:NO REASON:PATIENT DECLINED CHRISTIANITY [id number] CONGREGATION LANGUAGE LANGUAGES SPOKEN:YORUBA EDUCATION LEVEL OF EDUCATION:HIGH SCHOOL ONLY COMPLETED 8TH GRADE LEARNING BARRIERS / SPECIAL NEEDS CHANGE FROM LAST VISIT?NO BARRIERS TO LEARNING?NO HEARING IMPAIRED?NO VISION IMPAIRED?NO COGNITIVELY IMPAIRED?NO READINESS TO LEARN?YES LEARNING PREFERENCES?NO LEARNING CAPABILITIES PRESENT?YES EMOTIONAL BARRIERS?NO SPECIAL DEVICES?NO INSTALLMENT LOAN COLLECTOR NEEDED?NO DOMESTIC VIOLENCE DO YOU FEEL SAFE IN YOUR ENVIRONMENT?YES OCCUPATION: DISABLED. DIET: REGULAR. EXERCISE: NO REGULAR EXERCISE. MARITAL STATUS: . OTHERS AT HOME: SPOUSE. PAIN CLINIC PFS, CLERGY, PUBLIC HEALTH REFERRALS PFS REFERRAL NEEDED?NO CLERGY REFERRAL NEEDED?NO PUBLIC HEALTH REFERRAL NEEDED?NO WAS THE PROVIDER NOTIFIED OF ANY PERTINENT INFO?YES HAS THE PATIENT BEEN EDUCATED REGARDING HIS/HER PLAN OF CARE?YES HAS THE PATIENT BEEN EDUCATED REGARDING PAIN, THE RISK FOR PAIN, THE IMPORTANCE OF EFFECTIVE PAIN MANAGEMENT, AND THE PAIN ASSESSMENT PROCESS?YES HOUSING: RENTS APARTMENT. ADVANCE DIRECTIVE ADVANCE DIRECTIVE DISCUSSED WITH PATIENT:YES PT STATES SHE DOES NOT HAVE A HCP AND DECLINES INFO AT THIS TIME. HOSPITALIZATION/MAJOR DIAGNOSTIC PROCEDURE W/ CHILDBIRTH REVIEW OF SYSTEMS CONSTITUTIONAL: ANY RECENT FEVER NO . CHILLS NO . WEIGHT CHANGE OF UNKNOWN REASONS NO . GASTROENTEROLOGY: NEW UNEXPLAINABLE CHANGES IN BOWEL CONTROL NO . CONSTIPATION NO . GENITOURINARY: ANY NEW CHANGE IN BLADDER CONTROL? NO . NEUROLOGY: NEW ONSET DIZZINESS OR NEUROLOGICAL CHANGES NOT MENTIONED NO . NEW NUMBNESS OR PAIN PATTERNS NOT MENTIONED AND PERTINENT TO TODAY'S VISIT NO . CARDIOLOGY: NEW CHEST PRESSURE NO . NEW CHEST PAIN NO . RESPIRATORY: UNEXPLAINABLE COUGH NO . NEW SHORTNESS OF BREATH NO . VITAL SIGNS WT 320.8 LBS, HT 67 IN, BMI 50.24 INDEX, BP 144/84 MM HG, HR 102 /MIN, RR 18 /MIN, TEMP 98.0 F, OXYGEN SAT % 96%, NA INITIALS AW 1359. EXAMINATION GENERAL EXAMINATION: GENERALNO ACUTE DISTRESS, WELL NOURISHED AND HYDRATED. PSYCHAPPROPRIATE MOOD AND AFFECT . LUNGS:CLEAR TO AUSCULTATION BILATERALLY, NO WHEEZES, RHONCHI, RALES. HEART:NO MURMURS, REGULAR RATE AND RHYTHM. THORACIC SPINE:SPECIFIC POINT TENDERNESS NOTED OVER LOWER THORACIC FACET BILATERALLY, T8-T12 WITH FACET LOADING.. DIAGNOSTIC TESTS REVIEWED CT THORACIC 04/08/2019. 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 , ISTOP REGISTRY REVIEWED AND DEMONSTRATES COMPLLIANCE. BRINGS IN MEDICATIONS WHICH IS APPROPRIATE FOR WHAT WAS DISPENSED. RECENT URINE TOXICOLOGY REVIEWED. NO UNAUTHORIZED MEDICATIONS. NO ILLICIT SUBSTANCES AND PRESCRIBED MEDICATIONS WERE PRESENT. , RISKS OF NARCOTIC/OPIOD MEDICATIONS INCLUDES BUT IS NOT LIMITED TO RISK OF DEPENDANCE/DEVELOPMENT OF ADDICTION, MOOD DISTURBANCE AND DEPRESSION, OSTEOPOROSIS, HORMONAL AND LABIDAL CHANGES, RESPIRATORY DEPRESSION AND . PATIENT IS ADVISED NOT TO DRIVE OR DRINK ALCOHOL WHILE ON THESE MEDICATIONS. DISPOSITION & COMMUNICATION FOLLOW UP POST PROCEDURE (REASON: BILATERAL T8-9, T9-10, T11-12, THERAPEUTIC THORACIC BLOCK.) ELECTRONICALLY SIGNED BY SALOME HOUGH ON 09/20/2019 AT 04:19 PM EDT DISCLAIMER : THIS IS A VISIT SUMMARY EXTRACTED FROM THE [facility]ART. IT IS NOT A COPY OF THE [facility] PROGRESS NOTE. HERSON
== END ==
LOC: M PAIN 13:45
PROVIDERS: ATTEND Nurse Practitioner Family
DX: M47.814 Spondylosis without myelopathy or radiculopathy, thoracic region (principal)

== ENCOUNTER → 2019-10-26 | Outpatient (POV) | payer MEDICARE, OTHER ==
[~2019-10-26] MED LIST changes: -ASPI81TA85 PO; +ASPI81TA86 PO; +B-122500 PO; +BUPIVACAINE HCL 0.25% 30ML VIAL As Ordered ONE; +BUPIVACAINE HCL 0.25% 30ML VIAL ONE; +CLIN150C14 PO; +FISH1000 PO; +ISOVUE-M 300 61% 15ML VIAL As Ordered ONE; +ISOVUE-M 300 61% 15ML VIAL ONE; +LIDOCAINE 1% SDV 30ML VIAL As Ordered ONE; +LIDOCAINE 1% SDV 30ML VIAL ONE; +LISI20TA35 PO; +MYRB25TA PO; +OXYC-517 PO; +PRED20TA PO; +SUCR1TA PO; +TRIAMCINOLONE ACETONIDE SUSP 40 MG/ML VIAL (J3301) As Ordered ONE; +TRIAMCINOLONE ACETONIDE SUSP 40 MG/ML VIAL (J3301) ONE; +VITA50005 PO
--- NOTE | 2019-12-01 08:36 | REP ---
PARTIAL THORACOLUMBAR SPINE: SINGLE VIEW HISTORY: Injection procedure for pain. 9 seconds of fluoroscopy time is reported. A single last image hold fluoroscopically obtained spot radiograph of the thoracolumbar spine documents various needle positions and contrast injections associated with injection procedure. MTDD
== END ==
LOC: M PAIN 09:00
PROVIDERS: ATTEND Anesthesiology
DX: M47.814 Spondylosis without myelopathy or radiculopathy, thoracic region (principal); M47.815 Spondylosis without myelopathy or radiculopathy, thoracolumbar region

== ENCOUNTER → 2019-11-04 | Outpatient (CLI) | payer MEDICARE, OTHER ==
[~2019-11-04] MED LIST changes: -BUPIVACAINE HCL 0.25% 30ML VIAL As Ordered ONE; -BUPIVACAINE HCL 0.25% 30ML VIAL ONE; +ISOVUE-370 76% 100ML VIAL As Ordered ONE; -ISOVUE-M 300 61% 15ML VIAL As Ordered ONE; -ISOVUE-M 300 61% 15ML VIAL ONE; -LIDOCAINE 1% SDV 30ML VIAL As Ordered ONE; -LIDOCAINE 1% SDV 30ML VIAL ONE; -TRIAMCINOLONE ACETONIDE SUSP 40 MG/ML VIAL (J3301) As Ordered ONE; -TRIAMCINOLONE ACETONIDE SUSP 40 MG/ML VIAL (J3301) ONE
--- NOTE | 2019-12-03 15:19 | REP ---
CT ANGIO CHEST REASON FOR EXAM: Follow-up. CT CONTRAST DOSE: 100 mL intravenous Isovue-370. COMPARISON: Latest prior 07/04/2015. FINDINGS: There is excellent visualization of the pulmonary arterial vasculature. No focal filling defects are present and would be consistent with acute pulmonary emboli. There is no mediastinal or hilar adenopathy. There are no pleural or pericardial effusions. There is no change in the imaged upper abdomen. There is a stable left adrenal gland nodule. There is no change in the imaged osseous structures. Evaluation of the lung astudillo show no new abnormal nodules, masses, or opacities. IMPRESSION: CT findings are within normal limits. Stable CT examination of the chest when compared to the latest prior available for comparison dated 07/04/2015. MTDD
== END ==
LOC: M RAD 10:06
PROVIDERS: ATTEND Nurse Practitioner Adult Health
DX: R91.8 Other nonspecific abnormal finding of lung field (principal); E27.8 Other specified disorders of adrenal gland
CPT/HCPCS: 71275; Q9967

== ENCOUNTER 2019-11-25 15:58 | Emergency (ER) | payer MEDICARE, OTHER ==
[~2019-11-25] VITALS: Ht 170.2 cm; Wt 147.4 kg
[~2019-11-25 15:58] MED LIST changes: -B-122500 PO; -CLIN150C14 PO; -FISH1000 PO; -ISOVUE-370 76% 100ML VIAL As Ordered ONE; -LISI20TA35 PO; -MYRB25TA PO; -OXYC-517 PO; -PRED20TA PO; -SUCR1TA PO; -VITA50005 PO
[2019-11-25] MEDS ORDERED: B-122500 PO (16:20)
[2019-11-25] MEDS ORDERED: FISH1000 PO (16:20)
[2019-11-25] MEDS ORDERED: OXYC-517 PO (16:20)
[2019-11-25] MEDS ORDERED: VITA50005 PO (16:20)
[2019-11-25] MEDS ORDERED: LISI20TA35 PO (16:20)
[2019-11-25] MEDS ORDERED: MYRB25TA PO (16:20)
--- NOTE | 2019-11-25 16:33 | REPVR ---
PROCEDURE INFORMATION: Exam: XR Chest, 1 View Exam date and time: 11/25/2019 4:13 PM Age: 44 years old Clinical indication: Shortness of breath; Additional info: Chest pain TECHNIQUE: Imaging protocol: XR of the chest Views: 1 view. COMPARISON: CR CHEST 2 VIEWS 09/03/2019 2:07 PM FINDINGS: Lungs: There is no pulmonary vascular congestion. There is no evidence of focal parenchymal consolidation. Pleural space: There are no pleural effusions. There is no evidence of pneumothorax. Heart/Mediastinum: The cardiac silhouette is within normal limits. Bones/joints: No acute osseous abnormality is identified. IMPRESSION: No acute cardiopulmonary disease identified. Electronically signed by: Geraldine Bailon On 11/25/2019 16:33:34 PM
[2019-11-25 17:00] LABS: BASO % 0.4 % (0.0-1.0); EOS # 0.1 10^3/uL (0.0-0.5); EOS % 1.2 % (0.0-3.0); HEMATOCRIT 43.7 % (36.0-47.0); HEMOGLOBIN 14.2 g/dl (12.0-15.5); LYMPH # 2.1 10^3/uL (1.5-5.0); LYMPH % 21.4 % (24.0-44.0); MEAN CORPUSCULAR HGB CONC 32.5 g/dl (32.0-36.5); MEAN CORPUSCULAR VOLUME 89.2 fl (80.0-96.0); MONO # 0.7 10^3/uL (0.0-0.8); MONO % 6.7 % (0.0-5.0); NEUTROPHILS # 6.9 10^3/uL (1.5-8.5); NEUTROPHILS % 69.8 % (36.0-66.0); PLATELET COUNT, AUTOMATED 292 10^3/uL (150-450); WHITE BLOOD COUNT 9.8 10^3/uL (4.0-10.0)
[2019-11-25 17:02] LABS: BLOOD UREA NITROGEN 18 MG/DL (7-18); CALCIUM LEVEL 9.1 MG/DL (8.5-10.1); CARBON DIOXIDE LEVEL 26 MEQ/L (21-32); CHLORIDE LEVEL 103 MEQ/L (98-107); CREATININE FOR GFR 1.04 MG/DL (0.55-1.30); GLOMERULAR FILTRATION RATE > 60.0 (>58); GLUCOSE, FASTING 91 MG/DL (70-100); POTASSIUM SERUM 4.1 MEQ/L (3.5-5.1); SODIUM LEVEL 138 MEQ/L (136-145)
[2019-11-25 17:33] LABS: ALBUMIN 2.9 GM/DL (3.2-5.2); ALT/SGPT 16 U/L (12-78); BILIRUBIN,DIRECT < 0.1 MG/DL (0.0-0.2); BILIRUBIN,TOTAL 0.2 MG/DL (0.2-1.0); TOTAL PROTEIN 7.4 GM/DL (6.4-8.2)
[2019-11-25 17:40] LABS: INR 0.98; PARTIAL THROMBOPLASTIN TIME 28.7 SECONDS (24.2-38.5); PROTHROMBIN TIME 13.2 SECONDS (12.5-14.3)
[2019-11-25] MEDS ORDERED: ISOVUE-370 76% 100ML VIAL As Ordered ONE (18:12)
--- NOTE | 2019-11-25 18:51 | REPVR ---
PROCEDURE INFORMATION: Exam: CT Angiography Chest With Contrast Exam date and time: 11/25/2019 6:03 PM Age: 44 years old Clinical indication: Chest pain TECHNIQUE: Imaging protocol: Computed tomographic angiography of the chest with intravenous contrast. 3D rendering (Not supervised by radiologist): MIP and/or 3D reconstructed images were created by the technologist. Radiation optimization: All CT scans at this facility use at least one of these dose optimization techniques: automated exposure control; mA and/or kV adjustment per patient size (includes targeted exams where dose is matched to clinical indication); or iterative reconstruction. Contrast material: ISOVUE 370; Contrast volume: 75 ml; Contrast route: INTRAVENOUS (IV); COMPARISON: CT ANGIO CHEST 11/04/2019 10:32 AM FINDINGS: Pulmonary arteries: No pulmonary embolism identified. Aorta: The thoracic aorta is normal caliber. No aneurysm or dissection is seen. Lungs: No alveolar infiltrate is seen. Pleural space: No pleural effusion. No pneumothorax. Heart: Unremarkable. No cardiomegaly. No pericardial effusion. Lymph nodes: No lymphadenopathy. Bones/joints: There are diffuse enthesopathic changes consistent with benign diffuse idiopathic skeletal hyperostosis (DISH). No acute fracture or destructive osseous lesions identified. IMPRESSION: No acute abnormality identified in the chest. Electronically signed by: Geraldine Bailon On 11/25/2019 18:51:16 PM
[2019-11-25] MEDS ORDERED: PRED20TA PO (19:17)
[2019-11-25] MEDS ORDERED: SUCR1TA PO (19:17)
[2019-11-25] MEDS ORDERED: CLIN150C14 PO (19:17)
[2019-11-25] MEDS ORDERED: predniSONE 20 MG TAB PO ONE (19:30)
[2019-11-25] MEDS ORDERED: CLINDAMYCIN 150MG CAPSULE PO ONE (19:30)
[2019-11-25 19:51] VITALS: BP 134/63
--- NOTE | 2019-11-27 11:44 | ECGEPIP ---
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
== END 2019-11-25 20:07 | disposition home or self-care (01) ==
LOC: M ED 15:58
DX: R07.89 Other chest pain (principal); K02.9 Dental caries, unspecified; R94.31 Abnormal electrocardiogram [ECG] [EKG]; I10 Essential (primary) hypertension; K21.9 Gastro-esophageal reflux disease without esophagitis; E03.9 Hypothyroidism, unspecified; E28.2 Polycystic ovarian syndrome; Z88.1 Allergy status to other antibiotic agents; Z88.2 Allergy status to sulfonamides; Z88.8 Allergy status to other drugs, medicaments and biological substances; Z79.82 Long term (current) use of aspirin; Z79.899 Other long term (current) drug therapy
CPT/HCPCS: 36415; 71045; 71275; 80048; 80076; 84484; 85025; 85610; 85730; 93005; 93041; 94760; 99284; Q9967

== ENCOUNTER → 2019-12-28 | Outpatient (CLI) | payer MEDICARE, OTHER ==
[~2019-12-28] MED LIST changes: +B-122500 PO; +CLIN150C14 PO; +FISH1000 PO; +LISI20TA35 PO; +MYRB25TA PO; +OXYC-517 PO; +PRED20TA PO; +SUCR1TA PO; +VITA50005 PO
--- NOTE | 2019-12-29 15:23 | ECWPNPC ---
PATIENT NAME: ILAN PAGE : 1975 GENDER: FEMALE VISIT DATE: 12/28/2019 DISCHARGE DATE: 12/28/19 1456 VISIT LOCKED DATE TIME: PHYSICIAN: SOURAV HEBERT PHYSICIAN PAGER NO: ACTIVE RESOURCE: SOURAV HEBERT REASON FOR APPOINTMENT 1. BACK HISTORY OF PRESENT ILLNESS GENERAL: HERE FOR POST PROCEDURE FOLLOW-UP. HAD BILATERAL THORACIC T10-11, T 11/12 LUMBAR THERAPEUTIC FACET BLOCK ON 10/26/2019. PATIENT WAS SENT FROM OUR CLINIC TO HAVE A CHEST X-RAY. THERE WAS AN ABNORMAL SPOT IN HER LUNGS. SHE'S HAD A EVALUATION WITH PRIMARY CARE AND PULMONARY. CURRENTLY UNDERGOING WORKUP WITH DR. MCCLAIN FROM CARDIOLOGY HERE AT [facility]. HAS SUGGESTED WE LOOK AT DOING RADIOFREQUENCY PROCEDURES IN THE FUTURE. SHE WOULD NEED CLEARANCE FROM CARDIOLOGY. FINDS CURRENT CHRONIC PAIN MEDICATION SOMEWHAT HELPFUL AT REDUCING PAIN AND KEEPING HER FUNCTIONAL. DENIES ADVERSE SIDE EFFECTS. -. FALL RISK SCREENING: SCREENING :NO FALLS REPORTED IN THE LAST YEAR PAIN SCREENING: PATIENT HAS A COMPLAINT OF ACUTE OR CHRONIC PAIN :YES LOCATION OF PAIN:MID BACK, LOW BACK INTENSITY OF PAIN (SCALE OF 1 TO 10):10 WHAT DOES YOUR PAIN FEEL LIKE:ACHING, BURNING, SHARP, STABBING, THROBBING, SHOOTING DURATION:CONTINOUS, CONSTANT PAIN IS INCREASED BY:ACTIVITIES PAIN IS DECREASED BY:USE OF PAIN MEDICATIONS TREATMENT/MEDICATIONS USED TO MANAGE PAIN:OPIOIDS LEVEL OF RELIEF FROM PAIN TREATMENTS IN THE PAST:25% PAIN HAS INTERFERED WITH THE FOLLOWING:BATHING/DRESSING, WALKING ABILITY, HOUSEWORK, SLEEP, TOILETING NURSING NOTE: -. PAIN CENTER INTAKE QUESTIONS: DO YOU HAVE A HISTORY OF MRSA? :NO DO YOU TAKE A BLOOD THINNERS? :NO DO YOU HAVE ANY BLEEDING DISORDERS? :NO ANY NEW NUMBNESS OR WEAKNESS IN YOUR LEGS OR ARMS? :YES PAIN AND WEAKNESS IN LEGS AND FEET ANY PACEMAKER,DEFIBRILLATOR, OR DORSAL COLUMN STIMULATOR? :NO DO YOU HAVE ANY RASHES OR OPEN SORES? :NO ARE YOU ALLERGIC TO IV DYE? :NO ARE YOU DIABETIC? :NO ANY NEW PROBLEMS WITH YOUR MEDICATIONS? :NO HAVE YOU RECEIVED A VACCINE IN THE PAST 30 DAYS? :NO DO YOU PLAN TO RECEIVE A VACCINE IN THE NEXT 21 DAYS? :NO DO YOU NEED ANY PRESCRIPTION? :YES OXYCODONE DO YOU TAKE ANY IMMUNOSUPPRESSIVE MEDICATIONS? :NO IS THERE A CHANCE YOU COULD BE ? :NO ARE YOU BREAST FEEDING? :NO CURRENT MEDICATIONS TAKING STOOL SOFTENER 100 MG CAPSULE 1 CAP ORALLY DAILY TAKING BENADRYL ALLERGY 25 MG TABLET 2 TABLETS ORALLY BEFORE BEDTIME TAKING CLOTRIMAZOLE-BETAMETHASONE 1-0.05 % CREAM 1 APPLICATION TO BOTH LEGS EXTERNALLY TWICE A DAY X 2 WKS, THEN QDAY X 2WEEKS, AND THEN PRN TOPICAL. TAKING VITAMIN B12 500 MCG TABLET 1 TABLET ORALLY ONCE A DAY TAKING MYRBETRIQ 50 MG TABLET 1 TABLET ORALLY ONCE A DAY TAKING ANUPAM 28 3-0.03 MG TABLET 1 TABLET ORALLY ONCE A DAY TAKING SYNTHROID 50 50MCG TABLET DIRECTED ORAL ONCE DAILY TAKING MIRTAZAPINE 15 MG TABLET 1 TABLET AT BEDTIME ORALLY ONCE A DAY TAKING OMEPRAZOLE 40 MG CAPSULE DELAYED RELEASE 1 CAP(S) ORALLY ONCE DAILY TAKING LEVOCETIRIZINE DIHYDROCHLORIDE 5 MG TABLET 1 TABLET IN THE EVENING ORALLY ONCE A DAY TAKING SIMVASTATIN 20 20MG TABLET 1 TABLET ORALLY ONCE A DAY TAKING ASPIRIN ADULT LOW STRENGTH 81 MG TABLET DELAYED RELEASE 1 TABLET ORALLY ONCE A DAY TAKING ERGOCALCIFEROL 79386 IU TABLET DIRECTED ORALLY WEEKLY TAKING ZESTORETIC 20-25 MG TABLET 1 TABLET ORALLY ONCE A DAY TAKING OXYCODONE HCL 5 MG TABLET 1 TO2 TAB ORALLY Q8H PRN MDD6 TAKING TIZANIDINE HCL 2 MG TABLET 1 TABLET NEEDED ORALLY THREE TIMES A DAY TAKING PEPCID 40 MG TABLET 1 TABLET AT BEDTIME ORALLY ONCE A DAY TAKING MELOXICAM 15 MG TABLET 1 TABLET ORALLY ONCE A DAY NOT-TAKING FISH OIL 1000 MG CAPSULE 2 CAPSULE ORALLY ONCE A DAY NOT-TAKING CYMBALTA 30 MG CAPSULE DELAYED RELEASE PARTICLES 1 CAPSULE ORALLY ONCE A DAY, NOTES: HAS NOT STARTED YET NOT-TAKING GNP IBUPROFEN 200 MG TABLET 1 TABLET WITH FOOD OR MILK NEEDED ORALLY THREE TIMES A DAY 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 GERD PCOS MORBID OBESITY R CARPEL TUNNEL HYPERLIPIDEMIA HYPOTHYROIDISM 10/19 02/13 CT ABD - DIFFUSE FATTY INFILTRATION OF LIVER, CT 2011, NL LIVER, CT 2014 FATTY LIVER MIXED INCONTINENCE HAD URODYNAMIC WITH DR PALOMINO DONE 2014 ,CANDIDATE FOR OA BLADDER MEDICATION VITAMIN D DEFICENCY TYRER CUZICK SCORE 12.78% ALLERGIES VOLTAREN: ITCHING - ALLERGY AMPICILLIN: HIVES - ALLERGY BACTRIM: HIVES - ALLERGY SURGICAL HISTORY R ANKLE SURGERY S/P INJURY DR SHARMA IN HER TEENS CTR R WRIST - DR Kristine DUNCAN 2006 EXCISION OF RIGHT CERVICAL LYMPH NODE AT [place] 08/2011 LAPAROSCOPY EGD W/ REINDL NL 2013 COLONOSCOPY W/ REINDL - REPEAT 5 YRS. DUE 2021 2016 TOOTH EXTRACTION FAMILY HISTORY FATHER: UNKNOWN, PT HAS NO CONTACT WITH HER FATHER. MOTHER: ALIVE, DM2, HYPERLIPIDEMIA, HTN, MORBID OBESITY, CHRONIC LOW BACK PAIN, DEPRESSION. SIBLINGS: UNKNOWN, INCARCERATED FOR MURDER SON(S): ALLERGIES, ASTHMA DENIES FH OF BREAST, OVARIAN, OR COLORECTAL CANCER. NO KNOWN UROLOGICAL HX IN FAMILY. SOCIAL HISTORY GENERAL: TOBACCO USE ARE YOU A:NONSMOKER NEVER SMOKER LATEX QUESTIONNAIRE LATEX ALLERGY : HAVE YOU EVER DEVELOPED ANY TYPE OF REACTION AFTER HANDLING LATEX PRODUCTS SUCH RUBBER GLOVES, CONDOMS, DIAPHRAGMS, BALLOONS, SOCKS, OR UNDERWEAR?NO LATEX ALLERGY : HAVE YOU EVER DEVELOPED ANY TYPE OF REACTION DURING OR AFTER DENTAL APPOINTMENT, VAGINAL/RECTAL EXAMINATION, SURGICAL PROCEDURE, OR ANY OTHER EXPOSURE?NO DATE ASKED : 09/08/2019 LATEX RISK : HAVE YOU EVER HAD ANY DIFFICULTY BREATHING OR HIVES AFTER EATING OR HANDLING ANY FRUITS, OR VEGETABLES; SUCH KIWI, BANANAS, STONE FRUITS, OR CHESTNUTSNO LATEX RISK : DO YOU HAVE A PREVIOUS PERSONAL HISTORY OF MORE THAN NINE SURGERIES, SPINA BIFIDA, OR REPEATED CATHERIZATIONS? NO LATEX RISK : ARE YOU FREQUENTLY EXPOSED TO LATEX PRODUCTS IN YOUR OCCUPATION?NO LUNG CANCER SCREENING SMOKING STATUS:NON SMOKER BMI CARE GOAL FOLLOW-UP ABOVE NORMAL BMI FOLLOW-UPGIVING ENCOURAGEMENT TO EXERCISE ALCOHOL SCREENING DID YOU HAVE A DRINK CONTAINING ALCOHOL IN THE PAST YEAR?NO POINTS0 INTERPRETATIONNEGATIVE RECREATIONAL DRUG USE DRUG USE?NO CAFFEINE CAFFEINE USE?YES 3 PEPSI DAILY SEXUAL HX HAD SEX IN THE LAST 12 MONTHS (VAGINAL, ORAL, OR ANAL)?YES WITHMEN ONLY USE PROTECTION?NO LMP:07/17/2018 HAVE YOU EVER HAD AN STD?NO HIV / HEP-C SCREENING HIV TEST OFFERED TO PATIENT:YES DATE OFFERED:05/01/2017 TEST ACCEPTED:NO HEP-C TEST OFFERED TO PATIENT:YES DATE OFFERED:05/01/2017 REASON:PATIENT DECLINED TEST ACCEPTED:NO REASON:PATIENT DECLINED MU-ISM [id number] DRUZE LANGUAGE LANGUAGES SPOKEN:CYPRIOT EDUCATION LEVEL OF EDUCATION:HIGH SCHOOL ONLY COMPLETED 8TH GRADE LEARNING BARRIERS / SPECIAL NEEDS CHANGE FROM LAST VISIT?NO BARRIERS TO LEARNING?NO HEARING IMPAIRED?NO VISION IMPAIRED?NO COGNITIVELY IMPAIRED?NO READINESS TO LEARN?YES LEARNING PREFERENCES?NO LEARNING CAPABILITIES PRESENT?YES EMOTIONAL BARRIERS?NO SPECIAL DEVICES?NO MANAGER TRAINING NEEDED?NO DOMESTIC VIOLENCE DO YOU FEEL SAFE IN YOUR ENVIRONMENT?YES OCCUPATION: DISABLED. DIET: REGULAR. EXERCISE: NO REGULAR EXERCISE. MARITAL STATUS: . OTHERS AT HOME: SPOUSE. PAIN CLINIC PFS, CLERGY, PUBLIC HEALTH REFERRALS PFS REFERRAL NEEDED?NO CLERGY REFERRAL NEEDED?NO PUBLIC HEALTH REFERRAL NEEDED?NO WAS THE PROVIDER NOTIFIED OF ANY PERTINENT INFO?YES HAS THE PATIENT BEEN EDUCATED REGARDING HIS/HER PLAN OF CARE?YES HAS THE PATIENT BEEN EDUCATED REGARDING PAIN, THE RISK FOR PAIN, THE IMPORTANCE OF EFFECTIVE PAIN MANAGEMENT, AND THE PAIN ASSESSMENT PROCESS?YES HOUSING: RENTS APARTMENT. ADVANCE DIRECTIVE ADVANCE DIRECTIVE DISCUSSED WITH PATIENT:YES PT STATES SHE DOES NOT HAVE A HCP AND DECLINES INFO AT THIS TIME. HOSPITALIZATION/MAJOR DIAGNOSTIC PROCEDURE W/ CHILDBIRTH REVIEW OF SYSTEMS CONSTITUTIONAL: ANY RECENT FEVER NO . CHILLS NO . WEIGHT CHANGE OF UNKNOWN REASONS NO . GASTROENTEROLOGY: NEW UNEXPLAINABLE CHANGES IN BOWEL CONTROL NO . CONSTIPATION NO . GENITOURINARY: ANY NEW CHANGE IN BLADDER CONTROL? NO . NEUROLOGY: NEW ONSET DIZZINESS OR NEUROLOGICAL CHANGES NOT MENTIONED NO . NEW NUMBNESS OR PAIN PATTERNS NOT MENTIONED AND PERTINENT TO TODAY'S VISIT NO . CARDIOLOGY: NEW CHEST PRESSURE NO . NEW CHEST PAIN NO . RESPIRATORY: UNEXPLAINABLE COUGH NO . NEW SHORTNESS OF BREATH NO . DIAGNOSED WITH COSTOCHONDRITIS/CARDIAC WORKUP IS PENDING FOR CHEST PAIN. VITAL SIGNS WT 339.6 LBS, HT 67 IN, BMI 53.18 INDEX, BP 142/65 MM HG, HR 104 /MIN, RR 18 /MIN, TEMP 97.2 F, OXYGEN SAT % 97%, SAFE IN ENV? (Y/N) Y, NA INITIALS AW 1415, REVIEWED BY: EM. EXAMINATION GENERAL EXAMINATION: GENERALNO ACUTE DISTRESS, WELL NOURISHED AND HYDRATED. PSYCHAPPROPRIATE MOOD AND AFFECT . LUNGS:CLEAR TO AUSCULTATION BILATERALLY, NO WHEEZES, RHONCHI, RALES. HEART:NO MURMURS, REGULAR RATE AND RHYTHM. THORACIC SPINE:SPECIFIC POINT TENDERNESS NOTED OVER LOWER THORACIC FACET BILATERALLY, T8-T12 WITH FACET LOADING.. DIAGNOSTIC TESTS REVIEWED CT THORACIC 04/08/2019. 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 (RRECENT URINE TOXICOLOGY REVIEWED. NO UNAUTHORIZED MEDICATIONS. NO ILLICIT SUBSTANCES AND PRESCRIBED MEDICATIONS WERE PRESENT. URINE TOXICOLOGY TODAY , RISKS OF NARCOTIC/OPIOD MEDICATIONS INCLUDES BUT IS NOT LIMITED TO RISK OF DEPENDANCE/DEVELOPMENT OF ADDICTION, MOOD DISTURBANCE AND DEPRESSION, OSTEOPOROSIS, HORMONAL AND LABIDAL CHANGES, RESPIRATORY DEPRESSION AND . PATIENT IS ADVISED NOT TO DRIVE OR DRINK ALCOHOL WHILE ON THESE MEDICATIONS. PROCEDURE CODES FA211 ESTABILISHED PATIENT [facility] CHARGE DISPOSITION & COMMUNICATION ELECTRONICALLY SIGNED BY SALOME HOUGH ON 12/29/2019 AT 02:32 PM EDT DISCLAIMER : THIS IS A VISIT SUMMARY EXTRACTED FROM THE [employer] CHART. IT IS NOT A COPY OF THE [employer] PROGRESS NOTE. HERSON
== END ==
LOC: M PAIN 14:00
PROVIDERS: ATTEND Nurse Practitioner Family
DX: G89.29 Other chronic pain (principal); M47.815 Spondylosis without myelopathy or radiculopathy, thoracolumbar region; M47.816 Spondylosis without myelopathy or radiculopathy, lumbar region; I10 Essential (primary) hypertension; K21.9 Gastro-esophageal reflux disease without esophagitis; E66.01 Morbid (severe) obesity due to excess calories; E28.2 Polycystic ovarian syndrome; E78.5 Hyperlipidemia, unspecified; E03.9 Hypothyroidism, unspecified; E55.9 Vitamin D deficiency, unspecified; Z79.82 Long term (current) use of aspirin; Z79.1 Long term (current) use of non-steroidal anti-inflammatories (NSAID); Z79.891 Long term (current) use of opiate analgesic; Z79.899 Other long term (current) drug therapy; Z88.1 Allergy status to other antibiotic agents; Z88.8 Allergy status to other drugs, medicaments and biological substances; Z88.2 Allergy status to sulfonamides; Z68.43 Body mass index [BMI] 50.0-59.9, adult

== ENCOUNTER → 2020-03-08 | Outpatient (REF) | payer MEDICARE, OTHER ==
[2020-03-08 13:32] LABS: APPEARANCE, URINE HAZY (CLEAR); BACTERIA, URINE AUTO NEGATIVE (NEGATIVE); BILIRUBIN, URINE AUTO NEGATIVE (NEGATIVE); BLOOD, URINE BLOOD NEGATIVE (NEGATIVE); COLOR, URINE YELLOW (YELLOW); GLUCOSE, URINE (UA) AUTO NEGATIVE (NEGATIVE); KETONE, URINE AUTO NEGATIVE (NEGATIVE); LEUKOCYTE ESTERASE, URINE AUTO NEGATIVE (NEGATIVE); MUCUS, URINE MODERATE (NEGATIVE); NITRITE, URINE AUTO NEGATIVE (NEGATIVE); PROTEIN, URINE AUTO NEGATIVE (NEGATIVE); RBC, URINE AUTO 0 /HPF (0-3); SPECIFIC GRAVITY URINE AUTO 1.029 (1.002-1.035); SQUAMOUS EPITHELIAL CELL UR AU 4 /HPF (0-6); UROBILINOGEN, URINE AUTO 0.2 mg/dL (0.0-2.0); WBC, URINE AUTO 4 /HPF (0-3)
== END ==
LOC: M SMT 12:56
PROVIDERS: ATTEND Nurse Practitioner Family
DX: R30.0 Dysuria (principal)

== ENCOUNTER → 2020-03-20 | Outpatient (REF) | payer MEDICARE, OTHER ==
[~2020-03-20] MED LIST changes: -CLIN150C14 PO; +CLIN150C15 PO; +GABA-282 PO; -GABA-843 PO
[2020-03-20 15:09] LABS: HEMATOCRIT 41.5 % (36.0-47.0); MEAN CORPUSCULAR HEMOGLOBIN 28.4 pg (27.0-33.0); MEAN CORPUSCULAR HGB CONC 31.3 g/dl (32.0-36.5); MEAN CORPUSCULAR VOLUME 90.8 fl (80.0-96.0); PLATELET COUNT, AUTOMATED 234 10^3/uL (150-450); RED BLOOD COUNT 4.57 10^6/uL (4.00-5.40); WHITE BLOOD COUNT 7.9 10^3/uL (4.0-10.0)
[2020-03-20 16:01] LABS: ALBUMIN 3.3 GM/DL (3.2-5.2); ALT/SGPT 14 U/L (12-78); BILIRUBIN,TOTAL 0.2 MG/DL (0.2-1.0); BLOOD UREA NITROGEN 16 MG/DL (7-18); CALCIUM LEVEL 8.9 MG/DL (8.5-10.1); CARBON DIOXIDE LEVEL 27 MEQ/L (21-32); CHLORIDE LEVEL 105 MEQ/L (98-107); CHOLESTEROL LEVEL 145 MG/DL (<200); CHOLESTEROL RISK RATIO 2.843 (<5); CREATININE FOR GFR 0.85 MG/DL (0.55-1.30); FREE T4 1.18 NG/DL (0.76-1.46); GLOMERULAR FILTRATION RATE > 60.0 (>58); GLUCOSE, FASTING 105 MG/DL (70-100); HDL CHOLESTEROL 51 MG/DL (>40); LDL CHOLESTEROL 69 MG/DL (<100); NON-HDL-C 94 MG/DL; POTASSIUM SERUM 4.2 MEQ/L (3.5-5.1); SODIUM LEVEL 141 MEQ/L (136-145); TOTAL 25(OH) VITAMIN D 76.1 NG/ML (30.0-100.0); TOTAL PROTEIN 6.9 GM/DL (6.4-8.2); TRIGLYCERIDES LEVEL 125 MG/DL (<150)
[2020-03-20 16:25] LABS: HEMOGLOBIN A1c 5.6 %
== END ==
LOC: M SFHCPLAZ 12:43
PROVIDERS: ATTEND Nurse Practitioner Adult Health
DX: E78.5 Hyperlipidemia, unspecified (principal); I10 Essential (primary) hypertension; E03.9 Hypothyroidism, unspecified; E55.9 Vitamin D deficiency, unspecified; Z83.3 Family history of diabetes mellitus; Z79.899 Other long term (current) drug therapy

== ENCOUNTER → 2020-04-20 | Outpatient (CLI) | payer MEDICARE, OTHER ==
[~2020-04-20] MED LIST changes: -LISI-538 PO; +LISI20TA33 PO
--- NOTE | 2020-04-23 23:16 | ECWPNPC ---
PATIENT NAME: ILAN PAGE : 1975 GENDER: FEMALE VISIT DATE: 04/20/2020 DISCHARGE DATE: 04/20/20 1600 VISIT LOCKED DATE TIME: PHYSICIAN: SOURAV HEBERT PHYSICIAN PAGER NO: ACTIVE RESOURCE: SOURAV HEBERT REASON FOR APPOINTMENT 1. MED MANAGEMENT/DISCUSS COAL SAMPLE TESTER VISIT HISTORY OF PRESENT ILLNESS GENERAL: 44-YEAR-OLD FEMALE BEING SEEN FOR FOLLOW-UP AND MEDICATION MANAGEMENT OF PERSISTENT LOWER THORACIC AND LUMBAR PAIN. PAIN HAS BEEN INTENSE AND SHE HASN'T BEEN ABLE TO DO ANY INJECTIONS DUE TO CURRENT WORKUP FOR STERNAL PRESSURE. HAS BEEN TO CARDIOLOGY AND PULMONOLOGY. HAS UPCOMING SLEEP APNEA TEST. STATES SHE MAY HAVE TO SEE PURE CULTURE OPERATOR. REVIEWED CT SCANS OF THORACIC AND LUMBAR SPINE DONE A FEW YEARS AGO. PATIENT IS UNABLE TO TOLERATE MRI IMAGING AND PATIENT STATES DR. AGGARWAL HAS AGREED TO USE CT IMAGING. WE DISCUSSED BREAST REDUCTION AND GASTRIC BYPASS. PATIENT IS FEARFUL AND REALLY DOES NOT WANT TO EXPLORE THOSE OPTIONS. DISCUSSED MEDICATION AND THE FACT THAT EVEN WITH 30 MG OF OXYCODONE DAILY HER PAIN LEVEL IS USUALLY OVER A 7/10 VAS. SHE STATES THAT SHE FEELS MEDICINE IS HELPFUL. WE HAVE TRIED MEDICATION CHANGES IN THE PAST AND SHE DID NOT TOLERATE THIS. STATES THAT SHE DOESN'T KNOW WHAT MORE SHE CAN DO BECAUSE SHE HAS HAD MULTIPLE PROCEDURES HERE THAT HAVEN'T BEEN HELPFUL. STATES THAT DR. AGGARWAL HAD TALKED TO HER ABOUT TRYING RADIOFREQUENCY. I WILL HAVE HIM DECIDE ON TREATMENT/INTERVENTIONAL SITE ETC. WITH PATIENT AT A FOLLOW-UP VISIT AFTER CT IMAGING OF THORACIC AND LUMBAR SPINE ARE COMPLETED.-. FALL RISK SCREENING: SCREENING :NO FALLS REPORTED IN THE LAST YEAR PAIN SCREENING: PATIENT HAS A COMPLAINT OF ACUTE OR CHRONIC PAIN :YES LOCATION OF PAIN:LOW BACK INTENSITY OF PAIN (SCALE OF 1 TO 10):8 WHAT DOES YOUR PAIN FEEL LIKE:ACHING, BURNING, TENDER, THROBBING, SHOOTING DURATION:CONTINOUS, CONSTANT, ALL DAY PAIN IS INCREASED BY:ACTIVITIES, PROLONGED STANDING PAIN IS DECREASED BY:USE OF PAIN MEDICATIONS, OTHERS HEATING PAD NURSING NOTE: -. PAIN CENTER INTAKE QUESTIONS: DO YOU HAVE A HISTORY OF MRSA? :NO DO YOU TAKE A BLOOD THINNERS? :NO DO YOU HAVE ANY BLEEDING DISORDERS? :NO ANY NEW NUMBNESS OR WEAKNESS IN YOUR LEGS OR ARMS? :YES PAIN AND WEAKNESS IN LEGS AND FEET ANY PACEMAKER,DEFIBRILLATOR, OR DORSAL COLUMN STIMULATOR? :NO DO YOU HAVE ANY RASHES OR OPEN SORES? :NO ARE YOU ALLERGIC TO IV DYE? :NO ARE YOU DIABETIC? :NO ANY NEW PROBLEMS WITH YOUR MEDICATIONS? :NO HAVE YOU RECEIVED A VACCINE IN THE PAST 30 DAYS? :NO DO YOU PLAN TO RECEIVE A VACCINE IN THE NEXT 21 DAYS? :NO DO YOU NEED ANY PRESCRIPTION? :YES OXYCODONE DO YOU TAKE ANY IMMUNOSUPPRESSIVE MEDICATIONS? :NO IS THERE A CHANCE YOU COULD BE ? :NO ARE YOU BREAST FEEDING? :NO CURRENT MEDICATIONS TAKING SYNTHROID 50 50MCG TABLET DIRECTED ORAL ONCE DAILY TAKING OMEPRAZOLE 40 MG CAPSULE DELAYED RELEASE 1 CAP(S) ORALLY ONCE DAILY TAKING SIMVASTATIN 20 20MG TABLET 1 TABLET ORALLY ONCE A DAY TAKING ASPIRIN ADULT LOW STRENGTH 81 MG TABLET DELAYED RELEASE 1 TABLET ORALLY ONCE A DAY TAKING ZESTORETIC 20-25 MG TABLET 1 TABLET ORALLY ONCE A DAY TAKING ERGOCALCIFEROL 18243 IU TABLET DIRECTED ORALLY WEEKLY TAKING MIRTAZAPINE 15 MG TABLET 1 TABLET AT BEDTIME ORALLY ONCE A DAY TAKING LEVOCETIRIZINE DIHYDROCHLORIDE 5 MG TABLET 1 TABLET IN THE EVENING ORALLY ONCE A DAY TAKING STOOL SOFTENER 100 MG CAPSULE 1 CAP ORALLY DAILY TAKING ANUPAM 28 3-0.03 MG TABLET 1 TABLET ORALLY ONCE A DAY TAKING BENADRYL ALLERGY 25 MG TABLET 2 TABLETS ORALLY BEFORE BEDTIME TAKING MYRBETRIQ 50 MG TABLET 1 TABLET ORALLY ONCE A DAY TAKING CLOTRIMAZOLE-BETAMETHASONE 1-0.05 % CREAM 1 APPLICATION TO BOTH LEGS EXTERNALLY TWICE A DAY X 2 WKS, THEN QDAY X 2WEEKS, AND THEN PRN TOPICAL. 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 GERD PCOS MORBID OBESITY R CARPEL TUNNEL HYPERLIPIDEMIA HYPOTHYROIDISM 10/19 02/13 CT ABD - DIFFUSE FATTY INFILTRATION OF LIVER, CT 2011, NL LIVER, CT 2014 FATTY LIVER MIXED INCONTINENCE HAD URODYNAMIC WITH DR PALOMINO DONE 2014 ,CANDIDATE FOR OA BLADDER MEDICATION VITAMIN D DEFICENCY TYRER CUZICK SCORE 12.78% ALLERGIES VOLTAREN: ITCHING - ALLERGY AMPICILLIN: HIVES - ALLERGY BACTRIM: HIVES - ALLERGY SOCIAL HISTORY GENERAL: TOBACCO USE ARE YOU A:NONSMOKER NEVER SMOKER LATEX QUESTIONNAIRE LATEX ALLERGY : HAVE YOU EVER DEVELOPED ANY TYPE OF REACTION AFTER HANDLING LATEX PRODUCTS SUCH RUBBER GLOVES, CONDOMS, DIAPHRAGMS, BALLOONS, SOCKS, OR UNDERWEAR?NO LATEX ALLERGY : HAVE YOU EVER DEVELOPED ANY TYPE OF REACTION DURING OR AFTER DENTAL APPOINTMENT, VAGINAL/RECTAL EXAMINATION, SURGICAL PROCEDURE, OR ANY OTHER EXPOSURE?NO LATEX RISK : HAVE YOU EVER HAD ANY DIFFICULTY BREATHING OR HIVES AFTER EATING OR HANDLING ANY FRUITS, OR VEGETABLES; SUCH KIWI, BANANAS, STONE FRUITS, OR CHESTNUTSNO LATEX RISK : DO YOU HAVE A PREVIOUS PERSONAL HISTORY OF MORE THAN NINE SURGERIES, SPINA BIFIDA, OR REPEATED CATHERIZATIONS? NO LATEX RISK : ARE YOU FREQUENTLY EXPOSED TO LATEX PRODUCTS IN YOUR OCCUPATION?NO DATE ASKED : 04/20/2020 ALCOHOL USE: NO. LUNG CANCER SCREENING SMOKING STATUS:NON SMOKER BMI CARE GOAL FOLLOW-UP ABOVE NORMAL BMI FOLLOW-UPGIVING ENCOURAGEMENT TO EXERCISE ALCOHOL SCREENING DID YOU HAVE A DRINK CONTAINING ALCOHOL IN THE PAST YEAR?NO POINTS0 INTERPRETATIONNEGATIVE RECREATIONAL DRUG USE DRUG USE?NO CAFFEINE CAFFEINE USE?YES 3 PEPSI DAILY SEXUAL HX HAD SEX IN THE LAST 12 MONTHS (VAGINAL, ORAL, OR ANAL)?YES WITHMEN ONLY USE PROTECTION?NO LMP:07/17/2018 HAVE YOU EVER HAD AN STD?NO HIV / HEP-C SCREENING HIV TEST OFFERED TO PATIENT:YES DATE OFFERED:05/01/2017 TEST ACCEPTED:NO HEP-C TEST OFFERED TO PATIENT:YES DATE OFFERED:05/01/2017 REASON:PATIENT DECLINED TEST ACCEPTED:NO REASON:PATIENT DECLINED YARSANI [id number] BAPTISM LANGUAGE LANGUAGES SPOKEN:JORDANIAN EDUCATION LEVEL OF EDUCATION:HIGH SCHOOL ONLY COMPLETED 8TH GRADE LEARNING BARRIERS / SPECIAL NEEDS CHANGE FROM LAST VISIT?NO BARRIERS TO LEARNING?NO HEARING IMPAIRED?NO VISION IMPAIRED?NO COGNITIVELY IMPAIRED?NO READINESS TO LEARN?YES LEARNING PREFERENCES?NO LEARNING CAPABILITIES PRESENT?YES EMOTIONAL BARRIERS?NO SPECIAL DEVICES?NO MOLECULAR PHYSICIST NEEDED?NO DOMESTIC VIOLENCE DO YOU FEEL SAFE IN YOUR ENVIRONMENT?YES OCCUPATION: DISABLED. DIET: REGULAR. EXERCISE: NO REGULAR EXERCISE. MARITAL STATUS: . OTHERS AT HOME: SPOUSE. - PFS REFERRAL NEEDED?NO CLERGY REFERRAL NEEDED?NO PUBLIC HEALTH REFERRAL NEEDED?NO WAS THE PROVIDER NOTIFIED OF ANY PERTINENT INFO?YES HAS THE PATIENT BEEN EDUCATED REGARDING HIS/HER PLAN OF CARE?YES HAS THE PATIENT BEEN EDUCATED REGARDING PAIN, THE RISK FOR PAIN, THE IMPORTANCE OF EFFECTIVE PAIN MANAGEMENT, AND THE PAIN ASSESSMENT PROCESS?YES HOUSING: RENTS APARTMENT. ADVANCE DIRECTIVE ADVANCE DIRECTIVE DISCUSSED WITH PATIENT:YES PT STATES SHE DOES NOT HAVE A HCP AND DECLINES INFO AT THIS TIME. REVIEW OF SYSTEMS CONSTITUTIONAL: ANY RECENT FEVER NO . CHILLS NO . WEIGHT CHANGE OF UNKNOWN REASONS NO . GASTROENTEROLOGY: NEW UNEXPLAINABLE CHANGES IN BOWEL CONTROL NO . CONSTIPATION NO . GENITOURINARY: ANY NEW CHANGE IN BLADDER CONTROL? NO . NEUROLOGY: NEW ONSET DIZZINESS OR NEUROLOGICAL CHANGES NOT MENTIONED NO . NEW NUMBNESS OR PAIN PATTERNS NOT MENTIONED AND PERTINENT TO TODAY'S VISIT NO . CARDIOLOGY: NEW CHEST PRESSURE NO . NEW CHEST PAIN NO . RESPIRATORY: UNEXPLAINABLE COUGH NO . NEW SHORTNESS OF BREATH NO . VITAL SIGNS WT 330 LBS, HT 67 IN, BMI 51.68 INDEX, BP 148/77 MM HG, HR 97 /MIN, RR 18 /MIN, TEMP 97.5 F, OXYGEN SAT % 97%, SAFE IN ENV? (Y/N) YEST.MIKE. EXAMINATION GENERAL EXAMINATION: GENERALNO ACUTE DISTRESS, WELL NOURISHED AND HYDRATED. PSYCHCONSTRICTED. LUNGS:CLEAR TO AUSCULTATION BILATERALLY, NO WHEEZES, RHONCHI, RALES. HEART:NO MURMURS, REGULAR RATE AND RHYTHM. LUMBAR: TENDER OVER LOWER THORACIC AND UPPER LUMBAR PARASINAL REGION. 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 BRINGS IN MEDICATIONS WHICH IS APPROPRIATE FOR WHAT WAS DISPENSED. RECENT URINE TOXICOLOGY REVIEWED. NO UNAUTHORIZED MEDICATIONS. NO ILLICIT SUBSTANCES AND PRESCRIBED MEDICATIONS WERE PRESENT. RISKS OF NARCOTIC/OPIOD MEDICATIONS INCLUDES BUT IS NOT LIMITED TO RISK OF DEPENDANCE/DEVELOPMENT OF ADDICTION, MOOD DISTURBANCE AND DEPRESSION, OSTEOPOROSIS, HORMONAL AND LABIDAL CHANGES, RESPIRATORY DEPRESSION AND . PATIENT IS ADVISED NOT TO DRIVE OR DRINK ALCOHOL WHILE ON THESE MEDICATIONS,. PROCEDURE CODES FA211 ESTABILISHED PATIENT [facility] FACILITY CHARGE DISPOSITION & COMMUNICATION FOLLOW UP F/U W DR Carrington TO REVIEW CT THORACIC/LUMBAR AND PROPOSE INTERVENTION/MED MGMNT VISIT SOURAV 3 MONTHS (REASON: LOWER THORACIC/LUMBAR PAIN) ELECTRONICALLY SIGNED BY SALOME HOUGH ON 04/23/2020 AT 06:48 PM EST DISCLAIMER : THIS IS A VISIT SUMMARY EXTRACTED FROM THE [employer] CHART. IT IS NOT A COPY OF THE [employer] PROGRESS NOTE. MTDD
== END ==
LOC: M PAIN 14:45
PROVIDERS: ATTEND Nurse Practitioner Family
DX: M47.815 Spondylosis without myelopathy or radiculopathy, thoracolumbar region (principal); K21.9 Gastro-esophageal reflux disease without esophagitis; E03.9 Hypothyroidism, unspecified; Z88.1 Allergy status to other antibiotic agents; Z88.6 Allergy status to analgesic agent; E66.01 Morbid (severe) obesity due to excess calories; Z68.43 Body mass index [BMI] 50.0-59.9, adult; Z79.82 Long term (current) use of aspirin; Z79.891 Long term (current) use of opiate analgesic; Z79.899 Other long term (current) drug therapy

== ENCOUNTER → 2020-04-26 | Outpatient (CLI) | payer MEDICARE, OTHER ==
--- NOTE | 2020-04-27 13:59 | SLEEPHOME ---
DATE: 04/26/2020 ORDERED BY: Milena Aguiar Diagnostic home sleep testing was performed due to concern for the obstructive sleep apnea syndrome. For testing, a nocturnal T3 respiratory monitoring device was used. Continuous record was made of pulse, oxygen saturation, air flow, chest and abdominal strain, and body position. There was 9 hours and 59 minutes of data reviewed. There was 9 hours and 10 minutes marked as time in bed. During the interval marked time in bed, there were 131 respiratory events identified of 10 seconds in duration or greater for a respiratory event index of 14.3. The events were primarily obstructive. Baseline pulse rate 78. Pulse rate ranged 61-118. Baseline saturation 95%. Saturations fell to 81%. Testing was performed in both the supine and nonsupine positions. IMPRESSION: Abnormal home sleep testing with repetitive respiratory events and oxygen desaturations to 81% with a respiratory event index of 14.3 is consistent with the obstructive sleep apnea syndrome. RECOMMENDATION: The patient should be encouraged to undergo formal sleep evaluation.
== END ==
LOC: M SLEEP HO 13:08
PROVIDERS: ATTEND Internal Medicine Cardiovascular Disease
DX: I27.20 Pulmonary hypertension, unspecified (principal)

== ENCOUNTER → 2020-04-28 | Outpatient (CLI) | payer MEDICARE, OTHER ==
--- NOTE | 2020-04-28 18:48 | REPVR ---
PROCEDURE INFORMATION: Exam: CT Thoracic Spine Without Contrast Exam date and time: 04/28/2020 3:25 PM Age: 44 years old Clinical indication: Condition or disease; Spondylosis; Thoracic; Without myelopathy or radiculopathy; Additional info: Spondyls w/o myelopathy or radiculopathy, thoracolum region TECHNIQUE: Imaging protocol: Computed tomography images of the thoracic spine without contrast. Radiation optimization: All CT scans at this facility use at least one of these dose optimization techniques: automated exposure control; mA and/or kV adjustment per patient size (includes targeted exams where dose is matched to clinical indication); or iterative reconstruction. COMPARISON: CT Spine,thoracic w/o contrast 04/08/2019 5:25 PM FINDINGS: Vertebrae: No acute fracture. Normal alignment. Discs/Spinal canal/Neural foramina: The spine demonstrates moderate degenerative changes. Soft tissues: Unremarkable. IMPRESSION: Moderate degenerative spondylosis. Otherwise unremarkable. Electronically signed by: Rip Guan On 04/28/2020 18:48:27 PM
--- NOTE | 2020-04-28 18:50 | REPVR ---
PROCEDURE INFORMATION: Exam: CT Lumbar Spine Without Contrast Exam date and time: 04/28/2020 3:25 PM Age: 44 years old Clinical indication: Condition or disease; Spondylosis, lumbosacral; Thoracolumbar region; Without myelopathy or radiculopathy; Additional info: Spondyls w/o myelopathy or radiculopathy, thoracolum region TECHNIQUE: Imaging protocol: Computed tomography images of the lumbar spine without contrast. Radiation optimization: All CT scans at this facility use at least one of these dose optimization techniques: automated exposure control; mA and/or kV adjustment per patient size (includes targeted exams where dose is matched to clinical indication); or iterative reconstruction. COMPARISON: CT Spine, lumbar w/o contrast 06/12/2015 11:37 AM FINDINGS: Vertebrae: No acute fracture. Normal alignment. L1-L2: No significant disc protrusion. No severe spinal canal stenosis. No significant neural foraminal narrowing. L2-L3: No significant disc protrusion. No spinal canal stenosis. No neural foraminal narrowing. L3-L4: No significant disc protrusion. No severe spinal canal stenosis. No significant neural foraminal narrowing. L4-L5: Moderate central spinal stenosis L4-L5 with epidural lipomatosis. L5-S1: No significant disc protrusion. No severe spinal canal stenosis. No significant neural foraminal narrowing. Soft tissues: Unremarkable. IMPRESSION: 1. Moderate central spinal stenosis L4-L5 with epidural lipomatosis. 2. Otherwise unremarkable. Electronically signed by: Rip Guan On 04/28/2020 18:50:40 PM
== END ==
LOC: M RAD 15:22
PROVIDERS: ATTEND Nurse Practitioner Family
DX: M47.815 Spondylosis without myelopathy or radiculopathy, thoracolumbar region (principal)

== ENCOUNTER → 2020-06-23 | Outpatient (CLI) | payer MEDICARE, OTHER ==
--- NOTE | 2020-06-30 04:07 | ECWPNPC ---
PATIENT NAME: ILAN PAGE : 1975 GENDER: FEMALE VISIT DATE: 06/23/2020 DISCHARGE DATE: 06/23/20 1607 VISIT LOCKED DATE TIME: PHYSICIAN: NATALIA AGGARWAL MD PHYSICIAN PAGER NO: ACTIVE RESOURCE: NATALIA AGGARWAL MD REASON FOR APPOINTMENT 1. REVIEW OF CT THORACIC/LUMBAR HISTORY OF PRESENT ILLNESS GENERAL: 44-YEAR-OLD FEMALE PATIENT WITH A HISTORY OF THORACIC AND LOW BACK PAIN. THE PATIENT DESCRIBES THE PAIN ACHING, CONTINUOUS, SHARP AND STABBING WITH A PAIN SCORE RANGING FROM 7-10/10 OVER THE THORACIC, THORACOLUMBAR AND UPPER LUMBAR AREA. ALSO IN THE LOWER BACK. SHE HAS BEEN SUFFERING FROM THIS CONDITION FOR MANY YEARS, BUT THERE IS AN EXACERBATION OF THE PAIN NOW. THIS HAS BEEN AFFECTING HER ABILITY TO MOVING AROUND, CLEANING HER HOUSE AND GROCERY SHOPPING. SHE HAS RECEIVED INJECTIONS IN THE BACK UNFORTUNATELY WITHOUT LONG LASTING PAIN RELIEF. SHE IS FOLLOWED BY THE NURSE PRACTITIONER FOR MEDICATION MANAGEMENT. SHE IS LOOKING FOR ALTERNATIVES. FALL RISK SCREENING: SCREENING : NO FALLS REPORTED IN THE LAST YEAR. PAIN SCREENING: PATIENT HAS A COMPLAINT OF ACUTE OR CHRONIC PAIN :YES LOCATION OF PAIN:LOW BACK INTENSITY OF PAIN (SCALE OF 1 TO 10):8 WHAT DOES YOUR PAIN FEEL LIKE:ACHING, BURNING, CONTINOUS, SHARP, STABBING, TENDER, THROBBING, SORE, SHOOTING DURATION:CONTINOUS, CONSTANT, ALL DAY PAIN IS INCREASED BY:ACTIVITIES, PROLONGED STANDING PAIN IS DECREASED BY:USE OF PAIN MEDICATIONS, OTHERS HEATING PAD, LIDOCAINE CREAM PLAN/GOALS/TREATMENT/INTERVENTION/FOLLOW UP:SEE PLAN NURSING NOTE: -. PAIN CENTER INTAKE QUESTIONS: DO YOU HAVE A HISTORY OF MRSA? :NO DO YOU TAKE A BLOOD THINNERS? :NO DO YOU HAVE ANY BLEEDING DISORDERS? :NO ANY NEW NUMBNESS OR WEAKNESS IN YOUR LEGS OR ARMS? :NO ANY PACEMAKER,DEFIBRILLATOR, OR DORSAL COLUMN STIMULATOR? :NO DO YOU HAVE ANY RASHES OR OPEN SORES? :NO ARE YOU ALLERGIC TO IV DYE? :NO ARE YOU DIABETIC? :NO ANY NEW PROBLEMS WITH YOUR MEDICATIONS? :NO HAVE YOU RECEIVED A VACCINE IN THE PAST 30 DAYS? :NO DO YOU PLAN TO RECEIVE A VACCINE IN THE NEXT 21 DAYS? :NO DO YOU NEED ANY PRESCRIPTION? :NO DO YOU TAKE ANY IMMUNOSUPPRESSIVE MEDICATIONS? :NO IS THERE A CHANCE YOU COULD BE ? :NO ARE YOU BREAST FEEDING? :NO CURRENT MEDICATIONS TAKING SYNTHROID 50 50MCG TABLET DIRECTED ORAL ONCE DAILY TAKING OMEPRAZOLE 40 MG CAPSULE DELAYED RELEASE 1 CAP(S) ORALLY ONCE DAILY TAKING SIMVASTATIN 20 20MG TABLET 1 TABLET ORALLY ONCE A DAY TAKING ASPIRIN ADULT LOW STRENGTH 81 MG TABLET DELAYED RELEASE 1 TABLET ORALLY ONCE A DAY TAKING ZESTORETIC 20-25 MG TABLET 1 TABLET ORALLY ONCE A DAY TAKING ERGOCALCIFEROL 90464 IU TABLET DIRECTED ORALLY WEEKLY TAKING MIRTAZAPINE 15 MG TABLET 1 TABLET AT BEDTIME ORALLY ONCE A DAY TAKING LEVOCETIRIZINE DIHYDROCHLORIDE 5 MG TABLET 1 TABLET IN THE EVENING ORALLY ONCE A DAY TAKING STOOL SOFTENER 100 MG CAPSULE 1 CAP ORALLY DAILY TAKING ANUPAM 28 3-0.03 MG TABLET 1 TABLET ORALLY ONCE A DAY TAKING BENADRYL ALLERGY 25 MG TABLET 2 TABLETS ORALLY BEFORE BEDTIME TAKING MYRBETRIQ 50 MG TABLET 1 TABLET ORALLY ONCE A DAY TAKING CLOTRIMAZOLE-BETAMETHASONE 1-0.05 % CREAM 1 APPLICATION TO BOTH LEGS EXTERNALLY TWICE A DAY X 2 WKS, THEN QDAY X 2WEEKS, AND THEN PRN TOPICAL. 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 GERD PCOS MORBID OBESITY R CARPEL TUNNEL HYPERLIPIDEMIA HYPOTHYROIDISM 10/19 02/13 CT ABD - DIFFUSE FATTY INFILTRATION OF LIVER, CT 2011, NL LIVER, CT 2014 FATTY LIVER MIXED INCONTINENCE HAD URODYNAMIC WITH DR PALOMINO DONE 2014 ,CANDIDATE FOR OA BLADDER MEDICATION VITAMIN D DEFICENCY MEHDI HULL SCORE 12.78% ALLERGIES VOLTAREN: ITCHING - ALLERGY AMPICILLIN: HIVES - ALLERGY BACTRIM: HIVES - ALLERGY SOCIAL HISTORY GENERAL: TOBACCO USE ARE YOU A:NONSMOKER NEVER SMOKER LATEX QUESTIONNAIRE LATEX ALLERGY : HAVE YOU EVER DEVELOPED ANY TYPE OF REACTION AFTER HANDLING LATEX PRODUCTS SUCH RUBBER GLOVES, CONDOMS, DIAPHRAGMS, BALLOONS, SOCKS, OR UNDERWEAR?NO LATEX ALLERGY : HAVE YOU EVER DEVELOPED ANY TYPE OF REACTION DURING OR AFTER DENTAL APPOINTMENT, VAGINAL/RECTAL EXAMINATION, SURGICAL PROCEDURE, OR ANY OTHER EXPOSURE?NO LATEX RISK : HAVE YOU EVER HAD ANY DIFFICULTY BREATHING OR HIVES AFTER EATING OR HANDLING ANY FRUITS, OR VEGETABLES; SUCH KIWI, BANANAS, STONE FRUITS, OR CHESTNUTSNO LATEX RISK : DO YOU HAVE A PREVIOUS PERSONAL HISTORY OF MORE THAN NINE SURGERIES, SPINA BIFIDA, OR REPEATED CATHERIZATIONS? NO LATEX RISK : ARE YOU FREQUENTLY EXPOSED TO LATEX PRODUCTS IN YOUR OCCUPATION?NO DATE ASKED : 06/23/2020 ALCOHOL USE: NO. LUNG CANCER SCREENING SMOKING STATUS:NON SMOKER BMI CARE GOAL FOLLOW-UP ABOVE NORMAL BMI FOLLOW-UPGIVING ENCOURAGEMENT TO EXERCISE ALCOHOL SCREENING DID YOU HAVE A DRINK CONTAINING ALCOHOL IN THE PAST YEAR?NO POINTS0 INTERPRETATIONNEGATIVE RECREATIONAL DRUG USE DRUG USE?NO CAFFEINE CAFFEINE USE?YES 3 PEPSI DAILY SEXUAL HX HAD SEX IN THE LAST 12 MONTHS (VAGINAL, ORAL, OR ANAL)?YES WITHMEN ONLY USE PROTECTION?NO LMP:07/17/2018 HAVE YOU EVER HAD AN STD?NO HIV / HEP-C SCREENING HIV TEST OFFERED TO PATIENT:YES DATE OFFERED:05/01/2017 TEST ACCEPTED:NO HEP-C TEST OFFERED TO PATIENT:YES DATE OFFERED:05/01/2017 REASON:PATIENT DECLINED TEST ACCEPTED:NO REASON:PATIENT DECLINED SCIENTOLOGIST [id number] YARSANISM LANGUAGE LANGUAGES SPOKEN:NIUEAN EDUCATION LEVEL OF EDUCATION:HIGH SCHOOL ONLY COMPLETED 8TH GRADE LEARNING BARRIERS / SPECIAL NEEDS CHANGE FROM LAST VISIT?NO BARRIERS TO LEARNING?NO HEARING IMPAIRED?NO VISION IMPAIRED?NO COGNITIVELY IMPAIRED?NO READINESS TO LEARN?YES LEARNING PREFERENCES?NO LEARNING CAPABILITIES PRESENT?YES EMOTIONAL BARRIERS?NO SPECIAL DEVICES?NO PUBLIC SERVICE DIRECTOR NEEDED?NO DOMESTIC VIOLENCE DO YOU FEEL SAFE IN YOUR ENVIRONMENT?YES OCCUPATION: DISABLED. DIET: REGULAR. EXERCISE: NO REGULAR EXERCISE. MARITAL STATUS: . OTHERS AT HOME: SPOUSE. - PFS REFERRAL NEEDED?NO CLERGY REFERRAL NEEDED?NO PUBLIC HEALTH REFERRAL NEEDED?NO WAS THE PROVIDER NOTIFIED OF ANY PERTINENT INFO?YES HAS THE PATIENT BEEN EDUCATED REGARDING HIS/HER PLAN OF CARE?YES HAS THE PATIENT BEEN EDUCATED REGARDING PAIN, THE RISK FOR PAIN, THE IMPORTANCE OF EFFECTIVE PAIN MANAGEMENT, AND THE PAIN ASSESSMENT PROCESS?YES HOUSING: RENTS APARTMENT. ADVANCE DIRECTIVE ADVANCE DIRECTIVE DISCUSSED WITH PATIENT:YES PT STATES SHE DOES NOT HAVE A HCP AND DECLINES INFO AT THIS TIME. REVIEW OF SYSTEMS CONSTITUTIONAL: ANY RECENT FEVER NO . CHILLS NO . WEIGHT CHANGE OF UNKNOWN REASONS NO . GASTROENTEROLOGY: NEW UNEXPLAINABLE CHANGES IN BOWEL CONTROL NO . CONSTIPATION NO . GENITOURINARY: ANY NEW CHANGE IN BLADDER CONTROL? NO . NEUROLOGY: NEW ONSET DIZZINESS OR NEUROLOGICAL CHANGES NOT MENTIONED NO . NEW NUMBNESS OR PAIN PATTERNS NOT MENTIONED AND PERTINENT TO TODAY'S VISIT NO . CARDIOLOGY: NEW CHEST PRESSURE NO . PATIENT DENIES NO . RESPIRATORY: UNEXPLAINABLE COUGH NO . NEW SHORTNESS OF BREATH NO . VITAL SIGNS WT 332.6 LBS, HT 67 IN, BMI 52.09 INDEX, BP 145/69 MM HG, HR 86 /MIN, RR 18 /MIN, TEMP 96.3 F, OXYGEN SAT % 97%, SAFE IN ENV? (Y/N) YES, NA INITIALS AW 1445, REVIEWED BY: Jose VALDEZ RN BSN. EXAMINATION GENERAL: THE PATIENT IS ALERT, ORIENTED TIMES THREE AND COOPERATIVE. LUNGS ARE CLEAR TO AUSCULTATION. HEART SHOWS REGULAR RHYTHM, NO MURMURS AND NO GALLOPS. THERE IS TENDERENSS IN THE THORACIC, THORACOLUMBAR AND LUMBAR AREAS OVER THE PARASPINAL MUSCLE GROUPS OVER THE FACET JOINTS. CT OF THE THROACIC SPINE DATED 04/28/2020 SHOWS SOME DEGENERATIVE SPONDYLOSIS. LUMBAR CT DATED 04/28/2020 SHOWS SPONDYLOSIS AND SPINAL STENOSIS AT L5-S1. ASSESSMENTS THORACIC SPONDYLOSIS - M47.814 (PRIMARY) LUMBAR SPONDYLOSIS - M47.816 TREATMENT THORACIC SPONDYLOSIS CLINICAL NOTES: I DISUCSSED ALTERNATIVES WITH MS. PAGE. WE ARE GOING TO DO BILATERAL THERAPEUTIC FACET BLOCKS OVER THE THORACOLUMBAR AREA. I WILL CHECK HER UNDER X-RAY TO FIND OUT WHAT LEVELS. THE PATEINT AGREES WITH THE PLAN. I, ROSALINE MADISON, DOCUMENTED THE ABOVE INFORMATION ACTING A SCRIBE FOR DR. AGGARWAL. I HAVE REVIEWED THE ABOVE DOCUMENT, WRITTEN BY ROSALINE MADISON, PROJECT CONTROLS SPECIALIST, AND I VERIFY THAT IT IS ACCURATE. OTHERS NOTES: FACET JOINT INJECTION MATERIAL WAS PRINTED, REVIEWED AND GIVEN TO PT. Cinthia DURANT RN BSN. PROCEDURE CODES FA211 ESTABILISHED PATIENT [facility] FACILITY CHARGE [id number] OFFICE/OUTPATIENT VISIT EST DISPOSITION & COMMUNICATION FOLLOW UP REQUEST AUTH FOR BILATERAL THERAPEUTIC FACET BLOCK (REASON: REQUEST AUTH FOR BILATERAL THERAPEUTIC FACET BLOCK ) ELECTRONICALLY SIGNED BY NATALIA AGGARWAL MD, MD ON 06/29/2020 AT 06:08 PM EDT DISCLAIMER : THIS IS A VISIT SUMMARY EXTRACTED FROM THE [employer] CHART. IT IS NOT A COPY OF THE [facility] PROGRESS NOTE. MTDD
== END ==
LOC: M PAIN 14:30
PROVIDERS: ATTEND Anesthesiology
DX: M47.814 Spondylosis without myelopathy or radiculopathy, thoracic region (principal); M47.816 Spondylosis without myelopathy or radiculopathy, lumbar region; K21.9 Gastro-esophageal reflux disease without esophagitis; E03.9 Hypothyroidism, unspecified; Z88.1 Allergy status to other antibiotic agents; Z88.6 Allergy status to analgesic agent; E66.01 Morbid (severe) obesity due to excess calories; Z68.43 Body mass index [BMI] 50.0-59.9, adult; Z79.82 Long term (current) use of aspirin; Z79.891 Long term (current) use of opiate analgesic; Z79.899 Other long term (current) drug therapy

== ENCOUNTER → 2020-07-19 | Outpatient (CLI) | payer MEDICARE, OTHER ==
[~2020-07-19] MED LIST changes: +GASTROGRAFIN SOLUTION 30ML (Q9963) As Ordered ONE; +ISOVUE-370 76% 100ML VIAL As Ordered ONE
--- NOTE | 2020-07-19 20:22 | REP ---
INDICATION: FATTY LIVER COMPARISON: 09/06/2014. TECHNIQUE: CT Scan of the abdomen and pelvis was performed with intravenous administration of 100 cc of Isovue 370, and oral contrast. FINDINGS: Lung bases: Unremarkable. Liver: There is diffuse fatty infiltration of the liver without evidence of enhancing mass. Gallbladder: Unremarkable. Spleen: Normal. Adrenals: There is a stable 2 cm left adrenal adenoma. Pancreas: Normal. Kidneys: Normal. Small and large bowel: Unremarkable. Free fluid: None. Abdominal aorta: No aneurysm or dissection. Adenopathy: None. Appendix: Not inflamed. Osseous structures: There are degenerative changes of the spine without compression deformity. Pelvis: No mass. IMPRESSION: Diffuse fatty infiltration of the liver. Stable left adrenal adenoma. <Electronically signed by Raul Johnson > 07/19/20 2018
== END ==
LOC: M RAD 16:29
PROVIDERS: ATTEND Nurse Practitioner Adult Health
DX: K76.0 Fatty (change of) liver, not elsewhere classified (principal); D35.00 Benign neoplasm of unspecified adrenal gland
CPT/HCPCS: 74177; Q9963; Q9967

== ENCOUNTER → 2020-07-29 | Outpatient (CLI) | payer MEDICARE, OTHER ==
[~2020-07-29] MED LIST changes: -GASTROGRAFIN SOLUTION 30ML (Q9963) As Ordered ONE; -ISOVUE-370 76% 100ML VIAL As Ordered ONE
== END ==
LOC: M LABSMTC 11:38
PROVIDERS: ATTEND Anesthesiology
DX: Z20.828 Contact with and (suspected) exposure to other viral communicable diseases (principal); Z11.59 Encounter for screening for other viral diseases

== ENCOUNTER → 2020-08-03 | Outpatient (CLI) | payer MEDICARE, OTHER ==
[~2020-08-03] MED LIST changes: +BUPIVACAINE HCL 0.25% 30ML VIAL As Ordered ONE; +ISOVUE-M 300 61% 15ML VIAL As Ordered ONE; +LIDOCAINE 1% SDV 30ML VIAL As Ordered ONE; +TRIAMCINOLONE ACETONIDE SUSP 40 MG/ML VIAL (J3301) As Ordered ONE
--- NOTE | 2020-08-03 15:56 | REP ---
INDICATION: THERAPEUTIC FACET BLOCK. COMPARISON: None. TECHNIQUE: Intraoperative fluoroscopic imaging using portable C-arm technique. FINDINGS: Catheters and contrast overlies lumbar facet joints. Total fluoroscopic time 22.4 seconds. IMPRESSION: Findings consistent with lumbar facet block. <Electronically signed by Owen Albarran > 08/03/20 [id number]
--- NOTE | 2020-08-04 00:19 | ECWPNPC ---
PATIENT NAME: ILAN PAGE : 1975 GENDER: FEMALE VISIT DATE: 08/03/2020 DISCHARGE DATE: 08/03/20 0000 VISIT LOCKED DATE TIME: PHYSICIAN: NATALIA AGGARWAL MD PHYSICIAN PAGER NO: ACTIVE RESOURCE: NATALIA AGGARWAL MD REASON FOR APPOINTMENT 1. BILATERAL LUMBAR THERAPUTIC FACET BLOCK T12-L1, L1-L2 HISTORY OF PRESENT ILLNESS GENERAL: -. FALL RISK SCREENING: SCREENING : NO FALLS REPORTED IN THE LAST YEAR. PAIN SCREENING: PATIENT HAS A COMPLAINT OF ACUTE OR CHRONIC PAIN :YES LOCATION OF PAIN:HEAD, NECK, UPPER BACK, MID BACK, LOW BACK INTENSITY OF PAIN (SCALE OF 1 TO 10):8 WHAT DOES YOUR PAIN FEEL LIKE:ACHING, BURNING, SHARP, STABBING, TENDER, THROBBING, SORE, SHOOTING DURATION:CONTINOUS, CONSTANT, ALL DAY PAIN IS INCREASED BY:ACTIVITIES, OTHERS BENDING, LIFTING PAIN IS DECREASED BY:USE OF PAIN MEDICATIONS, OTHERS HEAT, LIDOCAINE CREAM NURSING NOTE: -. PAIN CENTER INTAKE QUESTIONS: DO YOU HAVE A HISTORY OF MRSA? :NO DO YOU TAKE A BLOOD THINNERS? :NO DO YOU HAVE ANY BLEEDING DISORDERS? :NO ANY NEW NUMBNESS OR WEAKNESS IN YOUR LEGS OR ARMS? :NO ANY PACEMAKER,DEFIBRILLATOR, OR DORSAL COLUMN STIMULATOR? :NO DO YOU HAVE ANY RASHES OR OPEN SORES? :NO ARE YOU ALLERGIC TO IV DYE? :NO ARE YOU DIABETIC? :NO ANY NEW PROBLEMS WITH YOUR MEDICATIONS? :NO HAVE YOU RECEIVED A VACCINE IN THE PAST 30 DAYS? :NO DO YOU PLAN TO RECEIVE A VACCINE IN THE NEXT 21 DAYS? :NO DO YOU TAKE ANY IMMUNOSUPPRESSIVE MEDICATIONS? :NO ANY HISTORY OF SEIZURES? :NO ANY HISTORY OF CARDIAC ISSUES OR EVENTS? :NO DO YOU HAVE ANY KIDNEY OR LIVER DISEASE? :NO DO YOU HAVE SLEEP APNEA? :YES DO YOU WEAR A CPAP? NOT CURRENTLY - WAITING ON TEST NEXT MONTH ANY RECENT HEAD INJURY? :NO DO YOU HAVE ANY NEW INFECTIONS? :NO IS THERE A CHANCE YOU COULD BE ? :NO ARE YOU BREAST FEEDING? :NO WHEN DID YOU LAST EAT? : 08/02/20 0200 WHEN DID YOU LAST DRINK? : 1130 WHAT DID YOU LAST DRINK? : WATER NAME OF PERSON DRIVING YOU HOME? : DO YOU HAVE ANY OTHER QUESTIONS OR CONCERNS? : NO CURRENT MEDICATIONS TAKING BENADRYL ALLERGY 25 MG TABLET 1.5 TABLETS ORALLY BEFORE BEDTIME, NOTES: 0450 TAKING STOOL SOFTENER 100 MG CAPSULE 1 CAP ORALLY BID TAKING ANUPAM 28 3-0.03 MG TABLET 1 TABLET ORALLY ONCE A DAY TAKING MYRBETRIQ 50 MG TABLET 1 TABLET ORALLY ONCE A DAY, NOTES: 08/02/20 1100 TAKING TIZANIDINE HCL 2 MG TABLET 1 TABLET NEEDED ORALLY THREE TIMES A DAY, NOTES: OVER 2 WEEKS TAKING MIRTAZAPINE 7.5 MG TABLET 1 TAB ORALLY ONCE A DAY, NOTES: 9 MORE DAYS AND THEN STOPPING TAKING ZESTORETIC 20-25 MG TABLET 1 TABLET ORALLY ONCE A DAY, NOTES: 08/02/20 1100 TAKING SYNTHROID 50 50MCG TABLET DIRECTED ORAL ONCE DAILY TAKING OMEPRAZOLE 40 MG CAPSULE DELAYED RELEASE 1 CAP(S) ORALLY ONCE DAILY TAKING SIMVASTATIN 20 20MG TABLET 1 TABLET ORALLY ONCE A DAY TAKING ASPIRIN ADULT LOW STRENGTH 81 MG TABLET DELAYED RELEASE 1 TABLET ORALLY ONCE A DAY, NOTES: 08/03/20 0000 TAKING ERGOCALCIFEROL 80623 IU TABLET DIRECTED ORALLY WEEKLY TAKING LEVOCETIRIZINE DIHYDROCHLORIDE 5 MG TABLET 1 TABLET IN THE EVENING ORALLY ONCE A DAY TAKING OXYCODONE HCL 5 MG TABLET 1 TO2 TAB ORALLY Q8H PRN MDD6, NOTES: 1130 TAKING CLOTRIMAZOLE-BETAMETHASONE 1-0.05 % CREAM 1 APPLICATION TO BOTH LEGS EXTERNALLY TWICE A DAY X 2 WKS, THEN QDAY X 2WEEKS, AND THEN PRN TOPICAL. 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 GERD PCOS MORBID OBESITY R CARPEL TUNNEL HYPERLIPIDEMIA HYPOTHYROIDISM 10/19 02/13 CT ABD - DIFFUSE FATTY INFILTRATION OF LIVER, CT 2011, NL LIVER, CT 2014 FATTY LIVER MIXED INCONTINENCE HAD URODYNAMIC WITH DR PALOMINO DONE 2014 ,CANDIDATE FOR OA BLADDER MEDICATION VITAMIN D DEFICENCY CHRISTINAER KURTIS SCORE 12.78% ALLERGIES VOLTAREN: ITCHING - ALLERGY AMPICILLIN: HIVES - ALLERGY BACTRIM: HIVES - ALLERGY SOCIAL HISTORY GENERAL: TOBACCO USE ARE YOU A:NONSMOKER NEVER SMOKER LATEX QUESTIONNAIRE LATEX ALLERGY : HAVE YOU EVER DEVELOPED ANY TYPE OF REACTION AFTER HANDLING LATEX PRODUCTS SUCH RUBBER GLOVES, CONDOMS, DIAPHRAGMS, BALLOONS, SOCKS, OR UNDERWEAR?NO LATEX ALLERGY : HAVE YOU EVER DEVELOPED ANY TYPE OF REACTION DURING OR AFTER DENTAL APPOINTMENT, VAGINAL/RECTAL EXAMINATION, SURGICAL PROCEDURE, OR ANY OTHER EXPOSURE?NO LATEX RISK : HAVE YOU EVER HAD ANY DIFFICULTY BREATHING OR HIVES AFTER EATING OR HANDLING ANY FRUITS, OR VEGETABLES; SUCH KIWI, BANANAS, STONE FRUITS, OR CHESTNUTSNO LATEX RISK : DO YOU HAVE A PREVIOUS PERSONAL HISTORY OF MORE THAN NINE SURGERIES, SPINA BIFIDA, OR REPEATED CATHERIZATIONS? NO LATEX RISK : ARE YOU FREQUENTLY EXPOSED TO LATEX PRODUCTS IN YOUR OCCUPATION?NO DATE ASKED : 06/23/2020 ALCOHOL USE: NO. LUNG CANCER SCREENING SMOKING STATUS:NON SMOKER BMI CARE GOAL FOLLOW-UP ABOVE NORMAL BMI FOLLOW-UPGIVING ENCOURAGEMENT TO EXERCISE ALCOHOL SCREENING DID YOU HAVE A DRINK CONTAINING ALCOHOL IN THE PAST YEAR?NO POINTS0 INTERPRETATIONNEGATIVE RECREATIONAL DRUG USE DRUG USE?NO CAFFEINE CAFFEINE USE?YES 3 PEPSI DAILY SEXUAL HX HAD SEX IN THE LAST 12 MONTHS (VAGINAL, ORAL, OR ANAL)?YES WITHMEN ONLY USE PROTECTION?NO LMP:07/17/2018 HAVE YOU EVER HAD AN STD?NO HIV / HEP-C SCREENING HIV TEST OFFERED TO PATIENT:YES DATE OFFERED:05/01/2017 TEST ACCEPTED:NO HEP-C TEST OFFERED TO PATIENT:YES DATE OFFERED:05/01/2017 REASON:PATIENT DECLINED TEST ACCEPTED:NO REASON:PATIENT DECLINED SIKH [id number] YARSANI LANGUAGE LANGUAGES SPOKEN:NIGERIAN EDUCATION LEVEL OF EDUCATION:HIGH SCHOOL ONLY COMPLETED 8TH GRADE LEARNING BARRIERS / SPECIAL NEEDS CHANGE FROM LAST VISIT?NO BARRIERS TO LEARNING?NO HEARING IMPAIRED?NO VISION IMPAIRED?NO COGNITIVELY IMPAIRED?NO READINESS TO LEARN?YES LEARNING PREFERENCES?NO LEARNING CAPABILITIES PRESENT?YES EMOTIONAL BARRIERS?NO SPECIAL DEVICES?NO AGRICULTURAL AND FORESTRY SUPERVISOR NEEDED?NO DOMESTIC VIOLENCE DO YOU FEEL SAFE IN YOUR ENVIRONMENT?YES OCCUPATION: DISABLED. DIET: REGULAR. EXERCISE: NO REGULAR EXERCISE. MARITAL STATUS: . OTHERS AT HOME: SPOUSE. - PFS REFERRAL NEEDED?NO CLERGY REFERRAL NEEDED?NO PUBLIC HEALTH REFERRAL NEEDED?NO WAS THE PROVIDER NOTIFIED OF ANY PERTINENT INFO?YES HAS THE PATIENT BEEN EDUCATED REGARDING HIS/HER PLAN OF CARE?YES HAS THE PATIENT BEEN EDUCATED REGARDING PAIN, THE RISK FOR PAIN, THE IMPORTANCE OF EFFECTIVE PAIN MANAGEMENT, AND THE PAIN ASSESSMENT PROCESS?YES HOUSING: RENTS APARTMENT. ADVANCE DIRECTIVE ADVANCE DIRECTIVE DISCUSSED WITH PATIENT:YES PT STATES SHE DOES NOT HAVE A HCP AND DECLINES INFO AT THIS TIME. VITAL SIGNS WT 331.4 LBS, HT 67 IN, BMI 51.90 INDEX, BP 134/90 MM HG, HR 101 /MIN, RR 20 /MIN, TEMP 98.3 F, OXYGEN SAT % 98%, SAFE IN ENV? (Y/N) YES, NA INITIALS SC 14:22, REVIEWED BY: APA. HEATH RN. EXAMINATION GENERAL: THE PATIENT IS ALERT, ORIENTED TIMES THREE AND COOPERATIVE. LUNGS ARE CLEAR TO AUSCULTATION. HEART SHOWS REGULAR RHYTHM, NO MURMURS AND NO GALLOPS. ASSESSMENTS SPONDYLOSIS WITHOUT MYELOPATHY OR RADICULOPATHY, LUMBAR REGION - M47.816 TREATMENT SPONDYLOSIS WITHOUT MYELOPATHY OR RADICULOPATHY, LUMBAR REGION COMPLETION OF PROCEDURAL VISIT WHEN MEETS CRITERIA OTHERS NOTES: 08/02/20 1530 PAT COMPLETED. Elizabeth ORANTES RN. PROCEDURES PAIN NURSING RECORD PROCEDURE IN ROOM 1455, PHYSICIAN IN ROOM 1535, START 1542, FINISH 1548, PHYSICIAN OUT OF ROOM 1549, OUT OF ROOM 1557, ECG NORMAL SINUS, PATIENT SHIELDED YES, SAFETY STRAP YES, PREP CHLOROPREP Jose VALDEZ RN, DRESSING TEGADERM DR. AGGARWAL LOC: CIARA VALDEZ 08/03/2020 2:55:08 PM > 1. ALERT, ORIENTED LOC REMAINED AT BASELINE THROUGHOUT THE PROCEDURE RESP: CIARA VALDEZ 08/03/2020 2:55:08 PM > 1. REGULAR, NO DYSPNEA COLOR: CIARA VALDEZ 08/03/2020 2:55:08 PM > 1. PINK SKIN: CIARA VALDEZ 08/03/2020 2:55:08 PM > 1. WARM, DRY POSITION: CIARA VALDEZ 08/03/2020 2:55:08 PM > 1. PRONE VITALS: CIARA VALDEZ 08/03/2020 3:00:08 PM > 143/93, 91, 97% RA, 18 CIARA VALDEZ 08/03/2020 3:02:08 PM > 169/94, 91, 97% RA, 18. CIARA VALDEZ 08/03/2020 3:15:05 PM > 162/98, 95, 97% RA, 18. CIARA VALDEZ 08/03/2020 3:30:50 PM > 164/93, 90, 96% RA, 18. CIARA VALDEZ 08/03/2020 3:45:55 PM > 182/99, 103, 97% RA, 18. CIARA VALDEZ 08/03/2020 3:46:23 PM > 174/96, 93, 96% RA, 18. CIARA VALDEZ 08/03/2020 4:00:11 PM > POST PROCEDURE 141/86, 99, 98% RA, 18. COMPLETION OF PROCEDURE APPOINTMENT: POST PAIN 0/10, DRESSING SITE DRY AND INTACT, IV N/A, GAIT STEADY, TEACHING COMPLETED, PATIENT ACKNOWLEDGES UNDERSTANDING YES PATIENT PROVIDED POST PROCEDURE PAIN DIARY, COVID SYMPTOM MONITORING INSTRUCTIONS AND POST PROCEDURE INSTRUCTIONS, HANDOUTS REVIEWED WITH PATIENT; PATIENT VERBALIZES UNDERSTANDING, NO QUESTIONS OR CONCERNS AT THIS TIME., PROCEDURE APPOINTMENT COMPLETED AT 1605 BY: Jose VALDEZ RN. PN LUMBAR FACET BLOCK THERAPEUTIC PRE PROCEDURE DIAGNOSIS LUMBAR SPONDYLOSIS POST PROCEDURE DIAGNOSIS LUMBAR SPONDYLOSIS PROCEDURE BILATERAL T12-L1 AND BILATERAL L1-L2 LUMBAR FACET THERAPEUTIC BLOCK SURGEON DR. NATALIA AGGARWAL FRUIT CANNER NONE ANESTHESIA LOCAL PRE PROCEDURE NOTE THE PATIENT HAS A HISTORY OF CHRONIC LOW BACK PAIN. I EVALUATED THE PATIENT AND REVIEWED THE CHART. I WENT OVER THE RISKS, ALTERNATIVES, AND BENEFITS ASSOCIATED WITH THIS PROCEDURE. THE PATIENT WOULD LIKE TO PROCEED AND GIVES CONSENT TO PERFORM THE PROCEDURE. THE PATIENT DENIES UNEXPLAINABLE WEIGHT LOSS, FEVER, CHILLS, OR NEW CHANGES IN URINARY OR BOWEL CONTROL. THE PATIENT IS COVID-19 NEGATIVE DESCRIPTION OF PROCEDURE THE PATIENT WAS BROUGHT TO THE PROCEDURE ROOM AND PLACED IN THE PRONE POSITION. THE LUMBOSACRAL AREA WAS CLEANED WITH CHLORAPREP SOLUTION AND DRAPED ASEPTICALLY. THE PROCEDURE WAS DONE UNDER STERILE CONDITIONS. A TIMEOUT WAS PERFORMED WHERE THE CONSENTED SITE WAS VERIFIED WITH EVERYONE IN THE ROOM. UNDER FLUOROSCOPIC GUIDANCE, THE TARGET POINT WAS SELECTED AT THE RIGHT AND LEFT T12-L1 AND RIGHT AND LEFT L1-L2 FACET JOINTS. TARGET POINT WAS SELECTED AFTER LATERAL ROTATION AND TILT OF THE MAGNIFIER OF THE C-ARM. I CONFIRMED AGAIN THE SITE OF TARGET. LIDOCAINE 0.5% WAS USED TO NUMB THE SKIN AND THE SUBCUTANEOUS TISSUE BELOW IT. SPINAL NEEDLES, 22-GAUGE, WERE ADVANCED UNDER FLUOROSCOPIC GUIDANCE AND FOLLOWING PATIENT FEEDBACK UNTIL THE TARGETS WERE TOUCHED. THE POSITION OF THE NEEDLES WAS VERIFIED WITH AP AND LATERAL VIEWS. AFTER PROPER POSITION OF THE NEEDLES WAS ACHIEVED, ISOVUE-M DYE 30%, 0.1 ML, WAS INJECTED SHOWING ADEQUATE SPREAD OF THE DYE. KENALOG 10 MG WAS INJECTED AT EACH SITE. THEN, A SOLUTION OF 1.0 ML OF BUPIVACAINE 0.125% OF WAS USED TO FLUSH EACH SITE. THE MEDICATION WAS VERIFIED WITH THE NURSE. THERE WAS NO EVIDENCE OF BLOOD, PARESTHESIA OR CEREBROSPINAL FLUID DURING THE PROCEDURE. THE PATIENT WAS SENT TO THE RECOVERY ROOM. THE PATIENT WAS MOVING THE EXTREMITIES AND DOING WELL. THERE WERE NO COMPLICATIONS DURING THE PROCEDURE. ESTIMATED BLOOD LOSS WAS LESS THAN 5 ML. FLUOROSCOPY TIME WAS 22 SECONDS POST PROCEDURE NOTE IF THE PATIENT GETS PAIN RELIEF, EVEN FOR A SHORT AMOUNT OF TIME, WE SHOULD CONSIDER RADIOFREQUENCY. THE PATIENT WILL BE SEEN IN A FOLLOW UP IN THE NEXT FEW WEEKS. I AM LOOKING FOR LONG LASTING RELIEF FOR THE PATIENT WITH THIS INTERVENTION. INSTRUCTIONS WERE GIVEN, QUESTIONS WERE ANSWERED, AND THE PATIENT EXPRESSED UNDERSTANDING AND AGREES WITH THE PLAN. I, ROSALINE MADISON, DOCUMENTED THE ABOVE INFORMATION ACTING A SCRIBE FOR DR. AGGARWAL. I HAVE REVIEWED THE ABOVE DOCUMENT, WRITTEN BY ROSALINE MADISON, OPERATIONS AND MAINTENANCE SUPERVISOR, AND I VERIFY THAT IT IS ACCURATE DIAGNOSTIC IMAGING [facility] FACET BLOCK (PAIN)[id number] PROCEDURE CODES 54344 INJ PARAVERT F JNT L/S 1 LEV, MODIFIERS: 50 14900 INJ PARAVERT F JNT L/S 2 LEV, MODIFIERS: 50 DISPOSITION & COMMUNICATION FOLLOW UP FOLLOW UP WITH COMMUNICATIONS DIRECTOR (REASON: POST BILATERAL THERAPEUTIC LUMBAR FACET BLOCK T12-L1, L1-L2) ELECTRONICALLY SIGNED BY NATALIA AGGARWAL MD, ON 08/03/2020 AT 05:40 PM EDT DISCLAIMER : THIS IS A VISIT SUMMARY EXTRACTED FROM THE [facility] CHART. IT IS NOT A COPY OF THE [facility] PROGRESS NOTE. MTDD
== END ==
LOC: M PAIN 14:00
PROVIDERS: ATTEND Anesthesiology
DX: M47.816 Spondylosis without myelopathy or radiculopathy, lumbar region (principal); G47.30 Sleep apnea, unspecified; K21.9 Gastro-esophageal reflux disease without esophagitis; E03.9 Hypothyroidism, unspecified; Z88.1 Allergy status to other antibiotic agents; Z88.6 Allergy status to analgesic agent; E66.01 Morbid (severe) obesity due to excess calories; Z68.43 Body mass index [BMI] 50.0-59.9, adult; Z79.82 Long term (current) use of aspirin; Z79.891 Long term (current) use of opiate analgesic; Z79.899 Other long term (current) drug therapy
CPT/HCPCS: 64493; 64494; J3301; Q9967

== ENCOUNTER → 2020-08-09 | Outpatient (REF) | payer MEDICARE, OTHER ==
[~2020-08-09] MED LIST changes: -BUPIVACAINE HCL 0.25% 30ML VIAL As Ordered ONE; -ISOVUE-M 300 61% 15ML VIAL As Ordered ONE; -LIDOCAINE 1% SDV 30ML VIAL As Ordered ONE; -TRIAMCINOLONE ACETONIDE SUSP 40 MG/ML VIAL (J3301) As Ordered ONE
== END ==
LOC: M SFHCWAGY 18:44
PROVIDERS: ATTEND Nurse Practitioner Women's Health
DX: Z12.4 Encounter for screening for malignant neoplasm of cervix (principal)

== ENCOUNTER → 2020-08-09 | Outpatient (CLI) | payer MEDICARE, OTHER ==
--- NOTE | 2020-08-09 16:29 | REPMRS ---
Patient History The patient states she had a clinical breast exam in 08/2020. No known family history of cancer. Taking hormonal contraceptives for 12 years 7 months. Patient states no breast complaints today. Patient has signed MRS History Sheet. Digital Woman Screen Mammo: August 09, 2020 - Exam #: [id number] Bilateral CC and MLO view(s) were taken. Technologist: Ana Maria Sainz, Technologist Prior study comparison: August 04, 2019, bilateral digital woman screen mammo performed at [facility]. July 29, 2018, bilateral digital woman screen mammo performed at [facility]. FINDINGS: The breast tissue is almost entirely fat. Screening. Digital screening (2D) mammography was performed bilaterally in the CC and MLO projections. Additionally, breast tomosynthesis (3D mammography) was performed bilaterally in the CC and MLO projections. Todays exam was compared to the prior exams. By history, the patient has no complaints of a palpable breast abnormality or other significant breast complaints. The breasts are unchanged in size and shape. There are no alycia-soft tissue densities or spiculated masses. There is no internal architectural distortion.Once again, stable benign appearing calcifications are seen. There are no suspicious alycia-calcific clusters. Skin thickening or nipple retraction is not present. IMPRESSION: BI-RADS Category 2- Benign Findings. There is no evidence of malignant alteration of the breasts. Followup examination recommended in one year. The Volpara volumetric breast density category is A, the breasts are almost entirely fatty. This mammogram was read with the assistance of [facility] [employer] [facility],an FDA approved computer aided detection system for mammography. The lifetime Tyrer-Cuzick score is 10.4 % Negative x-ray reports should not delay surgical consultation if a dominant or clinically suspicious mass is present. Not all breast cancers can be identified by mammography. Therefore, we recommend that you continue to perform regular breast self-examination and physical examination and then promptly contact your physician of any concerns or changes. Adenosis and dense breasts may obscure an underlying neoplasm. Assessment: BI-RADS/ACR category 2 mammogram. Benign Findings. Recommendation Routine screening mammogram of both breasts in 1 year. Electronically Signed By: Patrick Kam DO 08/09/20 3751
== END ==
LOC: M WHC 15:04
PROVIDERS: ATTEND Nurse Practitioner Women's Health
DX: Z01.419 Encounter for gynecological examination (general) (routine) without abnormal findings (principal); Z12.31 Encounter for screening mammogram for malignant neoplasm of breast; Z92.0 Personal history of contraception; R92.1 Mammographic calcification found on diagnostic imaging of breast
CPT/HCPCS: 77063; 77067; 87624; G0123; G0463

== ENCOUNTER → 2020-08-21 | Outpatient (CLI) | payer MEDICARE, OTHER ==
--- NOTE | 2020-08-24 01:52 | ECWPNPC ---
PATIENT NAME: ILAN PAGE : 1975 GENDER: FEMALE VISIT DATE: 08/21/2020 DISCHARGE DATE: 08/21/20 1549 VISIT LOCKED DATE TIME: PHYSICIAN: SOURAV HEBERT PHYSICIAN PAGER NO: ACTIVE RESOURCE: SOURAV HEBERT REASON FOR APPOINTMENT 1. POST BILATERAL THERAPEUTIC FACET BLOCK HISTORY OF PRESENT ILLNESS DEPRESSION SCREENING: PHQ-2 (2015 EDITION) LITTLE INTEREST OR PLEASURE IN DOING THINGS?NOT AT ALL FEELING DOWN, DEPRESSED, OR HOPELESS?NOT AT ALL TOTAL SCORE0 GENERAL: HERE FOR POST PROCEDURE FOLLOW-UP. HAD BILATERAL LUMBAR THERAPEUTIC FACET BLOCK T12, L1, L1, L2 ON 08/03/2020. PATIENT REPORTS VERY LITTLE IMPROVEMENT FOR A SHORT TIME POST PROCEDURE. PATIENT GENERALLY HAS NOT BEEN FEELING WELL LATELY AND IS UNDERGOING WORKUP WITH PRIMARY CARE AND CARDIOLOGY. DISCUSSED PLAN OF DR. AGGARWAL'S TO CONSIDER RADIOFREQUENCY IN THIS AREA IN THE FUTURE. PATIENT WOULD LIKE TO TRY LIDOCAINE GEL TO LUMBAR AREA. -. FALL RISK SCREENING: SCREENING : NO FALLS REPORTED IN THE LAST YEAR. PAIN SCREENING: PATIENT HAS A COMPLAINT OF ACUTE OR CHRONIC PAIN :YES LOCATION OF PAIN:MID BACK, LOW BACK INTENSITY OF PAIN (SCALE OF 1 TO 10):7 WHAT DOES YOUR PAIN FEEL LIKE:ACHING, BURNING, CONTINOUS, SHARP, STABBING, TENDER, THROBBING, SORE, SHOOTING DURATION:CONTINOUS, CONSTANT PAIN IS INCREASED BY:ACTIVITIES, PROLONGED STANDING BENDING, LIFTING, PROLONGED SITTING-"PRETTY MUCH EVERYTHING" PAIN IS DECREASED BY:USE OF PAIN MEDICATIONS TEMPORARY RELIEF FROM HEAT, LIDOCAINE CREAM PAIN HAS INTERFERED WITH THE FOLLOWING: EVERYTHING NURSING NOTE: -. PAIN CENTER INTAKE QUESTIONS: DO YOU HAVE A HISTORY OF MRSA? :NO DO YOU TAKE A BLOOD THINNERS? :NO DO YOU HAVE ANY BLEEDING DISORDERS? :NO ANY NEW NUMBNESS OR WEAKNESS IN YOUR LEGS OR ARMS? :NO ANY PACEMAKER,DEFIBRILLATOR, OR DORSAL COLUMN STIMULATOR? :NO DO YOU HAVE ANY RASHES OR OPEN SORES? :YES MULTIPLE BUG BITES ON ARMS ARE YOU ALLERGIC TO IV DYE? :NO ARE YOU DIABETIC? :NO ANY NEW PROBLEMS WITH YOUR MEDICATIONS? :NO HAVE YOU RECEIVED A VACCINE IN THE PAST 30 DAYS? :NO DO YOU PLAN TO RECEIVE A VACCINE IN THE NEXT 21 DAYS? :NO DO YOU NEED ANY PRESCRIPTION? :NO DO YOU TAKE ANY IMMUNOSUPPRESSIVE MEDICATIONS? :NO DO YOU HAVE ANY KIDNEY OR LIVER DISEASE? :NO IS THERE A CHANCE YOU COULD BE ? :NO ARE YOU BREAST FEEDING? :NO CURRENT MEDICATIONS TAKING BENADRYL ALLERGY 25 MG TABLET 1.5 TABLETS ORALLY BEFORE BEDTIME TAKING STOOL SOFTENER 100 MG CAPSULE 1 CAP ORALLY BID TAKING TIZANIDINE HCL 2 MG TABLET 1 TABLET NEEDED ORALLY THREE TIMES A DAY TAKING ZESTORETIC 20-25 MG TABLET 1 TABLET ORALLY ONCE A DAY TAKING SYNTHROID 50 50MCG TABLET DIRECTED ORAL ONCE DAILY TAKING OMEPRAZOLE 40 MG CAPSULE DELAYED RELEASE 1 CAP(S) ORALLY ONCE DAILY TAKING SIMVASTATIN 20 20MG TABLET 1 TABLET ORALLY ONCE A DAY TAKING ASPIRIN ADULT LOW STRENGTH 81 MG TABLET DELAYED RELEASE 1 TABLET ORALLY ONCE A DAY TAKING ERGOCALCIFEROL 26702 IU TABLET DIRECTED ORALLY WEEKLY TAKING LEVOCETIRIZINE DIHYDROCHLORIDE 5 MG TABLET 1 TABLET IN THE EVENING ORALLY ONCE A DAY TAKING DOXEPIN HCL 6 MG TABLET 1 TABLET ORALLY BEFORE BEDTIME PRN INSOMNIA, NOTES: NEVER STARTED TAKING MYRBETRIQ 50 MG TABLET 1 TABLET ORALLY ONCE A DAY TAKING MIRALAX 17 GM/SCOOP POWDER 17 GM MIXED WITH 8OZ NON CARBONATED DRINK ORALLY ONCE A DAY, NOTES: TAKES NEEDED TAKING CLOBETASOL PROPIONATE 0.05 % CREAM 1 APPLICATION EXTERNALLY TWICE A DAY FOR ONE WEEK, THEN TWICE WEEKLY TAKING MAY USE - - DIRECTED A WEDGE PILLOW FOR HOURS OF SLEEP DX CODE-I50.32-K21.9, NOTES: FAX TO [facility] TAKING OXYCODONE HCL 5 MG TABLET 1 TO2 TAB ORALLY Q8H PRN MDD6 NOT-TAKING MIRTAZAPINE 7.5 MG TABLET 1 TAB ORALLY ONCE A DAY NOT-TAKING CLOTRIMAZOLE-BETAMETHASONE 1-0.05 % CREAM 1 APPLICATION TO BOTH LEGS EXTERNALLY TWICE A DAY X 2 WKS, THEN QDAY X 2WEEKS, AND THEN PRN TOPICAL. 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 GERD PCOS MORBID OBESITY R CARPEL TUNNEL HYPERLIPIDEMIA HYPOTHYROIDISM 10/19 02/13 CT ABD - DIFFUSE FATTY INFILTRATION OF LIVER, CT 2011, NL LIVER, CT 2014 FATTY LIVER MIXED INCONTINENCE HAD URODYNAMIC WITH DR PALOMINO DONE 2014 ,CANDIDATE FOR OA BLADDER MEDICATION VITAMIN D DEFICENCY TYRER CUZICK SCORE 12.78% ALLERGIES VOLTAREN: ITCHING - ALLERGY AMPICILLIN: HIVES - ALLERGY BACTRIM: HIVES - ALLERGY SURGICAL HISTORY R ANKLE SURGERY S/P INJURY DR SHARMA IN HER TEENS CTR R WRIST - DR Kristine DUNCAN 2006 EXCISION OF RIGHT CERVICAL LYMPH NODE AT [facility] 08/2011 LAPAROSCOPY EGD W/ REINDL NL 2013 COLONOSCOPY W/ REINDL - REPEAT 5 YRS. DUE 2021 2016 TOOTH EXTRACTION FAMILY HISTORY FATHER: UNKNOWN, PT HAS NO CONTACT WITH HER FATHER. MOTHER: ALIVE, DM2, HYPERLIPIDEMIA, HTN, MORBID OBESITY, CHRONIC LOW BACK PAIN, DEPRESSION. SIBLINGS: UNKNOWN, INCARCERATED FOR MURDER SON(S): ALLERGIES, ASTHMA DENIES FH OF BREAST, OVARIAN, OR COLORECTAL CANCER. NO KNOWN UROLOGICAL HX IN FAMILY. SOCIAL HISTORY GENERAL: TOBACCO USE ARE YOU A:NONSMOKER NEVER SMOKER LATEX QUESTIONNAIRE LATEX ALLERGY : HAVE YOU EVER DEVELOPED ANY TYPE OF REACTION AFTER HANDLING LATEX PRODUCTS SUCH RUBBER GLOVES, CONDOMS, DIAPHRAGMS, BALLOONS, SOCKS, OR UNDERWEAR?NO LATEX ALLERGY : HAVE YOU EVER DEVELOPED ANY TYPE OF REACTION DURING OR AFTER DENTAL APPOINTMENT, VAGINAL/RECTAL EXAMINATION, SURGICAL PROCEDURE, OR ANY OTHER EXPOSURE?NO LATEX RISK : HAVE YOU EVER HAD ANY DIFFICULTY BREATHING OR HIVES AFTER EATING OR HANDLING ANY FRUITS, OR VEGETABLES; SUCH KIWI, BANANAS, STONE FRUITS, OR CHESTNUTSNO LATEX RISK : DO YOU HAVE A PREVIOUS PERSONAL HISTORY OF MORE THAN NINE SURGERIES, SPINA BIFIDA, OR REPEATED CATHERIZATIONS? NO LATEX RISK : ARE YOU FREQUENTLY EXPOSED TO LATEX PRODUCTS IN YOUR OCCUPATION?NO DATE ASKED : 08/21/2020 ALCOHOL USE: NO. LUNG CANCER SCREENING SMOKING STATUS:NON SMOKER BMI CARE GOAL FOLLOW-UP ABOVE NORMAL BMI FOLLOW-UPGIVING ENCOURAGEMENT TO EXERCISE ALCOHOL SCREENING DID YOU HAVE A DRINK CONTAINING ALCOHOL IN THE PAST YEAR?NO POINTS0 INTERPRETATIONNEGATIVE RECREATIONAL DRUG USE DRUG USE?NO CAFFEINE CAFFEINE USE?YES 3 PEPSI DAILY SEXUAL HX HAD SEX IN THE LAST 12 MONTHS (VAGINAL, ORAL, OR ANAL)?YES WITHMEN ONLY USE PROTECTION?NO LMP:07/17/2018 HAVE YOU EVER HAD AN STD?NO HIV / HEP-C SCREENING HIV TEST OFFERED TO PATIENT:YES DATE OFFERED:05/01/2017 TEST ACCEPTED:NO HEP-C TEST OFFERED TO PATIENT:YES DATE OFFERED:05/01/2017 REASON:PATIENT DECLINED TEST ACCEPTED:NO REASON:PATIENT DECLINED AMISH [id number] [employer]ISM LANGUAGE LANGUAGES SPOKEN:KOREAN EDUCATION LEVEL OF EDUCATION:HIGH SCHOOL ONLY COMPLETED 8TH GRADE LEARNING BARRIERS / SPECIAL NEEDS CHANGE FROM LAST VISIT?NO BARRIERS TO LEARNING?NO HEARING IMPAIRED?NO VISION IMPAIRED?NO COGNITIVELY IMPAIRED?NO READINESS TO LEARN?YES LEARNING PREFERENCES?NO LEARNING CAPABILITIES PRESENT?YES EMOTIONAL BARRIERS?NO SPECIAL DEVICES?NO PHYSIOLOGIST NEEDED?NO DOMESTIC VIOLENCE DO YOU FEEL SAFE IN YOUR ENVIRONMENT?YES OCCUPATION: DISABLED. DIET: REGULAR. EXERCISE: NO REGULAR EXERCISE. MARITAL STATUS: . OTHERS AT HOME: SPOUSE. - PFS REFERRAL NEEDED?NO CLERGY REFERRAL NEEDED?NO PUBLIC HEALTH REFERRAL NEEDED?NO HAS THE PATIENT BEEN EDUCATED REGARDING HIS/HER PLAN OF CARE?YES HAS THE PATIENT BEEN EDUCATED REGARDING PAIN, THE RISK FOR PAIN, THE IMPORTANCE OF EFFECTIVE PAIN MANAGEMENT, AND THE PAIN ASSESSMENT PROCESS?YES HOUSING: RENTS APARTMENT. ADVANCE DIRECTIVE ADVANCE DIRECTIVE DISCUSSED WITH PATIENT:YES PT STATES SHE DOES NOT HAVE A HCP AND DECLINES INFO AT THIS TIME. HOSPITALIZATION/MAJOR DIAGNOSTIC PROCEDURE W/ CHILDBIRTH REVIEW OF SYSTEMS CONSTITUTIONAL: ANY RECENT FEVER NO . CHILLS NO . WEIGHT CHANGE OF UNKNOWN REASONS NO . GASTROENTEROLOGY: NEW UNEXPLAINABLE CHANGES IN BOWEL CONTROL NO . CONSTIPATION NO . GENITOURINARY: ANY NEW CHANGE IN BLADDER CONTROL? NO . NEUROLOGY: NEW ONSET DIZZINESS OR NEUROLOGICAL CHANGES NOT MENTIONED NO . NEW NUMBNESS OR PAIN PATTERNS NOT MENTIONED AND PERTINENT TO TODAY'S VISIT NO . CARDIOLOGY: NEW CHEST PRESSURE NO . PATIENT DENIES NO . RESPIRATORY: UNEXPLAINABLE COUGH NO . NEW SHORTNESS OF BREATH NO . VITAL SIGNS WT 327.6 LBS, HT 67 IN, BMI 51.30 INDEX, BP 167/88 MM HG, HR 106 /MIN, RR 18 /MIN, TEMP 97.6 F, OXYGEN SAT % 99%, SAFE IN ENV? (Y/N) Y, NA INITIALS AW 1454, REVIEWED BY: JAMA BOATENG. EXAMINATION GENERAL EXAMINATION: GENERALNO ACUTE DISTRESS, WELL NOURISHED AND HYDRATED. PSYCHCONSTRICTED. LUNGS:CLEAR TO AUSCULTATION BILATERALLY, NO WHEEZES, RHONCHI, RALES. HEART:NO MURMURS, REGULAR RATE AND RHYTHM. LUMBAR: TENDER OVER LOWER THORACIC AND UPPER LUMBAR PARASINAL REGION. 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 AND SHE VERBALIZED UNDERSTANDING. JAMA BOATENG. PROCEDURE CODES FA211 ESTABILISHED PATIENT [facility] CHARGE DISPOSITION & COMMUNICATION FOLLOW UP 2 MONTHS (REASON: MED MGMNT/UTOX/CONSIDER LFBDX) ELECTRONICALLY SIGNED BY SALOME HOUGH ON 08/23/2020 AT 02:26 PM EDT DISCLAIMER : THIS IS A VISIT SUMMARY EXTRACTED FROM THE [facility] CHART. IT IS NOT A COPY OF THE [employer] PROGRESS NOTE. HERSON
== END ==
LOC: M PAIN 14:45
PROVIDERS: ATTEND Nurse Practitioner Family
DX: M47.815 Spondylosis without myelopathy or radiculopathy, thoracolumbar region (principal); G89.29 Other chronic pain; K21.9 Gastro-esophageal reflux disease without esophagitis; E03.9 Hypothyroidism, unspecified; Z88.1 Allergy status to other antibiotic agents; Z88.6 Allergy status to analgesic agent; E66.01 Morbid (severe) obesity due to excess calories; Z68.43 Body mass index [BMI] 50.0-59.9, adult; Z79.82 Long term (current) use of aspirin; Z79.891 Long term (current) use of opiate analgesic; Z79.899 Other long term (current) drug therapy

== ENCOUNTER 2020-10-06 17:19 | Emergency (ER) | payer MEDICARE, OTHER ==
[~2020-10-06] VITALS: Ht 170.2 cm; Wt 150.9 kg
[~2020-10-06 17:19] MED LIST changes: -DOXY100T27
[2020-10-06] MEDS ORDERED: DOXY100T27 (17:51)
[2020-10-06 20:41] LABS: BASO % 0.3 % (0.0-1.0); EOS # 0.2 10^3/uL (0.0-0.5); EOS % 1.6 % (0.0-3.0); HEMATOCRIT 42.2 % (36.0-47.0); HEMOGLOBIN 13.4 g/dl (12.0-15.5); LYMPH # 2.1 10^3/uL (1.5-5.0); LYMPH % 22.5 % (24.0-44.0); MEAN CORPUSCULAR HEMOGLOBIN 28.9 pg (27.0-33.0); MEAN CORPUSCULAR HGB CONC 31.8 g/dl (32.0-36.5); MEAN CORPUSCULAR VOLUME 91.1 fl (80.0-96.0); MONO # 0.6 10^3/uL (0.0-0.8); NEUTROPHILS # 6.6 10^3/uL (1.5-8.5); NEUTROPHILS % 69.1 % (36.0-66.0); PLATELET COUNT, AUTOMATED 214 10^3/uL (150-450); RED BLOOD COUNT 4.63 10^6/uL (4.00-5.40); WHITE BLOOD COUNT 9.5 10^3/uL (4.0-10.0)
[2020-10-06 20:49] LABS: APPEARANCE, URINE CLEAR (CLEAR); BACTERIA, URINE AUTO NEGATIVE (NEGATIVE); BILIRUBIN, URINE AUTO NEGATIVE (NEGATIVE); BLOOD, URINE BLOOD NEGATIVE (NEGATIVE); COLOR, URINE STRAW (YELLOW); GLUCOSE, URINE (UA) AUTO NEGATIVE (NEGATIVE); KETONE, URINE AUTO NEGATIVE (NEGATIVE); LEUKOCYTE ESTERASE, URINE AUTO NEGATIVE (NEGATIVE); NITRITE, URINE AUTO NEGATIVE (NEGATIVE); PROTEIN, URINE AUTO NEGATIVE (NEGATIVE); RBC, URINE AUTO 1 /HPF (0-3); SPECIFIC GRAVITY URINE AUTO 1.011 (1.002-1.035); SQUAMOUS EPITHELIAL CELL UR AU 1 /HPF (0-6); UROBILINOGEN, URINE AUTO 0.2 mg/dL (0.0-2.0); WBC, URINE AUTO 3 /HPF (0-3)
[2020-10-06 20:59] LABS: ALBUMIN 3.5 GM/DL (3.2-5.2); ALT/SGPT 24 U/L (12-78); BILIRUBIN,DIRECT < 0.1 MG/DL (0.0-0.2); BILIRUBIN,TOTAL 0.3 MG/DL (0.2-1.0); TOTAL PROTEIN 7.5 GM/DL (6.4-8.2)
[2020-10-06 22:41] VITALS: BP 170/100
--- NOTE | 2020-10-07 09:34 | ECGEPIP ---
[facility] - ED Test Date: 2020-10-06 Pat Name: ILAN PAGE Department: Room: - Gender: Female Client Service Consultant: OSBALDO : 1975 Requested By: KORIN SEARS PA-C. Order Number: [id number] Reading MD: Natasha Schilling Measurements Intervals [place] Rate: 81 P: 46 MA: 164 QRS: 12 QRSD: 80 T: 28 QT: 374 QTc: 434 Interpretive Statements Normal sinus rhythm decreased rate 11/25/19 Electronically Signed on 10-07-2020 9:34:26 EDT by Natasha Schilling
== END 2020-10-06 22:55 | disposition home or self-care (01) ==
LOC: M ED 17:19
DX: I10 Essential (primary) hypertension (principal); R53.83 Other fatigue; R11.0 Nausea; K21.9 Gastro-esophageal reflux disease without esophagitis; E03.9 Hypothyroidism, unspecified; F41.9 Anxiety disorder, unspecified; Z88.1 Allergy status to other antibiotic agents; Z88.2 Allergy status to sulfonamides; Z79.899 Other long term (current) drug therapy

== ENCOUNTER → 2020-10-06 | Outpatient (CLI) | payer MEDICARE, OTHER ==
[~2020-10-06] MED LIST changes: -CLIN150C15 PO; +CLIN150C17 PO; +DOXY100T27; +ERGO500029 PO; -VITA50005 PO
--- NOTE | 2020-10-10 01:47 | ECWPNPC ---
PATIENT NAME: ILAN PAGE : 1975 GENDER: FEMALE VISIT DATE: 10/06/2020 DISCHARGE DATE: 10/06/20 1538 VISIT LOCKED DATE TIME: PHYSICIAN: SOURAV HEBERT PHYSICIAN PAGER NO: ACTIVE RESOURCE: SOURAV HEBERT REASON FOR APPOINTMENT 1. BACK PAIN HISTORY OF PRESENT ILLNESS GENERAL: HERE FOR FOLLOW-UP OF CHRONIC NECK AND LOW BACK PAIN. THIS IS A MEDICATION MANAGEMENT VISIT. PATIENT IS CURRENTLY BEING WORKED UP FOR SWELLING IN THE NECK AREA AND WILL BE HAVING AN ULTRASOUND DONE IN THE NEAR FUTURE. REPORTING SIGNIFICANT INCREASE IN NECK PAIN SINCE EXPERIENCING THIS SWELLING THAT STARTED A FEW WEEKS AGO. FOLLOWING CLOSELY WITH PRIMARY CARE. BLOOD PRESSURE IS ELEVATED TODAY. -. FALL RISK SCREENING: SCREENING : NO FALLS REPORTED IN THE LAST YEAR. PAIN SCREENING: PATIENT HAS A COMPLAINT OF ACUTE OR CHRONIC PAIN :YES INTENSITY OF PAIN (SCALE OF 1 TO 10):7 DURATION:CONTINOUS, CONSTANT, ALL DAY PAIN IS INCREASED BY:OTHERS NOTHING NURSING NOTE: -. PAIN CENTER INTAKE QUESTIONS: DO YOU HAVE A HISTORY OF MRSA? :NO DO YOU TAKE A BLOOD THINNERS? :NO ASPIRIN ADULT LOW STRENGTH 81 MG DO YOU HAVE ANY BLEEDING DISORDERS? :NO ANY NEW NUMBNESS OR WEAKNESS IN YOUR LEGS OR ARMS? :NO ANY PACEMAKER,DEFIBRILLATOR, OR DORSAL COLUMN STIMULATOR? :NO DO YOU HAVE ANY RASHES OR OPEN SORES? :YES MULTIPLE BUG BITES ON ARMS ARE YOU ALLERGIC TO IV DYE? :NO ARE YOU DIABETIC? :NO ANY NEW PROBLEMS WITH YOUR MEDICATIONS? :NO HAVE YOU RECEIVED A VACCINE IN THE PAST 30 DAYS? :NO DO YOU PLAN TO RECEIVE A VACCINE IN THE NEXT 21 DAYS? :NO DO YOU NEED ANY PRESCRIPTION? :NO DO YOU TAKE ANY IMMUNOSUPPRESSIVE MEDICATIONS? :NO DO YOU HAVE ANY KIDNEY OR LIVER DISEASE? :NO IS THERE A CHANCE YOU COULD BE ? :NO ARE YOU BREAST FEEDING? :NO CURRENT MEDICATIONS TAKING BENADRYL ALLERGY 25 MG TABLET 1.5 TABLETS ORALLY BEFORE BEDTIME TAKING MYRBETRIQ 50 MG TABLET 1 TABLET ORALLY ONCE A DAY TAKING MAY USE - - DIRECTED A WEDGE PILLOW FOR HOURS OF SLEEP DX CODE-I50.32-K21.9, NOTES: FAX TO [facility] TAKING STOOL SOFTENER 100 MG CAPSULE 1 CAP ORALLY BID TAKING TIZANIDINE HCL 2 MG TABLET 1 TABLET NEEDED ORALLY THREE TIMES A DAY TAKING OXYCODONE HCL 5 MG TABLET 1 TO2 TAB ORALLY Q8H PRN MDD6 3 MOS SUPPLY CATD CHRONIC PAIN MDD6 TAKING CLOBETASOL PROPIONATE 0.05 % CREAM 1 APPLICATION EXTERNALLY TWICE A DAY FOR ONE WEEK, THEN TWICE WEEKLY TAKING ZESTORETIC 20-25 MG TABLET 1 TABLET ORALLY ONCE A DAY, NOTES: BLOOD PRESSURE TAKING SYNTHROID 50 50MCG TABLET DIRECTED ORAL ONCE DAILY TAKING OMEPRAZOLE 40 MG CAPSULE DELAYED RELEASE 1 CAP(S) ORALLY ONCE DAILY TAKING SIMVASTATIN 20 20MG TABLET 1 TABLET ORALLY ONCE A DAY TAKING ASPIRIN ADULT LOW STRENGTH 81 MG TABLET DELAYED RELEASE 1 TABLET ORALLY ONCE A DAY TAKING ERGOCALCIFEROL 09874 IU TABLET DIRECTED ORALLY WEEKLY TAKING LEVOCETIRIZINE DIHYDROCHLORIDE 5 MG TABLET 1 TABLET IN THE EVENING ORALLY ONCE A DAY TAKING DOXYCYCLINE MONOHYDRATE 100 MG TABLET 1 TABLET ORALLY ONCE A DAY, NOTES: HAVE NOT TAKEN IT YET TAKING DIFLUCAN 150 MG TABLET 1 TABLET ORALLY DIRECTED 1 RODAY AND 1 IN 10 DAYS NOT-TAKING MIRALAX 17 GM/SCOOP POWDER 17 GM MIXED WITH 8OZ NON CARBONATED DRINK ORALLY ONCE A DAY, NOTES: TAKES NEEDED NOT-TAKING LIDOCAINE 4 % GEL DIRECTED EXTERNALLY TWICE A DAY 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 GERD PCOS MORBID OBESITY R CARPEL TUNNEL HYPERLIPIDEMIA HYPOTHYROIDISM 10/19 02/13 CT ABD - DIFFUSE FATTY INFILTRATION OF LIVER, CT 2011, NL LIVER, CT 2014 FATTY LIVER MIXED INCONTINENCE HAD URODYNAMIC WITH DR PALOMINO DONE 2014 ,CANDIDATE FOR OA BLADDER MEDICATION VITAMIN D DEFICENCY MEHDI HULL SCORE 12.78% ALLERGIES VOLTAREN: ITCHING - ALLERGY AMPICILLIN: HIVES - ALLERGY BACTRIM: HIVES - ALLERGY SOCIAL HISTORY GENERAL: TOBACCO USE ARE YOU A:NONSMOKER NEVER SMOKER LATEX QUESTIONNAIRE LATEX ALLERGY : HAVE YOU EVER DEVELOPED ANY TYPE OF REACTION AFTER HANDLING LATEX PRODUCTS SUCH RUBBER GLOVES, CONDOMS, DIAPHRAGMS, BALLOONS, SOCKS, OR UNDERWEAR?NO LATEX ALLERGY : HAVE YOU EVER DEVELOPED ANY TYPE OF REACTION DURING OR AFTER DENTAL APPOINTMENT, VAGINAL/RECTAL EXAMINATION, SURGICAL PROCEDURE, OR ANY OTHER EXPOSURE?NO LATEX RISK : HAVE YOU EVER HAD ANY DIFFICULTY BREATHING OR HIVES AFTER EATING OR HANDLING ANY FRUITS, OR VEGETABLES; SUCH KIWI, BANANAS, STONE FRUITS, OR CHESTNUTSNO LATEX RISK : DO YOU HAVE A PREVIOUS PERSONAL HISTORY OF MORE THAN NINE SURGERIES, SPINA BIFIDA, OR REPEATED CATHERIZATIONS? NO LATEX RISK : ARE YOU FREQUENTLY EXPOSED TO LATEX PRODUCTS IN YOUR OCCUPATION?NO DATE ASKED : 10/06/2020 ALCOHOL USE: NO. LUNG CANCER SCREENING SMOKING STATUS:NON SMOKER BMI CARE GOAL FOLLOW-UP ABOVE NORMAL BMI FOLLOW-UPGIVING ENCOURAGEMENT TO EXERCISE ALCOHOL SCREENING DID YOU HAVE A DRINK CONTAINING ALCOHOL IN THE PAST YEAR?NO POINTS0 INTERPRETATIONNEGATIVE RECREATIONAL DRUG USE DRUG USE?NO CAFFEINE CAFFEINE USE?YES 3 PEPSI DAILY SEXUAL HX HAD SEX IN THE LAST 12 MONTHS (VAGINAL, ORAL, OR ANAL)?YES WITHMEN ONLY USE PROTECTION?NO LMP:07/17/2018 HAVE YOU EVER HAD AN STD?NO HIV / HEP-C SCREENING TEST ACCEPTED:NO HEP-C TEST OFFERED TO PATIENT:YES DATE OFFERED:05/01/2017 REASON:PATIENT DECLINED TEST ACCEPTED:NO REASON:PATIENT DECLINED HIV TEST OFFERED TO PATIENT:YES DATE OFFERED:05/01/2017 JEW [id number] YARSANI LANGUAGE LANGUAGES SPOKEN:SYRIAN EDUCATION LEVEL OF EDUCATION:HIGH SCHOOL ONLY COMPLETED 8TH GRADE LEARNING BARRIERS / SPECIAL NEEDS CHANGE FROM LAST VISIT?NO BARRIERS TO LEARNING?NO HEARING IMPAIRED?NO VISION IMPAIRED?YES : READING COGNITIVELY IMPAIRED?NO READINESS TO LEARN?YES LEARNING PREFERENCES?NO LEARNING CAPABILITIES PRESENT?YES EMOTIONAL BARRIERS?NO SPECIAL DEVICES?NO FIRE ALARM DISPATCHER NEEDED?NO DOMESTIC VIOLENCE DO YOU FEEL SAFE IN YOUR ENVIRONMENT?YES OCCUPATION: DISABLED. DIET: REGULAR. EXERCISE: NO REGULAR EXERCISE. MARITAL STATUS: . OTHERS AT HOME: SPOUSE. - PFS REFERRAL NEEDED?NO CLERGY REFERRAL NEEDED?NO PUBLIC HEALTH REFERRAL NEEDED?NO HAS THE PATIENT BEEN EDUCATED REGARDING HIS/HER PLAN OF CARE?YES HAS THE PATIENT BEEN EDUCATED REGARDING PAIN, THE RISK FOR PAIN, THE IMPORTANCE OF EFFECTIVE PAIN MANAGEMENT, AND THE PAIN ASSESSMENT PROCESS?YES HOUSING: RENTS APARTMENT. ADVANCE DIRECTIVE ADVANCE DIRECTIVE DISCUSSED WITH PATIENT:YES PT STATES SHE DOES NOT HAVE A HCP AND DECLINES INFO AT THIS TIME. REVIEW OF SYSTEMS CONSTITUTIONAL: ANY RECENT FEVER NO . CHILLS NO . WEIGHT CHANGE OF UNKNOWN REASONS NO . GASTROENTEROLOGY: NEW UNEXPLAINABLE CHANGES IN BOWEL CONTROL NO . CONSTIPATION NO . GENITOURINARY: ANY NEW CHANGE IN BLADDER CONTROL? NO . NEUROLOGY: NEW ONSET DIZZINESS OR NEUROLOGICAL CHANGES NOT MENTIONED NO . NEW NUMBNESS OR PAIN PATTERNS NOT MENTIONED AND PERTINENT TO TODAY'S VISIT NO . CARDIOLOGY: NEW CHEST PRESSURE NO . PATIENT DENIES NO . RESPIRATORY: UNEXPLAINABLE COUGH NO . NEW SHORTNESS OF BREATH NO . VITAL SIGNS WT 336 LBS, HT 67 IN, BMI 52.62 INDEX, BP 174/117 MM HG, REPEAT BP 188/120 MM HG, HR 94 /MIN, RR 18 /MIN, TEMP 98.3 F, OXYGEN SAT % 97%, SAFE IN ENV? (Y/N) YEST.MIKE [facility] PROVIDER ABOUT BLOOD PRESSURE. EXAMINATION GENERAL EXAMINATION: GENERALAWAKE,ALERT ,PLEASANT . PSYCHAFFECT NORMAL . LUNGS:LUNG [place] ARE CLEAR TO AUSCULTATION BILATERALLY. GOOD MOVEMENT OF AIR . HEART:S1, S2 IN A REGULAR RATE AND RHYTHM. NO SIGNIFICANT MURMURS, RUBS OR GALLOPS NOTED . 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 PATIENT ALSO CONTINUES WITH CHRONIC COMPLAINTS OF PAIN OVER HER STERNAL REGION. DISPOSITION & COMMUNICATION FOLLOW UP 3 MONTHS (REASON: REVIEW ORAL TEST/TOXICOLOGY) ELECTRONICALLY SIGNED BY SALOME HOUGH ON 10/09/2020 AT 01:02 PM EDT DISCLAIMER : THIS IS A VISIT SUMMARY EXTRACTED FROM THE [employer] CHART. IT IS NOT A COPY OF THE [employer] PROGRESS NOTE. MTDD
== END ==
LOC: M PAIN 14:45
PROVIDERS: ATTEND Nurse Practitioner Family
DX: M47.815 Spondylosis without myelopathy or radiculopathy, thoracolumbar region (principal); G89.29 Other chronic pain; K21.9 Gastro-esophageal reflux disease without esophagitis; E03.9 Hypothyroidism, unspecified; Z88.1 Allergy status to other antibiotic agents; Z88.6 Allergy status to analgesic agent; E66.01 Morbid (severe) obesity due to excess calories; Z68.43 Body mass index [BMI] 50.0-59.9, adult; Z79.82 Long term (current) use of aspirin; Z79.891 Long term (current) use of opiate analgesic; Z79.899 Other long term (current) drug therapy

== ENCOUNTER → 2020-10-10 | Outpatient (CLI) | payer MEDICARE, OTHER ==
[~2020-10-10] MED LIST changes: +DOXY100T27
== END ==
LOC: M RAD 14:14
PROVIDERS: ATTEND Nurse Practitioner Adult Health
DX: R59.0 Localized enlarged lymph nodes (principal)

== ENCOUNTER → 2020-10-13 | Outpatient (CLI) | payer MEDICARE, OTHER | LOC: M RAD 13:40 | PROVIDERS: ATTEND Physician Assistant | DX: R51.9 Headache, unspecified (principal) ==

== ENCOUNTER 2020-10-16 14:26 | Emergency (ER) | payer MEDICARE, OTHER ==
[~2020-10-16] VITALS: Ht 170.2 cm; Wt 143.8 kg
[2020-10-16] MEDS ORDERED: ACETAMINOPHEN TAB 650MG DOSE (2X325MG) PO ONE (16:40)
[2020-10-16 17:20] LABS: BASO % 0.6 % (0.0-1.0); EOS % 0.6 % (0.0-3.0); HEMATOCRIT 45.1 % (36.0-47.0); HEMOGLOBIN 14.4 g/dl (12.0-15.5); LYMPH % 20.5 % (24.0-44.0); MEAN CORPUSCULAR HEMOGLOBIN 28.9 pg (27.0-33.0); MEAN CORPUSCULAR HGB CONC 31.9 g/dl (32.0-36.5); MEAN CORPUSCULAR VOLUME 90.4 fl (80.0-96.0); MONO % 8.1 % (2.0-8.0); NEUTROPHILS % 69.7 % (36.0-66.0); PLATELET COUNT, AUTOMATED 253 10^3/uL (150-450); RED BLOOD COUNT 4.99 10^6/uL (4.00-5.40); WHITE BLOOD COUNT 7.9 10^3/uL (4.0-10.0)
[2020-10-16 17:21] LABS: BASO # 0.1 10^3/uL (0.0-0.2); EOS # 0.1 10^3/uL (0.0-0.5); LYMPH # 1.6 10^3/uL (1.5-5.0); MONO # 0.6 10^3/uL (0.0-0.8); NEUTROPHILS # 5.5 10^3/uL (1.5-8.5)
--- NOTE | 2020-10-16 17:46 | REP ---
INDICATION: CHEST PAIN. COMPARISON: Comparison chest x-ray November 25, 2019. TECHNIQUE: Two views.. FINDINGS: The lungs are well inflated and free of infiltrate. The pleural angles are sharp. The heart size is normal. Pulmonary vasculature is not increased. No significant bony abnormality is seen. There are degenerative changes in the thoracic spine. EKG monitoring electrodes overlie the chest IMPRESSION: . No active disease.. <Electronically signed by Oswaldo Cortes > 10/16/20 3650
[2020-10-16 17:55] LABS: ALBUMIN 3.8 GM/DL (3.2-5.2); ALT/SGPT 53 U/L (12-78); BILIRUBIN,DIRECT < 0.1 MG/DL (0.0-0.2); BILIRUBIN,TOTAL 0.4 MG/DL (0.2-1.0); BLOOD UREA NITROGEN 14 MG/DL (7-18); CALCIUM LEVEL 9.6 MG/DL (8.5-10.1); CARBON DIOXIDE LEVEL 30 MEQ/L (21-32); CHLORIDE LEVEL 98 MEQ/L (98-107); CK-MB VALUE MASS < 1.0 NG/ML (<3.6); CPK CREATINE PHOSPHOKINASE 90 U/L (26-192); CREATININE FOR GFR 0.82 MG/DL (0.55-1.30); FREE T4 1.62 NG/DL (0.76-1.46); GLOMERULAR FILTRATION RATE > 60.0 (>58); GLUCOSE, FASTING 90 MG/DL (70-100); LIPASE 102 U/L (73-393); MB/CK RELATIVE INDEX 1.11 (< OR =4); NT-PRO BNP 37 PG/ML (<125); POTASSIUM SERUM 4.7 MEQ/L (3.5-5.1); SODIUM LEVEL 136 MEQ/L (136-145); THYROID STIMULATING HORMONE 0.383 uIU/ML (0.358-3.740); TOTAL PROTEIN 8.4 GM/DL (6.4-8.2); TROPONIN I < 0.02 NG/ML (< 0.10)
[2020-10-16 18:46] VITALS: BP 156/85
--- NOTE | 2020-10-16 19:26 | ECGEPIP ---
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
== END 2020-10-16 18:57 | disposition home or self-care (01) ==
LOC: M ED 14:26
DX: I10 Essential (primary) hypertension (principal); E07.9 Disorder of thyroid, unspecified; K21.9 Gastro-esophageal reflux disease without esophagitis; E66.9 Obesity, unspecified; E28.2 Polycystic ovarian syndrome; E78.9 Disorder of lipoprotein metabolism, unspecified; E55.9 Vitamin D deficiency, unspecified; Z79.899 Other long term (current) drug therapy; Z79.890 Hormone replacement therapy; Z79.82 Long term (current) use of aspirin; Z88.0 Allergy status to penicillin; Z88.8 Allergy status to other drugs, medicaments and biological substances; Z88.1 Allergy status to other antibiotic agents

== ENCOUNTER → 2020-10-18 | Outpatient (CLI) | payer MEDICARE, OTHER ==
[2020-10-18 14:55] LABS: ALBUMIN 3.7 GM/DL (3.2-5.2); ALT/SGPT 44 U/L (12-78); BILIRUBIN,TOTAL 0.3 MG/DL (0.2-1.0); BLOOD UREA NITROGEN 12 MG/DL (7-18); CALCIUM LEVEL 9.8 MG/DL (8.5-10.1); CARBON DIOXIDE LEVEL 29 MEQ/L (21-32); CHLORIDE LEVEL 99 MEQ/L (98-107); CREATININE FOR GFR 0.87 MG/DL (0.55-1.30); FREE T4 1.59 NG/DL (0.76-1.46); GLOMERULAR FILTRATION RATE > 60.0 (>58); GLUCOSE, FASTING 100 MG/DL (70-100); POTASSIUM SERUM 3.9 MEQ/L (3.5-5.1); SODIUM LEVEL 136 MEQ/L (136-145); TOTAL PROTEIN 7.7 GM/DL (6.4-8.2)
[2020-10-19 11:16] LABS: APPEARANCE, URINE CLOUDY (CLEAR); BACTERIA, URINE AUTO NEGATIVE (NEGATIVE); BILIRUBIN, URINE AUTO NEGATIVE (NEGATIVE); BLOOD, URINE BLOOD NEGATIVE (NEGATIVE); COLOR, URINE YELLOW (YELLOW); GLUCOSE, URINE (UA) AUTO NEGATIVE (NEGATIVE); KETONE, URINE AUTO NEGATIVE (NEGATIVE); LEUKOCYTE ESTERASE, URINE AUTO NEGATIVE (NEGATIVE); MUCUS, URINE SMALL (NEGATIVE); NITRITE, URINE AUTO NEGATIVE (NEGATIVE); PROTEIN, URINE AUTO NEGATIVE (NEGATIVE); RBC, URINE AUTO 1 /HPF (0-3); SPECIFIC GRAVITY URINE AUTO 1.013 (1.002-1.035); SQUAMOUS EPITHELIAL CELL UR AU 7 /HPF (0-6); URIC ACID CRYSTALS SMALL; UROBILINOGEN, URINE AUTO 0.2 mg/dL (0.0-2.0); WBC, URINE AUTO 1 /HPF (0-3)
== END ==
LOC: M PLALAB 09:40
PROVIDERS: ATTEND Physician Assistant
DX: R07.89 Other chest pain (principal); R23.2 Flushing; R51.9 Headache, unspecified; I49.9 Cardiac arrhythmia, unspecified; Z79.899 Other long term (current) drug therapy

== ENCOUNTER → 2020-10-20 | Outpatient (CLI) | payer MEDICARE, OTHER ==
[~2020-10-20] MED LIST changes: +ISOVUE-370 76% 100ML VIAL As Ordered ONE
--- NOTE | 2020-10-20 18:48 | REPVR ---
PROCEDURE INFORMATION: Exam: CT Neck With Contrast Exam date and time: 10/20/2020 6:13 PM Age: 45 years old Clinical indication: Mass, lump, or swelling in neck; Left; Additional info: Supraclavicular mass TECHNIQUE: Imaging protocol: Computed tomography images of the neck with contrast. Radiation optimization: All CT scans at this facility use at least one of these dose optimization techniques: automated exposure control; mA and/or kV adjustment per patient size (includes targeted exams where dose is matched to clinical indication); or iterative reconstruction. Contrast material: ISOVUE 370; Contrast volume: 75 ml; Contrast route: INTRAVENOUS (IV); COMPARISON: CT Neck with contrast 02/14/2016 1:00 PM FINDINGS: Brain: Stable 10 x 10 mm right IAC calcified versus ossified lesion, image 9 series 201. This could represent an exostosis or heavily calcified meningioma. Nasopharynx: Unremarkable. Oropharynx: Unremarkable. No significant tonsillar enlargement. Hypopharynx: Unremarkable. Larynx: Unremarkable. Normal epiglottis. Retropharyngeal space: Unremarkable. Submandibular/Parotid glands: Normal. Glands are normal in size. Thyroid: Normal. No enlarged or calcified nodules. Lymph nodes: Mildly prominent submental and submandibular lymph nodes, similar to prior. Trachea: Visualized trachea is unremarkable. Lungs: Unremarkable as visualized. Bones/joints: There is [id number] cervical degenerative disc disease. Prominent degenerative changes of the left acromioclavicular joint with likely inflammatory pannus. Soft tissues: A marker is placed over the anterior left neck soft tissues in the left supraclavicular region. Deep to the marker, prominent adipose tissue. No discrete mass or fluid collection identified. IMPRESSION: 1. No soft tissue mass or lymphadenopathy identified. 2. Prominent degenerative changes of the left acromioclavicular joint with likely inflammatory pannus. 3. Stable 10 x 10 mm right IAC calcified versus ossified lesion, image 9 series 201. This could represent an exostosis or heavily calcified meningioma. Electronically signed by: Ana Maria Hensley On 10/20/2020 18:48:01 PM
== END ==
LOC: M RAD 17:42
PROVIDERS: ATTEND Physician Assistant
DX: R63.4 Abnormal weight loss (principal); R22.2 Localized swelling, mass and lump, trunk; R53.81 Other malaise; M19.012 Primary osteoarthritis, left shoulder
CPT/HCPCS: 70491; Q9967

== ENCOUNTER → 2020-11-02 | Outpatient (REF) | payer MEDICARE, OTHER ==
[~2020-11-02] MED LIST changes: -ISOVUE-370 76% 100ML VIAL As Ordered ONE
[2020-11-02 18:16] LABS: APPEARANCE, URINE HAZY (CLEAR); BACTERIA, URINE AUTO 1+ (NEGATIVE); BILIRUBIN, URINE AUTO NEGATIVE (NEGATIVE); BLOOD, URINE BLOOD NEGATIVE (NEGATIVE); COLOR, URINE YELLOW (YELLOW); GLUCOSE, URINE (UA) AUTO NEGATIVE (NEGATIVE); KETONE, URINE AUTO NEGATIVE (NEGATIVE); LEUKOCYTE ESTERASE, URINE AUTO NEGATIVE (NEGATIVE); MUCUS, URINE SMALL (NEGATIVE); NITRITE, URINE AUTO NEGATIVE (NEGATIVE); PROTEIN, URINE AUTO NEGATIVE (NEGATIVE); RBC, URINE AUTO 1 /HPF (0-3); SPECIFIC GRAVITY URINE AUTO 1.015 (1.002-1.035); SQUAMOUS EPITHELIAL CELL UR AU 3 /HPF (0-6); UROBILINOGEN, URINE AUTO 0.2 mg/dL (0.0-2.0); WBC, URINE AUTO 4 /HPF (0-3)
== END ==
LOC: M SMT 17:10
PROVIDERS: ATTEND Nurse Practitioner Women's Health
DX: R30.0 Dysuria (principal)

== ENCOUNTER → 2020-11-14 | Outpatient (REF) | payer MEDICARE, OTHER | LOC: M SFHCPLAZ 10:00 | PROVIDERS: ATTEND Physician Assistant | DX: R05 Cough (principal) | CPT/HCPCS: 87426; G0463; U0003 ==

== ENCOUNTER → 2020-11-15 | Outpatient (CLI) | payer MEDICARE, OTHER | LOC: M LAB 14:03 | PROVIDERS: ATTEND Physician Assistant | DX: I11.0 Hypertensive heart disease with heart failure (principal); I50.9 Heart failure, unspecified ==

== ENCOUNTER → 2020-11-15 | Outpatient (CLI) | payer MEDICARE, OTHER ==
[2020-11-15 15:57] LABS: BASO # 0.1 10^3/uL (0.0-0.2); BASO % 0.7 % (0.0-1.0); EOS # 0.1 10^3/uL (0.0-0.5); EOS % 1.2 % (0.0-3.0); HEMATOCRIT 42.3 % (36.0-47.0); HEMOGLOBIN 13.6 g/dl (12.0-15.5); LYMPH # 1.9 10^3/uL (1.5-5.0); LYMPH % 21.8 % (24.0-44.0); MEAN CORPUSCULAR HEMOGLOBIN 29.1 pg (27.0-33.0); MEAN CORPUSCULAR HGB CONC 32.2 g/dl (32.0-36.5); MEAN CORPUSCULAR VOLUME 90.6 fl (80.0-96.0); MONO # 0.7 10^3/uL (0.0-0.8); MONO % 7.7 % (2.0-8.0); NEUTROPHILS # 5.8 10^3/uL (1.5-8.5); NEUTROPHILS % 68.1 % (36.0-66.0); PLATELET COUNT, AUTOMATED 266 10^3/uL (150-450); RED BLOOD COUNT 4.67 10^6/uL (4.00-5.40); WHITE BLOOD COUNT 8.5 10^3/uL (4.0-10.0)
[2020-11-15 18:25] LABS: ERYTHROCYTE SEDIMENTATION RATE 49 mm/hr (0-20)
[2020-11-20 14:05] LABS: ANA (HEP2) SEE SEPARATE REPORT
[2020-11-20 14:07] LABS: Lyme Disease IgG/IgM Antibodie See Separate Report
== END ==
LOC: M LAB 14:06
PROVIDERS: ATTEND Physician Assistant
DX: R05 Cough (principal); G47.00 Insomnia, unspecified; R51.9 Headache, unspecified; I11.0 Hypertensive heart disease with heart failure; I50.9 Heart failure, unspecified

== ENCOUNTER → 2020-11-15 | Outpatient (REF) | payer MEDICARE, OTHER ==
[2020-11-15 18:09] LABS: APPEARANCE, URINE HAZY (CLEAR); BACTERIA, URINE AUTO 1+ (NEGATIVE); BILIRUBIN, URINE AUTO NEGATIVE (NEGATIVE); BLOOD, URINE BLOOD 1+ (NEGATIVE); COLOR, URINE YELLOW (YELLOW); GLUCOSE, URINE (UA) AUTO NEGATIVE (NEGATIVE); KETONE, URINE AUTO NEGATIVE (NEGATIVE); LEUKOCYTE ESTERASE, URINE AUTO NEGATIVE (NEGATIVE); NITRITE, URINE AUTO NEGATIVE (NEGATIVE); PROTEIN, URINE AUTO NEGATIVE (NEGATIVE); RBC, URINE AUTO 0 /HPF (0-3); SPECIFIC GRAVITY URINE AUTO 1.018 (1.002-1.035); SQUAMOUS EPITHELIAL CELL UR AU 2 /HPF (0-6); UROBILINOGEN, URINE AUTO 0.2 mg/dL (0.0-2.0); WBC, URINE AUTO 1 /HPF (0-3)
== END ==
LOC: M SMT 17:13
PROVIDERS: ATTEND Nurse Practitioner Women's Health
DX: N39.0 Urinary tract infection, site not specified (principal)

== ENCOUNTER → 2020-11-17 | Outpatient (REF) | payer MEDICARE, OTHER | LOC: M LAB REF 13:17 | PROVIDERS: ATTEND Physician Assistant | DX: I11.0 Hypertensive heart disease with heart failure (principal) ==

== ENCOUNTER → 2020-12-22 | Outpatient (REF) | payer MEDICARE, OTHER | LOC: M LAB REF 11:46 | PROVIDERS: ATTEND Internal Medicine | DX: M25.50 Pain in unspecified joint (principal) ==

== ENCOUNTER → 2021-01-24 | Outpatient (REF) | payer MEDICARE, OTHER ==
[2021-01-24 18:02] LABS: APPEARANCE, URINE CLEAR (CLEAR); BACTERIA, URINE AUTO NEGATIVE (NEGATIVE); BILIRUBIN, URINE AUTO NEGATIVE (NEGATIVE); BLOOD, URINE BLOOD NEGATIVE (NEGATIVE); COLOR, URINE YELLOW (YELLOW); GLUCOSE, URINE (UA) AUTO NEGATIVE (NEGATIVE); KETONE, URINE AUTO NEGATIVE (NEGATIVE); LEUKOCYTE ESTERASE, URINE AUTO NEGATIVE (NEGATIVE); MUCUS, URINE SMALL (NEGATIVE); NITRITE, URINE AUTO NEGATIVE (NEGATIVE); PROTEIN, URINE AUTO NEGATIVE (NEGATIVE); RBC, URINE AUTO 0 /HPF (0-3); SPECIFIC GRAVITY URINE AUTO 1.019 (1.002-1.035); SQUAMOUS EPITHELIAL CELL UR AU 1 /HPF (0-6); UROBILINOGEN, URINE AUTO 0.2 mg/dL (0.0-2.0); WBC, URINE AUTO 2 /HPF (0-3)
== END ==
LOC: M SMT 16:48
PROVIDERS: ATTEND Nurse Practitioner Women's Health
DX: R30.0 Dysuria (principal)

== ENCOUNTER → 2021-02-05 | Outpatient (REF) | payer MEDICARE, OTHER ==
[2021-02-05 17:51] LABS: C REACTIVE PROTEIN QUANTITATIV 2.32 MG/DL (0.00-0.30); RHEUMATOID FACTOR QUANT < 10.0 IU/ML (<15.0)
== END ==
LOC: M LAB REF 16:28
PROVIDERS: ATTEND Internal Medicine
DX: M25.50 Pain in unspecified joint (principal)

== ENCOUNTER → 2021-02-05 | Outpatient (REF) | payer MEDICARE, OTHER | LOC: M LAB REF 16:29 | PROVIDERS: ATTEND Internal Medicine | DX: N32.81 Overactive bladder (principal); N39.0 Urinary tract infection, site not specified ==

== ENCOUNTER → 2021-02-06 | Outpatient (CLI) | payer MEDICARE, OTHER | LOC: M WUC 15:24 | PROVIDERS: ATTEND Internal Medicine | DX: M79.641 Pain in right hand (principal); M79.642 Pain in left hand ==

== ENCOUNTER → 2021-02-09 | Outpatient (REF) | payer MEDICARE, OTHER ==
[2021-02-09 17:46] LABS: APPEARANCE, URINE CLEAR (CLEAR); BACTERIA, URINE AUTO 1+ (NEGATIVE); BILIRUBIN, URINE AUTO NEGATIVE (NEGATIVE); BLOOD, URINE BLOOD NEGATIVE (NEGATIVE); COLOR, URINE YELLOW (YELLOW); GLUCOSE, URINE (UA) AUTO NEGATIVE (NEGATIVE); KETONE, URINE AUTO NEGATIVE (NEGATIVE); LEUKOCYTE ESTERASE, URINE AUTO NEGATIVE (NEGATIVE); MUCUS, URINE SMALL (NEGATIVE); NITRITE, URINE AUTO NEGATIVE (NEGATIVE); PROTEIN, URINE AUTO NEGATIVE (NEGATIVE); RBC, URINE AUTO 0 /HPF (0-3); SPECIFIC GRAVITY URINE AUTO 1.018 (1.002-1.035); SQUAMOUS EPITHELIAL CELL UR AU 2 /HPF (0-6); UROBILINOGEN, URINE AUTO 0.2 mg/dL (0.0-2.0); WBC, URINE AUTO 1 /HPF (0-3)
== END ==
LOC: M SMT 16:37
PROVIDERS: ATTEND Nurse Practitioner Women's Health
DX: R30.0 Dysuria (principal)

== ENCOUNTER → 2021-02-14 | Outpatient (REF) | payer MEDICARE, OTHER ==
[2021-02-14 17:02] LABS: C REACTIVE PROTEIN QUANTITATIV 0.65 MG/DL (0.00-0.30); URIC ACID 5.9 MG/DL (2.6-6.0)
== END ==
LOC: M LAB REF 16:28
PROVIDERS: ATTEND Internal Medicine
DX: M25.50 Pain in unspecified joint (principal)

== ENCOUNTER → 2021-02-23 | Outpatient (CLI) | payer MEDICARE, OTHER | LOC: M PAIN 14:45 | PROVIDERS: ATTEND Anesthesiology | DX: M54.2 Cervicalgia (principal); M79.18 Myalgia, other site; K21.9 Gastro-esophageal reflux disease without esophagitis; E03.9 Hypothyroidism, unspecified; Z88.1 Allergy status to other antibiotic agents; Z88.6 Allergy status to analgesic agent; E66.01 Morbid (severe) obesity due to excess calories; Z68.43 Body mass index [BMI] 50.0-59.9, adult; Z79.82 Long term (current) use of aspirin; Z79.891 Long term (current) use of opiate analgesic; Z79.899 Other long term (current) drug therapy ==

== ENCOUNTER → 2021-02-26 | Outpatient (REF) | payer MEDICARE, OTHER ==
[2021-02-26 17:54] LABS: APPEARANCE, URINE CLEAR (CLEAR); BACTERIA, URINE AUTO NEGATIVE (NEGATIVE); BILIRUBIN, URINE AUTO NEGATIVE (NEGATIVE); BLOOD, URINE BLOOD NEGATIVE (NEGATIVE); COLOR, URINE YELLOW (YELLOW); GLUCOSE, URINE (UA) AUTO NEGATIVE (NEGATIVE); KETONE, URINE AUTO NEGATIVE (NEGATIVE); LEUKOCYTE ESTERASE, URINE AUTO NEGATIVE (NEGATIVE); MUCUS, URINE SMALL (NEGATIVE); NITRITE, URINE AUTO NEGATIVE (NEGATIVE); PROTEIN, URINE AUTO NEGATIVE (NEGATIVE); RBC, URINE AUTO 0 /HPF (0-3); SQUAMOUS EPITHELIAL CELL UR AU 1 /HPF (0-6); UROBILINOGEN, URINE AUTO 0.2 mg/dL (0.0-2.0); WBC, URINE AUTO 1 /HPF (0-3)
== END ==
LOC: M SMT 17:02
PROVIDERS: ATTEND Nurse Practitioner Women's Health
DX: R30.0 Dysuria (principal)

== ENCOUNTER → 2021-03-16 | Outpatient (REF) | payer MEDICARE, OTHER ==
[2021-03-16 18:22] LABS: APPEARANCE, URINE CLEAR (CLEAR); BACTERIA, URINE AUTO 1+ (NEGATIVE); BILIRUBIN, URINE AUTO NEGATIVE (NEGATIVE); BLOOD, URINE BLOOD NEGATIVE (NEGATIVE); COLOR, URINE YELLOW (YELLOW); GLUCOSE, URINE (UA) AUTO NEGATIVE (NEGATIVE); KETONE, URINE AUTO NEGATIVE (NEGATIVE); LEUKOCYTE ESTERASE, URINE AUTO NEGATIVE (NEGATIVE); MUCUS, URINE SMALL (NEGATIVE); NITRITE, URINE AUTO NEGATIVE (NEGATIVE); PROTEIN, URINE AUTO NEGATIVE (NEGATIVE); RBC, URINE AUTO 1 /HPF (0-3); SPECIFIC GRAVITY URINE AUTO 1.023 (1.002-1.035); SQUAMOUS EPITHELIAL CELL UR AU 3 /HPF (0-6); UROBILINOGEN, URINE AUTO 0.2 mg/dL (0.0-2.0); WBC, URINE AUTO 1 /HPF (0-3)
== END ==
LOC: M SMT 16:46
PROVIDERS: ATTEND Nurse Practitioner Women's Health
DX: R30.0 Dysuria (principal)

== ENCOUNTER → 2021-03-23 | Outpatient (REF) | payer MEDICARE, OTHER | LOC: M SMT 12:53 | PROVIDERS: ATTEND Urology | DX: Z87.440 Personal history of urinary (tract) infections (principal); Z79.899 Other long term (current) drug therapy ==

== ENCOUNTER → 2021-03-28 | Outpatient (REF) | payer MEDICARE, OTHER | LOC: M LAB REF 16:32 | PROVIDERS: ATTEND Internal Medicine | DX: M79.605 Pain in left leg (principal) ==

== ENCOUNTER → 2021-04-03 | Outpatient (CLI) | payer MEDICARE, OTHER | LOC: M RAD 16:35 | PROVIDERS: ATTEND Anesthesiology | DX: M54.2 Cervicalgia (principal); M25.552 Pain in left hip; M17.12 Unilateral primary osteoarthritis, left knee ==

== ENCOUNTER → 2021-04-06 | Outpatient (CLI) | payer MEDICARE, OTHER | LOC: M RAD 13:33 | PROVIDERS: ATTEND Internal Medicine | DX: M79.605 Pain in left leg (principal) ==

== ENCOUNTER → 2021-04-12 | Outpatient (REF) | payer MEDICARE, OTHER ==
[2021-04-12 17:31] LABS: APPEARANCE, URINE CLEAR (CLEAR); BACTERIA, URINE AUTO 1+ (NEGATIVE); BILIRUBIN, URINE AUTO NEGATIVE (NEGATIVE); BLOOD, URINE BLOOD NEGATIVE (NEGATIVE); COLOR, URINE YELLOW (YELLOW); GLUCOSE, URINE (UA) AUTO NEGATIVE (NEGATIVE); KETONE, URINE AUTO NEGATIVE (NEGATIVE); LEUKOCYTE ESTERASE, URINE AUTO NEGATIVE (NEGATIVE); MUCUS, URINE SMALL (NEGATIVE); NITRITE, URINE AUTO NEGATIVE (NEGATIVE); PROTEIN, URINE AUTO NEGATIVE (NEGATIVE); RBC, URINE AUTO 0 /HPF (0-3); SPECIFIC GRAVITY URINE AUTO 1.017 (1.002-1.035); SQUAMOUS EPITHELIAL CELL UR AU 2 /HPF (0-6); UROBILINOGEN, URINE AUTO 0.2 mg/dL (0.0-2.0); WBC, URINE AUTO 1 /HPF (0-3)
== END ==
LOC: M SMT 16:41
PROVIDERS: ATTEND Urology
DX: R30.0 Dysuria (principal)

== ENCOUNTER → 2021-04-13 | Outpatient (REF) | payer MEDICARE, OTHER ==
[2021-04-13 17:43] LABS: C REACTIVE PROTEIN QUANTITATIV 0.93 MG/DL (0.00-0.30); FERRITIN 16 NG/ML (8-252); IRON (FE) 47 UG/DL (50-170); PERCENT SATURATION 14.2 % (13.2-45.0); TOTAL IRON BINDING CAPACITY 331 UG/DL (250-450)
[2021-04-13 18:05] LABS: HEPATITIS B SURFACE ANTIGEN NEGATIVE (NEGATIVE)
[2021-04-13 18:32] LABS: HEPATITIS B CORE ANTIBODY IGM NEGATIVE (NEGATIVE); HEPATITIS C VIRUS ABY INDEX < 0.0 INDEX (<0.8)
== END ==
LOC: M LAB REF 16:37
PROVIDERS: ATTEND Internal Medicine
DX: K76.0 Fatty (change of) liver, not elsewhere classified (principal); M25.50 Pain in unspecified joint

== ENCOUNTER → 2021-05-15 | Outpatient (CLI) | payer MEDICARE, OTHER | LOC: M RAD 16:39 | PROVIDERS: ATTEND Nurse Practitioner Family | DX: R07.81 Pleurodynia (principal) ==

== ENCOUNTER 2021-05-23 21:55 | Emergency (ER) | payer MEDICARE, OTHER ==
[~2021-05-23] VITALS: Ht 170.2 cm; Wt 150.4 kg
[2021-05-24 00:15] LABS: BASO % 0.2 % (0.0-1.0); EOS % 0.2 % (0.0-3.0); HEMATOCRIT 41.9 % (36.0-47.0); HEMOGLOBIN 13.3 g/dl (12.0-15.5); LYMPH # 2.2 10^3/uL (1.5-5.0); LYMPH % 17.2 % (24.0-44.0); MEAN CORPUSCULAR HEMOGLOBIN 27.8 pg (27.0-33.0); MEAN CORPUSCULAR HGB CONC 31.7 g/dl (32.0-36.5); MEAN CORPUSCULAR VOLUME 87.5 fl (80.0-96.0); MONO # 0.7 10^3/uL (0.0-0.8); MONO % 5.7 % (2.0-8.0); NEUTROPHILS # 9.8 10^3/uL (1.5-8.5); NEUTROPHILS % 76.1 % (36.0-66.0); PLATELET COUNT, AUTOMATED 252 10^3/uL (150-450); RED BLOOD COUNT 4.79 10^6/uL (4.00-5.40); WHITE BLOOD COUNT 12.9 10^3/uL (4.0-10.0)
[2021-05-24 00:48] LABS: BLOOD UREA NITROGEN 18 MG/DL (7-18); CALCIUM LEVEL 9.3 MG/DL (8.5-10.1); CARBON DIOXIDE LEVEL 31 MEQ/L (21-32); CHLORIDE LEVEL 102 MEQ/L (98-107); CREATININE FOR GFR 0.79 MG/DL (0.55-1.30); GLOMERULAR FILTRATION RATE > 60.0 (>58); GLUCOSE, FASTING 89 MG/DL (70-100); SODIUM LEVEL 138 MEQ/L (136-145); THYROID STIMULATING HORMONE 0.366 uIU/ML (0.358-3.740)
[2021-05-24] MEDS ORDERED: CHLORTHALIDONE 25 MG TAB PO ONE (00:55)
[2021-05-24] MEDS ORDERED: VALSARTAN 80 MG TAB (DIOVAN) PO ONE (00:55)
[2021-05-24 01:25] VITALS: BP 169/94
[2021-05-24] MEDS ORDERED: LISI20TA33 PO (02:37)
[2021-05-24] MEDS ORDERED: HYDR-3490 PO (02:38)
[2021-05-24] MEDS ORDERED: TRAZ1TAB14 PO (02:45)
[2021-05-24] MEDS ORDERED: PEPC40TA12 PO (02:46)
[2021-05-24 03:04] VITALS: BP 132/62
== END 2021-05-24 03:16 | disposition home or self-care (01) ==
LOC: M ED 21:55
DX: I10 Essential (primary) hypertension (principal); E78.5 Hyperlipidemia, unspecified; E66.9 Obesity, unspecified; K21.9 Gastro-esophageal reflux disease without esophagitis; Z88.2 Allergy status to sulfonamides; Z88.6 Allergy status to analgesic agent; Z79.811 Long term (current) use of aromatase inhibitors; Z79.899 Other long term (current) drug therapy

== ENCOUNTER → 2021-05-28 | Outpatient (REF) | payer MEDICARE, OTHER ==
[~2021-05-28] MED LIST changes: +HYDR-3490 PO; +PEPC40TA12 PO; +TRAZ1TAB14 PO
[2021-05-28 19:00] LABS: GC DNA AMPLIFICATION NEGATIVE (NEGATIVE)
== END ==
LOC: M SFHCWAGY 17:09
PROVIDERS: ATTEND Obstetrics & Gynecology
DX: Z79.899 Other long term (current) drug therapy (principal); B96.89 Other specified bacterial agents as the cause of diseases classified elsewhere

== ENCOUNTER → 2021-07-07 | Outpatient (CLI) | payer MEDICARE, OTHER | LOC: M LABSMTC 11:37 | PROVIDERS: ATTEND Anesthesiology | DX: Z01.812 Encounter for preprocedural laboratory examination (principal); Z20.822 Contact with and (suspected) exposure to COVID-19 ==

== ENCOUNTER → 2021-07-10 | Outpatient (REF) | payer MEDICARE, OTHER | LOC: M LAB REF 12:19 | PROVIDERS: ATTEND Internal Medicine | DX: I10 Essential (primary) hypertension (principal) ==

== ENCOUNTER → 2021-07-11 | Outpatient (CLI) | payer MEDICARE, OTHER ==
[~2021-07-11] MED LIST changes: +BUPIVACAINE HCL 0.25% 10ML VIAL As Ordered ONE; +BUPIVACAINE HCL 0.25% 30ML VIAL As Ordered ONE; +TRIAMCINOLONE ACETONIDE SUSP 40 MG/ML VIAL (J3301) As Ordered ONE
== END ==
LOC: M PAIN 11:00
PROVIDERS: ATTEND Anesthesiology
DX: M79.18 Myalgia, other site (principal); I10 Essential (primary) hypertension; M50.30 Other cervical disc degeneration, unspecified cervical region; M51.36 Other intervertebral disc degeneration, lumbar region; M51.34 Other intervertebral disc degeneration, thoracic region; K21.9 Gastro-esophageal reflux disease without esophagitis; E28.2 Polycystic ovarian syndrome; E66.01 Morbid (severe) obesity due to excess calories; G56.01 Carpal tunnel syndrome, right upper limb; E78.5 Hyperlipidemia, unspecified; E03.9 Hypothyroidism, unspecified; E55.9 Vitamin D deficiency, unspecified; Z68.43 Body mass index [BMI] 50.0-59.9, adult; Z79.82 Long term (current) use of aspirin; Z79.891 Long term (current) use of opiate analgesic; Z79.899 Other long term (current) drug therapy; Z88.1 Allergy status to other antibiotic agents; Z88.2 Allergy status to sulfonamides; Z88.8 Allergy status to other drugs, medicaments and biological substances
CPT/HCPCS: 20553; J3301

== ENCOUNTER → 2021-07-20 | Outpatient (REF) | payer MEDICARE, OTHER ==
[~2021-07-20] MED LIST changes: -BUPIVACAINE HCL 0.25% 10ML VIAL As Ordered ONE; -BUPIVACAINE HCL 0.25% 30ML VIAL As Ordered ONE; -TRIAMCINOLONE ACETONIDE SUSP 40 MG/ML VIAL (J3301) As Ordered ONE
[2021-07-20 12:26] LABS: BASO # 0.1 10^3/uL (0.0-0.2); BASO % 0.5 % (0.0-1.0); EOS # 0.1 10^3/uL (0.0-0.5); EOS % 1.2 % (0.0-3.0); HEMATOCRIT 43.6 % (36.0-47.0); HEMOGLOBIN 13.6 g/dl (12.0-15.5); LYMPH # 2.6 10^3/uL (1.5-5.0); LYMPH % 26.2 % (24.0-44.0); MEAN CORPUSCULAR HEMOGLOBIN 28.6 pg (27.0-33.0); MEAN CORPUSCULAR HGB CONC 31.2 g/dl (32.0-36.5); MEAN CORPUSCULAR VOLUME 91.8 fl (80.0-96.0); MONO # 0.5 10^3/uL (0.0-0.8); MONO % 5.5 % (2.0-8.0); NEUTROPHILS # 6.5 10^3/uL (1.5-8.5); NEUTROPHILS % 66.2 % (36.0-66.0); PLATELET COUNT, AUTOMATED 282 10^3/uL (150-450); RED BLOOD COUNT 4.75 10^6/uL (4.00-5.40); WHITE BLOOD COUNT 9.9 10^3/uL (4.0-10.0)
[2021-07-20 12:49] LABS: APPEARANCE, URINE HAZY (CLEAR); BACTERIA, URINE AUTO NEGATIVE (NEGATIVE); BILIRUBIN, URINE AUTO NEGATIVE (NEGATIVE); BLOOD, URINE BLOOD NEGATIVE (NEGATIVE); COLOR, URINE YELLOW (YELLOW); GLUCOSE, URINE (UA) AUTO NEGATIVE (NEGATIVE); KETONE, URINE AUTO NEGATIVE (NEGATIVE); LEUKOCYTE ESTERASE, URINE AUTO NEGATIVE (NEGATIVE); MUCUS, URINE SMALL (NEGATIVE); NITRITE, URINE AUTO NEGATIVE (NEGATIVE); PROTEIN, URINE AUTO NEGATIVE (NEGATIVE); RBC, URINE AUTO 0 /HPF (0-3); SPECIFIC GRAVITY URINE AUTO 1.024 (1.002-1.035); SQUAMOUS EPITHELIAL CELL UR AU 5 /HPF (0-6); UROBILINOGEN, URINE AUTO 0.2 mg/dL (0.0-2.0); WBC, URINE AUTO 2 /HPF (0-3)
[2021-07-20 13:00] LABS: ALBUMIN 3.4 GM/DL (3.2-5.2); ALT/SGPT 17 U/L (12-78); BILIRUBIN,DIRECT 0.1 MG/DL (0.0-0.2); BILIRUBIN,TOTAL 0.3 MG/DL (0.2-1.0); BLOOD UREA NITROGEN 18 MG/DL (7-18); C REACTIVE PROTEIN QUANTITATIV 1.76 MG/DL (0.00-0.30); CALCIUM LEVEL 9.3 MG/DL (8.5-10.1); CARBON DIOXIDE LEVEL 29 MEQ/L (21-32); CHLORIDE LEVEL 103 MEQ/L (98-107); COMPLEMENT C3 157 MG/DL (90-180); COMPLEMENT C4 25 MG/DL (10-40); CREATININE FOR GFR 0.94 MG/DL (0.55-1.30); GLOMERULAR FILTRATION RATE > 60.0 (>58); GLUCOSE, FASTING 94 MG/DL (70-100); IRON (FE) 52 UG/DL (50-170); MAGNESIUM LEVEL 2.3 MG/DL (1.8-2.4); PHOSPHORUS LEVEL 3.7 MG/DL (2.5-4.9); POTASSIUM SERUM 3.9 MEQ/L (3.5-5.1); SODIUM LEVEL 137 MEQ/L (136-145); TOTAL PROTEIN 7.5 GM/DL (6.4-8.2)
[2021-07-20 13:01] LABS: TOTAL PROTEIN,RANDOM URINE 33.9 MG/DL (0.0-12.0)
[2021-07-20 13:07] LABS: TOTAL 25(OH) VITAMIN D 57.9 NG/ML (30.0-100.0)
[2021-07-20 13:08] LABS: HEPATITIS B SURFACE ANTIBODY NEGATIVE (POSITIVE); VITAMIN B12 LEVEL 266 PG/ML (247-911)
[2021-07-20 13:19] LABS: HEPATITIS B SURFACE ANTIGEN NEGATIVE (NEGATIVE)
[2021-07-20 13:44] LABS: ERYTHROCYTE SEDIMENTATION RATE 30 mm/hr (0-20)
[2021-07-20 13:47] LABS: HEPATITIS C VIRUS ABY INDEX 0.1 INDEX (<0.8)
[2021-07-26 10:29] LABS: DRVV SCREEN 40.8 SEC
[2021-07-26 10:48] LABS: PTT LUPUS TYPE ANTICOAG SCREEN 1.1 (0-1.2)
[2021-07-27 15:08] LABS: ANCA-ATYPICAL <1:20 titer (Neg:<1:20); COMPLEMENT TOTAL (CH50) > 60 U/mL (>41); CYTOPLASMIC NEUTROP AB ANCA-C <1:20 titer (Neg:<1:20); HEPATITIS B CORE ANTIBODY IGG Negative (Negative); HLA-B27 Negative (.); HSV IgM TYPES 1&2 <0.91 Ratio (0.00-0.90); PERINUCLEAR AB ANCA-P <1:20 titer (Neg:<1:20)
== END ==
LOC: M SFHCRHEU 10:33
PROVIDERS: ATTEND Internal Medicine
DX: M06.4 Inflammatory polyarthropathy (principal); M79.10 Myalgia, unspecified site; M54.9 Dorsalgia, unspecified; K12.1 Other forms of stomatitis; Z79.899 Other long term (current) drug therapy; J34.0 Abscess, furuncle and carbuncle of nose; Z11.59 Encounter for screening for other viral diseases

== ENCOUNTER → 2021-07-26 | Outpatient (CLI) | payer MEDICARE, OTHER | LOC: M RAD 15:44 | PROVIDERS: ATTEND Internal Medicine | DX: M06.4 Inflammatory polyarthropathy (principal); M54.9 Dorsalgia, unspecified; M77.30 Calcaneal spur, unspecified foot ==

== ENCOUNTER → 2021-08-22 | Outpatient (CLI) | payer MEDICARE, OTHER | LOC: M PAIN 14:30 | PROVIDERS: ATTEND Anesthesiology | DX: G89.4 Chronic pain syndrome (principal); M70.60 Trochanteric bursitis, unspecified hip; E03.9 Hypothyroidism, unspecified; Z88.1 Allergy status to other antibiotic agents; Z88.6 Allergy status to analgesic agent; E66.01 Morbid (severe) obesity due to excess calories; Z68.43 Body mass index [BMI] 50.0-59.9, adult; Z79.82 Long term (current) use of aspirin; Z79.891 Long term (current) use of opiate analgesic; Z79.899 Other long term (current) drug therapy ==

== ENCOUNTER → 2021-08-31 | Outpatient (REF) | payer MEDICARE, OTHER | LOC: M LAB REF 16:13 | PROVIDERS: ATTEND Internal Medicine | DX: R31.9 Hematuria, unspecified (principal) ==

== ENCOUNTER → 2021-09-05 | Outpatient (CLI) | payer MEDICARE, OTHER | LOC: M RAD 15:09 | PROVIDERS: ATTEND Anesthesiology | DX: M70.60 Trochanteric bursitis, unspecified hip (principal) ==

== ENCOUNTER → 2021-09-05 | Outpatient (CLI) | payer MEDICARE, OTHER ==
[~2021-09-05] MED LIST changes: +ISOVUE-370 76% 100ML VIAL As Ordered ONE
== END ==
LOC: M RAD 15:11
PROVIDERS: ATTEND Internal Medicine
DX: R31.9 Hematuria, unspecified (principal); D35.00 Benign neoplasm of unspecified adrenal gland; M70.60 Trochanteric bursitis, unspecified hip
CPT/HCPCS: 72192; 74178; Q9967

== ENCOUNTER 2021-09-09 16:08 | Emergency (ER) | payer MEDICARE, OTHER ==
[~2021-09-09] VITALS: Ht 170.2 cm; Wt 149.7 kg
[2021-09-09 16:08] VITALS: BP 125/80
[~2021-09-09 16:08] MED LIST changes: -ISOVUE-370 76% 100ML VIAL As Ordered ONE
[2021-09-09 17:15] LABS: URINE PREG TEST NEGATIVE (NEGATIVE)
[2021-09-09 19:09] LABS: GC DNA AMPLIFICATION NEGATIVE (NEGATIVE)
[2021-09-09 19:35] LABS: BASO % 0.5 % (0.0-1.0); EOS % 0.3 % (0.0-3.0); HEMATOCRIT 41.8 % (36.0-47.0); HEMOGLOBIN 13.7 g/dl (12.0-15.5); LYMPH # 0.8 10^3/uL (1.5-5.0); LYMPH % 12.7 % (24.0-44.0); MEAN CORPUSCULAR HEMOGLOBIN 29.8 pg (27.0-33.0); MEAN CORPUSCULAR HGB CONC 32.8 g/dl (32.0-36.5); MEAN CORPUSCULAR VOLUME 90.9 fl (80.0-96.0); MONO # 0.4 10^3/uL (0.0-0.8); MONO % 5.8 % (2.0-8.0); NEUTROPHILS # 5.3 10^3/uL (1.5-8.5); NEUTROPHILS % 80.2 % (36.0-66.0); PLATELET COUNT, AUTOMATED 203 10^3/uL (150-450); WHITE BLOOD COUNT 6.6 10^3/uL (4.0-10.0)
[2021-09-09 20:15] LABS: ALBUMIN 3.7 GM/DL (3.2-5.2); ALT/SGPT 20 U/L (12-78); BILIRUBIN,TOTAL 0.4 MG/DL (0.2-1.0); BLOOD UREA NITROGEN 13 MG/DL (7-18); CALCIUM LEVEL 8.9 MG/DL (8.5-10.1); CARBON DIOXIDE LEVEL 31 MEQ/L (21-32); CHLORIDE LEVEL 101 MEQ/L (98-107); CREATININE FOR GFR 1.01 MG/DL (0.55-1.30); GLOMERULAR FILTRATION RATE > 60.0 (>58); GLUCOSE, FASTING 81 MG/DL (70-100); POTASSIUM SERUM 3.8 MEQ/L (3.5-5.1); SODIUM LEVEL 138 MEQ/L (136-145); TOTAL PROTEIN 7.5 GM/DL (6.4-8.2)
== END 2021-09-09 22:57 | disposition home or self-care (01) ==
LOC: M ED 16:08
DX: N93.9 Abnormal uterine and vaginal bleeding, unspecified (principal); R10.32 Left lower quadrant pain; R10.2 Pelvic and perineal pain; I10 Essential (primary) hypertension; M51.9 Unspecified thoracic, thoracolumbar and lumbosacral intervertebral disc disorder; E03.9 Hypothyroidism, unspecified; Z79.890 Hormone replacement therapy; Z79.82 Long term (current) use of aspirin; Z79.899 Other long term (current) drug therapy; Z88.0 Allergy status to penicillin; Z88.1 Allergy status to other antibiotic agents; Z88.2 Allergy status to sulfonamides; Z88.8 Allergy status to other drugs, medicaments and biological substances; Z87.440 Personal history of urinary (tract) infections; Z87.42 Personal history of other diseases of the female genital tract; Z98.890 Other specified postprocedural states

== ENCOUNTER → 2021-09-28 | Outpatient (CLI) | payer MEDICARE, OTHER | LOC: M WHC 15:09 | PROVIDERS: ATTEND Internal Medicine | DX: Z12.31 Encounter for screening mammogram for malignant neoplasm of breast (principal) ==

== ENCOUNTER → 2021-11-07 | Outpatient (REF) | payer MEDICARE, OTHER ==
[2021-11-07 19:16] LABS: APPEARANCE, URINE MANUAL HAZY (CLEAR); COLOR, URINE MANUAL YELLOW (YELLOW)
[2021-11-07 19:18] LABS: BILIRUBIN, URINE MANUAL NEGATIVE (NEGATIVE); BLOOD URINE MANUAL NEGATIVE (NEGATIVE); GLUCOSE, URINE (UA) MANUAL NEGATIVE (NEGATIVE); KETONE, URINE MANUAL NEGATIVE (NEGATIVE); LEUKOCYTE ESTERASE, URINE MAN NEGATIVE (NEGATIVE); NITRITE, URINE MANUAL NEGATIVE (NEGATIVE); PROTEIN, URINE MANUAL TRACE mg/dL (NEGATIVE); SPECIFIC GRAVITY,URINE MANUAL 1.025 (1.002-1.035); UROBILINOGEN, URINE MANUAL NORMAL (NORMAL)
[2021-11-07 20:13] LABS: BACTERIA, URINE LARGE AMOUNT; RBC, URINE 0-1 /hpf (0-3); SQUAMOUS EPITHELIAL CELL URINE LARGE AMOUNT /hpf (SMALL AMT); TRANSITIONAL EPI CELLS, URINE SMALL AMOUNT /hpf
[2021-11-07 20:14] LABS: GRANULAR CAST, URINE 0-1 /lpf; HYALINE CAST, URINE 0-1 /lpf (0-1)
[2021-11-07 20:15] LABS: MUCUS, URINE SMALL AMOUNT (NEGATIVE)
== END ==
LOC: M PLALAB 16:11
PROVIDERS: ATTEND Nurse Practitioner Family
DX: R30.0 Dysuria (principal); Z12.4 Encounter for screening for malignant neoplasm of cervix; R87.615 Unsatisfactory cytologic smear of cervix

== ENCOUNTER → 2021-12-28 | Outpatient (REF) | payer MEDICARE, OTHER ==
[2021-12-28 18:05] LABS: APPEARANCE, URINE MANUAL CLEAR (CLEAR); COLOR, URINE MANUAL YELLOW (YELLOW)
[2021-12-28 18:06] LABS: BILIRUBIN, URINE MANUAL NEGATIVE (NEGATIVE); BLOOD URINE MANUAL NEGATIVE (NEGATIVE); GLUCOSE, URINE (UA) MANUAL NEGATIVE (NEGATIVE); KETONE, URINE MANUAL NEGATIVE (NEGATIVE); LEUKOCYTE ESTERASE, URINE MAN NEGATIVE (NEGATIVE); NITRITE, URINE MANUAL NEGATIVE (NEGATIVE); PROTEIN, URINE MANUAL NEGATIVE (NEGATIVE); SPECIFIC GRAVITY,URINE MANUAL 1.025 (1.002-1.035); UROBILINOGEN, URINE MANUAL NORMAL (NORMAL)
== END ==
LOC: M SMT 16:47
PROVIDERS: ATTEND Nurse Practitioner Women's Health
DX: R30.0 Dysuria (principal)

== ENCOUNTER → 2022-01-02 | Outpatient (CLI) | payer MEDICARE, OTHER | LOC: M LABSMTC 11:35 | PROVIDERS: ATTEND Anesthesiology | DX: Z01.812 Encounter for preprocedural laboratory examination (principal); Z20.822 Contact with and (suspected) exposure to COVID-19 ==

== ENCOUNTER → 2022-01-04 | Outpatient (REF) | payer MEDICARE, OTHER ==
[2022-01-04 18:46] LABS: APPEARANCE, URINE MANUAL CLEAR (CLEAR); COLOR, URINE MANUAL YELLOW (YELLOW)
[2022-01-04 18:47] LABS: BILIRUBIN, URINE MANUAL NEGATIVE (NEGATIVE); GLUCOSE, URINE (UA) MANUAL NEGATIVE (NEGATIVE); KETONE, URINE MANUAL NEGATIVE (NEGATIVE); NITRITE, URINE MANUAL NEGATIVE (NEGATIVE); PROTEIN, URINE MANUAL NEGATIVE (NEGATIVE); UROBILINOGEN, URINE MANUAL NORMAL (NORMAL)
[2022-01-04 18:48] LABS: BLOOD URINE MANUAL NEGATIVE (NEGATIVE)
[2022-01-04 18:49] LABS: LEUKOCYTE ESTERASE, URINE MAN NEGATIVE (NEGATIVE); SPECIFIC GRAVITY,URINE MANUAL 1.025 (1.002-1.035)
== END ==
LOC: M SMT 16:47
PROVIDERS: ATTEND Urology
DX: R30.0 Dysuria (principal)

== ENCOUNTER → 2022-01-22 | Outpatient (REF) | payer MEDICARE, OTHER | LOC: M LAB REF 17:22 | PROVIDERS: ATTEND Surgery | DX: M79.3 Panniculitis, unspecified (principal) ==

== ENCOUNTER → 2022-01-23 | Outpatient (CLI) | payer MEDICARE, OTHER | LOC: M PAIN 14:30 | PROVIDERS: ATTEND Anesthesiology | DX: R52 Pain, unspecified (principal); M70.62 Trochanteric bursitis, left hip; I10 Essential (primary) hypertension; E28.2 Polycystic ovarian syndrome; E03.9 Hypothyroidism, unspecified; Z88.1 Allergy status to other antibiotic agents; Z88.6 Allergy status to analgesic agent; E66.01 Morbid (severe) obesity due to excess calories; Z68.43 Body mass index [BMI] 50.0-59.9, adult; Z79.82 Long term (current) use of aspirin; Z79.890 Hormone replacement therapy; Z79.899 Other long term (current) drug therapy ==

== ENCOUNTER → 2022-01-30 | Outpatient (CLI) | payer MEDICARE, OTHER | LOC: M LABSMTC 11:32 | PROVIDERS: ATTEND Anesthesiology | DX: Z01.812 Encounter for preprocedural laboratory examination (principal); Z20.822 Contact with and (suspected) exposure to COVID-19 ==

== ENCOUNTER → 2022-02-04 | Outpatient (CLI) | payer MEDICARE, OTHER ==
[~2022-02-04] MED LIST changes: +BUPIVACAINE HCL 0.25% 30ML VIAL As Ordered ONE; +ISOVUE-M 300 61% 15ML VIAL As Ordered ONE; +LIDOCAINE 1% SDV 30ML VIAL As Ordered ONE; +TRIAMCINOLONE ACETONIDE SUSP 40 MG/ML VIAL (J3301) As Ordered ONE
== END ==
LOC: M PAIN 12:30
PROVIDERS: ATTEND Anesthesiology
DX: M71.9 Bursopathy, unspecified (principal); I10 Essential (primary) hypertension; E28.2 Polycystic ovarian syndrome; E03.9 Hypothyroidism, unspecified; Z88.1 Allergy status to other antibiotic agents; Z88.6 Allergy status to analgesic agent; E66.01 Morbid (severe) obesity due to excess calories; Z68.43 Body mass index [BMI] 50.0-59.9, adult; Z79.82 Long term (current) use of aspirin; Z79.890 Hormone replacement therapy; Z79.899 Other long term (current) drug therapy
CPT/HCPCS: 20610; 77002; J3301; Q9967

== ENCOUNTER → 2022-02-22 | Outpatient (REF) | payer MEDICARE, OTHER ==
[~2022-02-22] MED LIST changes: -BUPIVACAINE HCL 0.25% 30ML VIAL As Ordered ONE; -ISOVUE-M 300 61% 15ML VIAL As Ordered ONE; -LIDOCAINE 1% SDV 30ML VIAL As Ordered ONE; -TRIAMCINOLONE ACETONIDE SUSP 40 MG/ML VIAL (J3301) As Ordered ONE
== END ==
LOC: M SFHCWAGY 09:58
PROVIDERS: ATTEND Specialist
DX: Z12.4 Encounter for screening for malignant neoplasm of cervix (principal); Z77.9 Other contact with and (suspected) exposures hazardous to health

== ENCOUNTER → 2022-03-07 | Outpatient (CLI) | payer MEDICARE, OTHER | LOC: M PAIN 14:30 → M TMPAIN 14:30 | PROVIDERS: ATTEND Anesthesiology | DX: M51.16 Intervertebral disc disorders with radiculopathy, lumbar region (principal); M71.9 Bursopathy, unspecified; G89.29 Other chronic pain; I10 Essential (primary) hypertension; E28.2 Polycystic ovarian syndrome; E03.9 Hypothyroidism, unspecified; Z88.1 Allergy status to other antibiotic agents; Z88.6 Allergy status to analgesic agent; Z79.82 Long term (current) use of aspirin; Z79.890 Hormone replacement therapy; Z79.899 Other long term (current) drug therapy ==

== ENCOUNTER → 2022-03-15 | Outpatient (REF) | payer MEDICARE, OTHER ==
[2022-03-18 15:36] LABS: C REACTIVE PROTEIN QUANTITATIV 0.9 MG/DL (<1.0)
[2022-03-18 15:38] LABS: IMMUNOGLOBULIN A 297.7 MG/DL (40-350)
[2022-03-20 17:08] LABS: ENDOMYSIAL ABY IgA Negative (Negative); TISSUE TRANSGLUTAMINASE IgA <2 U/mL (0-3)
== END ==
LOC: M LAB REF 11:55
PROVIDERS: ATTEND Internal Medicine
DX: M25.50 Pain in unspecified joint (principal)

== ENCOUNTER → 2022-03-27 | Outpatient (CLI) | payer MEDICARE, OTHER | LOC: M RAD 17:26 | PROVIDERS: ATTEND Internal Medicine | DX: R51.9 Headache, unspecified (principal) ==

== ENCOUNTER → 2022-04-24 | Outpatient (REF) | payer MEDICARE, OTHER ==
[2022-04-24 16:51] LABS: INR 0.99; PROTHROMBIN TIME 13.3 SECONDS (12.5-14.5)
== END ==
LOC: M LAB REF 16:31
PROVIDERS: ATTEND Internal Medicine
DX: R23.3 Spontaneous ecchymoses (principal); M25.50 Pain in unspecified joint

== ENCOUNTER → 2022-04-30 | Outpatient (CLI) | payer MEDICARE, OTHER ==
[~2022-04-30] MED LIST changes: +ISOVUE-370 76% 100ML VIAL As Ordered ONE
== END ==
LOC: M RAD 11:52
PROVIDERS: ATTEND Internal Medicine
DX: R07.9 Chest pain, unspecified (principal)
CPT/HCPCS: 71275; Q9967

== ENCOUNTER → 2022-05-08 | Outpatient (CLI) | payer MEDICARE, OTHER ==
[~2022-05-08] MED LIST changes: -ISOVUE-370 76% 100ML VIAL As Ordered ONE
== END ==
LOC: M PAIN 14:00
PROVIDERS: ATTEND Anesthesiology
DX: M51.16 Intervertebral disc disorders with radiculopathy, lumbar region (principal); M48.061 Spinal stenosis, lumbar region without neurogenic claudication; M25.559 Pain in unspecified hip; G89.29 Other chronic pain; I10 Essential (primary) hypertension; E03.9 Hypothyroidism, unspecified; Z88.1 Allergy status to other antibiotic agents; Z88.6 Allergy status to analgesic agent; E66.01 Morbid (severe) obesity due to excess calories; Z68.43 Body mass index [BMI] 50.0-59.9, adult; Z79.82 Long term (current) use of aspirin; Z79.890 Hormone replacement therapy; Z79.899 Other long term (current) drug therapy

== ENCOUNTER → 2022-05-16 | Outpatient (CLI) | payer MEDICARE, OTHER ==
[2022-05-16 11:00] LABS: ALBUMIN 3.4 G/DL (3.2-5.2); CALCIUM LEVEL 8.7 MG/DL (8.5-10.1); CREATININE FOR GFR 1.13 MG/DL (0.55-1.30); GLOMERULAR FILTRATION RATE 54.7 (>58); MAGNESIUM LEVEL 1.9 MG/DL (1.8-2.4); PHOSPHORUS LEVEL 4.4 MG/DL (2.5-4.9); POTASSIUM SERUM 4.3 MMOL/L (3.5-5.1)
== END ==
LOC: M LAB 09:58
PROVIDERS: ATTEND Internal Medicine Cardiovascular Disease
DX: I50.33 Acute on chronic diastolic (congestive) heart failure (principal)

== ENCOUNTER → 2022-05-22 | Outpatient (CLI) | payer MEDICARE, OTHER | LOC: M RAD 13:08 | PROVIDERS: ATTEND Internal Medicine | DX: R59.0 Localized enlarged lymph nodes (principal) ==

== ENCOUNTER → 2022-05-24 | Outpatient (CLI) | payer MEDICARE, OTHER | LOC: M RAD 12:27 | PROVIDERS: ATTEND Anesthesiology | DX: M16.12 Unilateral primary osteoarthritis, left hip (principal) ==

== ENCOUNTER → 2022-05-28 | Outpatient (CLI) | payer MEDICARE, OTHER | LOC: M PAIN 15:30 → M TMPAIN 15:30 | PROVIDERS: ATTEND Anesthesiology | DX: M25.552 Pain in left hip (principal); M16.12 Unilateral primary osteoarthritis, left hip; M51.16 Intervertebral disc disorders with radiculopathy, lumbar region; G89.29 Other chronic pain; I10 Essential (primary) hypertension; E28.2 Polycystic ovarian syndrome; Z88.1 Allergy status to other antibiotic agents; Z88.6 Allergy status to analgesic agent; E66.01 Morbid (severe) obesity due to excess calories; Z68.43 Body mass index [BMI] 50.0-59.9, adult ==

== ENCOUNTER → 2022-06-06 | Outpatient (CLI) | payer MEDICARE, OTHER | LOC: M PAIN 16:15 | PROVIDERS: ATTEND Anesthesiology | DX: M51.16 Intervertebral disc disorders with radiculopathy, lumbar region (principal); G89.29 Other chronic pain; I10 Essential (primary) hypertension; E28.2 Polycystic ovarian syndrome; Z88.1 Allergy status to other antibiotic agents; Z88.6 Allergy status to analgesic agent; E66.01 Morbid (severe) obesity due to excess calories; Z68.42 Body mass index [BMI] 45.0-49.9, adult; Z79.899 Other long term (current) drug therapy ==

== ENCOUNTER → 2022-06-14 | Outpatient (CLI) | payer MEDICARE, OTHER | LOC: M WHC 14:12 | PROVIDERS: ATTEND Internal Medicine | DX: M81.0 Age-related osteoporosis without current pathological fracture (principal) ==

== ENCOUNTER 2022-06-27 14:30 | Outpatient (RCR) | payer MEDICARE | END 2022-07-07 | LOC: M PT 14:30 | PROVIDERS: ATTEND Physician Assistant | DX: M25.552 Pain in left hip (principal) ==

== ENCOUNTER 2022-07-24 16:00 | Outpatient (RCR) | payer MEDICARE | END 2022-08-07 | LOC: M PT 16:00 | PROVIDERS: ATTEND Physician Assistant | DX: M25.552 Pain in left hip (principal) ==

== ENCOUNTER 2022-08-12 22:37 | Emergency (ER) | payer MEDICARE ==
[~2022-08-12] VITALS: Ht 170.2 cm; Wt 146.0 kg
[2022-08-12 22:38] VITALS: BP 158/100
== END 2022-08-13 02:59 | disposition left against medical advice (07) ==
LOC: M ED 22:37
DX: Z53.21 Procedure and treatment not carried out due to patient leaving prior to being seen by health care provider (principal)

== ENCOUNTER → 2022-08-16 | Outpatient (REF) | payer MEDICARE | LOC: M LAB REF 15:53 | PROVIDERS: ATTEND Nurse Practitioner Family | DX: R30.0 Dysuria (principal); N76.89 Other specified inflammation of vagina and vulva ==

== ENCOUNTER → 2022-08-22 | Outpatient (CLI) | payer MEDICARE, OTHER | LOC: M PAIN 15:30 | PROVIDERS: ATTEND Anesthesiology | DX: M47.816 Spondylosis without myelopathy or radiculopathy, lumbar region (principal); M51.16 Intervertebral disc disorders with radiculopathy, lumbar region; G89.29 Other chronic pain; I10 Essential (primary) hypertension; E28.2 Polycystic ovarian syndrome; E03.9 Hypothyroidism, unspecified; E55.9 Vitamin D deficiency, unspecified; Z88.1 Allergy status to other antibiotic agents; Z88.6 Allergy status to analgesic agent; E66.01 Morbid (severe) obesity due to excess calories; Z68.43 Body mass index [BMI] 50.0-59.9, adult; Z79.82 Long term (current) use of aspirin; Z79.890 Hormone replacement therapy; Z79.899 Other long term (current) drug therapy ==

== ENCOUNTER → 2022-10-04 | Outpatient (CLI) | payer MEDICARE, OTHER | LOC: M WHC 12:11 | PROVIDERS: ATTEND Internal Medicine | DX: Z12.31 Encounter for screening mammogram for malignant neoplasm of breast (principal) ==

== ENCOUNTER → 2022-10-09 | Outpatient (REF) | payer MEDICARE, OTHER ==
[2022-10-09 17:22] LABS: CK-MB VALUE MASS < 1.0 NG/ML (<3.6)
[2022-10-09 17:24] LABS: CPK CREATINE PHOSPHOKINASE 72 U/L (34-145); MB/CK RELATIVE INDEX 1.38 (< OR =4)
== END ==
LOC: M LAB REF 16:07
PROVIDERS: ATTEND Nurse Practitioner Family
DX: R07.9 Chest pain, unspecified (principal)

== ENCOUNTER → 2022-10-11 | Outpatient (CLI) | payer MEDICARE, OTHER ==
[~2022-10-11] MED LIST changes: +ISOVUE-370 76% 100ML VIAL As Ordered ONE
== END ==
LOC: M RAD 12:30
PROVIDERS: ATTEND Nurse Practitioner Family
DX: M79.605 Pain in left leg (principal); R07.9 Chest pain, unspecified
CPT/HCPCS: 71275; 93971; Q9967

== ENCOUNTER 2022-10-18 13:54 | Emergency (ER) | payer MEDICARE, OTHER ==
[~2022-10-18] VITALS: Ht 170.2 cm; Wt 146.5 kg
[~2022-10-18 13:54] MED LIST changes: -ISOVUE-370 76% 100ML VIAL As Ordered ONE
[2022-10-18 19:06] LABS: BASO % 0.5 % (0.0-1.0); EOS # 0.1 10^3/uL (0.0-0.5); EOS % 1.4 % (0.0-3.0); HEMATOCRIT 45.2 % (36.0-47.0); HEMOGLOBIN 14.3 g/dl (12.0-15.5); LYMPH # 1.9 10^3/uL (1.5-5.0); LYMPH % 25.2 % (24.0-44.0); MEAN CORPUSCULAR HEMOGLOBIN 28.7 pg (27.0-33.0); MEAN CORPUSCULAR HGB CONC 31.6 g/dl (32.0-36.5); MEAN CORPUSCULAR VOLUME 90.8 fl (80.0-96.0); MONO # 0.5 10^3/uL (0.0-0.8); MONO % 6.7 % (2.0-8.0); NEUTROPHILS # 4.8 10^3/uL (1.5-8.5); NEUTROPHILS % 65.8 % (36.0-66.0); PLATELET COUNT, AUTOMATED 244 10^3/uL (150-450); RED BLOOD COUNT 4.98 10^6/uL (4.00-5.40); WHITE BLOOD COUNT 7.4 10^3/uL (4.0-10.0)
[2022-10-18 19:11] LABS: ERYTHROCYTE SEDIMENTATION RATE 96 mm/hr (0-20)
[2022-10-18 19:32] LABS: BLOOD UREA NITROGEN 17 MG/DL (9-23); CALCIUM LEVEL 8.9 MG/DL (8.5-10.1); CARBON DIOXIDE LEVEL 29 MMOL/L (20-31); CHLORIDE LEVEL 104 MMOL/L (98-107); CREATININE FOR GFR 0.87 MG/DL (0.55-1.30); GLOMERULAR FILTRATION RATE > 60.0 (>58); GLUCOSE, FASTING 82 MG/DL (60-100); POTASSIUM SERUM 4.1 MMOL/L (3.5-5.1); SODIUM LEVEL 140 MMOL/L (136-145)
[2022-10-18 23:06] LABS: CK-MB VALUE MASS < 1.0 NG/ML (<3.6)
[2022-10-18 23:09] LABS: CPK CREATINE PHOSPHOKINASE 60 U/L (34-145); MB/CK RELATIVE INDEX 1.66 (< OR =4)
[2022-10-18 23:48] VITALS: BP 120/56; TEMP 98.2; O2SAT 98
[2022-10-19] MEDS ORDERED: PREGABALIN 75 MG CAP(LYRICA) PO ONE (00:30)
[2022-10-19] MEDS ORDERED: LIDOCAINE 5% (LIDODERM) PATCH TD ONE (00:30)
[2022-10-19] MEDS ORDERED: MENT118S2 TP (01:28)
[2022-10-19] MEDS ORDERED: ASPE4PAD TOP (01:28)
[2022-10-19] MEDS ORDERED: LYRI75CA PO (01:28)
== END 2022-10-19 01:42 | disposition home or self-care (01) ==
LOC: M ED 13:54
DX: M79.652 Pain in left thigh (principal); I10 Essential (primary) hypertension; E78.5 Hyperlipidemia, unspecified; K21.9 Gastro-esophageal reflux disease without esophagitis; Z88.2 Allergy status to sulfonamides; Z88.8 Allergy status to other drugs, medicaments and biological substances; Z79.82 Long term (current) use of aspirin; Z79.811 Long term (current) use of aromatase inhibitors; Z79.899 Other long term (current) drug therapy

== ENCOUNTER → 2022-10-28 | Outpatient (REF) | payer MEDICARE, OTHER ==
[~2022-10-28] MED LIST changes: +ASPE4PAD TOP; +LYRI75CA PO; +MENT118S2 TP
== END ==
LOC: M SFHCWAGY 17:33
PROVIDERS: ATTEND Nurse Practitioner Family
DX: N39.0 Urinary tract infection, site not specified (principal)

== ENCOUNTER → 2022-11-06 | Outpatient (CLI) | payer MEDICARE, OTHER | LOC: M WHC 12:10 | PROVIDERS: ATTEND Nurse Practitioner Family | DX: R10.2 Pelvic and perineal pain (principal); N83.201 Unspecified ovarian cyst, right side ==

== ENCOUNTER → 2022-11-21 | Outpatient (REF) | payer MEDICARE, OTHER ==
[2022-11-21 15:27] LABS: APPEARANCE, URINE CLEAR (CLEAR); BACTERIA, URINE AUTO NEGATIVE (NEGATIVE); BILIRUBIN, URINE AUTO NEGATIVE (NEGATIVE); BLOOD, URINE BLOOD NEGATIVE (NEGATIVE); COLOR, URINE YELLOW (YELLOW); GLUCOSE, URINE (UA) AUTO NEGATIVE (NEGATIVE); KETONE, URINE AUTO NEGATIVE (NEGATIVE); LEUKOCYTE ESTERASE, URINE AUTO NEGATIVE (NEGATIVE); MUCUS, URINE SMALL (NEGATIVE); NITRITE, URINE AUTO NEGATIVE (NEGATIVE); PROTEIN, URINE AUTO NEGATIVE (NEGATIVE); RBC, URINE AUTO 1 /HPF (0-3); SPECIFIC GRAVITY URINE AUTO 1.015 (1.002-1.035); SQUAMOUS EPITHELIAL CELL UR AU 2 /HPF (0-6); UROBILINOGEN, URINE AUTO 0.2 mg/dL (0.0-2.0); WBC, URINE AUTO 2 /HPF (0-3)
== END ==
LOC: M SMT 12:58
PROVIDERS: ATTEND Urology
DX: R30.0 Dysuria (principal)

== ENCOUNTER → 2022-12-10 | Outpatient (CLI) | payer MEDICARE, OTHER ==
[~2022-12-10] MED LIST changes: +TRIAMCINOLONE ACETONIDE SUSP 40MG/ML 1ML VIAL As Ordered ONE
== END ==
LOC: M PAIN 10:15
PROVIDERS: ATTEND Anesthesiology
DX: M51.16 Intervertebral disc disorders with radiculopathy, lumbar region (principal); M79.18 Myalgia, other site; G89.29 Other chronic pain; R23.3 Spontaneous ecchymoses; Z88.1 Allergy status to other antibiotic agents; Z88.6 Allergy status to analgesic agent; E66.01 Morbid (severe) obesity due to excess calories; Z68.42 Body mass index [BMI] 45.0-49.9, adult; Z79.899 Other long term (current) drug therapy
CPT/HCPCS: 20552; J0665; J3301

== ENCOUNTER → 2023-01-09 | Outpatient (CLI) | payer MEDICARE, OTHER ==
[~2023-01-09] MED LIST changes: +CURC500C PO; +ISOVUE-370 76% 100ML VIAL As Ordered ONE; -OXYB5TAB10 PO; +OXYB5TAB11 PO; +SPIR-10; +TORS20TA2; -TRIAMCINOLONE ACETONIDE SUSP 40MG/ML 1ML VIAL As Ordered ONE
== END ==
LOC: M RAD 14:47
PROVIDERS: ATTEND Otolaryngology
DX: R22.1 Localized swelling, mass and lump, neck (principal)
CPT/HCPCS: 70491; Q9967

== ENCOUNTER → 2023-01-09 | Outpatient (CLI) | payer MEDICARE, OTHER ==
[~2023-01-09] MED LIST changes: -ISOVUE-370 76% 100ML VIAL As Ordered ONE
== END ==
LOC: M PAIN 15:30
PROVIDERS: ATTEND Anesthesiology
DX: M47.816 Spondylosis without myelopathy or radiculopathy, lumbar region (principal); M54.50 Low back pain, unspecified; M79.10 Myalgia, unspecified site; Z88.1 Allergy status to other antibiotic agents; Z88.6 Allergy status to analgesic agent; Z79.899 Other long term (current) drug therapy

== ENCOUNTER → 2023-01-21 | Outpatient (CLI) | payer MEDICARE, OTHER ==
[~2023-01-21] MED LIST changes: +ISOVUE-300 61% 100ML VIAL As Ordered ONE; +LIDOCAINE 1% MDV 20ML VIAL As Ordered ONE; +methylPREDNISolone SUSP 40MG/ML 1ML VIAL (DEPO MEDROL) As Ordered ONE
== END ==
LOC: M RAD 13:13
PROVIDERS: ATTEND Physician Assistant
DX: M16.12 Unilateral primary osteoarthritis, left hip (principal)
CPT/HCPCS: 20610; 77002; J1030; Q9967

== ENCOUNTER → 2023-01-27 | Outpatient (REF) | payer MEDICARE, OTHER ==
[~2023-01-27] MED LIST changes: -ISOVUE-300 61% 100ML VIAL As Ordered ONE; -LIDOCAINE 1% MDV 20ML VIAL As Ordered ONE; -methylPREDNISolone SUSP 40MG/ML 1ML VIAL (DEPO MEDROL) As Ordered ONE
== END ==
LOC: M LAB REF 18:33
PROVIDERS: ATTEND Internal Medicine
DX: R60.9 Edema, unspecified (principal)

== ENCOUNTER → 2023-02-25 | Outpatient (CLI) | payer MEDICARE, OTHER ==
[2023-02-25 11:11] LABS: TOTAL T3 137.6 NG/DL (60.0-181.0)
[2023-02-25 11:12] LABS: FREE T4 1.18 NG/DL (0.89-1.76)
[2023-02-25 11:13] LABS: THYROID STIMULATING HORMONE 1.714 uIU/ML (0.55-4.78)
== END ==
LOC: M LAB 09:48
PROVIDERS: ATTEND Otolaryngology
DX: R22.1 Localized swelling, mass and lump, neck (principal); Z79.899 Other long term (current) drug therapy

== ENCOUNTER → 2023-03-06 | Outpatient (REF) | payer MEDICARE, OTHER | LOC: M SFHCWAGY 16:50 | PROVIDERS: ATTEND Nurse Practitioner Family | DX: R35.0 Frequency of micturition (principal) ==

== ENCOUNTER → 2023-03-12 | Outpatient (REF) | payer MEDICARE, OTHER | LOC: M PLALAB 16:32 | PROVIDERS: ATTEND Nurse Practitioner Family | DX: Z12.4 Encounter for screening for malignant neoplasm of cervix (principal) | CPT/HCPCS: 87624; G0123 ==

== ENCOUNTER → 2023-04-04 | Outpatient (CLI) | payer MEDICARE, OTHER | LOC: M PAIN 15:30 | PROVIDERS: ATTEND Anesthesiology | DX: M70.71 Other bursitis of hip, right hip (principal); Z79.891 Long term (current) use of opiate analgesic; M25.522 Pain in left elbow; I10 Essential (primary) hypertension; M47.812 Spondylosis without myelopathy or radiculopathy, cervical region; M47.816 Spondylosis without myelopathy or radiculopathy, lumbar region; K21.9 Gastro-esophageal reflux disease without esophagitis; E66.01 Morbid (severe) obesity due to excess calories; E78.5 Hyperlipidemia, unspecified; E03.9 Hypothyroidism, unspecified; E55.9 Vitamin D deficiency, unspecified; Z79.890 Hormone replacement therapy; Z79.899 Other long term (current) drug therapy; Z88.1 Allergy status to other antibiotic agents; Z88.2 Allergy status to sulfonamides; Z88.8 Allergy status to other drugs, medicaments and biological substances; Z68.43 Body mass index [BMI] 50.0-59.9, adult ==

== ENCOUNTER → 2023-04-25 | Outpatient (CLI) | payer MEDICARE, OTHER ==
[~2023-04-25] MED LIST changes: -OXYB5TAB11 PO; +OXYB5TAB14 PO
== END ==
LOC: M RAD 15:25
PROVIDERS: ATTEND Otolaryngology
DX: R22.1 Localized swelling, mass and lump, neck (principal)

== ENCOUNTER → 2023-04-25 | Outpatient (CLI) | payer MEDICARE, OTHER | LOC: M RAD 15:33 | PROVIDERS: ATTEND Anesthesiology | DX: M70.62 Trochanteric bursitis, left hip (principal) ==

== ENCOUNTER → 2023-05-13 | Outpatient (CLI) | payer MEDICARE, OTHER ==
[~2023-05-13] MED LIST changes: +LIDOCAINE 1% MDV 20ML VIAL As Ordered ONE
[2023-05-13 14:32] VITALS: TEMP 98.4
[2023-05-13 15:25] VITALS: BP 169/92; O2SAT 96
== END ==
LOC: M IRPRO 14:26
PROVIDERS: ATTEND Otolaryngology
DX: E04.1 Nontoxic single thyroid nodule (principal)

== ENCOUNTER → 2023-05-14 | Outpatient (REF) | payer MEDICARE, OTHER ==
[~2023-05-14] MED LIST changes: -LIDOCAINE 1% MDV 20ML VIAL As Ordered ONE
== END ==
LOC: M LAB REF 12:13
PROVIDERS: ATTEND Internal Medicine
DX: N39.0 Urinary tract infection, site not specified (principal)

== ENCOUNTER → 2023-05-29 | Outpatient (CLI) | payer MEDICARE, OTHER | LOC: M TMPAIN 10:15 → M PAIN 10:15 | PROVIDERS: ATTEND Nurse Practitioner Family | DX: M70.71 Other bursitis of hip, right hip (principal); M25.522 Pain in left elbow; G89.29 Other chronic pain; I10 Essential (primary) hypertension; Z79.890 Hormone replacement therapy; Z79.891 Long term (current) use of opiate analgesic; Z79.899 Other long term (current) drug therapy; Z88.1 Allergy status to other antibiotic agents; Z88.2 Allergy status to sulfonamides; Z88.6 Allergy status to analgesic agent ==

== ENCOUNTER → 2023-07-09 | Outpatient (CLI) | payer MEDICARE, OTHER ==
[~2023-07-09] MED LIST changes: +LIDOCAINE 1% MDV 20ML VIAL As Ordered ONE
[2023-07-09 13:45] VITALS: TEMP 97.7
[2023-07-09 14:28] VITALS: BP 163/92; O2SAT 97
== END ==
LOC: M IRPRO 13:33
PROVIDERS: ATTEND Otolaryngology
DX: D44.0 Neoplasm of uncertain behavior of thyroid gland (principal); E04.1 Nontoxic single thyroid nodule

== ENCOUNTER 2023-07-24 09:56 | Emergency (ER) | payer MEDICARE, OTHER ==
[~2023-07-24] VITALS: Ht 170.2 cm; Wt 143.0 kg
[~2023-07-24 09:56] MED LIST changes: -LIDOCAINE 1% MDV 20ML VIAL As Ordered ONE
[2023-07-24 12:44] LABS: BASO % 0.6 % (0.0-1.0); EOS # 0.2 10^3/uL (0.0-0.5); EOS % 2.6 % (0.0-3.0); HEMATOCRIT 42.5 % (36.0-47.0); HEMOGLOBIN 13.7 g/dl (12.0-15.5); LYMPH % 29.2 % (24.0-44.0); MEAN CORPUSCULAR HEMOGLOBIN 29.8 pg (27.0-33.0); MEAN CORPUSCULAR HGB CONC 32.2 g/dl (32.0-36.5); MEAN CORPUSCULAR VOLUME 92.6 fl (80.0-96.0); MONO # 0.5 10^3/uL (0.0-0.8); MONO % 6.9 % (2.0-8.0); NEUTROPHILS # 4.1 10^3/uL (1.5-8.5); NEUTROPHILS % 60.4 % (36.0-66.0); PLATELET COUNT, AUTOMATED 216 10^3/uL (150-450); RED BLOOD COUNT 4.59 10^6/uL (4.00-5.40); WHITE BLOOD COUNT 6.8 10^3/uL (4.0-10.0)
[2023-07-24 12:57] LABS: INR 1.11; PARTIAL THROMBOPLASTIN TIME 28.1 SECONDS (24.8-34.2); PROTHROMBIN TIME 13.9 SECONDS (12.5-14.5)
[2023-07-24 13:15] LABS: CK-MB VALUE MASS < 1.0 NG/ML (<3.6)
[2023-07-24 13:17] LABS: BLOOD UREA NITROGEN 17 MG/DL (9-23); CALCIUM LEVEL 9.2 MG/DL (8.5-10.1); CARBON DIOXIDE LEVEL 34 MMOL/L (20-31); CHLORIDE LEVEL 104 MMOL/L (98-107); CPK CREATINE PHOSPHOKINASE 52 U/L (34-145); CREATININE FOR GFR 0.93 MG/DL (0.55-1.30); GLOMERULAR FILTRATION RATE > 60.0 (>58); GLUCOSE, FASTING 91 MG/DL (60-100); MB/CK RELATIVE INDEX 1.92 (< OR =4); POTASSIUM SERUM 4.3 MMOL/L (3.5-5.1); SODIUM LEVEL 142 MMOL/L (136-145)
[2023-07-24] MEDS: ACETAMINOPHEN *IV* 1,000 MG in IV 1 EA IV ONE (13:33)
[2023-07-24 14:45] VITALS: BP 134/78; TEMP 97.2; O2SAT 96
== END 2023-07-24 14:49 | disposition home or self-care (01) ==
LOC: M ED 09:56
DX: M54.50 Low back pain, unspecified (principal); M51.34 Other intervertebral disc degeneration, thoracic region; M46.96 Unspecified inflammatory spondylopathy, lumbar region; I10 Essential (primary) hypertension; E78.5 Hyperlipidemia, unspecified; K21.9 Gastro-esophageal reflux disease without esophagitis; G47.33 Obstructive sleep apnea (adult) (pediatric); Z88.1 Allergy status to other antibiotic agents; Z88.2 Allergy status to sulfonamides; Z86.79 Personal history of other diseases of the circulatory system; Z79.899 Other long term (current) drug therapy
CPT/HCPCS: 71046; 72131; 80048; 81001; 82550; 82553; 84484; 85025; 85610; 85730; 87486; 87581; 87633; 87798; 93005; 93971; 96374; 99284; J0131

== ENCOUNTER → 2023-08-06 | Outpatient (REF) | payer MEDICARE, OTHER ==
[2023-08-08 05:07] LABS: HSV TYPE II IgG SPECIFIC <0.91 index (0.00-0.90)
== END ==
LOC: M LAB REF 16:47
PROVIDERS: ATTEND Nurse Practitioner Adult Health
DX: B02.9 Zoster without complications (principal)

== ENCOUNTER → 2023-08-08 | Outpatient (CLI) | payer MEDICARE, OTHER ==
[2023-08-08 15:30] LABS: FREE T4 1.32 NG/DL (0.89-1.76)
[2023-08-08 15:31] LABS: FREE T3 3.3 PG/ML (2.3-4.2); THYROID STIMULATING HORMONE 1.433 uIU/ML (0.55-4.78)
== END ==
LOC: M LAB 14:05
PROVIDERS: ATTEND Otolaryngology
DX: D44.0 Neoplasm of uncertain behavior of thyroid gland (principal)

== ENCOUNTER → 2023-09-03 | Outpatient (CLI) | payer MEDICARE, OTHER | LOC: M PAIN 14:00 | PROVIDERS: ATTEND Anesthesiology | DX: M51.16 Intervertebral disc disorders with radiculopathy, lumbar region (principal); Z79.891 Long term (current) use of opiate analgesic; G89.29 Other chronic pain; I10 Essential (primary) hypertension; M47.812 Spondylosis without myelopathy or radiculopathy, cervical region; M47.816 Spondylosis without myelopathy or radiculopathy, lumbar region; K21.9 Gastro-esophageal reflux disease without esophagitis; E66.01 Morbid (severe) obesity due to excess calories; E78.5 Hyperlipidemia, unspecified; E03.9 Hypothyroidism, unspecified; E55.9 Vitamin D deficiency, unspecified; Z79.890 Hormone replacement therapy; Z79.899 Other long term (current) drug therapy; Z88.1 Allergy status to other antibiotic agents; Z88.2 Allergy status to sulfonamides; Z88.8 Allergy status to other drugs, medicaments and biological substances; Z68.42 Body mass index [BMI] 45.0-49.9, adult ==

== ENCOUNTER → 2023-09-09 | Outpatient (REF) | payer MEDICARE, OTHER ==
[2023-09-09 17:49] LABS: APPEARANCE, URINE CLEAR (CLEAR); BACTERIA, URINE AUTO NEGATIVE (NEGATIVE); BILIRUBIN, URINE AUTO NEGATIVE (NEGATIVE); BLOOD, URINE BLOOD NEGATIVE (NEGATIVE); COLOR, URINE YELLOW (YELLOW); GLUCOSE, URINE (UA) AUTO NEGATIVE (NEGATIVE); KETONE, URINE AUTO NEGATIVE (NEGATIVE); LEUKOCYTE ESTERASE, URINE AUTO NEGATIVE (NEGATIVE); NITRITE, URINE AUTO NEGATIVE (NEGATIVE); PROTEIN, URINE AUTO NEGATIVE (NEGATIVE); RBC, URINE AUTO 0 /HPF (0-3); SPECIFIC GRAVITY URINE AUTO 1.012 (1.002-1.035); SQUAMOUS EPITHELIAL CELL UR AU 0 /HPF (0-6); UROBILINOGEN, URINE AUTO 0.2 mg/dL (0.0-2.0); WBC, URINE AUTO 0 /HPF (0-3)
== END ==
LOC: M SMT 17:03
PROVIDERS: ATTEND Urology
DX: N39.0 Urinary tract infection, site not specified (principal)

== ENCOUNTER → 2023-10-29 | Outpatient (CLI) | payer MEDICARE, OTHER | LOC: M WHC 14:57 | PROVIDERS: ATTEND Internal Medicine | DX: Z12.31 Encounter for screening mammogram for malignant neoplasm of breast (principal) ==

== ENCOUNTER → 2023-10-31 | Outpatient (CLI) | payer MEDICARE, OTHER | LOC: M RAD 18:30 | PROVIDERS: ATTEND Internal Medicine | DX: M54.2 Cervicalgia (principal); R51.9 Headache, unspecified ==

== ENCOUNTER → 2023-11-03 | Outpatient (CLI) | payer MEDICARE, OTHER ==
[~2023-11-03] MED LIST changes: +LIDOCAINE 1% MDV 20ML VIAL As Ordered ONE
[2023-11-03 09:35] VITALS: BP 151/91; TEMP 97.9; O2SAT 97
== END ==
LOC: M IRPRO 09:20
PROVIDERS: ATTEND Otolaryngology
DX: E04.1 Nontoxic single thyroid nodule (principal); D44.0 Neoplasm of uncertain behavior of thyroid gland

== ENCOUNTER → 2023-11-11 | Outpatient (REF) | payer MEDICARE, OTHER ==
[~2023-11-11] MED LIST changes: -LIDOCAINE 1% MDV 20ML VIAL As Ordered ONE
== END ==
LOC: M LAB REF 16:55
PROVIDERS: ATTEND Internal Medicine
DX: M54.2 Cervicalgia (principal)

== ENCOUNTER → 2023-11-20 | Outpatient (CLI) | payer MEDICARE, OTHER | LOC: M RAD 16:30 | PROVIDERS: ATTEND Internal Medicine | DX: M54.50 Low back pain, unspecified (principal); M47.816 Spondylosis without myelopathy or radiculopathy, lumbar region; M47.817 Spondylosis without myelopathy or radiculopathy, lumbosacral region ==

== ENCOUNTER → 2023-11-28 | Outpatient (CLI) | payer MEDICARE, OTHER | LOC: M PAIN 15:30 | PROVIDERS: ATTEND Anesthesiology | DX: M54.50 Low back pain, unspecified (principal); Z79.891 Long term (current) use of opiate analgesic; M79.10 Myalgia, unspecified site; M79.18 Myalgia, other site; I10 Essential (primary) hypertension; K21.9 Gastro-esophageal reflux disease without esophagitis; E66.01 Morbid (severe) obesity due to excess calories; M47.812 Spondylosis without myelopathy or radiculopathy, cervical region; M47.816 Spondylosis without myelopathy or radiculopathy, lumbar region; E78.5 Hyperlipidemia, unspecified; E03.9 Hypothyroidism, unspecified; E55.9 Vitamin D deficiency, unspecified; Z79.890 Hormone replacement therapy; Z79.899 Other long term (current) drug therapy; Z88.0 Allergy status to penicillin; Z88.2 Allergy status to sulfonamides; Z88.8 Allergy status to other drugs, medicaments and biological substances; Z68.42 Body mass index [BMI] 45.0-49.9, adult ==

== ENCOUNTER → 2023-12-16 | Outpatient (CLI) | payer MEDICARE, OTHER ==
[~2023-12-16] MED LIST changes: +GABA-1172 PO; -GABA-282 PO; +TRIAMCINOLONE ACETONIDE SUSP 40MG/ML 1ML VIAL As Ordered ONE
== END ==
LOC: M PAIN 16:30
PROVIDERS: ATTEND Anesthesiology
DX: M79.18 Myalgia, other site (principal); G89.29 Other chronic pain; I10 Essential (primary) hypertension; M47.812 Spondylosis without myelopathy or radiculopathy, cervical region; M47.816 Spondylosis without myelopathy or radiculopathy, lumbar region; K21.9 Gastro-esophageal reflux disease without esophagitis; E66.01 Morbid (severe) obesity due to excess calories; E78.5 Hyperlipidemia, unspecified; E03.9 Hypothyroidism, unspecified; E55.9 Vitamin D deficiency, unspecified; N39.46 Mixed incontinence; Z79.890 Hormone replacement therapy; Z79.891 Long term (current) use of opiate analgesic; Z79.899 Other long term (current) drug therapy; Z88.1 Allergy status to other antibiotic agents; Z88.2 Allergy status to sulfonamides; Z88.8 Allergy status to other drugs, medicaments and biological substances
CPT/HCPCS: 20552; J0665; J3301

== ENCOUNTER → 2024-02-10 | Outpatient (CLI) | payer MEDICARE, OTHER ==
[~2024-02-10] MED LIST changes: +META-10 PO; -META1TAB22 PO; -TRIAMCINOLONE ACETONIDE SUSP 40MG/ML 1ML VIAL As Ordered ONE
== END ==
LOC: M RAD 13:21
PROVIDERS: ATTEND Urology
DX: R10.31 Right lower quadrant pain (principal); N20.0 Calculus of kidney

== ENCOUNTER → 2024-02-11 | Outpatient (CLI) | payer MEDICARE, OTHER | LOC: M PAIN 13:15 | PROVIDERS: ATTEND Anesthesiology | DX: G89.29 Other chronic pain (principal); M51.16 Intervertebral disc disorders with radiculopathy, lumbar region; I10 Essential (primary) hypertension; K21.9 Gastro-esophageal reflux disease without esophagitis; E03.9 Hypothyroidism, unspecified; E78.5 Hyperlipidemia, unspecified; E55.9 Vitamin D deficiency, unspecified; M47.812 Spondylosis without myelopathy or radiculopathy, cervical region; M47.816 Spondylosis without myelopathy or radiculopathy, lumbar region; Z88.1 Allergy status to other antibiotic agents; Z88.2 Allergy status to sulfonamides; Z88.8 Allergy status to other drugs, medicaments and biological substances; Z79.890 Hormone replacement therapy; Z79.891 Long term (current) use of opiate analgesic; Z79.899 Other long term (current) drug therapy ==

== ENCOUNTER → 2024-03-01 | Outpatient (CLI) | payer MEDICARE, OTHER ==
[~2024-03-01] MED LIST changes: +ISOVUE-370 76% 100ML VIAL As Ordered ONE
== END ==
LOC: M RAD 13:30
PROVIDERS: ATTEND Nurse Practitioner Family
DX: N28.9 Disorder of kidney and ureter, unspecified (principal); D35.02 Benign neoplasm of left adrenal gland
CPT/HCPCS: 74170; Q9967

== ENCOUNTER → 2024-03-17 | Outpatient (REF) | payer MEDICARE, OTHER ==
[~2024-03-17] MED LIST changes: -ISOVUE-370 76% 100ML VIAL As Ordered ONE
[2024-03-17 18:55] LABS: APPEARANCE, URINE HAZY (CLEAR); BACTERIA, URINE AUTO NEGATIVE (NEGATIVE); BILIRUBIN, URINE AUTO NEGATIVE (NEGATIVE); BLOOD, URINE BLOOD NEGATIVE (NEGATIVE); COLOR, URINE YELLOW (YELLOW); GLUCOSE, URINE (UA) AUTO NEGATIVE (NEGATIVE); KETONE, URINE AUTO NEGATIVE (NEGATIVE); LEUKOCYTE ESTERASE, URINE AUTO NEGATIVE (NEGATIVE); MUCUS, URINE SMALL (NEGATIVE); NITRITE, URINE AUTO NEGATIVE (NEGATIVE); PROTEIN, URINE AUTO 1+ mg/dL (NEGATIVE); RBC, URINE AUTO 1 /HPF (0-3); SPECIFIC GRAVITY URINE AUTO 1.025 (1.002-1.035); SQUAMOUS EPITHELIAL CELL UR AU 1 /HPF (0-6); WBC, URINE AUTO 3 /HPF (0-3)
== END ==
LOC: M SMT 17:10
PROVIDERS: ATTEND Nurse Practitioner Family
DX: R39.9 Unspecified symptoms and signs involving the genitourinary system (principal)

== ENCOUNTER → 2024-04-21 | Outpatient (CLI) | payer MEDICARE, OTHER | LOC: M RAD 10:55 | PROVIDERS: ATTEND Otolaryngology | DX: E04.1 Nontoxic single thyroid nodule (principal); R59.9 Enlarged lymph nodes, unspecified ==

== ENCOUNTER → 2024-04-23 | Outpatient (CLI) | payer MEDICARE, OTHER ==
[2024-04-23 16:22] LABS: HEMATOCRIT 45.1 % (36.0-47.0); HEMOGLOBIN 14.7 g/dl (12.0-15.5); MEAN CORPUSCULAR HEMOGLOBIN 29.9 pg (27.0-33.0); MEAN CORPUSCULAR HGB CONC 32.6 g/dl (32.0-36.5); MEAN CORPUSCULAR VOLUME 91.7 fl (80.0-96.0); PLATELET COUNT, AUTOMATED 204 10^3/uL (150-450); RED BLOOD COUNT 4.92 10^6/uL (4.00-5.40); WHITE BLOOD COUNT 6.4 10^3/uL (4.0-10.0)
[2024-04-23 16:52] LABS: BLOOD UREA NITROGEN 13 MG/DL (9-23); CARBON DIOXIDE LEVEL 31 MMOL/L (20-31); CHLORIDE LEVEL 104 MMOL/L (98-107); CREATININE FOR GFR 0.92 MG/DL (0.55-1.30); GLOMERULAR FILTRATION RATE > 60.0 (>51); GLUCOSE, FASTING 92 MG/DL (60-100); POTASSIUM SERUM 3.8 MMOL/L (3.5-5.1); SODIUM LEVEL 142 MMOL/L (136-145)
== END ==
LOC: M RAD 15:17
PROVIDERS: ATTEND Nurse Practitioner Family
DX: Z01.818 Encounter for other preprocedural examination (principal)

== ENCOUNTER → 2024-04-28 | Outpatient (REF) | payer MEDICARE, OTHER ==
[~2024-04-28] MED LIST changes: -SPIR-10; +SPIR-10 PO; -TORS20TA2; +TORS20TA2 PO
[2024-04-28 14:51] LABS: APPEARANCE, URINE MANUAL CLEAR (CLEAR); COLOR, URINE MANUAL YELLOW (YELLOW)
[2024-04-28 14:52] LABS: BILIRUBIN, URINE MANUAL NEGATIVE (NEGATIVE); GLUCOSE, URINE (UA) MANUAL NEGATIVE (NEGATIVE); KETONE, URINE MANUAL NEGATIVE (NEGATIVE); NITRITE, URINE MANUAL NEGATIVE (NEGATIVE); PROTEIN, URINE MANUAL TRACE mg/dL (NEGATIVE); SPECIFIC GRAVITY,URINE MANUAL 1.025 (1.002-1.035); UROBILINOGEN, URINE MANUAL NORMAL (NORMAL)
[2024-04-28 14:53] LABS: BLOOD URINE MANUAL NEGATIVE (NEGATIVE); LEUKOCYTE ESTERASE, URINE MAN NEGATIVE (NEGATIVE)
[2024-04-28 15:03] LABS: BACTERIA, URINE SMALL AMOUNT; RBC, URINE NONE SEEN /hpf (0-3); SQUAMOUS EPITHELIAL CELL URINE MOD AMOUNT /hpf (SMALL AMT); WBC, URINE 0-1 /hpf (0-3)
[2024-04-28 15:04] LABS: MUCUS, URINE LARGE AMOUNT (NEGATIVE)
== END ==
LOC: M SMT 14:30
PROVIDERS: ATTEND Nurse Practitioner Family
DX: Z01.818 Encounter for other preprocedural examination (principal); Z79.899 Other long term (current) drug therapy

== ENCOUNTER → 2024-05-07 | Outpatient (CLI) | payer MEDICARE, OTHER ==
[~2024-05-07] MED LIST changes: +ISOVUE-370 76% 100ML VIAL As Ordered ONE
== END ==
LOC: M RAD 15:23
PROVIDERS: ATTEND Otolaryngology
DX: R22.1 Localized swelling, mass and lump, neck (principal); J32.0 Chronic maxillary sinusitis

== ENCOUNTER 2024-05-11 06:14 | Day surgery (SDC) | payer MEDICARE, OTHER ==
[~2024-05-11] VITALS: Ht 170.2 cm; Wt 144.2 kg
[2024-05-11] VITALS (8 sets, daily range): BP systolic 121–149; BP diastolic 61–87; TEMP 97.2–98.4; O2SAT 90–97
[~2024-05-11 06:14] MED LIST changes: -ISOVUE-370 76% 100ML VIAL As Ordered ONE
[2024-05-11] MEDS ORDERED: LR 1,000 ML IV SCH (06:45)
[2024-05-11] MEDS ORDERED: ACETAMINOPHEN 325 MG TAB PO PRN (07:35)
[2024-05-11] MEDS ORDERED: PERCOCET 5MG/325MG TAB PO PRN (07:35)
[2024-05-11] MEDS ORDERED: ONDANSETRON 4MG 2ML VIAL IV PRN (07:35)
[2024-05-11] MEDS ORDERED: HOME MED LIST COMPLETE! XX SCH (07:45)
[2024-05-11] MEDS: ceFAZolin SOD 3 GM in DEXTROSE 5% (D5W) MINI-BAG PLU 1... IV ONE (08:00)
[2024-05-11] MEDS ORDERED: fentaNYL 250 MCG/5 ML INJECTION As Ordered ONE (08:35)
[2024-05-11] MEDS ORDERED: propofoL 200 MG/20 ML VIAL As Ordered ONE (08:35)
[2024-05-11] MEDS ORDERED: MIDAZOLAM INJ 2MG/2ML VIAL As Ordered ONE (08:35)
[2024-05-11] MEDS ORDERED: GLYCOPYRROLATE INJ 0.2 MG/ML 2 ML VIAL As Ordered ONE (08:35)
[2024-05-11] MEDS ORDERED: ROCURONIUM BROMIDE 50MG/5ML VIAL As Ordered ONE (08:35)
[2024-05-11] MEDS ORDERED: ONDANSETRON 4MG 2ML VIAL As Ordered ONE (08:35)
[2024-05-11] MEDS ORDERED: SUGAMMADEX SODIUM 500 MG/5 ML VIAL (BRIDION) As Ordered ONE (08:35)
[2024-05-11] MEDS ORDERED: ACETAMINOPHEN 1000MG/100ML IV BAG As Ordered ONE (08:35)
[2024-05-11] MEDS ORDERED: LIDOCAINE 2% 100MG/5ML SDV (FOR ANES.) As Ordered ONE (08:35)
[2024-05-11] MEDS ORDERED: dexmedeTOMIDine (4MCG/ML)200MCG/50ML BTL (PRECEDEX) As Ordered ONE (08:37)
[2024-05-11] MEDS ORDERED: SUCCINYLCHOLINE 100MG/5ML SYRINGE As Ordered ONE (08:46)
[2024-05-11] MEDS ORDERED: LABETALOL 100MG/20ML VIAL As Ordered ONE (09:12)
[2024-05-11] MEDS: MANNITOL 25% 12.5GM 50ML VIAL As Ordered ONE (09:39)
[2024-05-11] MEDS ORDERED: fentaNYL 100 MCG/2 ML INJECTION As Ordered ONE (11:52)
[2024-05-11] MEDS: ceFAZolin SODIUM 3 GM VIAL As Ordered ONE (12:00)
[2024-05-11] MEDS: LIDOCAINE 1% SDV 30ML VIAL As Ordered ONE (12:00)
[2024-05-11] MEDS ORDERED: fentaNYL 100 MCG/2 ML INJECTION IV PRN (12:15)
[2024-05-11] MEDS: LR 1,000 ML IV SCH (12:15)
[2024-05-11] MEDS: oxyCODONE 5MG TAB PO PRN (12:51)
[2024-05-11] MEDS: ONDANSETRON 4MG 2ML VIAL IV PRN (12:51)
[2024-05-11] MEDS: HYDROMORPHONE HCL 0.5 MG/ 0.5 ML SYRINGE IV PRN (12:51)
[2024-05-11 13:00] LABS: HEMATOCRIT 43.8 % (36.0-47.0); HEMOGLOBIN 14.1 g/dl (12.0-15.5); MEAN CORPUSCULAR HEMOGLOBIN 29.6 pg (27.0-33.0); MEAN CORPUSCULAR HGB CONC 32.2 g/dl (32.0-36.5); MEAN CORPUSCULAR VOLUME 91.8 fl (80.0-96.0); PLATELET COUNT, AUTOMATED 186 10^3/uL (150-450); RED BLOOD COUNT 4.77 10^6/uL (4.00-5.40); WHITE BLOOD COUNT 7.9 10^3/uL (4.0-10.0)
[2024-05-11 13:27] LABS: BLOOD UREA NITROGEN 11 MG/DL (9-23); CALCIUM LEVEL 8.8 MG/DL (8.5-10.1); CARBON DIOXIDE LEVEL 26 MMOL/L (20-31); CHLORIDE LEVEL 105 MMOL/L (98-107); CREATININE FOR GFR 0.83 MG/DL (0.55-1.30); GLOMERULAR FILTRATION RATE > 60.0 (>51); GLUCOSE, FASTING 168 MG/DL (60-100); POTASSIUM SERUM 4.3 MMOL/L (3.5-5.1); SODIUM LEVEL 141 MMOL/L (136-145)
[2024-05-11] MEDS ORDERED: ceFAZolin SOD 3 GM in DEXTROSE 5% (D5W) MINI-BAG PLU 1... IV ONE (14:30)
[2024-05-11] MEDS: NS (Normal Saline) 0.9% 1,000 ML IV SCH (14:55)
[2024-05-11] MEDS: ceFAZolin SOD 1 GM in DEXTROSE 5% (D5W) ADV/MINI-BAG 50 ML IV SCH (16:34)
[2024-05-11] MEDS: PERCOCET 5MG/325MG TAB PO PRN (16:42)
[2024-05-11] MEDS: DOCUSATE SODIUM 100MG CAPSULE PO SCH (21:01)
[2024-05-11] MEDS: FAMOTIDINE 20 MG TAB PO SCH (21:01)
[2024-05-11] MEDS: SIMVASTATIN 20 MG TAB PO SCH (21:01)
[2024-05-11] MEDS ORDERED: PILL CUTTER 1 EACH XX PRN (23:05)
[2024-05-11] MEDS: traZODone 50 MG TAB PO ONE (23:15)
[2024-05-12 04:43] VITALS: BP 124/68; TEMP 97.5; O2SAT 97
[2024-05-12] MEDS: LEVOTHYROXINE 50MCG TABLET (0.05MG) PO SCH (05:03)
[2024-05-12 06:10] LABS: HEMATOCRIT 38.6 % (36.0-47.0); HEMOGLOBIN 12.2 g/dl (12.0-15.5); MEAN CORPUSCULAR HEMOGLOBIN 28.8 pg (27.0-33.0); MEAN CORPUSCULAR HGB CONC 31.6 g/dl (32.0-36.5); PLATELET COUNT, AUTOMATED 200 10^3/uL (150-450); RED BLOOD COUNT 4.24 10^6/uL (4.00-5.40); WHITE BLOOD COUNT 10.7 10^3/uL (4.0-10.0)
[2024-05-12 06:33] LABS: BLOOD UREA NITROGEN 11 MG/DL (9-23); CALCIUM LEVEL 8.4 MG/DL (8.5-10.1); CARBON DIOXIDE LEVEL 28 MMOL/L (20-31); CHLORIDE LEVEL 107 MMOL/L (98-107); GLOMERULAR FILTRATION RATE > 60.0 (>51); GLUCOSE, FASTING 96 MG/DL (60-100); POTASSIUM SERUM 4.4 MMOL/L (3.5-5.1); SODIUM LEVEL 142 MMOL/L (136-145)
[2024-05-12 08:00] VITALS: BP 126/70; TEMP 97.5; O2SAT 97
[2024-05-12] MEDS: CETIRIZINE (ZyrTEC) 10 MG TAB PO SCH (09:37)
[2024-05-12 12:00] VITALS: BP 121/61; TEMP 97.6; O2SAT 98
== END 2024-05-12 13:40 | disposition home or self-care (01) ==
LOC: M SDC 06:14 → M OR 06:14 → UNDOADMIN 06:14 → M ED INP 06:14 → EDSTATUS 07:30 → M ED INP 14:20 → M MS5PR 14:20 → M OR 14:20 → M MS5PR 14:20 → M SDC 05-12 13:40 → UNDODISIN 05-12 13:40
PROVIDERS: ATTEND Urology
DX: C64.2 Malignant neoplasm of left kidney, except renal pelvis (principal); N11.9 Chronic tubulo-interstitial nephritis, unspecified; I11.0 Hypertensive heart disease with heart failure; I50.32 Chronic diastolic (congestive) heart failure; E03.9 Hypothyroidism, unspecified; D35.02 Benign neoplasm of left adrenal gland; E78.00 Pure hypercholesterolemia, unspecified; E66.01 Morbid (severe) obesity due to excess calories; K21.9 Gastro-esophageal reflux disease without esophagitis; Z79.899 Other long term (current) drug therapy; Z79.890 Hormone replacement therapy; Z88.1 Allergy status to other antibiotic agents; Z88.8 Allergy status to other drugs, medicaments and biological substances; Z87.440 Personal history of urinary (tract) infections
CPT/HCPCS: 36415; 50543; 80048; 81025; 85027; 86850; 86900; 86901; 88307; J0131; J0330; J0665; J0690; J1100; J1171; J1596; J1920; J2150; J2250; J2405; J3010

== ENCOUNTER → 2024-05-26 | Outpatient (REF) | payer MEDICARE, OTHER ==
[2024-05-26 17:51] LABS: APPEARANCE, URINE CLEAR (CLEAR); BACTERIA, URINE AUTO NEGATIVE (NEGATIVE); BILIRUBIN, URINE AUTO NEGATIVE (NEGATIVE); BLOOD, URINE BLOOD NEGATIVE (NEGATIVE); COLOR, URINE STRAW (YELLOW); GLUCOSE, URINE (UA) AUTO NEGATIVE (NEGATIVE); KETONE, URINE AUTO NEGATIVE (NEGATIVE); LEUKOCYTE ESTERASE, URINE AUTO NEGATIVE (NEGATIVE); MUCUS, URINE SMALL (NEGATIVE); NITRITE, URINE AUTO NEGATIVE (NEGATIVE); PROTEIN, URINE AUTO NEGATIVE (NEGATIVE); RBC, URINE AUTO 1 /HPF (0-3); SPECIFIC GRAVITY URINE AUTO 1.008 (1.002-1.035); SQUAMOUS EPITHELIAL CELL UR AU 0 /HPF (0-6); UROBILINOGEN, URINE AUTO 0.2 mg/dL (0.0-2.0); WBC, URINE AUTO 0 /HPF (0-3)
== END ==
LOC: M SMT 17:02
PROVIDERS: ATTEND Nurse Practitioner Family
DX: Z48.89 Encounter for other specified surgical aftercare (principal); Z79.899 Other long term (current) drug therapy

== ENCOUNTER → 2024-05-28 | Outpatient (CLI) | payer MEDICARE, OTHER ==
[2024-05-28 15:08] LABS: HEMATOCRIT 44.3 % (36.0-47.0); HEMOGLOBIN 14.2 g/dl (12.0-15.5); MEAN CORPUSCULAR HEMOGLOBIN 28.7 pg (27.0-33.0); MEAN CORPUSCULAR HGB CONC 32.1 g/dl (32.0-36.5); MEAN CORPUSCULAR VOLUME 89.5 fl (80.0-96.0); PLATELET COUNT, AUTOMATED 291 10^3/uL (150-450); RED BLOOD COUNT 4.95 10^6/uL (4.00-5.40); WHITE BLOOD COUNT 6.4 10^3/uL (4.0-10.0)
[2024-05-28 15:41] LABS: BLOOD UREA NITROGEN 14 MG/DL (9-23); CALCIUM LEVEL 9.2 MG/DL (8.5-10.1); CARBON DIOXIDE LEVEL 33 MMOL/L (20-31); CHLORIDE LEVEL 100 MMOL/L (98-107); CREATININE FOR GFR 0.96 MG/DL (0.55-1.30); GLOMERULAR FILTRATION RATE > 60.0 (>51); GLUCOSE, FASTING 93 MG/DL (60-100); POTASSIUM SERUM 4.1 MMOL/L (3.5-5.1); SODIUM LEVEL 141 MMOL/L (136-145)
== END ==
LOC: M LAB 14:06
PROVIDERS: ATTEND Nurse Practitioner Family
DX: Z48.89 Encounter for other specified surgical aftercare (principal)

== ENCOUNTER → 2024-10-25 | Outpatient (CLI) | payer MEDICARE, OTHER | LOC: M RAD 13:16 | PROVIDERS: ATTEND Otolaryngology | DX: E04.2 Nontoxic multinodular goiter (principal) ==

== ENCOUNTER → 2024-11-01 | Outpatient (REF) | payer MEDICARE, OTHER ==
[2024-11-01 18:03] LABS: APPEARANCE, URINE CLEAR (CLEAR); BACTERIA, URINE AUTO NEGATIVE (NEGATIVE); BILIRUBIN, URINE AUTO NEGATIVE (NEGATIVE); BLOOD, URINE BLOOD NEGATIVE (NEGATIVE); GLUCOSE, URINE (UA) AUTO NEGATIVE (NEGATIVE); KETONE, URINE AUTO NEGATIVE (NEGATIVE); LEUKOCYTE ESTERASE, URINE AUTO NEGATIVE (NEGATIVE); MUCUS, URINE SMALL (NEGATIVE); NITRITE, URINE AUTO NEGATIVE (NEGATIVE); PROTEIN, URINE AUTO NEGATIVE (NEGATIVE); RBC, URINE AUTO 1 /HPF (0-3); SPECIFIC GRAVITY URINE AUTO 1.010 (1.002-1.035); SQUAMOUS EPITHELIAL CELL UR AU 1 /HPF (0-6); UROBILINOGEN, URINE AUTO 0.2 mg/dL (0.0-2.0); WBC, URINE AUTO 0 /HPF (0-3)
== END ==
LOC: M SMT 16:48
PROVIDERS: ATTEND Urology
DX: N39.0 Urinary tract infection, site not specified (principal)

== ENCOUNTER → 2024-11-24 | Outpatient (REF) | payer MEDICARE, OTHER | LOC: M LAB REF 14:38 | PROVIDERS: ATTEND Nurse Practitioner Adult Health | DX: M35.9 Systemic involvement of connective tissue, unspecified (principal) ==

== ENCOUNTER → 2024-12-06 | Outpatient (CLI) | payer MEDICARE, OTHER ==
[2024-12-06 15:13] LABS: BASO # 0.0 10^3/uL (0.0-0.2); BASO % 0.5 % (0.0-1.0); EOS # 0.2 10^3/uL (0.0-0.5); EOS % 2.5 % (0.0-3.0); LYMPH # 1.9 10^3/uL (1.5-5.0); LYMPH % 25.5 % (24.0-44.0); MONO # 0.5 10^3/uL (0.0-0.8); MONO % 7.0 % (2.0-8.0); NEUTROPHILS # 4.8 10^3/uL (1.5-8.5); NEUTROPHILS % 64.2 % (36.0-66.0); PLATELET COUNT, AUTOMATED 224 10^3/uL (150-450)
[2024-12-06 15:18] LABS: ALT/SGPT 19 U/L (7.0-40); AST/SGOT 20 U/L (<34); CALCIUM LEVEL 8.7 MG/DL (8.5-10.1); CARBON DIOXIDE LEVEL 29 MMOL/L (20-31); CHLORIDE LEVEL 102 MMOL/L (98-107); CREATININE FOR GFR 0.90 MG/DL (0.55-1.30); GLOMERULAR FILTRATION RATE 77.4 (>51); POTASSIUM SERUM 3.7 MMOL/L (3.5-5.1); RHEUMATOID FACTOR QUANT < 3.5 IU/ML (<14); SODIUM LEVEL 140 MMOL/L (136-145)
[2024-12-06 15:19] LABS: ERYTHROCYTE SEDIMENTATION RATE 70 mm/hr (0-30)
[2024-12-06 15:20] LABS: THYROID PEROXIDASE ANTIBODY 431 U/ML (<60.0)
== END ==
LOC: M PLALAB 10:18
PROVIDERS: ATTEND Allergy & Immunology Allergy
DX: L50.1 Idiopathic urticaria (principal)

== ENCOUNTER → 2025-01-15 | Outpatient (CLI) | payer MEDICARE, OTHER ==
[2025-01-15 15:52] LABS: CALCIUM LEVEL 8.2 MG/DL (8.5-10.1); CARBON DIOXIDE LEVEL 30.0 MMOL/L (20-31); CHLORIDE LEVEL 102.0 MMOL/L (98-107); CREATININE FOR GFR 0.91 MG/DL (0.55-1.30); GLOMERULAR FILTRATION RATE 76.4 (>51); POTASSIUM SERUM 3.7 MMOL/L (3.5-5.1); SODIUM LEVEL 142.0 MMOL/L (136-145)
== END ==
LOC: M LAB 14:22
PROVIDERS: ATTEND Urology
DX: C64.2 Malignant neoplasm of left kidney, except renal pelvis (principal)

== ENCOUNTER → 2025-01-20 | Outpatient (CLI) | payer MEDICARE, OTHER ==
[~2025-01-20] MED LIST changes: +ISOVUE-370 76% 100 ML VIAL ONE
== END ==
LOC: M PLAIMG 12:26
PROVIDERS: ATTEND Urology
DX: C64.2 Malignant neoplasm of left kidney, except renal pelvis (principal)
CPT/HCPCS: 74170; Q9967

== ENCOUNTER → 2025-01-28 | Outpatient (CLI) | payer MEDICARE, OTHER ==
[~2025-01-28] MED LIST changes: -ISOVUE-370 76% 100 ML VIAL ONE
== END ==
LOC: M WHC 14:40
PROVIDERS: ATTEND Internal Medicine
DX: Z12.31 Encounter for screening mammogram for malignant neoplasm of breast (principal)